=== PATIENT | female | born 1985 | race Caucasian/White ===

== ENCOUNTER → 2019-02-16 12:44 | Outpatient (CLI) | payer MEDICAID, SELFPAY ==
--- NOTE | 2019-02-16 12:51 | US_ITS ---
STUDY: FIRST TRIMESTER OBSTETRICAL ULTRASOUND REASON FOR EXAM: Female, 33 years old. Right-sided intermittent pelvic pain. LMP: January 06, 2019. TECHNIQUE: Transvaginal TECHNICAL QUALITY: Adequate. PRIOR ULTRASOUND: None. FINDINGS: There is visualization of a single gestational sac in a normal intrauterine position. The mean sac diameter (MSD) measures 1.03 cm, indicating an estimated gestational age (EGA) of 5 weeks, 5 days. The gestational sac shape is within normal limits. There is a visualized yolk sac. The yolk sac measures 3.5 mm. The placenta is non-visualized. There is no demonstrated embryo ( pole). The estimated gestation age (EGA) by LMP is 5 weeks, 6 days. The estimated date of delivery (JENY) by LMP is October 13, 2019. The estimated gestation age (EGA) by US is 5 weeks, 5 days. The estimated date of delivery (JENY) by US is October 14, 2019. The uterus measures 9.1 cm x 7 cm x 4.7 cm. There is no demonstrated uterine fibroid. The cervix is closed. The right ovary measures 2.6 cm x 2.9 cm x 1.1 cm. There is no right ovarian cyst. There is no visualized right adnexal mass or complex lesion. The left ovary measures 3 cm x 3.3 cm x 3 cm.. A dominant cyst is seen in the left ovary measuring 1.9 cm x 1.9 cm x 1.6 cm. This may represent a corpus luteum cyst. There is no visualized left adnexal mass or complex lesion. There is no fluid in the cul de sac. US/Transvaginal w/Preg US IMPRESSION: A uterine gestation with mean gestational age of 5 weeks and 5 days. No pole is seen. Follow-up is recommended. Findings suggestive of a left corpus luteum cyst. Electronically Signed: Ron Price, at 14:17 EDT , Service support ,
[2019-02-16 19:43] LABS: Chlamydia Trachomatis by PCR Negative (Negative); Neisserai gonorrhoeae by PCR Negative (Negative); Probe Check PASS; Sample Adequacy Control PASS; Specimen Processing Control PASS
== END ==
PROVIDERS: Referring Provider Nurse Practitioner Women's Health; Visit Provider Nurse Practitioner Women's Health
DX: A64 Unspecified sexually transmitted disease (principal)
CPT/HCPCS: 76817; 87086; 87088; 87186; 87491; 87591

== ENCOUNTER → 2019-03-15 14:14 | Outpatient (CLI) | payer MEDICAID, SELFPAY ==
[2019-03-15 13:18] VITALS: BMI 21.4
[2019-03-15 15:17] LABS: Basophil# 0.02 X10^3/uL; Basophil% 0.2 % (0-1); Eosinophil# 0.06 X10^3/uL; Eosinophils% 0.7 % (0-5); Hematocrit 35.9 % (37-47); Hemoglobin 12.4 g/dl (12.0-15.0); Lymphocyte % 31.2 % (19-41); Mean Corp Hgb Conc 34.5 g/gl (32-36); Mean Corpuscular Volume 84.1 fL (81-99); Mean Platelet Vol. 9.9 fl (6.2-12.0); Monocyte# 0.39 X10^3/uL; Monocyte% 4.9 % (0-10); Neutrophil # 5.04 X10^3/uL (2.7-7.7); Neutrophil % 62.9 % (47-70); Platelet Count 189 K/mm3 (150-450); RBC Distribution Width CV 12.7 % (11.6-14.6); RBC Distribution Width SD 38.6 fl (35.1-43.9); Red Blood Count 4.27 M/mm3 (4.2-5.4)
[2019-03-15 15:28] LABS: POSITIVE COUNT NO; POSITIVE DIFFERENTIAL NO; POSITIVE MORPHOLOGY NO
[2019-03-15 15:43] LABS: ALB/GLOB Ratio 1.2 RATIO (0.9-2.4); AST(SGOT) 13 U/L (15-37); Alanine Aminotransfer ALT/SGPT 17 U/L (13-56); Alkaline Phosphatase 55 U/L (45-117); Anion Gap 7 (5-15); BUN 12 mg/dL (7-18); BUN/Creat Ratio 20.2 RATIO (10-20); Chloride 104 mmol/L (98-107); Creatinine, Serum 0.59 mg/dL (0.55-1.02); EST Glomerular Filtration Rate 125 mL/min (>60); Est Glom Filt Rate - Afr Amer 152 mL/min (>60); Globulin 3.3 g/dL (2.2-4.2); Glucose 69 mg/dL (74-106); Potassium 3.9 mmol/L (3.5-5.1); Protein, Total 7.3 g/dL (6.4-8.2); Sodium Level 138 mmol/L (136-145)
[2019-03-15 16:36] LABS: HIV - WCH Non-Reactive (Nonreactive); Rubella IgG 21.4 IU/mL
[2019-03-15 16:55] LABS: Amphetamine Urine VISTA NEGATIVE (<1000 ng/mL); Barbiturate Urine VISTA NEGATIVE (< 200 ng/mL); Benzodiazepine Urine VISTA NEGATIVE (< 200 ng/mL); Cocaine Urine VISTA NEGATIVE (< 300 ng/mL); Ecstacy Urine VISTA NEGATIVE (< 500 ng/mL); Methadone Urine VISTA NEGATIVE (< 300 ng/mL); PCP Urine VISTA NEGATIVE (< 25 ng/mL); THC Urine VISTA POSITIVE (< 50 ng/mL); Vista UDS pH Range 7
[2019-03-17 11:07] LABS: HEPATITIS B SURFACE AG Negative (Negative)
[2019-03-18 02:51] LABS: Rapid Plasmin Reagin (RPR) NONREACTIVE (NONREACTIVE)
== END ==
PROVIDERS: Referring Provider Obstetrics & Gynecology; Visit Provider Obstetrics & Gynecology
DX: O09.90 Supervision of high risk pregnancy, unspecified, unspecified trimester (principal); F11.11 Opioid abuse, in remission; Z3A.00 Weeks of gestation of pregnancy not specified
CPT/HCPCS: 36415; 80053; 80307; 85025; 86592; 86703; 86762; 86850; 86900; 87340

== ENCOUNTER → 2019-04-12 12:11 | Outpatient (CLI) | payer MEDICAID, SELFPAY ==
[2019-04-12 11:52] VITALS: BMI 21.4
[2019-04-12 13:13] LABS: ALB/GLOB Ratio 0.9 RATIO (0.9-2.4); AST(SGOT) 20 U/L (15-37); Alanine Aminotransfer ALT/SGPT 23 U/L (13-56); Albumin, Serum 3.3 g/dL (3.2-5.0); Alkaline Phosphatase 47 U/L (45-117); Anion Gap 9 (5-15); BUN 14 mg/dL (7-18); BUN/Creat Ratio 22.5 RATIO (10-20); Calcium,Total 8.5 mg/dL (8.5-10.1); Chloride 106 mmol/L (98-107); Creatinine, Serum 0.62 mg/dL (0.55-1.02); EST Glomerular Filtration Rate 118 mL/min (>60); Est Glom Filt Rate - Afr Amer 143 mL/min (>60); Globulin 3.7 g/dL (2.2-4.2); Glucose 66 mg/dL (74-106); Sodium Level 140 mmol/L (136-145)
[2019-04-12 15:59] LABS: Protein, Urine (Random) 13.5 mg/dL (<11.9); Protein:Creat Ratio 98 mg/g CRE (0-200)
== END ==
PROVIDERS: Referring Provider Obstetrics & Gynecology; Visit Provider Obstetrics & Gynecology
DX: O16.1 Unspecified maternal hypertension, first trimester (principal); Z3A.13 13 weeks gestation of pregnancy
CPT/HCPCS: 36415; 80053; 82570; 84156

== ENCOUNTER → 2019-05-24 08:06 | Outpatient (CLI) | payer MEDICAID, SELFPAY ==
[2019-04-12 11:52] VITALS: BMI 21.4
[2019-05-13 10:53] VITALS: BMI 21.4
--- NOTE | 2019-05-24 08:09 | US_ITS ---
STUDY: SECOND AND THIRD TRIMESTER OBSTETRICAL ULTRASOUND REASON FOR EXAM: Female, 33 years old. Routine survey. LMP: January 06, 2019. TECHNIQUE: Transabdominal TECHNICAL QUALITY: Adequate. PRIOR ULTRASOUND: Comparison is made with prior ultrasound dated February 16, 2019. FINDINGS: There is a single intrauterine fetus. The fetus is in a cephalic presentation. There is demonstrated cardiac activity with a heart rate of 135 bpm. There is a normal amniotic fluid volume. The largest amniotic fluid pocket measures 3.6 cm. The amniotic fluid index (WILMA) is within normal limits. The placenta is anterior in location and is not low lying. There are Grade 1 placental changes. The cervix measures 3.9 cm in length. The adnexal regions are not visualized. BIOMETRY: BPD: 4.43 cm: 19 weeks, 3 days HC: 16.59 cm: 19 weeks, 3 days AC: 13.95 cm: 19 weeks, 3 days FL: 3.09 cm: 19 weeks, 5 days CI: 76% FL/BPD: 70% FL/HC: FL/AC: 22% HC/AC: 1.19 age by current US: 19 weeks, 4 days. JENY by current US: October 14, 2019. Estimated weight: 293 grams, +/- 43 grams, 30 %. Age by LMP: 19 weeks, 5 days. JENY by LMP: October 13, 2019. ANATOMY: Gender: Female Cranium: Normal lateral ventricles. Normal choroid plexus. Normal cerebellum. Normal cisterna magna. Normal face, nose and lips. Chest: Normal 4-chamber heart. Abdomen/Pelvis: Normal diaphragm. Normal stomach. Normal abdominal wall. Normal cord insertion. Normal 3 vessel cord. Normal kidneys. Normal bladder. Spine: Normal cervical spine. Normal thoracic spine. Normal lumbar spine. Normal sacrum. Extremities: Normal bilateral upper extremities. Normal bilateral lower extremities. US/OB Anatomy Scan IMPRESSION: Single live intrauterine gestation with a mean gestational age of 19 weeks and 4 days. Electronically Signed: Ron Price, at 12:36 EDT , Service support ,
== END ==
PROVIDERS: Referring Provider Obstetrics & Gynecology; Visit Provider Obstetrics & Gynecology
DX: O09.90 Supervision of high risk pregnancy, unspecified, unspecified trimester (principal); Z3A.00 Weeks of gestation of pregnancy not specified
CPT/HCPCS: 76805

== ENCOUNTER → 2019-06-09 16:45 | Outpatient (CLI) | payer MEDICAID, SELFPAY ==
[2019-06-09 15:26] VITALS: BMI 21.4
== END ==
PROVIDERS: Referring Provider Nurse Practitioner Women's Health; Visit Provider Nurse Practitioner Women's Health
DX: R10.2 Pelvic and perineal pain (principal)
CPT/HCPCS: 87086

== ENCOUNTER 2019-06-21 22:38 | Outpatient (CLI) | payer MEDICAID, SELFPAY ==
[2019-06-09 15:26] VITALS: BMI 21.4
[2019-06-21 23:11] VITALS: BMI 24.1
[2019-06-21 23:38] LABS: Bacteria 0 SEEN /hpf (None Seen); Mucous, Urine 0 SEEN /hpf (<or=2+)
[2019-06-21 23:39] LABS: Color, Urine Yellow (Yellow); Glucose, Dipstick Normal (Normal); Ketone-Dipstick Negative (Negative); Leukocyte Esterase-Dipstick Negative /ul (Negative); Nitrite-Dipstick Negative (Negative); Occult Blood-Urine 10 /ul (Negative); Protein-Dipstick Negative (Negative); Urine Bilirubin Dipstick Negative (Negative); Urine Clarity Clear (Clear); Urine Urobilinogen Normal (Normal)
[2019-06-21 23:49] LABS: Red Blood Cells-Urine 0-5 SEEN /hpf (0-5); Squamous Epithelial Cells - UA 0-5 SEEN /hpf (5-10); White Blood Cells 0-5 SEEN /hpf (0-5)
[2019-06-21 23:59] LABS: ROM Internal Control Test YES-OK TO RESULT pt. (Internal QC); ROM Patient Test Negative (Negative)
[2019-06-21 23:59] LABS: Protein, Urine (Random) 13.7 mg/dL (<11.9); Protein:Creat Ratio 114 mg/g CRE (0-200)
[2019-06-22] MEDS: Acetaminophen 500 MG Tablet 1000 MG PO (00:01)
--- NOTE | 2019-06-22 03:37 | OB.TRI.PN ---
Progress Notes Date of Service: 06/22/19 Progress Note: patient evaluated for vaginal pain. no cervical dilation or regular contractions, fht 150 reassuring and GA appropriate. ua and culture sent. vaginal pain in - tylenol given reassuring status dc home fu as scheduled Laboratory Studies: Laboratory Tests 06/21/19 06/21/19 06/21/19 Range/Units 23:22 23:20 23:20 Urine Color Yellow (Yellow) Urine Clarity Clear (Clear) Urine pH 6.0 (5.0 - 8.0) Ur Specific [place] 1.020 (1.002-1.030) Urine Protein Negative (Negative) mg/dl Urine Glucose (UA) Normal (Normal) mg/dl Urine Ketones Negative (Negative) mg/dl Urine Occult Blood 10 H (Negative) /ul Urine Nitrite Negative (Negative) Urine Bilirubin Negative (Negative) mg/dL Urine Urobilinogen Normal (Normal) mg/dl Ur Leukocyte Esterase Negative (Negative) /ul Urine RBC 0-5 SEEN (0-5) /hpf Urine WBC 0-5 SEEN (0-5) /hpf Ur Squamous Epith Cells 0-5 SEEN (5-10) /hpf Urine Bacteria 0 SEEN (None Seen) /hpf Urine Mucus 0 SEEN (<or=2+) /hpf U Random Total Protein 13.7 H (<11.9) mg/dL Urine Creatinine 120.00 (NO RANGE EST.) mg/dL Protein/Creatinin Ratio 114 (0-200) mg/g CRE Vag Amniotic Fld Detect Negative (Negative)
== END 2019-06-22 01:15 | disposition home or self-care (01) ==
LOC: WPOUT 23:00 → WP 23:05
PROVIDERS: Referring Provider Obstetrics & Gynecology; Visit Provider Obstetrics & Gynecology
DX: O26.90 Pregnancy related conditions, unspecified, unspecified trimester (principal); R10.2 Pelvic and perineal pain; Z3A.00 Weeks of gestation of pregnancy not specified
CPT/HCPCS: 59050; 81001; 82570; 84112; 84156; 87086; 87088; 99218; G0378

== ENCOUNTER → 2019-07-08 12:06 | Outpatient (CLI) | payer MEDICAID, SELFPAY ==
[2019-07-08 11:37] VITALS: BMI 24.1
[2019-07-08 13:16] LABS: Absolute Lymphocyte Count 1.57 X10^3/uL (0.83-4.51); Absolute Neutrophil Count 7.2 X10^3/uL (2.0-7.7); Basophil# 0.02 X10^3/uL; Basophil% 0.2 % (0-1); Eosinophil# 0.13 X10^3/uL; Eosinophils% 1.4 % (0-5); Hematocrit 35.5 % (37-47); Hemoglobin 11.8 g/dL (12.0-15.0); Lymphocyte # 1.57 X10^3/ul (4.0); Lymphocyte % 16.5 % (19-41); Mean Corp Hgb Conc 33.2 g/dL (32-36); Mean Corpuscular Hgb 29.8 pg (27.0-32.0); Mean Corpuscular Volume 89.6 fL (81-99); Monocyte% 6.3 % (0-10); NRBC Flagged by Analyzer 0 % (0-5); Neutrophil # 7.15 X10^3/uL (2.7-7.7); Neutrophil % 75.2 % (47-70); Platelet Count 205 K/mm3 (150-450); RBC Distribution Width CV 12.4 % (11.6-14.6); RBC Distribution Width SD 40.2 fl (35.1-43.9); Red Blood Count 3.96 M/mm3 (4.2-5.4); White Blood Count 9.5 K/mm3 (4.4-11.0)
[2019-07-08 13:26] LABS: Amphetamine Urine VISTA NEGATIVE (<1000 ng/mL); Barbiturate Urine VISTA NEGATIVE (< 200 ng/mL); Benzodiazepine Urine VISTA NEGATIVE (< 200 ng/mL); Cocaine Urine VISTA NEGATIVE (< 300 ng/mL); Ecstacy Urine VISTA NEGATIVE (< 500 ng/mL); Methadone Urine VISTA NEGATIVE (< 300 ng/mL); PCP Urine VISTA NEGATIVE (< 25 ng/mL); THC Urine VISTA NEGATIVE (< 50 ng/mL); Vista UDS pH Range 5
[2019-07-08 13:41] LABS: Glucose Challenge Gest 1H 50g 98 mg/dL (70-140)
== END ==
PROVIDERS: Referring Provider Obstetrics & Gynecology; Visit Provider Obstetrics & Gynecology
DX: Z34.92 Encounter for supervision of normal pregnancy, unspecified, second trimester (principal); F11.11 Opioid abuse, in remission; Z3A.26 26 weeks gestation of pregnancy
CPT/HCPCS: 36415; 80307; 82950; 85025

== ENCOUNTER → 2019-07-27 13:57 | Outpatient (CLI) | payer MEDICAID, SELFPAY ==
[2019-07-22 09:50] VITALS: BMI 24.5
[2019-07-22 10:51] VITALS: BMI 24.5
--- NOTE | 2019-07-27 13:59 | US_ITS ---
STUDY: SECOND AND THIRD TRIMESTER OBSTETRICAL ULTRASOUND REASON FOR EXAM: Female, 33 years old. Routine survey. LMP: January 06, 2019. TECHNIQUE: Transabdominal TECHNICAL QUALITY: Adequate. PRIOR ULTRASOUND: Comparison is made with prior study dated May 24, 2019. FINDINGS: There is a single intrauterine fetus. The fetus is in a breech presentation. There is demonstrated cardiac activity with a heart rate of 139 bpm. There is a normal amniotic fluid volume. The largest amniotic fluid pocket measures 4.6 cm x 7.4 cm. The amniotic fluid index (WILMA) is within normal limits. The placenta is anterior in location and is not low lying. There are Grade 0 placental changes. The cervix measures 4 cm in length. The bilateral adnexal regions are normal. BIOMETRY: BPD: 7.05 cm: 28 weeks, 3 days HC: 26.13 cm: 28 weeks, 3 days AC: 23.28 cm: 27 weeks, 5 days FL: 5.42 cm: 28 weeks, 5 days CI: 78% FL/BPD: 77% FL/HC: FL/AC: 23% HC/AC: 1.12 age by current US: 28 weeks, 3 days. JENY by current US: October 16, 2019. Estimated weight: 1175 grams, +/- 172 grams, 15 %. age by prior US: 28 weeks, 5 days. JENY by prior US: October 14, 2019. Age by LMP: 28 weeks, 6 days. JENY by LMP: October 13, 2019. US/OB Limited With Biometrics IMPRESSION: Single live intrauterine gestation with a mean gestational age of 28 weeks and 5 days. The measurements obtained today fall within the normal expected range. Electronically Signed: Ron Price, at 12:57 EDT , Service support ,
== END ==
PROVIDERS: Referring Provider Nurse Practitioner Women's Health; Visit Provider Nurse Practitioner Women's Health
DX: O99.320 Drug use complicating pregnancy, unspecified trimester (principal); F11.20 Opioid dependence, uncomplicated; Z3A.28 28 weeks gestation of pregnancy
CPT/HCPCS: 76816

== ENCOUNTER → 2019-08-24 13:22 | Outpatient (CLI) | payer MEDICAID, SELFPAY ==
[2019-07-22 10:51] VITALS: BMI 24.5
[2019-08-24 11:28] VITALS: BMI 24.5
--- NOTE | 2019-08-24 13:25 | US_ITS ---
STUDY: SECOND AND THIRD TRIMESTER OBSTETRICAL ULTRASOUND REASON FOR EXAM: Female, 33 years old growth. LMP: January 06, 2019. TECHNIQUE: Transabdominal TECHNICAL QUALITY: Adequate. PRIOR ULTRASOUND: Comparison is made with prior study dated July 27, 2019. FINDINGS: There is a single intrauterine fetus. The fetus is in a cephalic presentation. There is demonstrated cardiac activity with a heart rate of 125 bpm. There is a normal amniotic fluid volume. The largest amniotic fluid pocket measures 4.3 cm. The amniotic fluid index (WILMA) is 14.32 cm. The placenta is anterior in location and is not low lying. There are Grade 2 placental changes. The cervix measures 3.2 cm in length. The adnexal regions are not visualized. BIOMETRY: BPD: 8.35 cm: 33 weeks, 4 days HC: 30.74 cm: 34 weeks, 1 days AC: 26.53 cm: 30 weeks, 4 days FL: 6.25 cm: 32 weeks, 2 days CI: 77.2% FL/BPD: 75% FL/HC: FL/AC: 24% HC/AC: 1.16 age by current US: 33 weeks, 0 days. JENY by current US: October 12, 2019. Estimated weight: 1829 grams, +/- 274 grams, 14.3 %. age by prior US: 32 weeks, 3 days. JENY by prior US: October 16, 2019. Age by LMP: 32 weeks, 6 days. JENY by LMP: October 13, 2019. IMPRESSION: Single live intrauterine gestation with a mean gestational age of 32 weeks and 3 days. The measurements obtained today fall within the normal expected range. Electronically Signed: Ron Price, at 15:09 EDT , Service support , STUDY: OBSTETRICAL ULTRASOUND - BIOPHYSICAL PROFILE REASON FOR EXAM: Female, 33 years old abnormal NST LMP: January 06, 2019 PRIOR ULTRASOUND: None. TECHNIQUE: Transabdominal TECHNICAL QUALITY: Adequate. FINDINGS: There is a single intrauterine fetus. The fetus is in a cephalic presentation. There is demonstrated cardiac activity with a heart rate of 125 bpm. There is a normal amniotic fluid volume. The largest amniotic fluid pocket measures 4.3 cm. The amniotic fluid index (WILMA) is 14.32 cm. The placenta is anterior in location and is not low lying. There are Grade 2 placental changes. Age by LMP: 32 weeks, 6 days. JENY by LMP: August 13, 2019. age by prior US: 33 weeks, 0 days. JENY by prior US: October 12, 2019. BIOPHYSICAL PROFILE: Breathing Movements (FBM): 0 Gross Body Movements (GBM): 2 Tone (FT): 2 Amniotic Fluid Volume (AFV): 2 TOTAL SCORE: US/OB Limited With Biometrics IMPRESSION: biophysical profile of 04/30. Electronically Signed: Ron Price, at 15:11 EDT , Service support ,
[2019-08-24 14:28] LABS: Absolute Lymphocyte Count 1.61 X10^3/uL (0.83-4.51); Absolute Neutrophil Count 7.5 X10^3/uL (2.0-7.7); Basophil# 0.02 X10^3/uL; Basophil% 0.2 % (0-1); Eosinophil# 0.08 X10^3/uL; Eosinophils% 0.8 % (0-5); Hematocrit 32.8 % (37-47); Hemoglobin 10.9 g/dL (12.0-15.0); Lymphocyte # 1.61 X10^3/ul (4.0); Lymphocyte % 15.9 % (19-41); Mean Corp Hgb Conc 33.2 g/dL (32-36); Mean Corpuscular Hgb 29.3 pg (27.0-32.0); Mean Corpuscular Volume 88.2 fL (81-99); Mean Platelet Vol. 10.2 fl (6.2-12.0); Monocyte# 0.82 X10^3/uL; Monocyte% 8.1 % (0-10); NRBC Flagged by Analyzer 0 % (0-5); Neutrophil % 74.3 % (47-70); Platelet Count 190 K/mm3 (150-450); RBC Distribution Width CV 12.9 % (11.6-14.6); RBC Distribution Width SD 41.9 fl (35.1-43.9); Red Blood Count 3.72 M/mm3 (4.2-5.4); White Blood Count 10.1 K/mm3 (4.4-11.0)
[2019-08-24 14:59] LABS: ALB/GLOB Ratio 0.7 RATIO (0.9-2.4); AST(SGOT) 23 U/L (15-37); Alanine Aminotransfer ALT/SGPT 27 U/L (13-56); Albumin, Serum 2.7 g/dL (3.2-5.0); Alkaline Phosphatase 107 U/L (45-117); Anion Gap 5 (5-15); BUN 9 mg/dL (7-18); BUN/Creat Ratio 12.3 RATIO (10-20); Calcium,Total 8.6 mg/dL (8.5-10.1); Chloride 108 mmol/L (98-107); Creatinine, Serum 0.73 mg/dL (0.55-1.02); EST Glomerular Filtration Rate 98 mL/min (>60); Est Glom Filt Rate - Afr Amer 118 mL/min (>60); Globulin 3.9 g/dL (2.2-4.2); Glucose 72 mg/dL (74-106); Potassium 3.6 mmol/L (3.5-5.1); Protein, Total 6.6 g/dL (6.4-8.2); Sodium Level 139 mmol/L (136-145)
[2019-08-26 03:06] LABS: HCV Quant. RNA PCR HCV Not Detected IU/mL (.)
== END ==
PROVIDERS: Obstetrics & Gynecology; Referring Provider Nurse Practitioner Women's Health; Visit Provider Nurse Practitioner Women's Health
DX: O99.320 Drug use complicating pregnancy, unspecified trimester (principal); F11.20 Opioid dependence, uncomplicated; O28.8 Other abnormal findings on antenatal screening of mother; Z3A.00 Weeks of gestation of pregnancy not specified
CPT/HCPCS: 36415; 76816; 76818; 80053; 85025; 86850; 86870; 86900; 86901; 87522

== ENCOUNTER 2019-08-25 11:05 | Outpatient (CLI) | payer MEDICAID, SELFPAY ==
[2019-08-24 11:28] VITALS: BMI 24.5
[2019-08-25 11:24] VITALS: BMI 24.9
--- NOTE | 2019-08-25 11:34 | US_ITS ---
STUDY: OBSTETRICAL ULTRASOUND - BIOPHYSICAL PROFILE REASON FOR EXAM: Female, 33 years old. well-being. LMP: January 06, 2019. PRIOR ULTRASOUND: Comparison is made with prior examination dated August 24, 2019. TECHNIQUE: Transabdominal TECHNICAL QUALITY: Adequate. FINDINGS: There is a single intrauterine fetus. The fetus is in a cephalic presentation. There is demonstrated cardiac activity with a heart rate of 122 bpm. There is a normal amniotic fluid volume. The largest amniotic fluid pocket measures 4.5 cm. The amniotic fluid index (WILMA) is 14.9 cm. The placenta is anterior in location and is not low lying. There are Grade 2 placental changes. Age by LMP: 33 weeks, 0 days. JENY by LMP: October 13, 2019. age by prior US: 33 weeks, 1 days. JENY by prior US: October 12, 2019. Gender: Female BIOPHYSICAL PROFILE: Breathing Movements (FBM): 0 Gross Body Movements (GBM): 2 Tone (FT): 2 Amniotic Fluid Volume (AFV): 2 TOTAL SCORE: 6 / 8 US/Biophysical Prof W/O Non Stres IMPRESSION: biophysical profile of 04/30. Electronically Signed: Ron Price, at 14:01 EDT , Service support ,
--- NOTE | 2019-08-25 15:31 | OB.TRI.PN_ITS ---
Progress Notes Date of Service: 08/25/19 Progress Note: Patient presents for triage evaluation secondary to abnormal testing FHT: 140 Moderate variability reactive no decelerations category I tracing [place]: No regular contractions Assessment and plan: 8 out of 10 BPP reactive NST, reassuring maternal and status patient discharged to home to follow-up for repeat dose of steroid tomorrow. Celestone given today due to 6 out of 8 BPP yesterday and today but reactive NST. Overall 8 out of 10 planned twice weekly NSTs for the rest of the . See problem list details for additional plan information. - Problem List (1) Abnormal test Status: Acute Comment: 6 out of 8 BPP and 8 out of 10 BPP. Celestone given 10 3 and 10 4. Plan twice weekly NSTs for remainder of . Multi Select Codes - Urinary/Genital Urinary/Genital CPT Codes: 82948-06 non-stress test Interp
[2019-08-25] MEDS: Betamethasone/Betamethasone 30 MG/5 ML Vial 12 MG IM (15:34)
== END 2019-08-25 15:40 | disposition home or self-care (01) ==
LOC: WPOUT 11:18 → WP 11:23
PROVIDERS: Referring Provider Obstetrics & Gynecology; Visit Provider Obstetrics & Gynecology
DX: O35.9XX0 Maternal care for (suspected) fetal abnormality and damage, unspecified, not applicable or unspecified (principal); Z3A.00 Weeks of gestation of pregnancy not specified
CPT/HCPCS: 59025; 59050; 76819; 96372; 99218; G0378; J0702

== ENCOUNTER 2019-08-26 16:02 | Outpatient (CLI) | payer MEDICAID, SELFPAY ==
[2019-08-25 11:24] VITALS: BMI 24.9
[2019-08-26 16:22] VITALS: BMI 25.2
[2019-08-26] MEDS: Betamethasone/Betamethasone 30 MG/5 ML Vial 12 MG IM (16:31)
--- NOTE | 2019-09-14 21:33 | OB.TRI.PN ---
Progress Notes Date of Service: 08/26/19 Progress Note: celestone injection Multi Select Codes - Urinary/Genital Urinary/Genital CPT Codes: Other Procedure See Report - no charge
== END 2019-08-26 16:53 | disposition home or self-care (01) ==
LOC: WPOUT 16:03 → WP 16:04
PROVIDERS: Referring Provider Obstetrics & Gynecology; Visit Provider Obstetrics & Gynecology
DX: Z34.90 Encounter for supervision of normal pregnancy, unspecified, unspecified trimester (principal)
CPT/HCPCS: 96372; 99218; G0378; J0702

== ENCOUNTER → 2019-09-01 11:40 | Outpatient (CLI) | payer MEDICAID, SELFPAY ==
[2019-08-26 16:22] VITALS: BMI 25.2
--- NOTE | 2019-09-01 11:41 | US_ITS ---
STUDY: OBSTETRICAL ULTRASOUND - BIOPHYSICAL PROFILE REASON FOR EXAM: Female, 33 years old well-being LMP: PRIOR ULTRASOUND: None. TECHNIQUE: TECHNICAL QUALITY: Adequate. FINDINGS: There is a single intrauterine fetus. The fetus is in a cephalic presentation. There is demonstrated cardiac activity with a heart rate of 127 bpm. There is a normal amniotic fluid volume. The largest amniotic fluid pocket measures 4.17 cm. The amniotic fluid index (WILMA) is 11.13 cm. The placenta is anterior There are Grade 2 placental changes. Age by LMP: 34 weeks, 0 days. JENY by LMP: December 13, 2018. age by prior US: 33 weeks, 0 days. JENY by prior US: October 12, 2019. age by current US: weeks, days. JENY by current US: . BIOPHYSICAL PROFILE: Breathing Movements (FBM): 0 Gross Body Movements (GBM): 2 Tone (FT): 2 Amniotic Fluid Volume (AFV): 2 TOTAL SCORE: US/Biophysical Prof W/O Non Stres IMPRESSION: Viable intrauterine gestation approximately 33-34 weeks gestational age. Biophysical profile of 04/30 Electronically Signed: Davide Pretty MD at 17:57 EDT , Service support ,
== END ==
PROVIDERS: Referring Provider Nurse Practitioner Women's Health; Visit Provider Nurse Practitioner Women's Health
DX: Z36.9 Encounter for antenatal screening, unspecified (principal)
CPT/HCPCS: 76819

== ENCOUNTER 2019-09-02 11:51 | Outpatient (CLI) | payer MEDICAID, SELFPAY ==
[2019-09-02 12:11] VITALS: BMI 25.0
--- NOTE | 2019-09-14 21:38 | OB.TRI.PN ---
Progress Notes Date of Service: 09/02/19 Progress Note: Patient presents for triage evaluation secondary to abnormal testing FHT: 130 Moderate variability reactive no decelerations category I tracing [place]: no Contractions Assessment and plan: Normal testing previously done but now reassuring reactive NST, reassuring maternal and status patient discharged to home to follow-up as scheduled. See problem list details for additional plan information. - Problem List (1) Abnormal test Status: Acute Comment: 6 out of 8 BPP and 8 out of 10 BPP. Celestone given 10 3 and 10 4. Plan twice weekly NSTs for remainder of . Multi Select Codes - Urinary/Genital Urinary/Genital CPT Codes: 22037-30 non-stress test Interp
== END 2019-09-02 13:15 | disposition home or self-care (01) ==
LOC: LAB 11:54 → WP 11:57
PROVIDERS: Referring Provider Obstetrics & Gynecology; Visit Provider Obstetrics & Gynecology
DX: P09 Abnormal findings on neonatal screening (principal)
CPT/HCPCS: 59025; 59050; 99218; G0378

== ENCOUNTER → 2019-09-05 12:38 | Outpatient (CLI) | payer MEDICAID, SELFPAY ==
[2019-09-02 14:48] VITALS: BMI 25.0
--- NOTE | 2019-09-05 12:41 | US_ITS ---
STUDY: SECOND AND THIRD TRIMESTER OBSTETRICAL ULTRASOUND REASON FOR EXAM: Female, 33 years old eating. LMP: January 06, 2019. TECHNIQUE: Transabdominal and Transvaginal TECHNICAL QUALITY: Adequate. PRIOR ULTRASOUND: May 24, 2019 July 27, 2019, August 24, 2019, August 25, 2019 and September 01, 2019 FINDINGS: There is a single intrauterine fetus. The fetus is in a cephalic presentation. There is demonstrated cardiac activity with a heart rate of 120 bpm. There is a normal amniotic fluid volume. The largest amniotic fluid pocket measures 4.2 cm. The amniotic fluid index (WILMA) is 13.4 seconds cm. The placenta is anterior in location and is not low lying. There are Grade 3 placental changes. The cervix measures 3.01 cm in length. The adnexal regions are not visualized. BIOMETRY: BPD: 8.52 cm: 34 weeks, 2 days HC: 31.4 cm: 36 weeks, 1 days AC: 27.31 cm: 31 weeks, 2 days FL: 6.85 cm: 35 weeks, 1 days CI: 79.3 FL/BPD: 80.37 FL/HC: 21.80 FL/AC: 25.7 HC/AC: 1.15 age by current US: 34 weeks, 0 days. JENY by current US: October 17, 2019.. Estimated weight: 2139 grams, +/- 317 grams, 13.7 %. age by prior US: 34 weeks, 2 days. JENY by prior US: October 14, 2019.. Age by LMP: 34 weeks, 4 days. JENY by LMP: October 13, 2019.. IMPRESSION: 1. Live single intrauterine at 34 weeks, 0 days. JENY is October 17, 2019. There is adequate interval growth since prior ultrasound. 2. EFW of 2139 g. 3. WILMA of 13.46 cm. 4. Anterior grade 3 placenta. 5. Vertex presentation. Electronically Signed: Max Harp DO at 15:03 EDT Tel [phone], Service support , STUDY: OBSTETRICAL ULTRASOUND - BIOPHYSICAL PROFILE REASON FOR EXAM: Female, 33 years old well-being. Growth. LMP: January 06, 2019. PRIOR ULTRASOUND: April 24, 2019, July 27, 2019, August 24, 2019, August 25, 2019 and September 01, 2019 TECHNIQUE: Transabdominal TECHNICAL QUALITY: Adequate. FINDINGS: There is a single intrauterine fetus. The fetus is in a cephalic presentation. There is demonstrated cardiac activity with a heart rate of 120 bpm. There is a normal amniotic fluid volume. The largest amniotic fluid pocket measures 4.2 cm. The amniotic fluid index (WILMA) is 13.46 cm. The placenta is anterior in location and is not low lying. There are Grade 3 placental changes. Age by LMP: 34 weeks, 4 days. JENY by LMP: October 13, 2019.. age by prior US: 34 weeks, 3 days. JENY by prior US: October 14, 2019.. age by current US: 34 weeks, 0 days. JENY by current US: October 17, 2019. Gender: Indeterminant BIOPHYSICAL PROFILE: Breathing Movements (FBM): 2 Gross Body Movements (GBM): 2 Tone (FT): 2 Amniotic Fluid Volume (AFV): 2 TOTAL SCORE: 8 / 8 US/Biophysical Prof W/O Non Stres IMPRESSION: Normal biophysical profile of /8. Electronically Signed: Max Harp DO at 15:05 EDT Tel [phone], Service support ,
--- NOTE | 2019-09-05 12:41 | US_ITS ---
STUDY: SECOND AND THIRD TRIMESTER OBSTETRICAL ULTRASOUND REASON FOR EXAM: Female, 33 years old eating. LMP: January 06, 2019. TECHNIQUE: Transabdominal and Transvaginal TECHNICAL QUALITY: Adequate. PRIOR ULTRASOUND: May 24, 2019 July 27, 2019, August 24, 2019, August 25, 2019 and September 01, 2019 FINDINGS: There is a single intrauterine fetus. The fetus is in a cephalic presentation. There is demonstrated cardiac activity with a heart rate of 120 bpm. There is a normal amniotic fluid volume. The largest amniotic fluid pocket measures 4.2 cm. The amniotic fluid index (WILMA) is 13.4 seconds cm. The placenta is anterior in location and is not low lying. There are Grade 3 placental changes. The cervix measures 3.01 cm in length. The adnexal regions are not visualized. BIOMETRY: BPD: 8.52 cm: 34 weeks, 2 days HC: 31.4 cm: 36 weeks, 1 days AC: 27.31 cm: 31 weeks, 2 days FL: 6.85 cm: 35 weeks, 1 days CI: 79.3 FL/BPD: 80.37 FL/HC: 21.80 FL/AC: 25.7 HC/AC: 1.15 age by current US: 34 weeks, 0 days. JENY by current US: October 17, 2019.. Estimated weight: 2139 grams, +/- 317 grams, 13.7 %. age by prior US: 34 weeks, 2 days. JENY by prior US: October 14, 2019.. Age by LMP: 34 weeks, 4 days. JENY by LMP: October 13, 2019.. IMPRESSION: 1. Live single intrauterine at 34 weeks, 0 days. JENY is October 17, 2019. There is adequate interval growth since prior ultrasound. 2. EFW of 2139 g. 3. WILMA of 13.46 cm. 4. Anterior grade 3 placenta. 5. Vertex presentation. Electronically Signed: Max Harp DO at 15:03 EDT Tel [phone], Service support , STUDY: OBSTETRICAL ULTRASOUND - BIOPHYSICAL PROFILE REASON FOR EXAM: Female, 33 years old well-being. Growth. LMP: January 06, 2019. PRIOR ULTRASOUND: April 24, 2019, July 27, 2019, August 24, 2019, August 25, 2019 and September 01, 2019 TECHNIQUE: Transabdominal TECHNICAL QUALITY: Adequate. FINDINGS: There is a single intrauterine fetus. The fetus is in a cephalic presentation. There is demonstrated cardiac activity with a heart rate of 120 bpm. There is a normal amniotic fluid volume. The largest amniotic fluid pocket measures 4.2 cm. The amniotic fluid index (WILMA) is 13.46 cm. The placenta is anterior in location and is not low lying. There are Grade 3 placental changes. Age by LMP: 34 weeks, 4 days. JENY by LMP: October 13, 2019.. age by prior US: 34 weeks, 3 days. JENY by prior US: October 14, 2019.. age by current US: 34 weeks, 0 days. JENY by current US: October 17, 2019. Gender: Indeterminant BIOPHYSICAL PROFILE: Breathing Movements (FBM): 2 Gross Body Movements (GBM): 2 Tone (FT): 2 Amniotic Fluid Volume (AFV): 2 TOTAL SCORE: 8 / 8 US/OB Limited With Biometrics IMPRESSION: Normal biophysical profile of 06/30. Electronically Signed: Max Harp DO at 15:05 EDT Tel [phone], Service support ,
== END ==
PROVIDERS: Referring Provider Nurse Practitioner Women's Health; Visit Provider Nurse Practitioner Women's Health
DX: O99.320 Drug use complicating pregnancy, unspecified trimester (principal); F11.20 Opioid dependence, uncomplicated; Z3A.00 Weeks of gestation of pregnancy not specified
CPT/HCPCS: 76816; 76817; 76819

== ENCOUNTER 2019-09-14 12:30 | Outpatient (CLI) | payer MEDICAID, SELFPAY ==
[2019-09-08 10:50] VITALS: BMI 25.0
[2019-09-14 13:14] VITALS: BMI 25.3
--- NOTE | 2019-09-17 01:48 | OB.TRI.PN ---
Progress Notes Date of Service: 09/14/19 Progress Note: Patient presents for triage evaluation secondary to decreased movement FHT: 130 Moderate variability reactive no decelerations category I tracing [place]: No regular contractions Assessment and plan: Decreased movement reactive NST, reassuring maternal and status patient discharged to home to follow-up as scheduled in the office. See problem list details for additional plan information. - Problem List (1) Decreased movements, third trimester, fetus 1 Status: Acute Multi Select Codes - Urinary/Genital Urinary/Genital CPT Codes: 63698-78 non-stress test Interp
== END 2019-09-14 13:55 | disposition home or self-care (01) ==
LOC: WPOUT 12:43 → WP 12:43
PROVIDERS: Referring Provider Obstetrics & Gynecology; Visit Provider Obstetrics & Gynecology
DX: O36.8190 Decreased fetal movements, unspecified trimester, not applicable or unspecified (principal); Z3A.00 Weeks of gestation of pregnancy not specified
CPT/HCPCS: 59025; 59050; 99218; G0378

== ENCOUNTER 2019-09-21 12:11 | Outpatient (CLI) | payer MEDICAID, SELFPAY ==
[2019-09-15 11:23] VITALS: BMI 25.3
[2019-09-21 12:29] VITALS: BMI 25.0
--- NOTE | 2019-09-24 01:04 | OB.TRI.PN_ITS ---
Progress Notes Date of Service: 09/21/19 Progress Note: co some bleeding, stress at home due to daughter attempting suicide FHT: 130 Moderate variability reactive no decelerations category I tracing [place]: irregular Contractions vaginal bleeding reassuring nst dc home labor precautions kick counts - Problem List (1) Vaginal bleeding during Status: Acute Multi Select Codes - Urinary/Genital Urinary/Genital CPT Codes: 16605-45 non-stress test Interp
== END 2019-09-21 13:50 | disposition home or self-care (01) ==
PROVIDERS: Referring Provider Obstetrics & Gynecology; Visit Provider Obstetrics & Gynecology
DX: O46.90 Antepartum hemorrhage, unspecified, unspecified trimester (principal); Z3A.00 Weeks of gestation of pregnancy not specified
CPT/HCPCS: 59025; 59050; 99218; G0378

== ENCOUNTER → 2019-09-22 16:13 | Outpatient (CLI) | payer MEDICAID, SELFPAY ==
[2019-09-22 12:25] VITALS: BMI 25.0
--- NOTE | 2019-09-22 16:14 | US_ITS ---
STUDY: OBSTETRICAL ULTRASOUND - BIOPHYSICAL PROFILE REASON FOR EXAM: Female, 33 years old well being. LMP: January 06, 2019 PRIOR ULTRASOUND: Comparison is made with prior examination of 01/06/2019. TECHNIQUE: Transabdominal TECHNICAL QUALITY: Adequate. FINDINGS: There is a single intrauterine fetus. The fetus is in a cephalic presentation. There is demonstrated cardiac activity with a heart rate of 1.5 bpm. There is a normal amniotic fluid volume. The largest amniotic fluid pocket measures 4.89 cm. The amniotic fluid index (WILMA) is 15.7 cm. The placenta is There are Grade 3 placental changes. Age by LMP: 37 weeks, 0 days. JENY by LMP: October 13, 2019. age by prior US: 36 weeks, 3 days. JENY by prior US: October 17, 2019. Gender: Female BIOPHYSICAL PROFILE: Breathing Movements (FBM): 2 Gross Body Movements (GBM): 2 Tone (FT): 2 Amniotic Fluid Volume (AFV): 2 TOTAL SCORE: US/Biophysical Profile IMPRESSION: Normal biophysical profile of 06/30. Electronically Signed: Ron Price, at 13:31 EDT , Service support ,
== END ==
PROVIDERS: Referring Provider Nurse Practitioner Women's Health; Visit Provider Nurse Practitioner Women's Health
DX: O36.8190 Decreased fetal movements, unspecified trimester, not applicable or unspecified (principal); Z3A.00 Weeks of gestation of pregnancy not specified
CPT/HCPCS: 76818

== ENCOUNTER 2019-09-24 17:25 | Inpatient (IN) | payer MEDICAID, SELFPAY ==
[2019-09-22 12:25] VITALS: BMI 25.0
[2019-09-24 16:48] VITALS: BMI 25.5
[2019-09-24 17:20] LABS: Amphetamine Urine VISTA NEGATIVE (<1000 ng/mL); Barbiturate Urine VISTA NEGATIVE (< 200 ng/mL); Benzodiazepine Urine VISTA NEGATIVE (< 200 ng/mL); Cocaine Urine VISTA NEGATIVE (< 300 ng/mL); Ecstacy Urine VISTA NEGATIVE (< 500 ng/mL); Methadone Urine VISTA NEGATIVE (< 300 ng/mL); PCP Urine VISTA NEGATIVE (< 25 ng/mL); THC Urine VISTA NEGATIVE (< 50 ng/mL); Vista UDS pH Range 6
[2019-09-24 17:23] LABS: ROM Internal Control Test YES-OK TO RESULT pt. (Internal QC)
[2019-09-24 17:24] LABS: ROM Patient Test POSITIVE (Negative)
[2019-09-24] MEDS: Lactated Ringers 1,000 ML 50 ML IV (18:15)
[2019-09-24 18:34] LABS: Absolute Neutrophil Count 7.2 X10^3/uL (2.0-7.7); Basophil# 0.01 X10^3/uL; Basophil% 0.1 % (0-1); Eosinophil# 0.05 X10^3/uL; Eosinophils% 0.5 % (0-5); Hematocrit 33.8 % (37-47); Hemoglobin 11.6 g/dL (12.0-15.0); Lymphocyte % 19.2 % (19-41); Mean Corp Hgb Conc 34.3 g/dL (32-36); Mean Corpuscular Volume 87.3 fL (81-99); Mean Platelet Vol. 10.3 fl (6.2-12.0); Monocyte# 0.73 X10^3/uL; Monocyte% 7.4 % (0-10); NRBC Flagged by Analyzer 0 % (0-5); Neutrophil # 7.17 X10^3/uL (2.7-7.7); Neutrophil % 72.3 % (47-70); Platelet Count 206 K/mm3 (150-450); RBC Distribution Width CV 12.7 % (11.6-14.6); RBC Distribution Width SD 40.6 fl (35.1-43.9); Red Blood Count 3.87 M/mm3 (4.2-5.4); White Blood Count 9.9 K/mm3 (4.4-11.0)
[2019-09-24] MEDS: Oxytocin 30 units/NS 500 ml 30 UNITS/500 ML IV.SOLN IV (18:55)
[2019-09-24 18:59] LABS: ALB/GLOB Ratio 0.7 RATIO (0.9-2.4); AST(SGOT) 17 U/L (15-37); Alanine Aminotransfer ALT/SGPT 17 U/L (13-56); Albumin, Serum 2.6 g/dL (3.2-5.0); Alkaline Phosphatase 145 U/L (45-117); Anion Gap 9 (5-15); BUN 8 mg/dL (7-18); BUN/Creat Ratio 14.3 RATIO (10-20); Calcium,Total 8.6 mg/dL (8.5-10.1); Chloride 108 mmol/L (98-107); Creatinine, Serum 0.56 mg/dL (0.55-1.02); EST Glomerular Filtration Rate 133 mL/min (>60); Est Glom Filt Rate - Afr Amer 161 mL/min (>60); Estimated Creatinine Clearance 125.69 ml/min; Globulin 3.9 g/dL (2.2-4.2); Glucose 91 mg/dL (74-106); Potassium 3.5 mmol/L (3.5-5.1); Protein, Total 6.5 g/dL (6.4-8.2); Sodium Level 141 mmol/L (136-145)
--- NOTE | 2019-09-24 19:02 | HP.PCM_ITS ---
- Problem List (1) Abnormal test Status: Acute Comment: 6 out of 8 BPP and 8 out of 10 BPP. Celestone given 10 3 and 10 4. Plan twice weekly NSTs for remainder of . (2) Decreased movements, third trimester, fetus 1 Status: Acute (3) Vaginal bleeding during Status: Acute (4) Marijuana abuse Status: Acute Comment: 07/08 neg (5) Bipolar disease during Status: Acute Qualifiers: Comment: no meds, seen dr perdomo in [place] before (6) Genital herpes affecting Status: Acute Qualifiers: Comment: valtrex at delivery (7) complicated by subutex maintenance, antepartum Status: Acute Comment: sees Aries Lopezy, on 16mg daily. in recovery 3 1/2 years, MFM consult, plan growth q 4 weeks after 28 weeks and weekly NSTs after 32 weeks. (8) History of pre-eclampsia in prior , currently Status: Acute Comment: baseline labs, recommend baby asa in (9) History of IUGR (intrauterine growth retardation) and stillbirth, currently Status: Acute Comment: serial growth us in pregnancyq4 wks starting at 24 wks weekly testing starting at 32 wks. (10) Tobacco use complicating Status: Acute Qualifiers: Comment: encouraged cessation (11) Supervision of high risk , antepartum Status: Acute Comment: PRR JENY 10/13/19 girl Edward Elizabeth Dylan FOB- Dustin (not involved) (12) UTI in , antepartum Status: Acute Comment: Repeat negative (13) Eating disorder affecting , antepartum Status: Acute Comment: ensure Rx per WIC, on zofan pump (14) Rh negative state in antepartum period Status: Acute Comment: rhogam PRN and at 28 weeks (15) History of heroin abuse Status: Acute Comment: in recovery over 3 1/2 years, on buprenorphine- aries kalpana prescribes (16) PROM (premature rupture of membranes) Status: Acute History Date of Admission: 01/05/16 Final JENY: 10/13/19 Gestational age: 37 Weeks and 2 Days History of this : This is a 33 year-old, at 37w3d weeks gestational age with premature rupture membranes. Patient is having irregular contractions and loss of fluid since noon. Patient has had a complicated by hepatitis C, Subutex use, history of HSV with no active lesions, and borderline IUGR. Patient has had decreased movement for the last few weeks but has had reassuring testing. Medical History: Medical History (Last Reviewed 09/22/19 @ 12:23 by Charito Keith) Bipolar 1 disorder, depressed F31.9 Drug abuse in remission Z87.898 on subutex Surgical History: Surgical History (Last Reviewed 09/22/19 @ 12:23 by Charito Keith) History of appendectomy Z90.49 Allergies amoxicillin Allergy (Verified 09/24/19 17:08) Hives beeswax Allergy (Verified 09/24/19 17:08) Hives this allergy is to bees hydrocodone bitartrate [From Vicodin] Allergy (Verified 09/24/19 17:08) Hives doxycycline Adverse Reaction (Verified 09/24/19 17:08) Vomiting rofecoxib [From Vioxx] Adverse Reaction (Verified 09/24/19 17:08) Vomiting CONTROL Allergy (Uncoded 09/24/19 17:08) Other Home Medications: Home Medications buprenorphine HCl 8 mg sublingual tablet 8 mg SUBLINGUAL BID tab 02/16/19 aspirin 81 mg chewable tablet 81 mg PO DAILY 07/08/19 Buprenorphine HCl 4 mg SL DAILY 08/26/19 ondansetron 8 mg disintegrating tablet 8 mg PO TID PRN #60 tab 09/02/19 Smoking Status: Heavy Smoker (>10/day) Alcohol: None Number of Fetus(es): 1 NST - FHR Rate Baby A Baseline: 130 Variability:: Moderate Accelerations:: 15 x 15 Decelerations:: None NST Reactive:: Yes FHR Category:: Category I Uterine Activity:: irregular History Past Pregnancies: Past Pregnancies 3 previous term previous gbs pos in no gbs septicemia, previous IUGR, previous failed epidural Labs: Mom's Labs & Results 09/24/19 09/24/19 09/24/19 16:50 16:50 18:05 WBC RBC Hgb Hct MCV MCH MCHC RDW Std Deviation RDW Coeff of Rekha Plt Count MPV Immature Gran % (Auto) Neut % (Auto) Lymph % (Auto) Amelia % (Auto) Eos % (Auto) Baso % (Auto) Absolute Neuts (auto) Absolute Lymphs (auto) Nucleated RBC % Sodium Potassium Chloride Carbon Dioxide Anion Gap BUN Creatinine Estim Creat Clear Calc Est GFR (MDRD) Af Amer Est GFR (MDRD) Non-Af BUN/Creatinine Ratio Glucose Calcium Total Bilirubin AST ALT Alkaline Phosphatase Total Protein Albumin Globulin Albumin/Globulin Ratio Vag Amniotic Fld Detect POSITIVE H Urine Opiates Screen NEGATIVE Urine Methadone Screen NEGATIVE Ur Barbiturates Screen NEGATIVE Ur Phencyclidine Scrn NEGATIVE Ur Amphetamines Screen NEGATIVE U Methamphetamin-MDMA NEGATIVE U Benzodiazepines Scrn NEGATIVE Urine Cocaine Screen NEGATIVE U Cannabinoids Screen NEGATIVE Ur Drug Screen Comment HCV RNA Quant (PCR) Group B Strep DNA Pending Specimen Comment Pending Blood Type Antibody Screen 09/24/19 09/24/19 09/24/19 18:15 18:15 18:15 WBC 9.9 RBC 3.87 L Hgb 11.6 L Hct 33.8 L MCV 87.3 MCH 30.0 MCHC 34.3 RDW Std Deviation 40.6 RDW Coeff of Rekha 12.7 Plt Count 206 MPV 10.3 Immature Gran % (Auto) 0.500 Neut % (Auto) 72.3 H Lymph % (Auto) 19.2 Amelia % (Auto) 7.4 Eos % (Auto) 0.5 Baso % (Auto) 0.1 Absolute Neuts (auto) 7.2 Absolute Lymphs (auto) 1.90 Nucleated RBC % 0 Sodium 141 Potassium 3.5 Chloride 108 H Carbon Dioxide 24.0 Anion Gap 9 BUN 8 Creatinine 0.56 Estim Creat Clear Calc 125.69 Est GFR (MDRD) Af Amer 161 Est GFR (MDRD) Non-Af 133 BUN/Creatinine Ratio 14.3 Glucose 91 Calcium 8.6 Total Bilirubin 0.50 AST 17 ALT 17 Alkaline Phosphatase 145 H Total Protein 6.5 Albumin 2.6 L Globulin 3.9 Albumin/Globulin Ratio 0.7 L Vag Amniotic Fld Detect Urine Opiates Screen Urine Methadone Screen Ur Barbiturates Screen Ur Phencyclidine Scrn Ur Amphetamines Screen U Methamphetamin-MDMA U Benzodiazepines Scrn Urine Cocaine Screen U Cannabinoids Screen Ur Drug Screen Comment HCV RNA Quant (PCR) Pending Group B Strep DNA Specimen Comment Blood Type Antibody Screen 09/24/19 18:15 WBC RBC Hgb Hct MCV MCH MCHC RDW Std Deviation RDW Coeff of Rekha Plt Count MPV Immature Gran % (Auto) Neut % (Auto) Lymph % (Auto) Amelia % (Auto) Eos % (Auto) Baso % (Auto) Absolute Neuts (auto) Absolute Lymphs (auto) Nucleated RBC % Sodium Potassium Chloride Carbon Dioxide Anion Gap BUN Creatinine Estim Creat Clear Calc Est GFR (MDRD) Af Amer Est GFR (MDRD) Non-Af BUN/Creatinine Ratio Glucose Calcium Total Bilirubin AST ALT Alkaline Phosphatase Total Protein Albumin Globulin Albumin/Globulin Ratio Vag Amniotic Fld Detect Urine Opiates Screen Urine Methadone Screen Ur Barbiturates Screen Ur Phencyclidine Scrn Ur Amphetamines Screen U Methamphetamin-MDMA U Benzodiazepines Scrn Urine Cocaine Screen U Cannabinoids Screen Ur Drug Screen Comment HCV RNA Quant (PCR) Group B Strep DNA Specimen Comment Blood Type Pending Antibody Screen Pending Social History Alleged father Ion Sarmiento Smoking Yes Smoking Status Heavy Smoker (>10/day) Expected Delivery Method: Spontaneous Vaginal Review of Systems Constitutional: Denies: Fever, Malaise Eyes: Denies: Blurred vision, Vision Change HEENT: Denies: Head Aches, Visual Changes Cardiovascular: Denies: Chest Pain, Palpitations Respiratory: Denies: Cough, Shortness of Breath, Wheezing Gastrointestinal: Denies: Abdominal Pain, Diarrhea, Nausea, Vomiting Genitourinary: Denies: Dysuria, Hematuria Musculoskeletal: Denies: Joint Pain, Muscle pain Skin: Denies: Lesions, Rash Neurological: Denies: Blurred vision, Focal weakness, Headaches Psychiatric: Denies: Anxiety, Depression Endocrine: Denies: Heat/ Cold Intolerance Hematologic/ Lymphatic: Denies: Easy Bruising, Easy Bleeding Physical Exam General: Alert, Cooperative, No apparent distress HEENT: Atraumatic, Normocephalic. Negative for: Thyromegaly, Lymphadenopathy Cardiovascular: Regular rate Lungs: Normal air movement Abdomen: Soft, Non Tender, Gravid Neurological: Deep Tendon Reflexes 2+/4 and Symmetrical, Neuro grossly intact. Negative for: Clonus [employer] AP[employer]ENTICE: Normal external genitalia. Negative for: Vulvar lesions Estimated gestational size: Appropriate for gestational size Presentation: Cephalic Cervix Dilation (cm): 2 Assessment/Plan All Active Problems (Last Reviewed 09/22/19 @ 12:23 by Charito Keith) Abnormal test (Acute) Decreased movements, third trimester, fetus 1 (Acute) Vaginal bleeding during (Acute) PROM (premature rupture of membranes) (Acute) Marijuana abuse (Acute) Bipolar disease during (Acute) Genital herpes affecting (Acute) complicated by subutex maintenance, antepartum (Acute) History of pre-eclampsia in prior , currently (Acute) History of IUGR (intrauterine growth retardation) and stillbirth, currently (Acute) Tobacco use complicating (Acute) Supervision of high risk , antepartum (Acute) UTI in , antepartum (Acute) Eating disorder affecting , antepartum (Acute) Rh negative state in antepartum period (Acute) History of heroin abuse (Acute) Carpal tunnel syndrome (Resolved) Tendonitis (Resolved) This is a 33 year-old, at 37w3d weeks gestational age with PROM. hep c- rna level and cmp sent, last undetectable. limit invasive monitoring if possible hsv- no active lesions gbs unknown - previous pos in other pregnancies will treat with ancef pit for IOL due to PROM epi PRN continue subutex- tox screen negative, will inform peds to evaluate after delivery
[2019-09-24 19:23] LABS: Group B Strep DNA By PCR Negative (Negative); Internal Control PASS; Probe Check PASS; Specimen Processing Control PASS
--- NOTE | 2019-09-24 19:55 | NURSING ---
Dr Langley notified of negative gbs result. Dr Langley orders ancef 1GM IV q8hrs as preventative measure with pt's hx of gbs+ in prior and Subutex ordered as pt takes at home. Home subutex sent to pharmacy for verification.
[2019-09-24] MEDS: Cefazolin 1 GM/50 ML BAG IV (20:23)
[2019-09-24 20:41] LABS: BUP Internal Control LINE = VALID (VALID)
[2019-09-24 20:42] LABS: Buprenorphine Drug Screen Positive (<10 ng/mL)
[2019-09-24] MEDS: Lactated Ringers 500 ML 999 ML IV (23:05)
[2019-09-24] MEDS: Ondansetron 4 MG/2 ML Vial IV (23:09)
[2019-09-25] MEDS: fentaNYL-bupivacaine (epidural) 100 ML BAG EPIDURAL (00:33)
[2019-09-25] MEDS: Lactated Ringers 1,000 ML 999 ML IV (00:37)
[2019-09-25] MEDS: Oxytocin 30 units/NS 500 ml 30 UNITS/500 ML IV.SOLN 334 UNITS IV (02:54)
--- NOTE | 2019-09-25 03:51 | OP.PCM_ITS ---
Problem List (1) Abnormal test Status: Acute Comment: 6 out of 8 BPP and 8 out of 10 BPP. Celestone given 10 3 and 10 4. Plan twice weekly NSTs for remainder of . (2) Decreased movements, third trimester, fetus 1 Status: Acute (3) Vaginal bleeding during Status: Acute (4) Marijuana abuse Status: Acute Comment: 07/08 neg (5) Bipolar disease during Status: Acute Qualifiers: Comment: no meds, seen dr perdomo in [place] before (6) Genital herpes affecting Status: Acute Qualifiers: Comment: valtrex at delivery (7) complicated by subutex maintenance, antepartum Status: Acute Comment: sees New Kalpana, on 16mg daily. in recovery 3 1/2 years, MFM consult, plan growth q 4 weeks after 28 weeks and weekly NSTs after 32 weeks. (8) History of pre-eclampsia in prior , currently Status: Acute Comment: baseline labs, recommend baby asa in (9) History of IUGR (intrauterine growth retardation) and stillbirth, currently Status: Acute Comment: serial growth us in pregnancyq4 wks starting at 24 wks weekly testing starting at 32 wks. (10) Tobacco use complicating Status: Acute Qualifiers: Comment: encouraged cessation (11) Supervision of high risk , antepartum Status: Acute Comment: PRR JENY 10/13/19 girl Edward Elizabeth Dylan FOB- Dustin (not involved) (12) UTI in , antepartum Status: Acute Comment: Repeat negative (13) Eating disorder affecting , antepartum Status: Acute Comment: ensure Rx per WIC, on zofan pump (14) Rh negative state in antepartum period Status: Acute Comment: rhogam PRN and at 28 weeks (15) History of heroin abuse Status: Acute Comment: in recovery over 3 1/2 years, on buprenorphine- new kalpana prescribes (16) PROM (premature rupture of membranes) Status: Acute Vaginal Delivery Maternal Presentation: Active Labor, Spontaneous Rupture of Membranes 33-year-old at 37 weeks 3 days presents in active labor with rupture of membranes. Patient has had clear loss of fluid for the last 6 to 7 hours and has may change a 4 cm but still is having intermittent contractions. Patient has had a comp gated by Subutex use but has been stable and doing well. Emotionally she has had some family issues with her daughter attempting suicide last week and she has been trying to cope with this. She has a good family support but the father the baby is not involved. Method of Induction: Pitocin Amniotic Membrane Rupture Type: Spontaneous at home Amniotic Fluid Description: Clear Final JENY: 10/13/19 Gestational age: 37 Weeks and 3 Days Date of Procedure: 09/25/19 Pre-Operative Diagnosis: Spontaneous rupture membranes Post-Operative Diagnosis: Same Surgery/ Procedure Performed: Spontaneous Vaginal Delivery Type of Anesthesia: Epidural Description of Procedure: Patient began pushing and delivered the head in the AKILA presentation. The head was delivered atraumatically. The anterior and posterior shoulders delivered without complication followed by the rest of the infant and the was placed on the maternal abdomen. Delayed cord clamping was employed for approximately 60 seconds. Cord was clamped and cut and gentle traction was applied to the cord and the placenta delivered spontaneously immediately following it was noted to be intact with three-vessel cord. The perineum and vagina were inspected and noted to have no laceration. EBL was 50 cc. Patient and tolerated delivery well. Presentation: AKILA Placental Delivery Description: Spontaneous Placenta Disposition: [facility] Cord Vessel Description: 3 Vessels Cord Entanglement: None Estimated Blood Loss: 50 A gender: Female Episiotomy Description: None Laceration: None Medications given after delivery: IV Pitocin Complications: None Multi Select Codes - Urinary/Genital Urinary/Genital CPT Codes: 35352 Vaginal Delivery+ Care([facility])
[2019-09-25] MEDS: Naproxen 250 MG Tablet 500 MG PO ×2 (06:22→15:49)
[2019-09-25] MEDS: Acetaminophen 500 MG Tablet 1000 MG PO ×2 (08:22→19:58)
[2019-09-25 08:25] VITALS: BP 114/46; PULSE 67; RESP 16; TEMP 36.6
[2019-09-25] MEDS: BUPRENORPHINE HCL 8 MG TAB.SUBL SL ×2 (08:25→15:41)
[2019-09-25 12:00] VITALS: BP 108/56; PULSE 72; RESP 16; TEMP 36.5
[2019-09-25 16:45] VITALS: BP 102/47; PULSE 65; RESP 16; TEMP 36.5
[2019-09-25] MEDS: Dibucaine 30 GM Tube 1 APPLIC TOPICAL (19:57)
[2019-09-25] MEDS: BUPRENORPHINE HCL 8 MG TAB.SUBL 4 MG SL (19:59)
[2019-09-25 20:00] VITALS: BP 104/48; PULSE 80; RESP 18; TEMP 36.2
[2019-09-26 00:40] VITALS: BP 115/42; PULSE 59; RESP 18; TEMP 36.5
[2019-09-26] MEDS: Naproxen 250 MG Tablet 500 MG PO ×2 (00:53→21:47)
--- NOTE | 2019-09-26 07:26 | PCM.PN.OB ---
Patient Problems: Active and Suspected Problems (Last Reviewed 09/22/19 @ 12:23 by Charito Keith) PROM (premature rupture of membranes) (Acute) Subjective: doing well no complaints pain controlled no CP SOB N V ambulating well tolerating po lochia moderate, going well - Physical Exam Vitals/I&O's: Vital Signs Temp Pulse Resp BP 97.7 F L 59 L 18 115/42 L 09/26/19 00:40 09/26/19 00:40 09/26/19 00:40 09/26/19 00:40 Oxygen Delivery Method Room Air Weight: 149 lb Body Mass Index (BMI) 25.5 Intake and Output for Last 24 Hours 09/25/19 09/25/19 09/26/19 00:59 23:59 23:59 Intake Total Output Total Balance General: Alert, Oriented x3 Abdomen: Non Tender, Non-Distended, - - FF below U Current Medications Acetaminophen (Tylenol) 1,000 mg PO Q8H PRN PRN PRN Reason: Pain Score 1-310 Last Admin: 09/25/19 19:58 Dose: 1,000 mg Documented by: Bisacodyl (Dulcolax) 10 mg RECTAL UD PRN PRN Reason: If no BM Buprenorphine HCl (Buprenorphine Hcl) 4 mg SL DAILY@2100 ALBERTO Last Admin: 09/25/19 19:59 Dose: 4 mg Documented by: Buprenorphine HCl (Buprenorphine Hcl) 8 mg SL BID@0900,1700 ALBERTO Last Admin: 09/25/19 15:41 Dose: 8 mg Documented by: Dibucaine (Dibucaine) 1 applic TOPICAL TID PRN PRN; Protocol PRN Reason: Discomfort Last Admin: 09/25/19 19:57 Dose: 1 unit Documented by: Hydrocortisone (Hytone) 1 applic TOPICAL TID PRN PRN; Protocol PRN Reason: Discomfort Methylergonovine Maleate (Methergine) 0.2 mg IM X1 PRN PRN Reason: Excess bleeding/uterine atony Naproxen (Naprosyn) 500 mg PO Q8H PRN PRN PRN Reason: Pain Score 1-3/10 Last Admin: 09/26/19 00:53 Dose: 500 mg Documented by: Ondansetron HCl (Zofran) 4 mg IV Q4H PRN PRN PRN Reason: Nausea Oxycodone HCl (Oxyir) 5 - 10 mg PO Q4H PRN PRN PRN Reason: Pain Score 4-10/10 Senna/Docusate Sodium (Senokot-S, Delaney-Colace) 1 - 2 tablet PO DAILY PRN PRN PRN Reason: Constipation Simethicone (Mylicon) 80 mg PO PCHS PRN PRN Reason: Indigestion/Stomach pain Sodium Chloride () 5 - 15 ml IV UD PRN PRN Reason: SALINE FLUSH Medical Necessity - Tobacco Use Smoking Status: Heavy Smoker (>10/day) Assessment/Plan All Active Problems (Last Reviewed 09/22/19 @ 12:23 by Charito Keith) Abnormal test (Acute) Decreased movements, third trimester, fetus 1 (Acute) Vaginal bleeding during (Acute) PROM (premature rupture of membranes) (Acute) Marijuana abuse (Acute) Bipolar disease during (Acute) Genital herpes affecting (Acute) complicated by subutex maintenance, antepartum (Acute) History of pre-eclampsia in prior , currently (Acute) History of IUGR (intrauterine growth retardation) and stillbirth, currently (Acute) Tobacco use complicating (Acute) Supervision of high risk , antepartum (Acute) UTI in , antepartum (Acute) Eating disorder affecting , antepartum (Acute) Rh negative state in antepartum period (Acute) History of heroin abuse (Acute) Carpal tunnel syndrome (Resolved) Tendonitis (Resolved) s/p PPD # 1 1. routine post delivery care 2. breast feeding- support given 3. rh negative 4. rubella immune 5. will continue subutex as ordered per Dr. Langley. Patient states she is stable and feeling well at this point.
[2019-09-26 08:00] VITALS: BP 98/57; PULSE 60; RESP 14; TEMP 36.7
[2019-09-26] MEDS: Acetaminophen 500 MG Tablet 1000 MG PO (08:25)
[2019-09-26] MEDS: Senna/Docusate Sodium 1 Tablet PO (08:27)
--- NOTE | 2019-09-26 08:42 | NURSING ---
Patient's mother is refilling her weekly Subutex prescription this morning. Pharmacy opens in [place] at 9am. Patient's morning dose of Subutex will be delayed due to this reason.
[2019-09-26] MEDS: oxyCODONE 5 MG Tablet PO (10:04)
[2019-09-26] MEDS: BUPRENORPHINE HCL 8 MG TAB.SUBL SL ×2 (12:41→17:07)
[2019-09-26 14:56] VITALS: BP 105/42; PULSE 60; RESP 18; TEMP 36.4
--- NOTE | 2019-09-26 18:01 | NURSING ---
Pain management plan discussed with provider. Patient aware of plan. No changes made to plan of care at this time.
[2019-09-26 20:10] VITALS: BP 105/49; PULSE 63; RESP 18; TEMP 36.9
[2019-09-26] MEDS: BUPRENORPHINE HCL 8 MG TAB.SUBL 4 MG SL (20:22)
[2019-09-27] MEDS: oxyCODONE 5 MG Tablet PO (00:37)
[2019-09-27 02:00] VITALS: BP 109/44; PULSE 70; RESP 18; TEMP 37.2
--- NOTE | 2019-09-27 07:54 | PCM.PN.OB ---
Patient Problems: Active and Suspected Problems (Last Reviewed 09/22/19 @ 12:23 by Charito Keith) PROM (premature rupture of membranes) (Acute) Subjective: doing well no CP SOB N V ambulating well tolerating po lochia moderate, going well Some discomfort to perineum. - Physical Exam Vitals/I&O's: Vital Signs Temp Pulse Resp BP 98.9 F 70 18 109/44 L 09/27/19 02:00 09/27/19 02:00 09/27/19 02:00 09/27/19 02:00 Oxygen Delivery Method Room Air Weight: 149 lb Body Mass Index (BMI) 25.5 Intake and Output for Last 24 Hours 09/25/19 09/26/19 09/27/19 23:59 23:59 23:59 Intake Total Output Total Balance General: Alert, Oriented x3 Abdomen: Soft, Non Tender, Non-Distended, - - FF below U Current Medications Acetaminophen (Tylenol) 1,000 mg PO Q8H PRN PRN PRN Reason: Pain Score 1-3 Last Admin: 09/26/19 08:25 Dose: 1,000 mg Documented by: Bisacodyl (Dulcolax) 10 mg RECTAL UD PRN PRN Reason: If no BM Buprenorphine HCl (Buprenorphine Hcl) 4 mg SL DAILY@2100 ALBERTO Last Admin: 09/26/19 20:22 Dose: 4 mg Documented by: Buprenorphine HCl (Buprenorphine Hcl) 8 mg SL BID@0900,1700 ALBERTO Last Admin: 09/26/19 17:07 Dose: 8 mg Documented by: Dibucaine (Dibucaine) 1 applic TOPICAL TID PRN PRN; Protocol PRN Reason: Discomfort Last Admin: 09/25/19 19:57 Dose: 1 unit Documented by: Hydrocortisone (Hytone) 1 applic TOPICAL TID PRN PRN; Protocol PRN Reason: Discomfort Methylergonovine Maleate (Methergine) 0.2 mg IM X1 PRN PRN Reason: Excess bleeding/uterine atony Naproxen (Naprosyn) 500 mg PO Q8H PRN PRN PRN Reason: Pain Score 1-3/10 Last Admin: 09/26/19 21:47 Dose: 500 mg Documented by: Ondansetron HCl (Zofran) 4 mg IV Q4H PRN PRN PRN Reason: Nausea Oxycodone HCl (Oxyir) 5 - 10 mg PO Q4H PRN PRN PRN Reason: Pain Score 4-10/10 Last Admin: 09/27/19 00:37 Dose: 5 mg Documented by: Senna/Docusate Sodium (Senokot-S, Delaney-Colace) 1 - 2 tablet PO DAILY PRN PRN PRN Reason: Constipation Last Admin: 09/26/19 08:27 Dose: 2 tablet Documented by: Simethicone (Mylicon) 80 mg PO PCHS PRN PRN Reason: Indigestion/Stomach pain Sodium Chloride () 5 - 15 ml IV UD PRN PRN Reason: SALINE FLUSH Medical Necessity - Tobacco Use Smoking Status: Heavy Smoker (>10/day) Assessment/Plan All Active Problems (Last Reviewed 09/22/19 @ 12:23 by Charito Keith) Abnormal test (Acute) Decreased movements, third trimester, fetus 1 (Acute) Vaginal bleeding during (Acute) PROM (premature rupture of membranes) (Acute) Marijuana abuse (Acute) Bipolar disease during (Acute) Genital herpes affecting (Acute) complicated by subutex maintenance, antepartum (Acute) History of pre-eclampsia in prior , currently (Acute) History of IUGR (intrauterine growth retardation) and stillbirth, currently (Acute) Tobacco use complicating (Acute) Supervision of high risk , antepartum (Acute) UTI in , antepartum (Acute) Eating disorder affecting , antepartum (Acute) Rh negative state in antepartum period (Acute) History of heroin abuse (Acute) Carpal tunnel syndrome (Resolved) Tendonitis (Resolved) s/p PPD # 2 1. routine post delivery care 2. breast feeding- support given 3. rh negative 4. rubella immune 5. Reviewed pain control for perineum, ice packs encouraged. 6. Discharge to hotel:infant with subutex withdrawal.
--- NOTE | 2019-09-27 07:58 | DCINST_ITS ---
Additional Instructions: If you experience any of the following, contact your healthcare provider. * Bleeding that soaks a pad every hour for 2 hours * Fever 100.4 or higher * Unrelieved incision or abdominal pain * Swelling, redness, discharge or bleeding from your incision or episiotomy site * Your incision begins to separate * Problems urinating (including inability to urinate or burning while urinating). * Visual changes * Severe headache * Flu-like symptoms * Pain or redness in one of both of your breasts * Pain, warmth, tenderness or swelling in your legs, especially the calf area * Frequent nausea and vomiting * Symptoms of depression or anxiety If you experience any of the following, call 911 or go to the nearest Emergency Room. * Chest pain * Problems breathing * Seizure activity * Partial or complete paralysis of a body part, slurred speech, weakness or drooping of the face, or a sudden inability to walk or hold your balance Allergies/Adverse Reactions: Allergies amoxicillin Allergy (Verified 09/24/19 17:08) Hives beeswax Allergy (Verified 09/24/19 17:08) Hives this allergy is to bees hydrocodone bitartrate [From Vicodin] Allergy (Verified 09/24/19 17:08) Hives doxycycline Adverse Reaction (Verified 09/24/19 17:08) Vomiting rofecoxib [From Vioxx] Adverse Reaction (Verified 09/24/19 17:08) Vomiting CONTROL Allergy (Uncoded 09/24/19 17:08) Other Medications to take at Discharge buprenorphine HCl 8 mg sublingual tablet 8 mg SUBLINGUAL BID tab 02/16/19 aspirin 81 mg chewable tablet 81 mg PO DAILY 07/08/19 Buprenorphine HCl 4 mg SL DAILY 08/26/19 ondansetron 8 mg disintegrating tablet 8 mg PO TID PRN #60 tab 09/02/19 Primary Care Physician: Care Physician,No Primary [Primary Care Provider] - Test Results: Test results from this visit will be discussed in further detail at your follow- up appointment, if applicable.
--- NOTE | 2019-09-27 07:58 | PCM.DCVAG ---
Additional Instructions: If you experience any of the following, contact your healthcare provider. Bleeding that soaks a pad every hour for 2 hours Fever 100.4 or higher Unrelieved incision or abdominal pain Swelling, redness, discharge or bleeding from your incision or episiotomy site Your incision begins to separate Problems urinating (including inability to urinate or burning while urinating). Visual changes Severe headache Flu-like symptoms Pain or redness in one of both of your breasts Pain, warmth, tenderness or swelling in your legs, especially the calf area Frequent nausea and vomiting Symptoms of depression or anxiety If you experience any of the following, call 911 or go to the nearest Emergency Room. Chest pain Problems breathing Seizure activity Partial or complete paralysis of a body part, slurred speech, weakness or drooping of the face, or a sudden inability to walk or hold your balance Allergies/Adverse Reactions: Allergies amoxicillin Allergy (Verified 09/24/19 17:08) Hives beeswax Allergy (Verified 09/24/19 17:08) Hives this allergy is to bees hydrocodone bitartrate [From Vicodin] Allergy (Verified 09/24/19 17:08) Hives doxycycline Adverse Reaction (Verified 09/24/19 17:08) Vomiting rofecoxib [From Vioxx] Adverse Reaction (Verified 09/24/19 17:08) Vomiting CONTROL Allergy (Uncoded 09/24/19 17:08) Other Medications to take at Discharge buprenorphine HCl 8 mg sublingual tablet 8 mg SUBLINGUAL BID tab 02/16/19 aspirin 81 mg chewable tablet 81 mg PO DAILY 07/08/19 Buprenorphine HCl 4 mg SL DAILY 08/26/19 ondansetron 8 mg disintegrating tablet 8 mg PO TID PRN #60 tab 09/02/19 Primary Care Physician: Care Physician,No Primary [Primary Care Provider] - Test Results: Test results from this visit will be discussed in further detail at your follow-up appointment, if applicable.
[2019-09-27 08:55] VITALS: BP 112/63; PULSE 65; RESP 18; TEMP 36.6
[2019-09-27] MEDS: BUPRENORPHINE HCL 8 MG TAB.SUBL SL ×2 (09:02→14:39)
[2019-09-27] MEDS: Senna/Docusate Sodium 1 Tablet PO (09:18)
[2019-09-27 14:45] VITALS: BP 107/67; PULSE 67; RESP 18; TEMP 36.7
[2019-09-28 00:12] LABS: HCV Quant. RNA PCR HCV Not Detected IU/mL (.)
== END 2019-09-27 18:40 | disposition home or self-care (01) | DRG 560 ==
LOC: WPOUT 17:26
PROVIDERS: Admitting Provider Obstetrics & Gynecology; Visit Provider Obstetrics & Gynecology
DX: O42.92 Full-term premature rupture of membranes, unspecified as to length of time between rupture and onset of labor (principal); O36.8130 Decreased fetal movements, third trimester, not applicable or unspecified; O46.93 Antepartum hemorrhage, unspecified, third trimester; A60.00 Herpesviral infection of urogenital system, unspecified; O98.32 Other infections with a predominantly sexual mode of transmission complicating childbirth; O99.334 Smoking (tobacco) complicating childbirth; F17.200 Nicotine dependence, unspecified, uncomplicated; Z67.91 Unspecified blood type, Rh negative; Z79.82 Long term (current) use of aspirin; Z3A.37 37 weeks gestation of pregnancy; Z37.0 Single live birth
CPT/HCPCS: 59025; 59050; 80053; 80307; 84112; 85025; 86850; 86870; 86900; 86901; 87081; 87522; 87653; 99218; J7120; G0378; J2405

== ENCOUNTER 2020-01-23 23:06 | Emergency (ER) | payer MEDICAID, SELFPAY ==
[2019-10-03 11:21] VITALS: BMI 25.5
[2020-01-23 23:07] VITALS: BP 121/74; PULSE 97; RESP 18; TEMP 36.5; O2SAT 98; BMI 23.1
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
[2020-01-23] MEDS: Ondansetron ODT 4 MG Tablet 8 MG PO (23:52)
[2020-01-23] MEDS: morphine 8 MG/ML Syringe IM (23:52)
--- NOTE | 2020-01-24 00:36 | ED.DEP ---
ED Disposition - Plan for ED Patient: Instructions: BURN, Hot Water Referrals: Care Physician,No Primary [Primary Care Provider] -
[2020-01-24 00:49] VITALS: BP 131/81; PULSE 99; RESP 18; O2SAT 97
== END 2020-01-24 00:49 | disposition home or self-care (01) ==
LOC: ED 23:39
PROVIDERS: Emergency Provider Emergency Medicine
DX: T20.10XA Burn of first degree of head, face, and neck, unspecified site, initial encounter (principal); T22.111A Burn of first degree of right forearm, initial encounter; X11.8XXA Contact with other hot tap-water, initial encounter; Y93.89 Activity, other specified; Y92.9 Unspecified place or not applicable; Z72.0 Tobacco use
CPT/HCPCS: 96372; 99282

== ENCOUNTER 2020-09-25 21:35 | Emergency (ER) | payer MEDICAID, SELFPAY ==
[2020-09-25 21:35] VITALS: BP 138/73; PULSE 120; RESP 18; TEMP 36.4; O2SAT 100
[2020-09-25 21:36] VITALS: BP 138/73; PULSE 114; RESP 16; TEMP 36.4; O2SAT 100; BMI 23.8
--- NOTE | 2020-09-25 22:34 | ED.VIS.GEN ---
History of Present Illness Chief Complaint: Vag Bld, Preg Informant: Patient Onset: Today Context: Sudden Onset Timing: Continuous Current Severity: Mild Maximum Severity: Moderate Narrative: The patient is at approximately 12 weeks gestation who presents to the emergency department vaginal bleeding. Patient is blood type negative. She states that she has had some bleeding that started today. She states it seemed like it was more than a period. It is since significantly slowed. She has had documented intrauterine . She denies fevers or chills. She denies any trauma. She did discuss this with her BORING AND FILLING MACHINE OPERATOR and was referred to the emergency department. Patient is otherwise been in her normal state of health. Prior similar symptoms: No Recent Illness/Hospitalization: Yes Past Medical History - Allergies and Home Meds Allergies/Adverse Reactions: Allergies amoxicillin Allergy (Verified 01/23/20 23:10) Hives beeswax Allergy (Verified 01/23/20 23:10) Hives this allergy is to bees hydrocodone bitartrate [From Vicodin] Allergy (Verified 01/23/20 23:10) Hives doxycycline Adverse Reaction (Verified 01/23/20 23:10) Vomiting rofecoxib [From Vioxx] Adverse Reaction (Verified 01/23/20 23:10) Vomiting CONTROL Allergy (Uncoded 01/23/20 23:10) Other Primary Care Physician: Care Physician,No Primary [Primary Care Provider] - Prior records reviewed: Yes Past Medical History: None Surgical History: noncontributory Smoking Status: Current every day smoker Review of Systems General: Denies: Chills, Fever, Sweats Eyes: Denies: Visual changes - bilaterally, Diplopia ENT: Denies: Rhinorrhea, Sore throat Cardiovascular: Denies: Chest pain, Palpitations Respiratory: Denies: Dyspnea, Cough, Dyspnea on exertion Gastrointestinal: Denies: Abdominal pain, Nausea, Vomiting, Diarrhea, Melena, Hematochezia Genitourinary: Denies: Dysuria, Hematuria, Frequency Musculoskeletal: Denies: Back pain, Extremity Pain Skin: Denies: Rash, Wounds Neurological: Denies: Headache, Weakness, Numbness Physical Exam Vital Signs/Narrative: Vital Signs Temp Pulse Resp BP Pulse Ox 09/25/20 21:36 97.5 F L 114 H 16 138/73 H 100 09/25/20 21:35 97.5 F L 120 H 18 138/73 H 100 Inital Vital Signs reviewed: Yes General: Well nourished, Well developed, No Acute Distress Head: Normocephalic, Atraumatic Eyes: Perrl, EOMI ENT: Moist mucous membranes, No rhinorrhea Neck: Supple, Nontender Cardiovascular: Regular rate, Regular rhythm, No murmurs Respiratory: No distress, CTA bilaterally, Chest nontender Abdomen: Soft, Nontender, Nondistended, Normal bowel sounds Back: Nontender, Normal Inspection Extremities: Nontender, No edema Skin: Normal color, No rash Neurological: Alert, Oriented x3, Cranial nerves II-XII grossly intact, Normal Strength, Normal Sensation Psychological: Normal affect, Normal Mood Diagnostic/Tx/Re-eval - Medical Decision Making Abdomen soft and nontender. Uterus was gravid. Bedside ultrasound was performed. The patient has single live intrauterine . There is good fluid. heart rates are 140s and reactive. There does appear to be a small component of subchorionic hemorrhage. I did professor of counseling the patient that any bleeding early in is concerning for miscarriage. I did discuss this with Dr. Polina Botello, on-call for BORING AND FILLING MACHINE OPERATOR. The patient be given RhoGam. She is going to follow-up in the office tomorrow. Impression 1. Vaginal bleeding in 2. Threatened ED Disposition - Plan for ED Patient: Instructions: ED Possible Miscarriage Threatened Referrals: Richelle Delgado DO [STAFF PHYSICIAN] - 1 Day
[2020-09-25 22:35] LABS: Absolute Lymphocyte Count 1.97 X10^3/uL (0.83-4.51); Absolute Neutrophil Count 7.9 X10^3/uL (2.0-7.7); Basophil# 0.02 X10^3/uL; Basophil% 0.2 % (0-1); Eosinophil# 0.04 X10^3/uL; Eosinophils% 0.4 % (0-5); Hematocrit 37.9 % (37-47); Hemoglobin 12.7 g/dL (12.0-15.0); Lymphocyte # 1.97 X10^3/ul (4.0); Lymphocyte % 18.9 % (19-41); Mean Corp Hgb Conc 33.5 g/dL (32-36); Mean Corpuscular Hgb 28.6 pg (27.0-32.0); Mean Corpuscular Volume 85.4 fL (81-99); Monocyte# 0.49 X10^3/uL; Monocyte% 4.7 % (0-10); NRBC Flagged by Analyzer 0 % (0-5); Neutrophil # 7.85 X10^3/uL (2.7-7.7); Neutrophil % 75.3 % (47-70); Platelet Count 243 K/mm3 (150-450); RBC Distribution Width CV 12.5 % (11.6-14.6); RBC Distribution Width SD 38.5 fl (35.1-43.9); Red Blood Count 4.44 M/mm3 (4.2-5.4); White Blood Count 10.4 K/mm3 (4.4-11.0)
[2020-09-25] MEDS: 0.9% Normal Saline 1,000 ML 1000 ML IV (22:49)
[2020-09-25 23:10] LABS: hCG Titer Quant., Serum 28440 mIU/mL (1-3)
[2020-09-26 00:08] VITALS: BP 112/58; PULSE 68; RESP 16; O2SAT 100
== END 2020-09-26 00:11 | disposition home or self-care (01) ==
PROVIDERS: Emergency Provider Emergency Medicine
DX: O20.0 Threatened abortion (principal); O99.331 Smoking (tobacco) complicating pregnancy, first trimester; F17.200 Nicotine dependence, unspecified, uncomplicated; Z3A.12 12 weeks gestation of pregnancy
CPT/HCPCS: 84702; 85025; 86900; 86901; 90384; 96360; 96372; 99283; A4216; J2790

== ENCOUNTER 2021-02-09 03:45 | Outpatient (CLI) | payer MEDICAID, SELFPAY ==
[2021-02-09] VITALS (42 sets, daily range): BP systolic 103–123; BP diastolic 53–74; PULSE 54–90; TEMP 37–37.3; O2SAT 81–100; BMI 26.4
[2021-02-09 04:57] LABS: Bacteria 0 SEEN /hpf (None Seen); Mucous, Urine 0 SEEN /hpf (<or=2+); Red Blood Cells-Urine 0 SEEN /hpf (0-5)
[2021-02-09 04:58] LABS: Color, Urine Yellow (Yellow); Glucose, Dipstick Normal (Normal); Ketone-Dipstick Negative (Negative); Leukocyte Esterase-Dipstick Negative /ul (Negative); Nitrite-Dipstick Negative (Negative); Occult Blood-Urine 10 /ul (Negative); Protein-Dipstick Negative (Negative); Urine Bilirubin Dipstick Negative (Negative); Urine Clarity Clear (Clear); Urine Urobilinogen Normal (Normal)
[2021-02-09 05:04] LABS: Squamous Epithelial Cells - UA 0-5 SEEN /hpf (5-10); White Blood Cells 0-5 SEEN /hpf (0-5)
[2021-02-09 05:09] LABS: Amphetamine Urine VISTA NEGATIVE (<1000 ng/mL); Barbiturate Urine VISTA NEGATIVE (< 200 ng/mL); Benzodiazepine Urine VISTA NEGATIVE (< 200 ng/mL); Cocaine Urine VISTA NEGATIVE (< 300 ng/mL); Ecstacy Urine VISTA NEGATIVE (< 500 ng/mL); Methadone Urine VISTA NEGATIVE (< 300 ng/mL); PCP Urine VISTA NEGATIVE (< 25 ng/mL); THC Urine VISTA NEGATIVE (< 50 ng/mL); Vista UDS pH Range 7
[2021-02-09 05:10] LABS: BUP Internal Control LINE = VALID (VALID); Buprenorphine Drug Screen Positive (<10 ng/mL)
[2021-02-09 05:16] LABS: Absolute Lymphocyte Count 2.25 X10^3/uL (0.83-4.51); Absolute Neutrophil Count 7.6 X10^3/uL (2.0-7.7); Basophil# 0.04 X10^3/uL; Basophil% 0.4 % (0-1); Eosinophil# 0.07 X10^3/uL; Eosinophils% 0.6 % (0-5); Hematocrit 31.3 % (37-47); Hemoglobin 10.9 g/dL (12.0-15.0); Lymphocyte # 2.25 X10^3/ul (4.0); Lymphocyte % 20.9 % (19-41); Mean Corp Hgb Conc 34.8 g/dL (32-36); Mean Corpuscular Hgb 30.3 pg (27.0-32.0); Mean Corpuscular Volume 86.9 fL (81-99); Mean Platelet Vol. 10.6 fl (6.2-12.0); Monocyte# 0.71 X10^3/uL; Monocyte% 6.6 % (0-10); NRBC Flagged by Analyzer 0 % (0-5); Neutrophil # 7.64 X10^3/uL (2.7-7.7); Neutrophil % 70.8 % (47-70); Platelet Count 190 K/mm3 (150-450); RBC Distribution Width CV 12.5 % (11.6-14.6); RBC Distribution Width SD 39.8 fl (35.1-43.9); White Blood Count 10.8 K/mm3 (4.4-11.0)
--- NOTE | 2021-02-09 05:20 | HP.PCM_ITS ---
- Problem List (1) Bipolar disease during Status: Acute Qualifiers: Comment: no meds, seen dr perdomo in [place] before (2) complicated by subutex maintenance, antepartum Status: Acute Comment: sees [facility] Kalpana, on 16mg daily. in recovery 3 1/2 years, MFM consult, plan growth q 4 weeks after 28 weeks and weekly NSTs after 32 weeks. (3) Supervision of high risk , antepartum Status: Acute Comment: PRR JENY 10/13/19 girl Edward Elizabeth Dylan FOB- Dustin (not involved) (4) Eating disorder affecting , antepartum Status: Acute Comment: ensure Rx per WIC, on zofan pump (5) History of heroin abuse Status: Acute Comment: in recovery over 3 1/2 years, on buprenorphine- klaus kalpana prescribes (6) 31 weeks gestation of Status: Acute (7) History of prior with IUGR Status: Acute (8) Vaginal bleeding Status: Acute History Date of Admission: 02/09/21 Final JENY: 04/08/21 Gestational age: 31 Weeks and 5 Days History of this : This is a 35 year-old, G [7], P [4024], at 31.5 weeks gestational age that presents in triage with vaginal bleeding and cramping. Patient reports seeing bright red blood on toilet paper after wiping around midnight. Patient denies any recent intercourse. Patient reports lower back pain with irregular contractions. She is unsure if she is leaking fluid. Positive movement. Medical History: Medical History (Last Reviewed 09/22/19 @ 12:23 by Charito Keith) Bipolar 1 disorder, depressed F31.9 Drug abuse in remission Z87.898 on subutex Surgical History: Surgical History (Last Reviewed 09/22/19 @ 12:23 by Charito Keith) History of appendectomy Z90.49 Allergies amoxicillin Allergy (Verified 02/09/21 04:32) Hives beeswax Allergy (Verified 01/23/20 23:10) Hives this allergy is to bees hydrocodone bitartrate [From Vicodin] Allergy (Verified 02/09/21 04:32) Itching amitriptyline Adverse Reaction (Verified 02/09/21 04:32) Other knocks me out doxycycline Adverse Reaction (Verified 02/09/21 04:32) Vomiting rofecoxib [From Vioxx] Adverse Reaction (Verified 02/09/21 04:32) Vomiting CONTROL Allergy (Uncoded 02/09/21 04:32) Other muscle problems Home Medications: Home Medications buprenorphine HCl 8 mg sublingual tablet 25 mg SUBLINGUAL DAILY tab 02/16/19 ondansetron 8 mg disintegrating tablet 8 mg PO TID PRN #60 tab 09/02/19 Polyethylene Glycol 3350 [Miralax] 17 gm PO DAILY #7 packet 09/25/20 Smoking Status: Current every day smoker History Past Pregnancies: Past Pregnancies Delivery Date Name GA/ Weeks Outcome Route Wt Sex Labor Length Anesthesia Delivery Location Provider FOB Physical Exam Vitals: Vital Signs Temp Pulse BP Pulse Ox 99.1 F 71 107/53 L 100 02/09/21 03:57 02/09/21 05:14 02/09/21 05:06 02/09/21 05:14 Assessment/Plan All Active Problems (Last Reviewed 09/22/19 @ 12:23 by Charito Keith) 31 weeks gestation of (Acute) History of prior with IUGR (Acute) Vaginal bleeding (Acute) Mother currently breast-feeding (Acute) Abnormal test (Acute) Marijuana abuse (Acute) Bipolar disease during (Acute) Genital herpes affecting (Acute) complicated by subutex maintenance, antepartum (Acute) History of pre-eclampsia in prior , currently (Acute) Supervision of high risk , antepartum (Acute) Eating disorder affecting , antepartum (Acute) History of heroin abuse (Acute) Carpal tunnel syndrome (Resolved) Tendonitis (Resolved) This is a 35 year-old, G [], P [], at weeks gestational age.
[2021-02-09 05:25] LABS: International Normalized Ratio 1.1; Prothrombin Time (Protime)PT. 13.9 SECONDS (11.7-14.9)
[2021-02-09 05:26] LABS: Fibrinogen 359 mg/dl (203-444); Partial Thromboplast Time 26.8 Seconds (24.1-36.2)
[2021-02-09] MEDS: Lactated Ringers 500 ML 999 ML IV (05:27)
--- NOTE | 2021-02-09 05:37 | OB.TRI.NOTE ---
- Problem List (1) Bipolar disease during Status: Acute Qualifiers: Comment: no meds, seen dr perdomo in [place] before (2) complicated by subutex maintenance, antepartum Status: Acute Comment: sees [facility], on 16mg daily. in recovery 3 1/2 years, MFM consult, plan growth q 4 weeks after 28 weeks and weekly NSTs after 32 weeks. (3) Supervision of high risk , antepartum Status: Acute Comment: PRR JENY 10/13/19 girl Edward Elizabeth Dylan FOB- Dustin (not involved) (4) Eating disorder affecting , antepartum Status: Acute Comment: ensure Rx per WIC, on zofan pump (5) History of heroin abuse Status: Acute Comment: in recovery over 3 1/2 years, on buprenorphine- klaus wheeler prescribes (6) 31 weeks gestation of Status: Acute (7) History of prior with IUGR Status: Acute (8) Vaginal bleeding Status: Acute History of Present Illness Date of Service: 02/09/21 Was patient seen by the physician?: Yes Reason For Visit: R/O LABOR Date of Service: 02/09/21 Final JENY: 04/08/21 Gestational age: 31 Weeks and 5 Days History of Present Illness: Patient is a at 31.5 weeks gestation that presents to triage area with vaginal bleeding and cramping. Patient reports using bathroom around midnight and noticed bright red blood after wiping. She is also feeling lower back pain with occasional contractions. Positive movement. Patient denies any recent intercourse. Patient is unsure if she is leaking fluid or not. Allergies amoxicillin Allergy (Verified 02/09/21 04:32) Hives beeswax Allergy (Verified 01/23/20 23:10) Hives this allergy is to bees hydrocodone bitartrate [From Vicodin] Allergy (Verified 02/09/21 04:32) Itching amitriptyline Adverse Reaction (Verified 02/09/21 04:32) Other knocks me out doxycycline Adverse Reaction (Verified 02/09/21 04:32) Vomiting rofecoxib [From Vioxx] Adverse Reaction (Verified 02/09/21 04:32) Vomiting CONTROL Allergy (Uncoded 02/09/21 04:32) Other muscle problems - Pertinent Past Medical History Medical History: Past Medical History (Last Reviewed 09/22/19 @ 12:23 by Charito Keith) Bipolar 1 disorder, depressed Drug abuse in remission on subutex Surgical History: Past Surgical History (Last Reviewed 09/22/19 @ 12:23 by Charito Keith) History of appendectomy Laboratory Studies: Laboratory Tests 02/09/21 02/09/21 02/09/21 Range/Units Unknown 05:00 05:00 WBC 10.8 (4.4-11.0) K/mm3 RBC 3.60 L (4.2-5.4) M/mm3 Hgb 10.9 L (12.0-15.0) g/dL Hct 31.3 L (37-47) % MCV 86.9 (81-99) fL MCH 30.3 (27.0-32.0) pg MCHC 34.8 (32-36) g/dL RDW Std Deviation 39.8 (35.1-43.9) fl RDW Coeff of Rekha 12.5 (11.6-14.6) % Plt Count 190 (150-450) K/mm3 MPV 10.6 (6.2-12.0) fl Immature Gran % (Auto) 0.700 (0.0-0.9) % Neut % (Auto) 70.8 H (47-70) % Lymph % (Auto) 20.9 (19-41) % [place] % (Auto) 6.6 (0-10) % Eos % (Auto) 0.6 (0-5) % Baso % (Auto) 0.4 (0-1) % Absolute Neuts (auto) 7.6 (2.0-7.7) X10^3/uL Absolute Lymphs (auto) 2.25 (0.83-4.51) X10^3/uL Nucleated RBC % 0 (0-5) % PT 13.9 (11.7-14.9) SECONDS INR 1.1 APTT 26.8 (24.1-36.2) Seconds Fibrinogen 359 (203-444) mg/dl Urine Color (Yellow) Urine Clarity (Clear) Urine pH (5.0 - 8.0) Ur Specific [place] (1.002-1.030) Urine Protein (Negative) mg/dl Urine Glucose (UA) (Normal) mg/dl Urine Ketones (Negative) mg/dl Urine Occult Blood (Negative) /ul Urine Nitrite (Negative) Urine Bilirubin (Negative) mg/dL Urine Urobilinogen (Normal) mg/dl Ur Leukocyte Esterase (Negative) /ul Urine RBC (0-5) /hpf Urine WBC (0-5) /hpf Ur Squamous Epith Cells (5-10) /hpf Urine Bacteria (None Seen) /hpf Urine Mucus (<or=2+) /hpf Urine Opiates Screen (< 300 ng/mL) Ur Buprenorphine Scrn Positive H (<10 ng/mL) Urine Methadone Screen (< 300 ng/mL) Ur Barbiturates Screen (< 200 ng/mL) Ur Phencyclidine Scrn (< 25 ng/mL) Ur Amphetamines Screen (<1000 ng/mL) U Methamphetamin-MDMA (< 500 ng/mL) U Benzodiazepines Scrn (< 200 ng/mL) Urine Cocaine Screen (< 300 ng/mL) U Cannabinoids Screen (< 50 ng/mL) Ur Drug Screen Comment 02/09/21 02/09/21 Range/Units 04:51 04:51 WBC (4.4-11.0) K/mm3 RBC (4.2-5.4) M/mm3 Hgb (12.0-15.0) g/dL Hct (37-47) % MCV (81-99) fL MCH (27.0-32.0) pg MCHC (32-36) g/dL RDW Std Deviation (35.1-43.9) fl RDW Coeff of Rekha (11.6-14.6) % Plt Count (150-450) K/mm3 MPV (6.2-12.0) fl Immature Gran % (Auto) (0.0-0.9) % Neut % (Auto) (47-70) % Lymph % (Auto) (19-41) % [place] % (Auto) (0-10) % Eos % (Auto) (0-5) % Baso % (Auto) (0-1) % Absolute Neuts (auto) (2.0-7.7) X10^3/uL Absolute Lymphs (auto) (0.83-4.51) X10^3/uL Nucleated RBC % (0-5) % PT (11.7-14.9) SECONDS INR APTT (24.1-36.2) Seconds Fibrinogen (203-444) mg/dl Urine Color Yellow (Yellow) Urine Clarity Clear (Clear) Urine pH 7.0 (5.0 - 8.0) Ur Specific [place] 1.010 (1.002-1.030) Urine Protein Negative (Negative) mg/dl Urine Glucose (UA) Normal (Normal) mg/dl Urine Ketones Negative (Negative) mg/dl Urine Occult Blood 10 H (Negative) /ul Urine Nitrite Negative (Negative) Urine Bilirubin Negative (Negative) mg/dL Urine Urobilinogen Normal (Normal) mg/dl Ur Leukocyte Esterase Negative (Negative) /ul Urine RBC 0 SEEN (0-5) /hpf Urine WBC 0-5 SEEN (0-5) /hpf Ur Squamous Epith Cells 0-5 SEEN (5-10) /hpf Urine Bacteria 0 SEEN (None Seen) /hpf Urine Mucus 0 SEEN (<or=2+) /hpf Urine Opiates Screen NEGATIVE (< 300 ng/mL) Ur Buprenorphine Scrn (<10 ng/mL) Urine Methadone Screen NEGATIVE (< 300 ng/mL) Ur Barbiturates Screen NEGATIVE (< 200 ng/mL) Ur Phencyclidine Scrn NEGATIVE (< 25 ng/mL) Ur Amphetamines Screen NEGATIVE (<1000 ng/mL) U Methamphetamin-MDMA NEGATIVE (< 500 ng/mL) U Benzodiazepines Scrn NEGATIVE (< 200 ng/mL) Urine Cocaine Screen NEGATIVE (< 300 ng/mL) U Cannabinoids Screen NEGATIVE (< 50 ng/mL) Ur Drug Screen Comment Review of Systems Constitutional: Denies: Chills, Fever, Weight Change HEENT: Denies: Head Aches, Sinus Congestion, Sinus Drainage Cardiovascular: Denies: Chest Pain, Palpitations Gastrointestinal: Denies: Abdominal Pain, Nausea, Vomiting Genitourinary: Denies: Dysuria Musculoskeletal: Denies: Joint Pain, Joint Tenderness Neurological: Denies: Numbness, Tingling, Focal weakness Psychiatric: Reports: Depression, Homicidal Ideations, Suicidal Ideations Physical Exam Vitals: Vital Signs Temp Pulse BP Pulse Ox 99.1 F 71 107/53 L 100 02/09/21 03:57 02/09/21 05:14 02/09/21 05:06 02/09/21 05:14 General: Alert HEENT: Atraumatic Cardiovascular: Regular rate Lungs: Normal air movement Abdomen: Bowel Sounds Present, Soft, Non Tender, Gravid Neurological: Cranial nerves II-XII grossly intact Cervix Dilation (cm): 0.5 Station: -3 Effacement (%): 60 NST - FHR Rate Baby A Baseline: 135 Variability:: Moderate Accelerations:: 15 x 15 Decelerations:: None NST Reactive:: Appropriate for gestational age Uterine Activity:: Irritability, occasional contractions Impression/Plan Patient is a that is 31.5 weeks gestation with vaginal bleeding and cramping. A/P Continuous EFM Start IV and give 500 cc fluid bolus and to run at 200 cc/hr CBC Coag panel T&S UA ROM-plus collected and sent CE- 0.5/60/-3- no active bleeding noted Abdomen is non tender to palpation Dr. Aguirre notified and involved in plan of care
[2021-02-09 05:53] LABS: ROM Internal Control Test YES-OK TO RESULT pt. (Internal QC); ROM Patient Test Negative (Negative)
[2021-02-09] MEDS: Lactated Ringers 1,000 ML 200 ML IV ×3 (05:58→10:43)
[2021-02-09 08:48] LABS: Hematocrit 33.7 % (37-47); Hemoglobin 11.7 g/dL (12.0-15.0); Mean Corp Hgb Conc 34.7 g/dL (32-36); Mean Corpuscular Hgb 30.4 pg (27.0-32.0); Mean Corpuscular Volume 87.5 fL (81-99); Mean Platelet Vol. 10.2 fl (6.2-12.0); Platelet Count 200 K/mm3 (150-450); RBC Distribution Width CV 12.5 % (11.6-14.6); RBC Distribution Width SD 39.8 fl (35.1-43.9); Red Blood Count 3.85 M/mm3 (4.2-5.4)
[2021-02-09 09:02] LABS: Prothrombin Time (Protime)PT. 12.9 SECONDS (11.7-14.9)
[2021-02-09] MEDS: Betamethasone/Betamethasone 30 MG/5 ML Vial 12 MG IM (09:13)
[2021-02-09 09:22] LABS: Fibrinogen 426 mg/dl (203-444)
--- NOTE | 2021-02-09 09:22 | PN_ITS ---
Progress Note Transport note: to be sent w/ H&P and patient chart. H&P reviewed. @ 31 5/7 weeks. Patient was seen and evaluated by me. Patient arrived for vaginal bleeding. No vaginal bleeding noted since arrival. However, patient was having some contractions that then spaced out after an IV fluid bolus. Contractions have restarted and she is feeling them about every 3 minutes. They are palpating mild but she is feeling them in their back as well. She denies any leaking of fluid. No vaginal bleeding since arriving to labor and delivery. She denies any fevers or chills, trauma, or current drug use. She is on suboxone on for maintenance for opioid use disorder. She has been found to have intermittent decelerations. Overall, normal baseline w/ moderate variability. Some accelerations. Contractions increasing again. Abd- soft, nontender, gravid Cervix ftp/thick/high ext- trace edema Labs reviewed. Fibrinogen increased. Other labs stable a/p @31 5/7 weeks with decelerations and threatened labor BMZ x 1 given in case of delivery Recommend transport to tertiary care center for observation and evaluation in case delivery becomes indicated due to decelerations. This will allow for maternal medicine evaluation and management as well as NICU availibility for premature if delivery is indicated. No evidence of acute abruption. No vaginal bleeding noted since patient's been here. Cervix is unchanged. Contractions are still mild. She is not in active labor at this time. Patient is in agreement with this plan. Discussed the case with Dr. Dalton Starks and he accepts transport of the patient to [facility]. Will arrange ground transport. STROKE Vital Signs/Narrative: Vital Signs Temp Pulse BP Pulse Ox 02/09/21 09:21 60 100 02/09/21 09:16 69 100 02/09/21 09:11 61 100 02/09/21 09:06 57 L 100 02/09/21 09:01 73 100 02/09/21 08:50 67 100 02/09/21 08:45 66 100 02/09/21 08:40 63 100 02/09/21 08:35 68 100 02/09/21 08:30 81 100 02/09/21 08:25 66 100 02/09/21 08:20 56 L 100 02/09/21 08:15 62 100 02/09/21 08:10 61 100 02/09/21 08:06 98.6 F 54 L 100 02/09/21 07:42 75 100 02/09/21 07:39 75 123/74 H 81 02/09/21 07:37 77 100 02/09/21 07:32 75 100 02/09/21 07:27 69 100 02/09/21 07:22 69 100 02/09/21 07:17 75 99 02/09/21 07:02 57 L 98
== END 2021-02-09 11:10 | disposition short-term general hospital (02) ==
LOC: WPOUT 03:50 → WP 03:51
PROVIDERS: Visit Provider Advanced Practice Midwife
DX: O36.8330 Maternal care for abnormalities of the fetal heart rate or rhythm, third trimester, not applicable or unspecified (principal); O60.03 Preterm labor without delivery, third trimester; O99.343 Other mental disorders complicating pregnancy, third trimester; F50.9 Eating disorder, unspecified; F31.9 Bipolar disorder, unspecified; O99.322 Drug use complicating pregnancy, second trimester; F11.11 Opioid abuse, in remission; O09.93 Supervision of high risk pregnancy, unspecified, third trimester; Z3A.31 31 weeks gestation of pregnancy; Z87.59 Personal history of other complications of pregnancy, childbirth and the puerperium
CPT/HCPCS: 96360; 96361 ×9; 36415; 59025; 59050; 80307; 81001; 84112; 85025; 85027; 85384; 85610; 85730; 86850; 86870; 86900; 86901; 87426; 94760; 96372; 99218; J7120; G0378; J0702

== ENCOUNTER 2021-02-16 21:29 | Outpatient (CLI) | payer MEDICAID, SELFPAY ==
[2021-02-09 04:14] VITALS: BMI 26.4
[2021-02-16 21:59] VITALS: BMI 25.7
[2021-02-16 22:34] LABS: ROM Internal Control Test YES-OK TO RESULT pt. (Internal QC)
[2021-02-16 22:35] LABS: ROM Patient Test Negative (Negative)
[2021-02-16 22:36] VITALS: TEMP 36.7
[2021-02-16 22:37] VITALS: BP 106/63; PULSE 67
--- NOTE | 2021-02-16 23:44 | OB.TRI.NOTE ---
- Problem List (1) 32 weeks gestation of Status: Acute (2) History of prior with IUGR Status: Acute (3) Vaginal bleeding Status: Acute (4) Bipolar disease during Status: Acute Qualifiers: Comment: no meds, seen dr perdomo in [place] before (5) complicated by subutex maintenance, antepartum Status: Acute Comment: sees Aries Kalpana, on 16mg daily. in recovery 3 1/2 years, MFM consult, plan growth q 4 weeks after 28 weeks and weekly NSTs after 32 weeks. (6) Supervision of high risk , antepartum Status: Acute Comment: PRR JENY 10/13/19 girl Edward Elizabeth Dylan FOB- Dustin (not involved) (7) Eating disorder affecting , antepartum Status: Acute Comment: ensure Rx per WIC, on zofan pump (8) History of heroin abuse Status: Acute Comment: in recovery over 3 1/2 years, on buprenorphine- aries kalpana prescribes History of Present Illness Date of Service: 02/16/21 Was patient seen by the physician?: Yes Reason For Visit: R/O LABOR Date of Service: 02/16/21 Final JENY: 04/08/21 Gestational age: 32 Weeks and 5 Days History of Present Illness: Patient is a that presents to triage with vaginal spotting and occasional contractions. She was discharged from [facility] on Thursday after being transferred from [facility] for vaginal bleeding. She received Celestone X2, and BPPs. She reports feeling contractions today and became concerned that she was dilating. Denies any loss of fluid and patient has positive movement. Allergies amoxicillin Allergy (Verified 02/09/21 04:32) Hives beeswax Allergy (Verified 01/23/20 23:10) Hives this allergy is to bees hydrocodone bitartrate [From Vicodin] Allergy (Verified 02/09/21 04:32) Itching acetaminophen [From Ultracet] Adverse Reaction (Verified 02/09/21 06:03) Other gi upset amitriptyline Adverse Reaction (Verified 02/09/21 04:32) Other knocks me out doxycycline Adverse Reaction (Verified 02/09/21 04:32) Vomiting fentanyl Adverse Reaction (Verified 02/09/21 06:01) Itching promethazine [From Phenergan] Adverse Reaction (Verified 02/09/21 06:01) Other gi upset rofecoxib [From Vioxx] Adverse Reaction (Verified 02/09/21 04:32) Vomiting tramadol [From Ultracet] Adverse Reaction (Verified 02/09/21 06:03) Other gi upset CONTROL Allergy (Uncoded 02/16/21 21:56) Other muscle problems oral bc - Pertinent Past Medical History Medical History: Past Medical History (Last Reviewed 09/22/19 @ 12:23 by Charito Keith) Bipolar 1 disorder, depressed Drug abuse in remission on subutex Surgical History: Past Surgical History (Last Reviewed 09/22/19 @ 12:23 by Charito Keith) History of appendectomy Laboratory Studies: Laboratory Tests 02/16/21 Range/Units 22:00 Vag Amniotic Fld Detect Negative (Negative) Review of Systems Constitutional: Denies: Chills, Fever, Weight Change HEENT: Denies: Head Aches, Sinus Congestion, Sinus Drainage Cardiovascular: Denies: Chest Pain, Palpitations Respiratory: Denies: Cough, Shortness of breath at rest, Sputum production Gastrointestinal: Denies: Abdominal Pain, Nausea, Vomiting Genitourinary: Denies: Dysuria Musculoskeletal: Denies: Joint Pain, Joint Tenderness Neurological: Denies: Numbness, Tingling, Focal weakness Physical Exam Vitals: Vital Signs Temp Pulse BP 98.0 F 67 106/63 02/16/21 22:36 02/16/21 22:37 02/16/21 22:37 General: Alert, Oriented x3 HEENT: Atraumatic Cardiovascular: Regular rate Lungs: Normal air movement Abdomen: Soft, Non Tender, Gravid Neurological: Cranial nerves II-XII grossly intact Cervix Dilation (cm): 0.5 Station: -2 Effacement (%): 50 NST - FHR Rate Baby A Baseline: 120 Variability:: Moderate Accelerations:: 15 x 15 Decelerations:: None NST Reactive:: Yes FHR Category:: Category I Uterine Activity:: Occasional contractions Impression/Plan at 32.5 weeks gestation with vaginal spotting and occasional contractions ROM plus collected and sent due to increased discharge- negative CE - unchanged at 0.5/50/-2 NST reactive Cat. 1 tracing Patient is scheduled for weekly BPP's in office and has appointment on Thursday Discussed PTL precautions with patient Discharge home with follow up in office on Thursday Dr. Botello aware and involved in plan of care
== END 2021-02-16 23:23 | disposition home or self-care (01) ==
LOC: WPOUT 21:42 → WP 21:42
PROVIDERS: Visit Provider Advanced Practice Midwife
DX: O46.93 Antepartum hemorrhage, unspecified, third trimester (principal); O09.93 Supervision of high risk pregnancy, unspecified, third trimester; O99.343 Other mental disorders complicating pregnancy, third trimester; F31.9 Bipolar disorder, unspecified; F50.9 Eating disorder, unspecified; Z3A.32 32 weeks gestation of pregnancy; Z87.59 Personal history of other complications of pregnancy, childbirth and the puerperium
CPT/HCPCS: 59025; 59050; 84112; 99218; G0378

== ENCOUNTER 2021-02-22 23:47 | Observation (INO) | payer MEDICAID, SELFPAY ==
[2021-02-22 23:06] VITALS: BP 114/72; PULSE 79; TEMP 37.6; O2SAT 98
[2021-02-22 23:20] LABS: ROM Internal Control Test YES-OK TO RESULT pt. (Internal QC)
[2021-02-22 23:29] LABS: ROM Patient Test POSITIVE (Negative)
[2021-02-22] MEDS: Lactated Ringers 1,000 ML 50 ML IV (23:45)
[2021-02-22 23:53] VITALS: BMI 26.6
[2021-02-23] VITALS (18 sets, daily range): BP systolic 93–117; BP diastolic 42–63; PULSE 55–81; RESP 16; TEMP 36.4–37.3; O2SAT 97–100; BMI 26.6
[2021-02-23 00:11] LABS: Absolute Lymphocyte Count 2.33 X10^3/uL (0.83-4.51); Basophil# 0.04 X10^3/uL; Basophil% 0.3 % (0-1); Eosinophil# 0.03 X10^3/uL; Eosinophils% 0.2 % (0-5); Hematocrit 33.7 % (37-47); Hemoglobin 11.5 g/dL (12.0-15.0); Lymphocyte # 2.33 X10^3/ul (4.0); Lymphocyte % 17.8 % (19-41); Mean Corp Hgb Conc 34.1 g/dL (32-36); Mean Corpuscular Hgb 29.9 pg (27.0-32.0); Mean Corpuscular Volume 87.8 fL (81-99); Mean Platelet Vol. 11.4 fl (6.2-12.0); Monocyte# 0.69 X10^3/uL; Monocyte% 5.3 % (0-10); NRBC Flagged by Analyzer 0 % (0-5); Neutrophil # 9.96 X10^3/uL (2.7-7.7); Neutrophil % 75.9 % (47-70); Platelet Count 212 K/mm3 (150-450); RBC Distribution Width CV 12.9 % (11.6-14.6); RBC Distribution Width SD 40.6 fl (35.1-43.9); Red Blood Count 3.84 M/mm3 (4.2-5.4); White Blood Count 13.1 K/mm3 (4.4-11.0)
[2021-02-23 00:35] LABS: Probe Check PASS
[2021-02-23 00:40] LABS: Group B Strep DNA By PCR POSITIVE (Negative)
[2021-02-23 00:58] LABS: Amphetamine Urine VISTA NEGATIVE (<1000 ng/mL); Barbiturate Urine VISTA NEGATIVE (< 200 ng/mL); Benzodiazepine Urine VISTA NEGATIVE (< 200 ng/mL); Cocaine Urine VISTA NEGATIVE (< 300 ng/mL); Ecstacy Urine VISTA NEGATIVE (< 500 ng/mL); Methadone Urine VISTA NEGATIVE (< 300 ng/mL); PCP Urine VISTA NEGATIVE (< 25 ng/mL); THC Urine VISTA NEGATIVE (< 50 ng/mL); Vista UDS pH Range 6
[2021-02-23] MEDS: Lactated Ringers 1,000 ML 200 ML IV (05:52)
--- NOTE | 2021-02-23 07:48 | PCM.HP.OB ---
- Problem List (1) 33 weeks gestation of Status: Acute (2) History of prior with IUGR Status: Acute (3) Bipolar disease during Status: Acute Qualifiers: Comment: no meds, seen dr perdomo in [place] before (4) Genital herpes affecting Status: Acute Qualifiers: Comment: valtrex at delivery (5) complicated by subutex maintenance, antepartum Status: Acute Comment: sees Aries Kalpana, on 16mg daily. in recovery 3 1/2 years, MFM consult, plan growth q 4 weeks after 28 weeks and weekly NSTs after 32 weeks. (6) Supervision of high risk , antepartum Status: Acute Comment: PRR JENY 10/13/19 girl Edward Elizabeth Dylan FOB- Dustin (not involved) (7) Eating disorder affecting , antepartum Status: Acute Comment: ensure Rx per [place], on zofan pump (8) History of heroin abuse Status: Acute Comment: in recovery over 3 1/2 years, on buprenorphine- aries kalpana prescribes History Date of Admission: 02/22/21 Final JENY: 04/08/21 Gestational age: 33 Weeks and 5 Days History of this : This is a 35 year-old, G [7], P [2974], at 33.5 weeks gestational age that presented to triage for leaking of fluid. Patient stated her water broke around 1600 today for a moderate amount of clear fluid. Positive movement and feeling irregular contractions. has been complicated by several triage visits for vaginal bleeding, transfers x 2 to [facility], history of drug use- currently taking subutex, hx of eating disorder, bipolar, hepatitis C, HSV, short intervals between pregnancies, and hx of with IUGR. Medical History: Medical History (Last Reviewed 09/22/19 @ 12:23 by Charito Keith) Bipolar 1 disorder, depressed F31.9 Drug abuse in remission Z87.898 on subutex Surgical History: Surgical History (Last Reviewed 09/22/19 @ 12:23 by Charito Keith) History of appendectomy Z90.49 Allergies amoxicillin Allergy (Verified 02/09/21 04:32) Hives beeswax Allergy (Verified 01/23/20 23:10) Hives this allergy is to bees hydrocodone bitartrate [From Vicodin] Allergy (Verified 02/09/21 04:32) Itching acetaminophen [From Ultracet] Adverse Reaction (Verified 02/09/21 06:03) Other gi upset amitriptyline Adverse Reaction (Verified 02/09/21 04:32) Other knocks me out doxycycline Adverse Reaction (Verified 02/09/21 04:32) Vomiting fentanyl Adverse Reaction (Verified 02/09/21 06:01) Itching promethazine [From Phenergan] Adverse Reaction (Verified 02/09/21 06:01) Other gi upset rofecoxib [From Vioxx] Adverse Reaction (Verified 02/09/21 04:32) Vomiting tramadol [From Ultracet] Adverse Reaction (Verified 02/09/21 06:03) Other gi upset CONTROL Allergy (Uncoded 02/16/21 21:56) Other muscle problems oral bc Home Medications: Home Medications buprenorphine HCl 8 mg sublingual tablet 4 mg PO Q4H PRN tab 02/16/19 ondansetron 8 mg disintegrating tablet 8 mg PO TID PRN #60 tab 09/02/19 Aspirin 81 mg PO DAILY 02/09/21 Lactose-Reduced Food [Ensure Liquid] 237 ml PO TID 02/09/21 Smoking Status: Heavy Smoker (>10/day) Substance Use Type: Prescribed NST - FHR Rate Baby A Baseline: 130 Variability:: Moderate Accelerations:: 15 x 15 Decelerations:: None NST Reactive:: Appropriate for gestational age FHR Category:: Category I Uterine Activity:: TOCO- irritability and occasional contractions History Past Pregnancies: Past Pregnancies Delivery Date Name GA/ Weeks Outcome Route Wt Sex Labor Length Anesthesia Delivery Location Provider FOB Labs: A negative Rubella immune HB - neg HC - Positive RPR- NR HIV- NR GBS- positive COVID-19 unknown Expected Infant Delivery Method: Spontaneous Vaginal Review of Systems Constitutional: Denies: Chills, Fever HEENT: Denies: Head Aches, Sinus Congestion, Sinus Drainage Cardiovascular: Denies: Chest Pain, Palpitations Respiratory: Denies: Cough, Shortness of breath at rest, Sputum production Gastrointestinal: Denies: Abdominal Pain, Nausea, Vomiting Genitourinary: Denies: Dysuria Musculoskeletal: Denies: Joint Pain, Joint Tenderness Skin: Denies: Rash, Wounds Neurological: Denies: Numbness, Tingling, Focal weakness Physical Exam Vitals: Vital Signs Temp Pulse BP Pulse Ox 97.7 F L 68 104/52 L 99 02/23/21 07:45 02/23/21 07:45 02/23/21 07:45 02/23/21 07:44 General: Alert, Oriented x3 HEENT: Atraumatic Cardiovascular: Regular rate Lungs: Normal air movement Abdomen: Soft, Non Tender, Gravid Neurological: Cranial nerves II-XII grossly intact Cervix Dilation (cm): 3 - per nursing Station: -1 Effacement (%): 60 Assessment/Plan All Active Problems (Last Reviewed 09/22/19 @ 12:23 by Charito Keith) 31 weeks gestation of (Acute) History of prior with IUGR (Acute) Vaginal bleeding (Acute) 32 weeks gestation of (Acute) 33 weeks gestation of (Acute) Mother currently breast-feeding (Acute) Abnormal test (Acute) Marijuana abuse (Acute) Bipolar disease during (Acute) Genital herpes affecting (Acute) complicated by subutex maintenance, antepartum (Acute) History of pre-eclampsia in prior , currently (Acute) Supervision of high risk , antepartum (Acute) Eating disorder affecting , antepartum (Acute) History of heroin abuse (Acute) Carpal tunnel syndrome (Resolved) Tendonitis (Resolved) This is a 35 year-old, G [7], P [4], at 33.5 weeks gestational age with PPROM. A/P Admit to labor and delivery ROM plus collected and sent- positive Start IV antibiotic prophylaxis for GBS positive- Vancomycin EFM CE for baseline Celestone x2 on 02/09/21 [facility] consultation for possibility of transfer to level [address] Delgado involved in plan of care and orders
[2021-02-23] MEDS: Betamethasone/Betamethasone 30 MG/5 ML Vial 12 MG IM (09:33)
[2021-02-23] MEDS: Acyclovir 200 MG Capsule 400 MG PO (09:34)
[2021-02-23] MEDS: Azithromycin 250 MG Tablet 500 MG PO (09:34)
== END 2021-02-23 10:15 | disposition short-term general hospital (02) ==
LOC: WPOUT 02-23 00:25 → WP 02-23 00:26
PROVIDERS: Obstetrics & Gynecology; Admitting Provider Advanced Practice Midwife; Visit Provider Advanced Practice Midwife
DX: O42.913 Preterm premature rupture of membranes, unspecified as to length of time between rupture and onset of labor, third trimester (principal); Z3A.33 33 weeks gestation of pregnancy; A60.09 Herpesviral infection of other urogenital tract; O98.313 Other infections with a predominantly sexual mode of transmission complicating pregnancy, third trimester; Z79.899 Other long term (current) drug therapy; Z79.82 Long term (current) use of aspirin; F31.9 Bipolar disorder, unspecified; O99.343 Other mental disorders complicating pregnancy, third trimester; F11.21 Opioid dependence, in remission
CPT/HCPCS: 96365; 96366; 96372; 59025; 59050; 80307; 84112; 85025; 86850; 86870; 86900; 86901; 87426; 87653; 99218; J7040; J7120; G0378; J0702

== ENCOUNTER 2022-08-11 15:55 | Outpatient (CLI) | payer MEDICAID, SELFPAY ==
[2022-08-11] VITALS (38 sets, daily range): BP systolic 103–135; BP diastolic 53–64; PULSE 38–86; TEMP 36.3; O2SAT 79–100; BMI 25.7
--- NOTE | 2022-08-11 16:28 | EKG12_ITS ---
Test Reason : BRADYCARDIA Blood Pressure : / mmHG Vent. Rate : 044 BPM Atrial Rate : 044 BPM P-R Int : 162 ms QRS Dur : 072 ms QT Int : 498 ms P-R-T Axes : 041 071 040 degrees QTc Int : 425 ms Marked sinus bradycardia Abnormal ECG Confirmed by NOEMÍ WILLIAMSON, FLOR ([id number]), commissioning editor AKASH JOYA ([id number]) on 08/12/2022 8:06:54 AM Referred By: KEAGAN Confirmed By:FLOR DOWD MD
[2022-08-11] MEDS: buprenorphine HCL 8 MG TAB.SUBL SL (17:02)
[2022-08-11] MEDS: Lactated Ringers 1,000 ML 999 ML IV (17:15)
[2022-08-11] MEDS: Ondansetron 4 MG/2 ML Vial IV ×2 (17:22→22:25)
[2022-08-11 17:46] LABS: Absolute Lymphocyte Count 0.95 X10^3/uL (0.83-4.51); Absolute Neutrophil Count 8.2 X10^3/uL (2.0-7.7); Basophil# 0.02 X10^3/uL; Basophil% 0.2 % (0-1); Eosinophil# 0.02 X10^3/uL; Eosinophils% 0.2 % (0-5); Hematocrit 37.7 % (37-47); Hemoglobin 12.8 g/dL (12.0-15.0); Lymphocyte # 0.95 X10^3/ul (0.83-4.51); Lymphocyte % 9.9 % (19-41); Mean Corpuscular Volume 88.5 fL (81-99); Mean Platelet Vol. 10.4 fl (6.2-12.0); Monocyte# 0.39 X10^3/uL; NRBC Flagged by Analyzer 0 % (0-5); Neutrophil # 8.21 X10^3/uL (2.7-7.7); Neutrophil % 85.2 % (47-70); Platelet Count 226 K/mm3 (150-450); RBC Distribution Width CV 13.2 % (11.6-14.6); RBC Distribution Width SD 42.8 fl (35.1-43.9); Red Blood Count 4.26 M/mm3 (4.2-5.4); White Blood Count 9.6 K/mm3 (4.4-11.0)
[2022-08-11 17:52] LABS: ALB/GLOB Ratio 0.7 RATIO (0.9-2.4); AST(SGOT) 28 U/L (15-37); Alanine Aminotransfer ALT/SGPT 31 U/L (13-56); Alkaline Phosphatase 116 U/L (45-117); Amylase 65 U/L (25-115); Anion Gap 9 (5-15); BUN 8 mg/dL (7-18); Chloride 107 mmol/L (98-107); Creatinine, Serum 0.53 mg/dL (0.55-1.02); EST Glomerular Filtration Rate 139 mL/min (>60); Est Glom Filt Rate - Afr Amer 168 mL/min (>60); Globulin 4.2 g/dL (2.2-4.2); Glucose 96 mg/dL (74-106); Lipase 60 U/L (73-393); Potassium 3.4 mmol/L (3.5-5.1); Protein, Total 7.2 g/dL (6.4-8.2); Sodium Level 139 mmol/L (136-145); Uric Acid 3.4 mg/dL (2.6-6.0)
[2022-08-11] MEDS: Lactated Ringers 1,000 ML 100 ML IV (18:16)
--- NOTE | 2022-08-11 18:40 | CON.PCM.HO_ITS ---
Assessment & Plan Assessment/Plan (1) 31 weeks gestation of : (2) Marijuana abuse: (3) Intractable vomiting with nausea: (4) Cyclical vomiting syndrome: PLAN: Plan #Intractable nausea and vomiting due to cyclical vomiting syndrome * patient has been having intractable nausea and vomiting, as well as using marijuana everyday. She says marijuana helps with her anxiety and she also uses CBD products * I think this is unlikely due to subutex withdrawal as prior to , she used to take 4mg; she is now on 12-16 mg and has been tolerating it well mostly; she says it was only yesterday that her nausea and vomiting precluded her from keeping her subutex down * keep on clear liquids for now; if she isnt tolerating, to keep NPO * IV zofran prn for nausea * counseled to quit smoking marijuana and using CBD products * will recommend gastroenterology consult as well in light of the cyclical vomiting syndrome * #GERD * I do think her burning epigastric pain is due to gastritis and GERD * she does have a history of GERD. * will start on famotidine; confirmed with epocrates that it is safe to use duri ng * #Sinus bradycardia * patient noted to have sinus bradycardia with HR down into the 30s since admission. She doesnt have a history of bradycardia * Check TSH * discussed with cardiology who thinks this could be due to a high vagal tone from intractable nausea and vomiting. Will recommend cardiology consult and 2D echo * monitor via telemetry * # Hypokalemia: K is 3.4. Will replace and trend #History of opiate abuse * on subutex. On 12mg daily, though she says sometimes she goes up to 16mg. * to continue subutex, and follow up with addiction medicine on outpatient basis * #32 weeks * management as per primary team Obstetrics * DVT prophylaxis: as per primary team Obstetrics Thank you for the courtesy of the consult. Please dont hesitate to contact hospitalist team with any questions or concerns. Plan discussed with referring section leader screen printing provider Amy Mccain on phone. HPI Consult Data Date of Consult: 08/11/22 HPI Narrative Reason for Consultation: bradycardia, abdominal pain HPI Narrative: ROSANGELA ROCHA, is a 36 F [facility] a complaint of intractable nausea, vomiting and epigastric pain. Epigastric pain has been going on for about 2 days but she says she had had the intractable nausea and vomiting all throughout her and had not improved. She vomited several times daily. The abdominal pain was described as sharp and burning and mainly in the epigastrium and radiating up into her chest. It was precipitated by nausea and vomiting which was usually followed by the epigastric pain. She denies any pain with eating. She denies any fever or chills and any diarrhea. Patient is currently 32 weeks and she is 8 para 5. When she came in for admission, she was also noted to be profoundly bradycardic with a heart rate going down into the 30s. This is new for her though she says she has been told she has episodic hypotension. [facility] showed sinus bradycardia. During my review, patient said she used CBD products and also smoked weed every night. She said she smokes weed often because she could not always afford to buy the CBD products. She says she has a medical card for CBD. She is on Subutex due to her history of opiate addiction. She follows up with addiction medicine and says prior to her she was on 4 mg of Subutex. However during her she is gone up to 12 mg and sometimes takes 60 mg as well. She has been able to keep the Subutex time tolerated but says last night was the only time that she could not keep the Subutex down due to vomiting. Hospitalist service was consulted to evaluate patient by her section leader screen printing due to concerns about possible Subutex withdrawal. On my review, vitals showed pulse rate of 45 and she was saturating at 100% on room air. CBC was essentially unremarkable and CMP was only remarkable for potassium of 3.4; she had normal liver enzymes and normal lipase. Urine tox was pending. [facility] Medical History (Updated 08/11/22 @ 18:[address] Siria Holder MD) Bipolar 1 disorder, depressed Drug abuse in remission Home Medications buprenorphine HCl 8 mg sublingual tablet 8 mg PO DAILY hx of heroin 02/16/19 [History Last Taken 08/10/22 08:00] ondansetron 8 mg disintegrating tablet 8 mg PO TID PRN nausea and vomiting ##60 09/02/19 [Rx Last Taken 02/22/21 09:00] aspirin 81 mg chewable tablet 81 mg PO DAILY hx of pre eclampsia 02/09/21 [History Last Taken 02/06/21 09:00] food supplemt, lactose-reduced 237 ml PO TID eating disorder 02/09/21 [History Last Taken 02/22/21] buprenorphine HCl 2 mg sublingual tablet 4 mg sublingual QHS hx heroin use 08/11/22 [History Last Taken 08/10/22 20:00] Allergy/AdvReac Type Severity Reaction Status Date / Time amoxicillin Allergy Hives Verified 02/09/21 04:32 beeswax Allergy Hives Verified 01/23/20 23:10 hydrocodone bitartrate Allergy Itching Verified 02/09/21 04:32 [From Vicodin] acetaminophen [From Ultracet] AdvReac Other Verified 02/09/21 06:03 amitriptyline AdvReac Other Verified 02/09/21 04:32 doxycycline AdvReac Vomiting Verified 02/09/21 04:32 fentanyl AdvReac Itching Verified 02/09/21 06:01 promethazine [From Phenergan] AdvReac Other Verified 02/09/21 06:01 rofecoxib [From Vioxx] AdvReac Vomiting Verified 02/09/21 04:32 tramadol [From Ultracet] AdvReac Other Verified 02/09/21 06:03 CONTROL Allergy Other Uncoded 02/16/21 21:56 Surgical History History of appendectomy Social History (Updated 09/24/19 @ 00:[address] Ann Langley MD) number of children: 3 current occupational status: unemployed Smoking Status: Heavy Smoker (>10/day) alcohol intake: never substance use type: former substance user and marijuana seatbelt use: always do you feel safe at home: Yes ROS Review of Systems ROS Unobtainable: Denies due to encephalopathy Constitutional Constitutional: Reports fatigue and weakness; Denies anorexia, change in weight, chills or fever(s) Eyes Eyes: Denies change in vision ENT HEENT: Denies dysphagia, epistaxis or sore throat Cardiovascular Cardiovascular: Denies chest pain, dyspnea on exertion, edema, lightheadedness, orthopnea, palpitations, paroxysmal nocturnal dyspnea, rapid heart rate or syncope Respiratory/Chest Respiratory/Chest: Denies cough, dyspnea, productive cough, shortness of breath at rest or shortness of breath with exertion Gastrointestinal Gastrointestinal: Reports abdominal pain, nausea and vomiting; Denies constipation or diarrhea Genitourinary Genitourinary: Denies dysuria Musculoskeletal Musculoskeletal: Denies arthralgias Neurologic Neurologic: Denies confusion, dizziness, focal weakness, headache(s), seizures or syncope Psychiatric Psychiatric: Denies anxiety Endocrine Endocrinology: Denies change in body appearance Hematologic/Lymphatic Hematologic/Lymphatic: Denies anemia Physical Exam Const alert, oriented x3 and no apparent distress General Appearance: cooperative HEENT normocephalic, head/scalp atraumatic, hearing grossly normal bilaterally and moist oral mucous membranes Mouth: oral and palatal mucosa normal Eyes PERRL, EOMs intact bilaterally and conjunctivae normal Neck no lymphadenopathy and supple Resp normal respiratory effort, no retractions, no use of accessory muscles and clear to auscultation bilaterally Cardio regular rate, regular rhythm, S1 normal heart sound, S2 normal heart sound and no murmurs Cardio Narrative: HR at time of my review was 60 GI GI Narrative: gravid uterus, no epigastric or RUQ tenderness Extremity normal to inspection, full ROM and no clubbing, cyanosis or edema Neuro oriented x3, CN's II-XII intact bilaterally, moves all extremities and no focal motor deficits Sensorium / Orientation: awake and alert Psych affect normal Lab / Micro Data Result Diagrams: 08/11/22 17:20 08/11/22 17:20 Labs: Laboratory Results - last 24 hr 08/11/22 16:30: Fibronectin Cancelled 08/11/22 17:20: WBC 9.6, RBC 4.26, Hgb 12.8, Hct 37.7, MCV 88.5, MCH 30.0, MCHC 34.0, RDW Std Deviation 42.8, RDW Coeff of Rekha 13.2, Plt Count 226, MPV 10.4, Immature Gran % (Auto) 0.500, Neut % (Auto) 85.2 H, Lymph % (Auto) 9.9 L, [place] % (Auto) 4.0, Eos % (Auto) 0.2, Baso % (Auto) 0.2, Absolute Neuts (auto) 8.2 H, Absolute Lymphs (auto) 0.95, Nucleated RBC % 0 08/11/22 17:20: Sodium 139, Potassium 3.4 L, Chloride 107, Carbon Dioxide 23.0, Anion Gap 9, BUN 8, Creatinine 0.53 L, Est GFR (MDRD) Af Amer 168, Est GFR (MDRD) Non-Af 139, BUN/Creatinine Ratio 15.0, Glucose 96, Uric Acid 3.4, Calcium 9.0, Total Bilirubin 1.00, AST 28, ALT 31, Alkaline Phosphatase 116, Total Protein 7.2, Albumin 3.0 L, Globulin 4.2, Albumin/Globulin Ratio 0.7 L, Amylase 65, Lipase 60 L Micro: Microbiology 08/11/22 16:05 Nasal Secretion SARS-CoV-2 Antigen (Rapid) - Final Charges/Coding Visit Charges Office Visits / Consults: [id number] IP Consult L5
--- NOTE | 2022-08-11 19:02 | ECHOD_ITS ---
Reason For Study: BRADYCARDIA Procedure This was a 2D Doppler, Color Flow transthoracic echocardiogram. Exam performed portable in patient room. Left Ventricle Normal LV size. Left ventricular systolic function is normal. The estimated ejection fraction is 55 %. No regional wall motion abnormalities noted. Right Ventricle Normal RV size. Normal systolic function. Atria Normal left atrium. Normal right atrium. Mitral Valve Normal mitral valve. Tricuspid Valve Normal tricuspid valve. Aortic Valve Normal aortic valve. Trisinus/trileaflet aortic valve. Pulmonic Valve Normal pulmonic valve. Great Vessels Normal aortic root. The pulmonary artery is normal size. Normal inferior vena cava. Pericardium/Pleural No pericardial effusion. MMode/2D Measurements & Calculations LVIDd: 5.4 cm IVSd: 0.77 cm Ao root diam: 3.0 cm LVIDs: 3.3 cm LVPWd: 0.89 cm RVDd: 2.9 cm FS: 39.0 % LAV(MOD-sp4): 29.8 ml LVAd ap4: 32.3 cm2 SV(MOD-sp4): 54.0 ml LVLd ap4: 9.3 cm EDV(MOD-sp4): 94.5 ml EDV(sp4-el): 95.4 ml LVAs ap4: 18.1 cm2 LVLs ap4: 7.1 cm ESV(MOD-sp4): 40.5 ml ESV(sp4-el): 39.2 ml EF(MOD-sp4): 57.1 % EF(sp4-el): 58.9 % SV(sp4-el): 56.2 ml LA A4 area: 15.0 cm2 LA dimension(2D): 3.1 cm RA A4 area: 23.1 cm2 Time Measurements MV dec time: 0.35 sec Doppler Measurements & Calculations MV E max gaudencio: 99.1 cm/sec MV V2 max: 126.8 cm/sec MV dec slope: 289.7 cm/sec2 MV A max gaudencio: 53.2 cm/sec MV max P.4 mmHg MV E/A: 1.9 MV V2 mean: 65.0 cm/sec MV mean P.2 mmHg MV V2 VTI: 45.0 cm Ao V2 max: 175.7 cm/sec LV V1 max: 149.6 cm/sec PA V2 max: 129.1 cm/sec Ao max P.4 mmHg LV V1 max P.0 mmHg PA V2 mean: 92.0 cm/sec Ao V2 mean: 115.7 cm/sec LV V1 mean P.0 mmHg Ao mean P.2 mmHg LV V1 mean: 104.3 cm/sec Ao V2 VTI: 38.2 cm LV V1 VTI: 35.3 cm TR max gaudencio: 209.5 cm/sec TR max P.6 mmHg ECHO/Echo Complete Interpretation Summary Normal LV size. Left ventricular systolic function is normal. The estimated ejection fraction is 55 %. Structurally normal valves. Ordering Physician: Siria Holder Referring Physician: NATALIYA PCP Performed By: Genevieve Chisholm RCS
--- NOTE | 2022-08-11 19:39 | PCM.CONS.C ---
Assessment & Plan Assessment/Plan (1) Sinus bradycardia: PLAN: She appears to have sinus bradycardia which is minimally symptomatic. At this time I would not recommend that we make any changes. It is likely from her nausea vomiting and her high vagal tone. In addition the contribution of her other medications cannot be excluded. At this particular time I would not suggest any medical intervention. Would like to obtain a TSH to make sure patient does not significantly hypothyroid. I would continue with expectant management. Thank you for allowing me to participate in the care of your patient. Please don't hesitate to call if any issues arise. HPI Consult Data Date of Consult: 08/11/22 HPI Narrative HPI Narrative: ROSANGELA ROCHA, is a 36 F who presents to the hospital with a complaint of intractable nausea vomiting and epigastric discomfort which has been going on for approximately 2 days. She is currently 32 weeks and is a 8 para 5. During this admission she was noted to be bradycardic with a heart rate going down to her 30s. An EKG which was done demonstrated sinus bradycardia with a rate of 48 bpm. She has been using CBD products and other recreational agents. She is also on Subutex with her history of opiate addiction. ? She is on Subutex due to her history of opiate addiction.? She follows up with addiction medicine and says prior to her she was on 4 mg of Subutex.? However during her she is gone up to 12 mg and sometimes takes 60 mg as well.? She has been able to keep the Subutex time tolerated but says last night was the only time that she could not keep the Subutex down due to vomiting.? Hospitalist service was consulted to evaluate patient by her 911 emergency dispatcher due to concerns about possible Subutex withdrawal, and cardiology was consulted by the hospitalist on account of her bradycardia. At the time of this visit she appears to be asymptomatic sitting in bed. [facility] Medical History (Updated 08/11/22 @ 19:[address] Chuck Ley MD) Bipolar 1 disorder, depressed Drug abuse in remission Home Medications buprenorphine HCl 8 mg sublingual tablet 8 mg PO DAILY hx of heroin 02/16/19 [History Last Taken 08/10/22 08:00] ondansetron 8 mg disintegrating tablet 8 mg PO TID PRN nausea and vomiting ##60 09/02/19 [Rx Last Taken 02/22/21 09:00] aspirin 81 mg chewable tablet 81 mg PO DAILY hx of pre eclampsia 02/09/21 [History Last Taken 02/06/21 09:00] food supplemt, lactose-reduced 237 ml PO TID eating disorder 02/09/21 [History Last Taken 02/22/21] buprenorphine HCl 2 mg sublingual tablet 4 mg sublingual QHS hx heroin use 08/11/22 [History Last Taken 08/10/22 20:00] Allergy/AdvReac Type Severity Reaction Status Date / Time amoxicillin Allergy Hives Verified 02/09/21 04:32 beeswax Allergy Hives Verified 01/23/20 23:10 hydrocodone bitartrate Allergy Itching Verified 02/09/21 04:32 [From Vicodin] acetaminophen [From Ultracet] AdvReac Other Verified 02/09/21 06:03 amitriptyline AdvReac Other Verified 02/09/21 04:32 doxycycline AdvReac Vomiting Verified 02/09/21 04:32 fentanyl AdvReac Itching Verified 02/09/21 06:01 promethazine [From Phenergan] AdvReac Other Verified 02/09/21 06:01 rofecoxib [From Vioxx] AdvReac Vomiting Verified 02/09/21 04:32 tramadol [From Ultracet] AdvReac Other Verified 02/09/21 06:03 CONTROL Allergy Other Uncoded 02/16/21 21:56 Surgical History History of appendectomy Social History number of children: 3 current occupational status: unemployed Smoking Status: Heavy Smoker (>10/day) alcohol intake: never substance use type: former substance user and marijuana seatbelt use: always do you feel safe at home: Yes ROS Constitutional Constitutional: Denies fever(s) or weight loss Eyes Eyes: Reports systems reviewed and no addt'l complaints, except as documented ENT HEENT: Reports systems reviewed and no addt'l complaints, except as documented Cardiovascular Cardiovascular: Denies chest pain at rest, chest pain with activity, dyspnea at rest, dyspnea on exertion, edema, palpitations or paroxysmal nocturnal dyspnea Respiratory/Chest Respiratory/Chest: Denies dyspnea on exertion, productive cough, shortness of breath at rest or shortness of breath with exertion Gastrointestinal Gastrointestinal: Denies change in bowel habits, nausea, vomiting or weight changes Genitourinary Genitourinary: Denies difficulty urinating Musculoskeletal Musculoskeletal: Denies joint stiffness or muscle weakness Integumentary Integumentary: Denies lesions Neurologic Neurologic: Denies dizziness or syncope Psychiatric Psychiatric: Denies anxiety Endocrine Endocrinology: Denies excessive sweating or fatigue Hematologic/Lymphatic Hematologic/Lymphatic: Denies anemia Allergic/Immunologic Allergic/Immunologic: Denies seasonal rhinorrhea Physical Exam Const alert, oriented x3 and no apparent distress General Appearance: cooperative HEENT hearing grossly normal bilaterally Head and Scalp: atraumatic Eyes EOMs intact bilaterally Neck General: normal visual inspection Chest inspection of chest normal and palpation of chest normal Resp normal respiratory effort Auscultation: clear to auscultation bilaterally Cardio regular rate, regular rhythm, S1 normal heart sound and S2 normal heart sound Jugular Venous Distention: JVD GI normal to inspection, nondistended, normoactive bowel sounds Narrative: Gravid uterus. Extremity normal capillary refill and no pedal edema Peripheral Pulses: Yes pulses 2+ throughout and femoral pulses present Skin no rashes or lesions noted Neuro oriented x3 and CN's II-XII intact bilaterally Psych Appearance: grossly normal and appropriate Risk Stratification Risk Stratification Applicable: No Objective Data Vital Signs: Vital Signs Pulse BP Pulse Ox 52 L 119/59 L 100 08/11/22 19:11 08/11/22 17:52 08/11/22 19:11 Lab / Micro Data Result Diagrams: 08/11/22 17:20 08/11/22 17:20 Labs: Laboratory Results - last 24 hr 08/11/22 16:30: Fibronectin Cancelled 08/11/22 17:20: WBC 9.6, RBC 4.26, Hgb 12.8, Hct 37.7, MCV 88.5, MCH 30.0, MCHC 34.0, RDW Std Deviation 42.8, RDW Coeff of Rekha 13.2, Plt Count 226, MPV 10.4, Immature Gran % (Auto) 0.500, Neut % (Auto) 85.2 H, Lymph % (Auto) 9.9 L, [place] % (Auto) 4.0, Eos % (Auto) 0.2, Baso % (Auto) 0.2, Absolute Neuts (auto) 8.2 H, Absolute Lymphs (auto) 0.95, Nucleated RBC % 0 08/11/22 17:20: Sodium 139, Potassium 3.4 L, Chloride 107, Carbon Dioxide 23.0, Anion Gap 9, BUN 8, Creatinine 0.53 L, Est GFR (MDRD) Af Amer 168, Est GFR (MDRD) Non-Af 139, BUN/Creatinine Ratio 15.0, Glucose 96, Uric Acid 3.4, Calcium 9.0, Total Bilirubin 1.00, AST 28, ALT 31, Alkaline Phosphatase 116, Total Protein 7.2, Albumin 3.0 L, Globulin 4.2, Albumin/Globulin Ratio 0.7 L, Amylase 65, Lipase 60 L Micro: Microbiology 08/11/22 16:05 Nasal Secretion SARS-CoV-2 Antigen (Rapid) - Final Cardiology Labs/Tests 08/11/22 17:20: WBC 9.6, RBC 4.26, Hgb 12.8, Hct 37.7, MCV 88.5, MCH 30.0, MCHC 34.0, Plt Count 226, MPV 10.4, Immature Gran % (Auto) 0.500, Neut % (Auto) 85.2 H, Lymph % (Auto) 9.9 L, [place] % (Auto) 4.0, Eos % (Auto) 0.2, Baso % (Auto) 0.2, Absolute Neuts (auto) 8.2 H, Nucleated RBC % 0 08/11/22 17:20: Sodium 139, Potassium 3.4 L, Chloride 107, Carbon Dioxide 23.0, Anion Gap 9, BUN 8, Creatinine 0.53 L, Est GFR (MDRD) Af Amer 168, Est GFR (MDRD) Non-Af 139, BUN/Creatinine Ratio 15.0, Glucose 96, Uric Acid 3.4, Calcium 9.0, Total Bilirubin 1.00 Rhythm: EKG: ECHO: Stress Test: Cardiac Cath: PCI: CT Surgery: Holter monitor: EPS: PPM: CXR: Chest CT Scan:
[2022-08-11 20:07] LABS: Color, Urine Yellow (Yellow); Glucose, Dipstick Normal (Normal); Leukocyte Esterase-Dipstick 25 /ul (Negative); Nitrite-Dipstick Negative (Negative); Occult Blood-Urine 10 /ul (Negative); Protein-Dipstick 30 mg/dl (Negative); Urine Bilirubin Dipstick Negative (Negative); Urine Clarity Clear (Clear); Urine Urobilinogen 4 mg/dl (Normal); Urine pH 6.5 (5.0 - 8.0)
[2022-08-11 20:19] LABS: Protein, Urine (Random) 48.6 mg/dL (<11.9); Protein:Creat Ratio 312 mg/g CRE (0-200)
[2022-08-11 20:21] LABS: Amphetamine Urine VISTA NEGATIVE (<1000 ng/mL); Barbiturate Urine VISTA NEGATIVE (< 200 ng/mL); Benzodiazepine Urine VISTA NEGATIVE (< 200 ng/mL); Cocaine Urine VISTA NEGATIVE (< 300 ng/mL); Ecstacy Urine VISTA NEGATIVE (< 500 ng/mL); Methadone Urine VISTA NEGATIVE (< 300 ng/mL); PCP Urine VISTA NEGATIVE (< 25 ng/mL); THC Urine VISTA POSITIVE (< 50 ng/mL); Vista UDS pH Range 6
[2022-08-11 20:24] LABS: Thyroid Stim Hormone (TSH) 0.72 uIU/mL (0.358-3.74)
[2022-08-11 20:24] LABS: Bacteria 2+ /hpf (None Seen); Ketone-Dipstick 150 mg/dl (Negative); Mucous, Urine 2+ /hpf (<or=2+); Red Blood Cells-Urine 0-5 SEEN /hpf (0-5); Squamous Epithelial Cells - UA 0-5 SEEN /hpf (5-10); White Blood Cells 0-5 SEEN /hpf (0-5)
[2022-08-11] MEDS: Betamethasone/Betamethasone 30 MG/5 ML Vial 12 MG IM (21:38)
[2022-08-11] MEDS: Acetaminophen 500 MG Tablet 1000 MG PO (22:23)
[2022-08-11] MEDS: Famotidine 200 MG/20 ML MDV 20 MG in 0.9% Normal Saline (Pres. free 8 ML 300 MG IV (22:27)
[2022-08-12] VITALS (9 sets, daily range): BP systolic 101–121; BP diastolic 50–57; PULSE 50–73; TEMP 36.3–36.9; O2SAT 97–100
[2022-08-12] MEDS: Ondansetron 4 MG/2 ML Vial IV ×5 (02:32→21:00)
[2022-08-12] MEDS: Acetaminophen 500 MG Tablet 1000 MG PO ×2 (04:24→21:00)
[2022-08-12] MEDS: Lactated Ringers 1,000 ML 100 ML IV ×2 (04:24→14:39)
--- NOTE | 2022-08-12 04:30 | OB.TRI.PN_ITS ---
Progress Notes Progress Note: ROSANGELA ROCHA, is a 36 F at 31w3d who [facility] a complaint of intractable nausea, vomiting and epigastric pain.?Complaint of epigastric pain has been going on for about 2 days. Nausea and vomiting has been all throughout her and denies improvement unless taking Zofran. Uses Marijuana daily for the nausea and vomiting along with PTSD. She has been unable to keep food or liquids down for the last 24 hours. Has not taken Subutex dose due to nausea and vomiting for last 24hrs.? The abdominal pain was described as sharp and burning and mainly in the epigastrium and at times radiates up into her chest.?She denies any pain with eating.?Denies contractions but increased pain. Denies any vaginal bleeding or fluid leakage. History of rupture of membranes but no 17P injections during this . Laboratory Studies: Laboratory Tests 08/11/22 08/11/22 08/11/22 Range/Units 19:30 19:30 19:30 WBC (4.4-11.0) K/mm3 RBC (4.2-5.4) M/mm3 Hgb (12.0-15.0) g/dL Hct (37-47) % MCV (81-99) fL MCH (27.0-32.0) pg MCHC (32-36) g/dL RDW Std Deviation (35.1-43.9) fl RDW Coeff of Rekha (11.6-14.6) % Plt Count (150-450) K/mm3 MPV (6.2-12.0) fl Immature Gran % (Auto) (0.0-0.9) % Neut % (Auto) (47-70) % Lymph % (Auto) (19-41) % [place] % (Auto) (0-10) % Eos % (Auto) (0-5) % Baso % (Auto) (0-1) % Absolute Neuts (auto) (2.0-7.7) X10^3/uL Absolute Lymphs (auto) (0.83-4.51) X10^3/uL Nucleated RBC % (0-5) % Sodium (136-145) mmol/L Potassium (3.5-5.1) mmol/L Chloride (98-107) mmol/L Carbon Dioxide (21.0-32.0) mmol/L Anion Gap (5-15) BUN (7-18) mg/dL Creatinine (0.55-1.02) mg/dL Est GFR (MDRD) Af Amer (>60) mL/min Est GFR (MDRD) Non-Af (>60) mL/min BUN/Creatinine Ratio (10-20) RATIO Glucose (74-106) mg/dL Uric Acid (2.6-6.0) mg/dL Calcium (8.5-10.1) mg/dL Total Bilirubin (0.20-1.00) mg/dL AST (15-37) U/L ALT (13-56) U/L Alkaline Phosphatase (45-117) U/L Total Protein (6.4-8.2) g/dL Albumin (3.2-5.0) g/dL Globulin (2.2-4.2) g/dL Albumin/Globulin Ratio (0.9-2.4) RATIO Amylase (25-115) U/L Lipase (73-393) U/L TSH (0.358-3.74) uIU/mL Urine Color Yellow (Yellow) Urine Clarity Clear (Clear) Urine pH 6.5 (5.0 - 8.0) Ur Specific [place] 1.020 (1.002-1.030) Urine Protein 30 H (Negative) mg/dl Urine Glucose (UA) Normal (Normal) mg/dl Urine Ketones 150 A* (Negative) mg/dl Urine Occult Blood 10 H (Negative) /ul Urine Nitrite Negative (Negative) Urine Bilirubin Negative (Negative) mg/dL Urine Urobilinogen 4 H (Normal) mg/dl Ur Leukocyte Esterase 25 H (Negative) /ul Urine RBC 0-5 SEEN (0-5) /hpf Urine WBC 0-5 SEEN (0-5) /hpf Ur Squamous Epith Cells 0-5 SEEN (5-10) /hpf Urine Bacteria 2+ (None Seen) /hpf Urine Mucus 2+ (<or=2+) /hpf U Random Total Protein 48.6 H (<11.9) mg/dL Urine Creatinine 156.00 (NO RANGE EST.) mg/dL Protein/Creatinin Ratio 312 H (0-200) mg/g CRE Urine Opiates Screen NEGATIVE (< 300 ng/mL) Urine Methadone Screen NEGATIVE (< 300 ng/mL) Ur Barbiturates Screen NEGATIVE (< 200 ng/mL) Ur Phencyclidine Scrn NEGATIVE (< 25 ng/mL) Ur Amphetamines Screen NEGATIVE (<1000 ng/mL) MDMA (Ecstasy) Screen NEGATIVE (< 500 ng/mL) U Benzodiazepines Scrn NEGATIVE (< 200 ng/mL) Urine Cocaine Screen NEGATIVE (< 300 ng/mL) U Cannabinoids Screen POSITIVE H (< 50 ng/mL) Ur Drug Screen Comment Fibronectin 08/11/22 08/11/22 08/11/22 Range/Units 17:20 17:20 17:20 WBC 9.6 (4.4-11.0) K/mm3 RBC 4.26 (4.2-5.4) M/mm3 Hgb 12.8 (12.0-15.0) g/dL Hct 37.7 (37-47) % MCV 88.5 (81-99) fL MCH 30.0 (27.0-32.0) pg MCHC 34.0 (32-36) g/dL RDW Std Deviation 42.8 (35.1-43.9) fl RDW Coeff of Rekha 13.2 (11.6-14.6) % Plt Count 226 (150-450) K/mm3 MPV 10.4 (6.2-12.0) fl Immature Gran % (Auto) 0.500 (0.0-0.9) % Neut % (Auto) 85.2 H (47-70) % Lymph % (Auto) 9.9 L (19-41) % [place] % (Auto) 4.0 (0-10) % Eos % (Auto) 0.2 (0-5) % Baso % (Auto) 0.2 (0-1) % Absolute Neuts (auto) 8.2 H (2.0-7.7) X10^3/uL Absolute Lymphs (auto) 0.95 (0.83-4.51) X10^3/uL Nucleated RBC % 0 (0-5) % Sodium 139 (136-145) mmol/L Potassium 3.4 L (3.5-5.1) mmol/L Chloride 107 (98-107) mmol/L Carbon Dioxide 23.0 (21.0-32.0) mmol/L Anion Gap 9 (5-15) BUN 8 (7-18) mg/dL Creatinine 0.53 L (0.55-1.02) mg/dL Est GFR (MDRD) Af Amer 168 (>60) mL/min Est GFR (MDRD) Non-Af 139 (>60) mL/min BUN/Creatinine Ratio 15.0 (10-20) RATIO Glucose 96 (74-106) mg/dL Uric Acid 3.4 (2.6-6.0) mg/dL Calcium 9.0 (8.5-10.1) mg/dL Total Bilirubin 1.00 (0.20-1.00) mg/dL AST 28 (15-37) U/L ALT 31 (13-56) U/L Alkaline Phosphatase 116 (45-117) U/L Total Protein 7.2 (6.4-8.2) g/dL Albumin 3.0 L (3.2-5.0) g/dL Globulin 4.2 (2.2-4.2) g/dL Albumin/Globulin Ratio 0.7 L (0.9-2.4) RATIO Amylase 65 (25-115) U/L Lipase 60 L (73-393) U/L TSH 0.72 (0.358-3.74) uIU/mL Urine Color (Yellow) Urine Clarity (Clear) Urine pH (5.0 - 8.0) Ur Specific [place] (1.002-1.030) Urine Protein (Negative) mg/dl Urine Glucose (UA) (Normal) mg/dl Urine Ketones (Negative) mg/dl Urine Occult Blood (Negative) /ul Urine Nitrite (Negative) Urine Bilirubin (Negative) mg/dL Urine Urobilinogen (Normal) mg/dl Ur Leukocyte Esterase (Negative) /ul Urine RBC (0-5) /hpf Urine WBC (0-5) /hpf Ur Squamous Epith Cells (5-10) /hpf Urine Bacteria (None Seen) /hpf Urine Mucus (<or=2+) /hpf U Random Total Protein (<11.9) mg/dL Urine Creatinine (NO RANGE EST.) mg/dL Protein/Creatinin Ratio (0-200) mg/g CRE Urine Opiates Screen (< 300 ng/mL) Urine Methadone Screen (< 300 ng/mL) Ur Barbiturates Screen (< 200 ng/mL) Ur Phencyclidine Scrn (< 25 ng/mL) Ur Amphetamines Screen (<1000 ng/mL) MDMA (Ecstasy) Screen (< 500 ng/mL) U Benzodiazepines Scrn (< 200 ng/mL) Urine Cocaine Screen (< 300 ng/mL) U Cannabinoids Screen (< 50 ng/mL) Ur Drug Screen Comment Fibronectin 08/11/22 Range/Units 16:30 WBC (4.4-11.0) K/mm3 RBC (4.2-5.4) M/mm3 Hgb (12.0-15.0) g/dL Hct (37-47) % MCV (81-99) fL MCH (27.0-32.0) pg MCHC (32-36) g/dL RDW Std Deviation (35.1-43.9) fl RDW Coeff of Rekha (11.6-14.6) % Plt Count (150-450) K/mm3 MPV (6.2-12.0) fl Immature Gran % (Auto) (0.0-0.9) % Neut % (Auto) (47-70) % Lymph % (Auto) (19-41) % [place] % (Auto) (0-10) % Eos % (Auto) (0-5) % Baso % (Auto) (0-1) % Absolute Neuts (auto) (2.0-7.7) X10^3/uL Absolute Lymphs (auto) (0.83-4.51) X10^3/uL Nucleated RBC % (0-5) % Sodium (136-145) mmol/L Potassium (3.5-5.1) mmol/L Chloride (98-107) mmol/L Carbon Dioxide (21.0-32.0) mmol/L Anion Gap (5-15) BUN (7-18) mg/dL Creatinine (0.55-1.02) mg/dL Est GFR (MDRD) Af Amer (>60) mL/min Est GFR (MDRD) Non-Af (>60) mL/min BUN/Creatinine Ratio (10-20) RATIO Glucose (74-106) mg/dL Uric Acid (2.6-6.0) mg/dL Calcium (8.5-10.1) mg/dL Total Bilirubin (0.20-1.00) mg/dL AST (15-37) U/L ALT (13-56) U/L Alkaline Phosphatase (45-117) U/L Total Protein (6.4-8.2) g/dL Albumin (3.2-5.0) g/dL Globulin (2.2-4.2) g/dL Albumin/Globulin Ratio (0.9-2.4) RATIO Amylase (25-115) U/L Lipase (73-393) U/L TSH (0.358-3.74) uIU/mL Urine Color (Yellow) Urine Clarity (Clear) Urine pH (5.0 - 8.0) Ur Specific [place] (1.002-1.030) Urine Protein (Negative) mg/dl Urine Glucose (UA) (Normal) mg/dl Urine Ketones (Negative) mg/dl Urine Occult Blood (Negative) /ul Urine Nitrite (Negative) Urine Bilirubin (Negative) mg/dL Urine Urobilinogen (Normal) mg/dl Ur Leukocyte Esterase (Negative) /ul Urine RBC (0-5) /hpf Urine WBC (0-5) /hpf Ur Squamous Epith Cells (5-10) /hpf Urine Bacteria (None Seen) /hpf Urine Mucus (<or=2+) /hpf U Random Total Protein (<11.9) mg/dL Urine Creatinine (NO RANGE EST.) mg/dL Protein/Creatinin Ratio (0-200) mg/g CRE Urine Opiates Screen (< 300 ng/mL) Urine Methadone Screen (< 300 ng/mL) Ur Barbiturates Screen (< 200 ng/mL) Ur Phencyclidine Scrn (< 25 ng/mL) Ur Amphetamines Screen (<1000 ng/mL) MDMA (Ecstasy) Screen (< 500 ng/mL) U Benzodiazepines Scrn (< 200 ng/mL) Urine Cocaine Screen (< 300 ng/mL) U Cannabinoids Screen (< 50 ng/mL) Ur Drug Screen Comment Fibronectin Cancelled Assessment & Plan (1) 31 weeks gestation of : (2) History of prior with IUGR : (3) Bipolar disease during : QUALIFIERS: Qualified Code(s): F31.9 - Bipolar disorder, unspecified (4) Marijuana abuse: COMMENT: 07/08 neg (5) complicated by subutex maintenance, antepartum: (6) History of heroin abuse: PLAN: Plan 1) monitoring 2) FFN for possible uterine contractions. Celestone 12mg IM now and repeat in 24 hr 3) CMP, CBC, amylase, lipase, uric acid, urine culture, urine P/C ratio 4) 1 liter LR IV bolus 5) Zofran 4mg IVP 6) Will bring Subutex from home, did not take dose yesterday. Pharmacy to verify. Uncertain if withdrawal as patient states this is how she feels if she does take at times. 7) Consult medicine for epigastric pain, bradycardia, and nausea/vomiting. 8) Dr. Aguirre consulted and agrees with plan of care, collaborative physician
--- NOTE | 2022-08-12 08:09 | PCM.PN.HOSP ---
Subjective Subjective Patient is a 36-year-old lady who is currently 32 weeks ( 8 para 5) for whom the hospitalist service was consulted for abdominal pain and bradycardia Objective Data Objective Data Vital Signs: Vital Signs Temp Pulse BP Pulse Ox 98.2 F 63 104/57 L 98 08/12/22 07:21 08/12/22 07:21 08/12/22 07:21 08/12/22 07:21 Weight: 68.039 kg Body Mass Index (BMI) 25.7 Intake & Output: Intake and Output for Last 24 Hours 08/10/22 08/11/22 08/12/22 23:59 23:59 23:59 Intake Total 1010 / 1010 1000 / 1000 Balance 1010 / 1010 1000 / 1000 Lab / Micro Data Result Diagrams: 08/11/22 17:20 08/11/22 17:20 Labs: Laboratory Results - last 24 hr 08/11/22 16:30: Fibronectin Cancelled 08/11/22 17:20: WBC 9.6, RBC 4.26, Hgb 12.8, Hct 37.7, MCV 88.5, MCH 30.0, MCHC 34.0, RDW Std Deviation 42.8, RDW Coeff of Rekha 13.2, Plt Count 226, MPV 10.4, Immature Gran % (Auto) 0.500, Neut % (Auto) 85.2 H, Lymph % (Auto) 9.9 L, [place] % (Auto) 4.0, Eos % (Auto) 0.2, Baso % (Auto) 0.2, Absolute Neuts (auto) 8.2 H, Absolute Lymphs (auto) 0.95, Nucleated RBC % 0 08/11/22 17:20: Sodium 139, Potassium 3.4 L, Chloride 107, Carbon Dioxide 23.0, Anion Gap 9, BUN 8, Creatinine 0.53 L, Est GFR (MDRD) Af Amer 168, Est GFR (MDRD) Non-Af 139, BUN/Creatinine Ratio 15.0, Glucose 96, Uric Acid 3.4, Calcium 9.0, Total Bilirubin 1.00, AST 28, ALT 31, Alkaline Phosphatase 116, Total Protein 7.2, Albumin 3.0 L, Globulin 4.2, Albumin/Globulin Ratio 0.7 L, Amylase 65, Lipase 60 L 08/11/22 17:20: TSH 0.72 08/11/22 19:30: U Random Total Protein 48.6 H, Urine Creatinine 156.00, Protein/Creatinin Ratio 312 H 08/11/22 19:30: Urine Opiates Screen NEGATIVE, Urine Methadone Screen NEGATIVE, Ur Barbiturates Screen NEGATIVE, Ur Phencyclidine Scrn NEGATIVE, Ur Amphetamines Screen NEGATIVE, MDMA (Ecstasy) Screen NEGATIVE, U Benzodiazepines Scrn NEGATIVE, Urine Cocaine Screen NEGATIVE, U Cannabinoids Screen POSITIVE H, Ur Drug Screen Comment 08/11/22 19:30: Urine Color Yellow, Urine Clarity Clear, Urine pH 6.5, Ur Specific [place] 1.020, Urine Protein 30 H, Urine Glucose (UA) Normal, Urine Ketones 150 A*, Urine Occult Blood 10 H, Urine Nitrite Negative, Urine Bilirubin Negative, Urine Urobilinogen 4 H, Ur Leukocyte Esterase 25 H, Urine RBC 0-5 SEEN, Urine WBC 0-5 SEEN, Ur Squamous Epith Cells 0-5 SEEN, Urine Bacteria 2+, Urine Mucus 2+ Micro: Microbiology 08/11/22 16:05 Nasal Secretion SARS-CoV-2 Antigen (Rapid) - Final Physical Exam Narrative GENERAL: cooperative HEENT: Atraumatic; normocephalic EYES; Anicteric, Normal Conjunctiva NECK; supple, normal thyroid, RESPIRATORY: Diminished to auscultation CARDIOVASCULAR: Regular S1 S2, GI: soft, normoactive bowel sounds, : Gravid uterus EXTREMITIES: No edema, no clubbing, MUSCULOSKELETAL: no muscle wasting NEURO: Awake; no lateralizing signs. SKIN: No Rash PSYCH; Flat affect Assessment & Plan Assessment/Plan (1) 31 weeks gestation of : (2) Marijuana abuse: (3) Intractable vomiting with nausea: (4) Cyclical vomiting syndrome: PLAN: Plan Patient is a 36-year-old lady who is currently 32 weeks ( 8 para 5) for whom the hospitalist service was consulted for abdominal pain and bradycardia 1. Intractable nausea and vomiting ? Thought to be secondary to cannabinoid induced cyclic vomiting. Plan is to manage patient conservatively 2. Sinus bradycardia ? Thought to be secondary to above. As part of patient management TSH was ordered came back within normal limit. 2D echo was ordered results pending 3. Hypokalemia -Corrected per protocol 4. 32 weeks of gestation ? 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 History of opioid dependence ? Patient is on Subutex did continue 6. GERD ? Patient is on famotidine 7. DVT prophylaxis - deferred to primary service Charges/Coding Visit Charges Inpatient E&M: 68691 Subs Hosp L2
[2022-08-12] MEDS: Famotidine 200 MG/20 ML MDV 20 MG in 0.9% Normal Saline (Pres. free 8 ML 300 MG IV (09:56)
[2022-08-12] MEDS: buprenorphine HCL 8 MG TAB.SUBL SL (09:56)
[2022-08-12] MEDS: 0.9% Saline Lock 10 ML Syringe IV ×4 (10:10→14:39)
--- NOTE | 2022-08-12 10:51 | PCM.CONS.GEN ---
Assessment & Plan Assessment/Plan (1) Cyclical vomiting syndrome: (2) Marijuana abuse: PLAN: Reports a sensation of cannabis as a primary treatment for cannabis hyperemesis syndrome. However being that she has a history of IV drug abuse and these patients tend to have a personality and makes it very difficult to stop. Also she is does not seem to think there is an issue with her using marijuana on a daily basis as a way to cope with her constant nausea vomiting although it is very likely that the marijuana is contributing to an underlying problem. As cannabis does cause gastroparesis. She also takes an narcotic that causes gastroparesis. She has a lot of issues with constipation what I think also contributes to her issues. Conventional antiemetic such as metoclopramide, ondansetron, prochlorperazine, and promethazine have consistently been ineffective or shown minimal symptom relief . Haloperidol has been utilized off-label for its antiemetic properties in treatment of CHS and does have successful case reports at recommended doses of 2.5-5 mg intravenously although none of the patients were . Olanzapine and droperidol have been investigated although to a much lesser degree. Tricyclic antidepressants (TCAs) have been studied with some efficacy for long-term CHS treatment, although this evidence is taken from trials utilizing TCAs for CVS in which several participants were noted to have concurrent cannabis use . Although several patients either decreased or ceased cannabis use, which may have precipitated symptom improvement, a subset of cannabis users did have symptom improvement with a TCA and ongoing cannabis use. Dronabinol, a schedule III synthesized variant of ?9- THC, has been proposed as a treatment for CHS to taper patients off cannabis. Due to the impracticality of high frequency bathing, other pharmacological treatments such as topical capsaicin has been investigated. Capsaicin also activates TRPV1 and has been shown to be an effective treatment in over twenty case reports. Heat and capsaicin are proposed to temporarily increase cutaneous TRPV1 firing resulting in antiemetic effects. In an expert consensus treatment guideline, topical capsaicin 0.075% applied three times daily to the back of the arms or abdomen is recommended as a reasonable first-line treatment I would recommend if she develops any issues with worsening nausea vomiting she can have a low-dose 0.25 or 0.5 mg of Ativan IV every 6 hours as needed. I would start her on scheduled Protonix 40 mg IV every 12 hours and treat her with Zofran 4 mg IV every 6 hours scheduled for her nausea. The only side effect of Zofran is constipation. This is also a a complication of her narcotics. If needed she can have MiraLAX 20 g p.o. every 12 hours as needed. HPI Consult Data Date of Consult: 08/12/22 HPI Narrative HPI Narrative: ROSANGELA ROCHA, is a 36 F who presents with intractable nausea and vomiting brought in by emergency medical services. She is 32 weeks and she is 8 para 5. She has a past medical history of IV drug abuse on Subutex and medical marijuana on a daily basis. She has a history of chronic nausea prior to her pregnancies. She is undergoing endoscopic procedures in the past including upper endoscopy. As per the patient no etiology was found to why she was having chronic nausea and intermittent epigastric pain. Currently prior to coming into the hospital and her epigastric pain has been going on for about 2 days with she described it as mid epigastric pain radiating into the upper chest. She said that she was normally taking Zofran on a daily basis at a 4 mg and an 8 mg dosage but she had ran out of the medicine. She says with most of her she has had the problems with worsening nausea and epigastric pain. 1 time she did require the use of a Zofran in order to keep her blood levels of Zofran up, as described by the patient.. She denies any recent street drug. She denies any alcohol. She denies any [id number] vitamins or supplements. She does take vitamins. She is not struggling with anemia or any other medical problem except for bradycardia. When she came into the hospital she was noted to be bradycardic in the 40s and as per her mother at the bedside she did have a heart rate into the 30s. She is currently being evaluated by cardiology due to possible symptomatic bradycardia. She has received Compazine in the past. She has not received Ativan, Benadryl, Haldol for her nausea vomiting. She has a pre-existing history of bipolar disorder. She is not on any medicines for bipolar disorder at this time. She is not having any abdominal pain at this time and is not nauseous after the use of Zofran 8 mg IV along with Pepcid administration twice daily. She is on IV fluids but she has not eating anything at this time. Other medications that she has received are steroids during her hospital stay. On my review, vitals showed pulse rate of 45 and she was saturating at 100% on room air.? CBC was essentially unremarkable and CMP was only remarkable for potassium of 3.4; she had normal liver enzymes and normal lipase. Urine toxicology was only positive for cannabinoids. Amylase lipase was not drawn. Also imaging was not done. [facility] Medical History (Updated 08/11/22 @ 19:[address] Chuck Ley MD) Bipolar 1 disorder, depressed Drug abuse in remission Home Medications buprenorphine HCl 8 mg sublingual tablet 8 mg PO DAILY hx of heroin 02/16/19 [History Last Taken 08/10/22 08:00] ondansetron 8 mg disintegrating tablet 8 mg PO TID PRN nausea and vomiting ##60 09/02/19 [Rx Last Taken 02/22/21 09:00] aspirin 81 mg chewable tablet 81 mg PO DAILY hx of pre eclampsia 02/09/21 [History Last Taken 02/06/21 09:00] food supplemt, lactose-reduced 237 ml PO TID eating disorder 02/09/21 [History Last Taken 08/09/22 08:00] buprenorphine HCl 2 mg sublingual tablet 4 mg sublingual QHS hx heroin use 08/11/22 [History Last Taken 08/10/22 20:00] Allergy/AdvReac Type Severity Reaction Status Date / Time amoxicillin Allergy Hives Verified 08/11/22 21:33 beeswax Allergy Hives Verified 08/11/22 21:33 hydrocodone bitartrate Allergy Itching Verified 08/11/22 21:33 [From Vicodin] acetaminophen [From Ultracet] AdvReac Other Verified 08/11/22 21:33 amitriptyline AdvReac Other Verified 08/11/22 21:33 doxycycline AdvReac Vomiting Verified 08/11/22 21:33 fentanyl AdvReac Itching Verified 08/11/22 21:33 promethazine [From Phenergan] AdvReac Other Verified 08/11/22 21:33 rofecoxib [From Vioxx] AdvReac Vomiting Verified 08/11/22 21:33 tramadol [From Ultracet] AdvReac Other Verified 08/11/22 21:33 CONTROL Allergy Other Uncoded 02/16/21 21:56 Surgical History History of appendectomy Social History number of children: 3 current occupational status: unemployed Smoking Status: Heavy Smoker (>10/day) alcohol intake: never substance use type: former substance user and marijuana seatbelt use: always do you feel safe at home: Yes ROS Constitutional Constitutional: Denies fever(s) or weight loss Eyes Eyes: Reports systems reviewed and no addt'l complaints, except as documented ENT HEENT: Reports systems reviewed and no addt'l complaints, except as documented Cardiovascular Cardiovascular: Denies chest pain at rest, chest pain with activity, dyspnea at rest, dyspnea on exertion, edema, palpitations or paroxysmal nocturnal dyspnea Respiratory/Chest Respiratory/Chest: Denies dyspnea on exertion, productive cough, shortness of breath at rest or shortness of breath with exertion Gastrointestinal Gastrointestinal: Denies change in bowel habits, nausea, vomiting or weight changes Genitourinary Genitourinary: Denies difficulty urinating Musculoskeletal Musculoskeletal: Denies joint stiffness or muscle weakness Integumentary Integumentary: Denies lesions Neurologic Neurologic: Denies dizziness or syncope Psychiatric Psychiatric: Denies anxiety Endocrine Endocrinology: Denies excessive sweating or fatigue Hematologic/Lymphatic Hematologic/Lymphatic: Denies anemia Allergic/Immunologic Allergic/Immunologic: Denies seasonal rhinorrhea Physical Exam Narrative GENERAL: cooperative HEENT: Atraumatic; normocephalic EYES; Anicteric, Normal Conjunctiva NECK; supple, normal thyroid, RESPIRATORY: Diminished to auscultation CARDIOVASCULAR: Regular S1 S2, GI: soft, normoactive bowel sounds, : Gravid uterus EXTREMITIES: No edema, no clubbing, MUSCULOSKELETAL: no muscle wasting NEURO: Awake; no lateralizing signs. SKIN: No Rash PSYCH; Flat affect Lab / Micro Data Result Diagrams: 08/11/22 17:20 08/11/22 17:20 Labs: Laboratory Results - last 24 hr 08/11/22 16:30: Fibronectin Cancelled 08/11/22 17:20: WBC 9.6, RBC 4.26, Hgb 12.8, Hct 37.7, MCV 88.5, MCH 30.0, MCHC 34.0, RDW Std Deviation 42.8, RDW Coeff of Rekha 13.2, Plt Count 226, MPV 10.4, Immature Gran % (Auto) 0.500, Neut % (Auto) 85.2 H, Lymph % (Auto) 9.9 L, [place] % (Auto) 4.0, Eos % (Auto) 0.2, Baso % (Auto) 0.2, Absolute Neuts (auto) 8.2 H, Absolute Lymphs (auto) 0.95, Nucleated RBC % 0 08/11/22 17:20: Sodium 139, Potassium 3.4 L, Chloride 107, Carbon Dioxide 23.0, Anion Gap 9, BUN 8, Creatinine 0.53 L, Est GFR (MDRD) Af Amer 168, Est GFR (MDRD) Non-Af 139, BUN/Creatinine Ratio 15.0, Glucose 96, Uric Acid 3.4, Calcium 9.0, Total Bilirubin 1.00, AST 28, ALT 31, Alkaline Phosphatase 116, Total Protein 7.2, Albumin 3.0 L, Globulin 4.2, Albumin/Globulin Ratio 0.7 L, Amylase 65, Lipase 60 L 08/11/22 17:20: TSH 0.72 08/11/22 19:30: U Random Total Protein 48.6 H, Urine Creatinine 156.00, Protein/Creatinin Ratio 312 H 08/11/22 19:30: Urine Opiates Screen NEGATIVE, Urine Methadone Screen NEGATIVE, Ur Barbiturates Screen NEGATIVE, Ur Phencyclidine Scrn NEGATIVE, Ur Amphetamines Screen NEGATIVE, MDMA (Ecstasy) Screen NEGATIVE, U Benzodiazepines Scrn NEGATIVE, Urine Cocaine Screen NEGATIVE, U Cannabinoids Screen POSITIVE H, Ur Drug Screen Comment 08/11/22 19:30: Urine Color Yellow, Urine Clarity Clear, Urine pH 6.5, Ur Specific [place] 1.020, Urine Protein 30 H, Urine Glucose (UA) Normal, Urine Ketones 150 A*, Urine Occult Blood 10 H, Urine Nitrite Negative, Urine Bilirubin Negative, Urine Urobilinogen 4 H, Ur Leukocyte Esterase 25 H, Urine RBC 0-5 SEEN, Urine WBC 0-5 SEEN, Ur Squamous Epith Cells 0-5 SEEN, Urine Bacteria 2+, Urine Mucus 2+ Micro: Microbiology 08/11/22 19:30 Urine, Clean Catch Urine Culture - Preliminary GNR 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
--- NOTE | 2022-08-12 11:49 | US_ITS ---
STUDY: ABDOMINAL ULTRASOUND REASON FOR EXAM: Female, 36 years old. Abdominal epigastric pain and 32 weeks . TECHNIQUE: Transabdominal ultrasound was performed with real-time and static gonzalez scale imaging. TECHNICAL QUALITY: Adequate. COMPARISON: None. FINDINGS: Liver: The liver measures 18.5 cm. There is normal echogenicity of the liver. The bile ducts are within normal limits. There is hepatic color flow. The direction of portal flow is hepatopetal. There is no demonstrated mass lesion. Gallbladder: Normal distended gallbladder. The gallbladder wall measures 1.2 mm. There is a negative sonographic Carver''s sign. There is no pericholecystic fluid. There are no gallstones. Common Bile Duct (C.B.D.): The common bile duct measures 7 mm. Pancreas: Normal size of the head, body and tail of the pancreas. There is normal echogenicity of the pancreas. There is no demonstrated pancreatic mass or cyst. Spleen: Borderline splenomegaly. The spleen measures 12.3 cm. Right Kidney: Mild enlargement of right kidney. The right kidney measures 12.7 cm. Normal renal cortex. The right cortex measures 2.2 cm. There is no demonstrated renal mass or cyst. There is no right hydronephrosis. Left Kidney: Mild enlargement of the left kidney. The left kidney measures 12.2 cm. Normal renal cortex. The left cortex measures 2.1 cm. There is no demonstrated renal mass or cyst. There is no left hydronephrosis. Aorta: No abdominal aortic aneurysm. I.V.C.: The IVC is patent. There is no ascites. US/Abdomen Complete IMPRESSION: 1. Mild hepatomegaly without mass. 2. Borderline splenomegaly. 3. Top normal to mildly enlarged kidneys without hydronephrosis. 4. Otherwise normal abdominal ultrasound. Electronically Signed: Max Harp DO at 17:47 EDT ,
[2022-08-12 13:59] LABS: Amylase 32 U/L (25-115); Lipase 44 U/L (73-393)
[2022-08-12] MEDS: Ceftriaxone 1 GM/50 ML BAG IV (14:00)
--- NOTE | 2022-08-12 17:40 | PCM.PN.OB ---
Subjective Subjective Patient seen at bedside. Sitting in rocking chair at bedside. No emesis today. Stated feeling so much better today. Requesting dinner tray. Just completed abdominal ultrasound. Objective Data Objective Data Vital Signs: Vital Signs Temp Pulse BP Pulse Ox 97.3 F L 52 L 104/55 L 100 08/12/22 15:33 08/12/22 15:33 08/12/22 15:33 08/12/22 15:33 Weight: 150 lb Body Mass Index (BMI) 25.7 Intake & Output: Intake and Output for Last 24 Hours 08/10/22 08/11/22 08/12/22 23:59 23:59 23:59 Intake Total 1010 / 1010 2097. / 2097.33 Balance 1010 / 1010 2097. / Lab / Micro Data Result Diagrams: 08/11/22 17:20 08/11/22 17:20 Labs: Laboratory Results - last 24 hr 08/11/22 17:20: TSH 0.72 08/11/22 19:30: U Random Total Protein 48.6 H, Urine Creatinine 156.00, Protein/Creatinin Ratio 312 H 08/11/22 19:30: Urine Opiates Screen NEGATIVE, Urine Methadone Screen NEGATIVE, Ur Barbiturates Screen NEGATIVE, Ur Phencyclidine Scrn NEGATIVE, Ur Amphetamines Screen NEGATIVE, MDMA (Ecstasy) Screen NEGATIVE, U Benzodiazepines Scrn NEGATIVE, Urine Cocaine Screen NEGATIVE, U Cannabinoids Screen POSITIVE H, Ur Drug Screen Comment 08/11/22 19:30: Urine Color Yellow, Urine Clarity Clear, Urine pH 6.5, Ur Specific [place] 1.020, Urine Protein 30 H, Urine Glucose (UA) Normal, Urine Ketones 150 A*, Urine Occult Blood 10 H, Urine Nitrite Negative, Urine Bilirubin Negative, Urine Urobilinogen 4 H, Ur Leukocyte Esterase 25 H, Urine RBC 0-5 SEEN, Urine WBC 0-5 SEEN, Ur Squamous Epith Cells 0-5 SEEN, Urine Bacteria 2+, Urine Mucus 2+ 08/12/22 13:20: Amylase 32, Lipase 44 L 08/12/22 16:35: Blood Type A NEGATIVE Micro: Microbiology 08/11/22 19:30 Urine, Clean Catch Urine Culture - Preliminary GNR 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 Left ventricular systolic function is normal. The estimated ejection fraction is 55 %. Structurally normal valves. Ordering Physician: Siria Holder Referring Physician: NATALIYA PCP Performed By: Genevieve Chisholm RCS Abdomen Ultrasound 08/12/22 11:49 IMPRESSION: 1. Mild hepatomegaly without mass. 2. Borderline splenomegaly. 3. Top normal to mildly enlarged kidneys without hydronephrosis. 4. Otherwise normal abdominal ultrasound. Electronically Signed: Max Harp DO at 17:47 EDT Reading Location ID and State: [address] [place] [address] Tel [phone], Service support , ROS Eyes Eyes: Denies blurry vision, change in vision or spots in vision ENT HEENT: Denies dizziness or headache(s) Cardiovascular Cardiovascular: Denies abdominal pain, chest pain or dyspnea Respiratory/Chest Respiratory/Chest: Denies cough, dyspnea, shortness of breath at rest or shortness of breath with exertion Gastrointestinal Gastrointestinal: Denies abdominal pain, diarrhea or vomiting Genitourinary Genitourinary: Denies change in urinary stream, difficulty urinating or dysuria Musculoskeletal Musculoskeletal: Reports none Integumentary Integumentary: Denies rash Neurologic Neurologic: Denies dizziness, headache(s), memory loss or weakness Physical Exam Const alert and no apparent distress General Appearance: cooperative and comfortable Exam Limitations: no limitations HEENT normocephalic Eyes General Eye: normal appearance of both eyes Neck full ROM General: normal visual inspection Chest Chest: symmetrical chest wall rise Resp normal respiratory effort and normal air movement Effort and Inspection: symmetric chest movement Auscultation: clear to auscultation bilaterally Cardio regular rate and regular rhythm GI normal to inspection, nondistended, normoactive bowel sounds Back/Spine normal ROM Extremity full ROM and no calf tenderness General Extremity: normal exam except as noted Skin no rashes or lesions noted Neuro CN's II-XII intact bilaterally Psych mental status grossly normal Assessment & Plan (1) Sinus bradycardia: (2) Cyclical vomiting syndrome: (3) Intractable vomiting with nausea: (4) 32 weeks gestation of : (5) complicated by subutex maintenance, antepartum: (6) Marijuana abuse: COMMENT: 07/08 neg (7) Bipolar disease during : QUALIFIERS: Qualified Code(s): F31.9 - Bipolar disorder, unspecified PLAN: Plan Consults completed by [facility] IM tonight 24 hour urine - turned into lab tonight at 10 pm D/C home later tonight Rx for Zofran 8 mg PO every 8 hours as needed Rx for Protonix 20 mg PO daily Patient to be seen in office tomorrow Dr. Botello aware of plan of care and is collaborating physician
--- NOTE | 2022-08-12 18:15 | DCINST_ITS ---
Discharge Instructions Diet Discharge Diet: Light diet - advance as tolerated Activity Discharge Activity: Return to Normal Activity Follow Up Care Please Follow Up With: Charlene Botello MD When: Thursday in office Test Results: Test results from this visit will be discussed in further detail at your follow- up appointment, if applicable. Discharge Plan Admission Reason For Visit: R/O LABOR Attending Provider: Amy Mccain Primary Care Provider: Care Physician,Liv Primary Discharge Orders/Prescriptions Prescriptions: New pantoprazole [Protonix] 20 mg tablet,delayed release (DR/EC) 20 mg PO DAILY Qty: 30 1RF Continued buprenorphine HCl 8 mg tablet, sublingual 8 mg PO DAILY Label Comments: 8 mg am, 8 mg lagte afternoon early evening aspirin 81 MG tablet,chewable 81 mg PO DAILY food supplemt, lactose-reduced 237 ML liquid 237 ml PO TID buprenorphine HCl 2 mg Tablet, Sublingual 4 mg SUBLINGUAL QHS ondansetron 8 mg tablet,disintegrating 8 mg PO TID PRN (Reason: nausea and vomiting) Qty: 60 2RF Referrals / Follow Up: Care Physician,No Primary [Primary Care Provider] - Disposition Patient Disposition: Home, Self Care
[2022-08-12] MEDS: Buprenorphine HCl 2 MG TAB.SUBL 4 MG SL (19:08)
[2022-08-12] MEDS: Potassium Chloride Oral Tablet 20 MEQ 40 MEQ PO (19:08)
[2022-08-12] MEDS: Betamethasone/Betamethasone 30 MG/5 ML Vial 12 MG IM (21:25)
[2022-08-12 23:08] LABS: 24 Hour Urine Protein 361.1 mg/24HR (<150 MG/24HR); 24HR. UA Prot. Total Volume 1450 mL; Urine Protein (24 Hour) 24.9 mg/dL (<11.9)
== END 2022-08-12 22:00 | disposition home or self-care (01) ==
LOC: WPOUT 15:59 → WP 16:00
PROVIDERS: Internal Medicine Cardiovascular Disease; Internal Medicine Gastroenterology; Visit Provider Advanced Practice Midwife
DX: O99.323 Drug use complicating pregnancy, third trimester (principal); F11.21 Opioid dependence, in remission; F31.9 Bipolar disorder, unspecified; R11.2 Nausea with vomiting, unspecified; O99.891 Other specified diseases and conditions complicating pregnancy; R00.1 Bradycardia, unspecified; O99.333 Smoking (tobacco) complicating pregnancy, third trimester; F12.10 Cannabis abuse, uncomplicated; F17.200 Nicotine dependence, unspecified, uncomplicated; O99.343 Other mental disorders complicating pregnancy, third trimester; R11.15 Cyclical vomiting syndrome unrelated to migraine; O99.613 Diseases of the digestive system complicating pregnancy, third trimester; K21.9 Gastro-esophageal reflux disease without esophagitis; O99.283 Endocrine, nutritional and metabolic diseases complicating pregnancy, third trimester; E87.6 Hypokalemia; Z3A.32 32 weeks gestation of pregnancy; Z79.82 Long term (current) use of aspirin; Z87.59 Personal history of other complications of pregnancy, childbirth and the puerperium
CPT/HCPCS: 96365; 96366 ×10; 96367 ×3; 96375; 96376; 96372; 59025; 59050; 76700; 80053; 80307; 81001; 82150; 82570; 83690; 84156; 84443; 84550; 85025; 86900; 86901; 87077; 87086; 87088; 87186; 87426; 90384; 93005; 93306; 99218; J7120; A4216; G0378; J0702; J2405; J2790; J3490

== ENCOUNTER 2022-09-05 13:25 | Inpatient (IN) | payer MEDICAID, SELFPAY ==
[2022-09-05] VITALS (15 sets, daily range): BP systolic 105–135; BP diastolic 57–90; PULSE 50–147; RESP 14–18; TEMP 36.1–37; O2SAT 82–100; BMI 25.3
[2022-09-05 13:28] LABS: ROM Internal Control Test YES-OK TO RESULT pt. (Internal QC); ROM Patient Test Negative (Negative)
[2022-09-05] MEDS: Cefazolin 2 GM in 0.9% Normal Saline 100 ML IV (13:59)
[2022-09-05 14:19] LABS: Absolute Lymphocyte Count 0.94 X10^3/uL (0.83-4.51); Absolute Neutrophil Count 13.5 X10^3/uL (2.0-7.7); Basophil# 0.02 X10^3/uL; Basophil% 0.1 % (0-1); Eosinophil# 0.01 X10^3/uL; Eosinophils% 0.1 % (0-5); Hematocrit 32.1 % (37-47); Hemoglobin 11.2 g/dL (12.0-15.0); Lymphocyte # 0.94 X10^3/ul (0.83-4.51); Lymphocyte % 6.2 % (19-41); Mean Corp Hgb Conc 34.9 g/dL (32-36); Mean Corpuscular Volume 86.1 fL (81-99); Mean Platelet Vol. 10.1 fl (6.2-12.0); Monocyte# 0.69 X10^3/uL; Monocyte% 4.5 % (0-10); NRBC Flagged by Analyzer 0 % (0-5); Neutrophil # 13.45 X10^3/uL (2.7-7.7); Neutrophil % 88.7 % (47-70); Platelet Count 218 K/mm3 (150-450); RBC Distribution Width CV 13.5 % (11.6-14.6); RBC Distribution Width SD 41.8 fl (35.1-43.9); Red Blood Count 3.73 M/mm3 (4.2-5.4); White Blood Count 15.2 K/mm3 (4.4-11.0)
--- NOTE | 2022-09-05 14:30 | CASEMGMT ---
Social Work Labor and Delivery Reason for Intervention: OB-ERT Responded to OB-ERT and present with reported father of baby Sudhir while the patient/mother of baby (MOB) taken to area and while MOB was prepped for delivery. Sudhir reports to have 2 older girls from a prior relationship, and then this baby today will make 3 girls with the MOB. MOB then has 3 older children from a prior relationship. In total there are 8 children between MOB and FOB. Emotional support offered and supportive listening. FOB did make a comment about the relationship with the MOB not always being the healthiest, though this commercial loan underwriter unable to further explore this statement as FOB taken back to room for delivery. MOB's mother and oldest daughter who is a teenager in MOB's room waiting. General update given. MOB's mother expressed thanks for support offered this date. Brief chart review completed. This commercial loan underwriter familiar with MOB from prior deliveries at [facility]. Per record MOB is prescribed Subutex, which has been present during prior deliveries as well. Noted maternal drug screen positive on 08-11-22 for marijuana. Plan: Social work to follow this family and will plan to see MOB on 09.08.22 for assessment, as infant will have extended stay due to ANKIT monitoring for Subutex exposure in utero. -ASHTYN Servin, REFINERY OPERATOR [employer]
[2022-09-05] MEDS: Oxytocin 15 Units/NS 250ml 15 UNITS/250 ML IV.SOLN 83 UNITS IV (15:05)
[2022-09-05] MEDS: Ketorolac 30 MG/ML Syringe IV ×2 (15:22→21:37)
--- NOTE | 2022-09-05 17:15 | NURSING ---
1715- Pt. set up with double breast pump. Reviewed which settings to use, how to use pump, and cleaning instructions. Pt. was an DANIELLE and is in pain, not wanting to pump at this time. Encouraged pt. to pump within the hour. Pt. was able to hand express a large drop of colostrum from right breast while this RN IBCLC in room. Encouraged to call out for RN if assistance is needed with breast pump or questions arise.
[2022-09-05] MEDS: Acetaminophen 500 MG Tablet 1000 MG PO (17:40)
--- NOTE | 2022-09-05 18:19 | HP.PCM.OB_ITS ---
HPI - General General Date of Admission: 09/05/22 Date of Service: 09/05/22 Chief Complaint: PROM, labor HPI Narrative ROSANGELA ROCHA, is a 36 F who presents at 35w0d with complaints of rupture of overnight for clear fluid and contractions. No bleeding. +FM. She offers no other complaints today. Maternal Data Information Final JENY: 10/10/22 Final JENY Source: US >20 weeks [facility] Medical History (Updated 09/05/22 @ 18:[address] Richelle Delgado, DO) Bipolar 1 disorder, depressed Drug abuse in remission Home Medications buprenorphine HCl 8 mg sublingual tablet 8 mg PO BID hx of heroin 02/16/19 [History Last Taken 09/05/22 08:00] food supplemt, lactose-reduced 237 ml PO TID eating disorder 02/09/21 [History Last Taken 09/03/22 08:00] ondansetron 8 mg disintegrating tablet 8 mg PO TID PRN nausea and vomiting #60 tabs 08/12/22 [Rx Last Taken Unknown] Allergy/AdvReac Type Severity Reaction Status Date / Time amoxicillin Allergy Hives Verified 09/05/22 16:10 beeswax Allergy Hives Verified 09/05/22 16:10 hydrocodone bitartrate Allergy Itching Verified 09/05/22 16:10 [From Vicodin] acetaminophen [From Ultracet] AdvReac Other Verified 09/05/22 16:10 amitriptyline AdvReac Other Verified 09/05/22 16:10 doxycycline AdvReac Vomiting Verified 09/05/22 16:10 fentanyl AdvReac Itching Verified 09/05/22 16:10 promethazine [From Phenergan] AdvReac Other Verified 09/05/22 16:10 rofecoxib [From Vioxx] AdvReac Vomiting Verified 09/05/22 16:10 tramadol [From Ultracet] AdvReac Other Verified 09/05/22 16:10 CONTROL Allergy Other Uncoded 09/05/22 16:10 Surgical History History of appendectomy Social History number of children: 3 current occupational status: unemployed Smoking Status: Current every day smoker alcohol intake: never substance use type: former substance user and marijuana seatbelt use: always do you feel safe at home: Yes History 6 Elective abortions Hx Para 5 Spontaneous abortions Hx # Term Pregnancies Ectopic pregnancies Hx # Pregnancies Multiple births # of living children 4 Past Pregnancies Del. Date Name GA/Weeks Outcome Route Bth Weight Infant Gen Labor Lgth Anesthesia Del [facility] Provider FOB 09/25/19 Perla 37 live - full term 5lbs 5oz Female e pidural [facility] Delivery Date: 09/25/19 Last Updated by: Mary Arroyo PROM, Hep C subutex Addt'l History: History of narcotic addiction and incarceration. Short interval between this and last. H/o PTD and pt declined IM progesterone. H/o genital herpes, anorexia, on Subutex, tobacco use, marijuana use, bipolar disorder. NST FHR Rate Baby A Baseline: 145 Variability:: Minimal and Moderate Accelerations:: None Decelerations:: Prolonged (She had 3 prolonged declerations) Vital Signs Vital Signs Vital Signs: 09/05/22 13:13 09/05/22 13:13 09/05/22 13:13 Temperature Temperature Source Temporal Pulse Rate 62 Respiratory Rate Respiratory Pattern Blood Pressure 116/62 Blood Pressure Mean BP Systolic 116 BP Diastolic 62 Blood Pressure Source Blood Pressure Position Blood Pressure Location Baseline BP Pulse Ox Oxygen Delivery Method 09/05/22 13:13 09/05/22 13:47 09/05/22 13:47 Temperature 98.6 F Temperature Source Pulse Rate 50 L Respiratory Rate Respiratory Pattern Blood Pressure Blood Pressure Mean BP Systolic BP Diastolic Blood Pressure Source Blood Pressure Position Blood Pressure Location Baseline BP Pulse Ox 83 Oxygen Delivery Method 09/05/22 13:47 09/05/22 13:47 09/05/22 15:05 Temperature 97 F L Temperature Source Temporal Pulse Rate 147 H 60 Respiratory Rate 18 Respiratory Pattern Normal Blood Pressure 105/62 Blood Pressure Mean 76 BP Systolic BP Diastolic Blood Pressure Source Monitor Blood Pressure Position Supine Blood Pressure Location Left Forearm Baseline BP 116/64 Pulse Ox 82 100 Oxygen Delivery Method Room Air 09/05/22 15:44 09/05/22 15:25 09/05/22 16:00 Temperature 97 F L 97.4 F L 97.4 F L Temperature Source Temporal Temporal Temporal Pulse Rate 57 L 55 L 54 L Respiratory Rate 16 14 16 Respiratory Pattern Blood Pressure 118/64 113/62 124/66 H Blood Pressure Mean 82 79 85 BP Systolic BP Diastolic Blood Pressure Source Monitor Monitor Monitor Blood Pressure Position Supine Supine Supine Blood Pressure Location Left Forearm Left Forearm Left Forearm Baseline BP 116/64 116/64 116/64 Pulse Ox 100 100 100 Oxygen Delivery Method Room Air Room Air Room Air 09/05/22 16:15 09/05/22 16:30 09/05/22 16:45 Temperature 97 F L 97.8 F 97 F L Temperature Source Temporal Temporal Temporal Pulse Rate 55 L 61 57 L Respiratory Rate 16 18 18 Respiratory Pattern Blood Pressure 119/69 116/71 110/57 L Blood Pressure Mean 85 86 74 BP Systolic BP Diastolic Blood Pressure Source Monitor Monitor Monitor Blood Pressure Position Supine Supine Supine Blood Pressure Location Left Forearm Left Forearm Left Forearm Baseline BP 116/64 116/64 116/64 Pulse Ox 100 100 100 Oxygen Delivery Method Room Air Room Air Room Air 09/05/22 17:00 09/05/22 17:05 Temperature 97 F L Temperature Source Temporal Pulse Rate 58 L Respiratory Rate 18 Respiratory Pattern Blood Pressure 126/69 H Blood Pressure Mean 88 BP Systolic BP Diastolic Blood Pressure Source Monitor Blood Pressure Position Supine Blood Pressure Location Left Forearm Baseline BP 116/64 116/64 Pulse Ox 100 Oxygen Delivery Method Room Air Weight Weight: 147 lb 11.355 oz Body Mass Index (BMI) 25.3 Labs Labs Labs: Blood Type A NEGATIVE Antibody Screen POSITIVE H Hct 32.1 % (37-47) L Hgb 11.2 g/dL (12.0-15.0) L Obstetrics US Rubella IgG Antibody 21.4 IU/mL Hep Bs Antigen Negative (Negative) Chlamydia DNA (BECKY) Negative (Negative-) Neisseria gonorrhoeae DNA (BECKY) Negative (Negative-) HIV 1&2 Antibody Non-Reactive (Nonreactive) Glucose 1 Hr 50 gm 98 mg/dL (70-140) Group B Strep DNA POSITIVE (Negative) H Rhogam given: No Assessment & Plan (1) Bipolar disease during : QUALIFIERS: Qualified Code(s): F31.9 - Bipolar disorder, unspecified (2) complicated by subutex maintenance, antepartum: (3) 35 weeks gestation of : PLAN: Patient's cervix changed from 1 to 3 cm. Cvx 3/t/h, posterior. ROM plus negative but meconium stained fluid present on assessment. Pt uncomfortable with contractions. FHT 145 bpm, min-mod leobardo, and 3 prolonged decelerations. Given remote from delivery, recommended a primary section with patient for PROM and intolerance to labor. Discussed r/b/a of a section and verbal consent obtained. Difficult IV access. Order given for pre op antibiotics. See op report for details. Received BMZ 08/12/22, 08/13/22. (4) PROM (premature rupture of membranes): (5) labor: (6) Non-reassuring heart tones complicating , antepartum: (7) intolerance to labor, delivered, current hospitalization: (8) History of drug use: (9) Tobacco use: (10) Marijuana use: (11) History of hepatitis C:
--- NOTE | 2022-09-05 18:29 | PCM.OPRPT ---
Problems Associated Problem List Diagnoses (1) History of hepatitis C: (2) Marijuana use: (3) Tobacco use: (4) History of drug use: (5) intolerance to labor, delivered, current hospitalization: (6) Non-reassuring heart tones complicating , antepartum: (7) labor: (8) PROM (premature rupture of membranes): (9) 35 weeks gestation of : (10) complicated by subutex maintenance, antepartum: Report of Operation Date of Procedure: 09/05/22 Pre-Operative Diagnosis: 35 week gestation, PROM with meconium stained fluid, labor, intolerance to labor, history of drug use, Subutex use in , Tobacco use, Marijuana use Post-Operative Diagnosis: As above Surgery/Procedure Performed:: Emergent PLTCS via pfannenstiel incision Description of Surgical Findings:: Vigorous VFI in vertex presentation. Normal appearing uterus and bilateral adnexa. Normal appearing placenta and 3 VC. Surgeon: Richelle Delgado cross tie cutter: Sandy CARTER Type of Anesthesia: Spinal Special Medications: None Specimen's removed: Placenta Drains: Montes Estimated Blood Loss (mL): 800 Fluids Replaced: 1000 mL Description of Procedure: Patient presented to labor and delivery with complaint of rupture of membranes overnight and painful uterine contractions. Cervix changed from 1 to 3 cm, and meconium stained fluid was present on exam. heart rate tracing showed a heart rate of 145 bpm with minimal to moderate variability, and 3 prolonged decelerations. Decision was made to proceed with delivery by section. Difficult IV access. Once the patient was taken back to the operating room the heart rate was noted to be 133 bpm. Given the heart rate was back up to baseline, decision was made to proceed with a spinal rather than general anesthesia. Spinal anesthesia was found to be adequate initially upon testing. Patient was prepped and draped in the dorsal position with a leftward tilt. A Pfannenstiel skin incision was made using a scalpel and this was carried down to the underlying layer of fascia. At this point the patient reported uncontrolled pain. Anesthesia made the decision to give ketamine for an adequate pain control. Fascia was incised in the midline. The fascia was extended bluntly. The fascia was dissected bluntly off of the rectus muscles. The rectus muscles were in the midline. The peritoneum was entered bluntly. The peritoneal incision was extended bluntly. A bladder blade was inserted. A low transverse incision was made on the uterus. The head of the was delivered through the hysterotomy, followed by the body without any force or delay. The infant was vigorous. The cord was clamped and cut immediately. The was handed off to the awaiting nursery staff. The placenta was removed with manual extraction. The placenta was sent for pathology. Cord gases and cord blood were obtained. The uterus was exteriorized. Uterus was closed in 2 layers. Vicryl was used initially to perform a running locked layer. A second imbricating layer was performed using Vicryl. Hemostasis was noted. The uterus was placed back into the abdomen. Thomas was placed over the hysterotomy and lower uterine segment. Peritoneum was then closed with Vicryl in a running fashion. Fascia was closed with strata fix in running fashion. Subcutaneous space was irrigated. Subcutaneous space was reapproximated using Vicryl. Monocryl was used in a subcuticular fashion to close the skin. A dressing was placed. Instrument, sponge, needle counts were correct. The patient was taken to recovery in stable condition. The assistant community director was present for the entire case and assisted with: draping the patient, delivery of infant, and closure. Grafts/Implants Used: None Procedure Start Time: 14:03 Complications None Admit VTE Documentation VTE Present on Admission: No VTE Mechan Device Prophylaxis: SCD's
[2022-09-05] MEDS: Lactated Ringers 1,000 ML 100 ML IV (18:39)
[2022-09-05] MEDS: buprenorphine HCL 8 MG TAB.SUBL SL (19:05)
[2022-09-05] MEDS: Buprenorphine HCl 2 MG TAB.SUBL SL (19:05)
[2022-09-06] VITALS (7 sets, daily range): BP systolic 113–137; BP diastolic 70–78; PULSE 60–71; RESP 16; TEMP 36.2–36.6; O2SAT 98–100
[2022-09-06] MEDS: HYDROmorphone 0.5 MG/0.5 ML SYRINGE IV ×2 (01:18→08:39)
[2022-09-06] MEDS: Acetaminophen 500 MG Tablet 1000 MG PO ×4 (02:32→20:30)
--- NOTE | 2022-09-06 03:02 | NURSING ---
pt refusal to get up at 8 hour silvia to ambulate. pt was given 30 mg Toradol @21:37 for a 7/10 pain and still complained of no relief. pt continued to refuse to ambulate d/t pain. pt received Dilaudid 1 mg @ 0118 for a 7/10 pain . Pt stated there was no relief from any pharmacological interventions. Pt received 1,000 mg Tylenol at 0232 for a 5/10 pain. RN asked if patient could sit at the edge of the bed and patient refused to ambulate.
--- NOTE | 2022-09-06 03:34 | NURSING ---
This nurse discussed the importance to ambulate. This nurse and ARIELLE Romero attempted to help pt sit at side of bed. Pt grimaced and did not tolerate moving well. Pt refused to sit at side of bed.
[2022-09-06] MEDS: Ketorolac 30 MG/ML Syringe IV ×2 (04:01→10:31)
[2022-09-06] MEDS: oxyCODONE 5 MG Tablet PO ×2 (04:53→23:53)
[2022-09-06 06:48] LABS: Hematocrit 30.9 % (37-47); Hemoglobin 10.3 g/dL (12.0-15.0); Mean Corp Hgb Conc 33.3 g/dL (32-36); Mean Platelet Vol. 11.3 fl (6.2-12.0); Platelet Count 210 K/mm3 (150-450); RBC Distribution Width CV 13.5 % (11.6-14.6); RBC Distribution Width SD 42.4 fl (35.1-43.9); Red Blood Count 3.55 M/mm3 (4.2-5.4); White Blood Count 15.5 K/mm3 (4.4-11.0)
[2022-09-06] MEDS: 0.9% Saline Lock 10 ML Syringe IV ×2 (08:39→10:31)
[2022-09-06] MEDS: Senna/Docusate Sodium 1 Tablet PO (10:31)
--- NOTE | 2022-09-06 11:00 | PCM.PN.OB ---
Subjective Subjective Patient is doing well. Poor pain control with increased dose of Subutex. She reported severe pain overnight and required additional narcotics. She is concerned about pain control. She is ambulating and voiding without difficulty. Lochia is normal. She is pumping. She is tolerating regular diet without nausea or vomiting. Objective Data Objective Data Vital Signs: Vital Signs Temp Pulse Resp BP Pulse Ox O2 Del Method 97.1 F L 65 16 127/71 H 99 Room Air 09/06/22 08:30 09/06/22 08:30 09/06/22 08:30 09/06/22 08:30 09/06/22 08:30 09/06/22 08:30 Oxygen Delivery Method Room Air Weight: 147 lb 11.355 oz Body Mass Index (BMI) 25.3 Intake & Output: Intake and Output for Last 24 Hours 09/04/22 09/05/22 09/06/22 23:59 23:59 23:59 Intake Total 615 / 615 800 / 800 Output Total 1250 / 1250 1125 / 1125 Balance -635 / -635 -325 / -325 Lab / Micro Data Result Diagrams: 09/06/22 05:25 Labs: Laboratory Results - last 24 hr 09/05/22 12:58: Vag Amniotic Fld Detect Negative 09/05/22 14:00: WBC 15.2 H, RBC 3.73 L, Hgb 11.2 L, Hct 32.1 L, MCV 86.1, MCH 30.0, MCHC 34.9, RDW Std Deviation 41.8, RDW Coeff of Rekha 13.5, Plt Count 218, MPV 10.1, Immature Gran % (Auto) 0.400, Neut % (Auto) 88.7 H, Lymph % (Auto) 6.2 L, [place] % (Auto) 4.5, Eos % (Auto) 0.1, Baso % (Auto) 0.1, Absolute Neuts (auto) 13.5 H, Absolute Lymphs (auto) 0.94, Nucleated RBC % 0 09/05/22 14:00: Blood Type A NEGATIVE, Antibody Screen POSITIVE H, Antibody Identification ANTI-D 09/06/22 05:25: WBC 15.5 H, RBC 3.55 L, Hgb 10.3 L, Hct 30.9 L, MCV 87.0, MCH 29.0, MCHC 33.3, RDW Std Deviation 42.4, RDW Coeff of Rekha 13.5, Plt Count 210, MPV 11.3 Micro: Microbiology 09/05/22 13:40 Nasal Secretion SARS-CoV-2 Antigen (Rapid) - Final Physical Exam Const alert and no apparent distress General Appearance: comfortable GI soft to palpation and non-distended GI Narrative: ATTP, dressing c/d/i Assessment & Plan (1) Marijuana use: (2) Tobacco use: (3) History of drug use: (4) Bipolar disease during : QUALIFIERS: Qualified Code(s): F31.9 - Bipolar disorder, unspecified (5) complicated by subutex maintenance, antepartum: (6) S/P section: PLAN: Patient is postoperative day 1 from a section. Baby transferred to [place] for further care. She is meeting milestones for discharge, and discussed pain control expectations. Discussed that her pain control might be poor given history of drug use and Subutex use. She understands she cannot go home with any narcotic pain medication. We will decrease her Subutex dose to her home dose, and hold narcotics today to see how her pain is. Discussed alternating Tylenol and Motrin at home. Possible discharge home later today pending pain control. Reviewed discharge instructions with patient.
--- NOTE | 2022-09-06 11:09 | DCINST_ITS ---
Discharge Instructions Diet Discharge Diet: No restrictions Activity Discharge Activity: May Not Drive May resume sexual activity in: 6 weeks Ice area for (Minutes): 15 Weight Bearing Status: Weight bearing as tolerated Lifting Restrictions: Nothing heavier than baby Dressing / Incision Call your doctor if your incision/area has: Continuous Slow Oozing, Sudden Increased Bleeding, Increased Pain/ Swelling, Increased Redness, Foul Smelling Discharge and Swelling at the incision site Call your doctor if you observe: Fever of 101 or Higher, Coldness, Increased Pain, Numbness or Tingling, Change in Color, Inability to urinate, Inability to have a bowel movement, Using more than 1 pad per hour, Shortness of breath, Dizziness, Fainting spells, Swelling in the ankles, Chest pain, Increased palpitations (irregular heartbeat), Calf discomfort and Uncontrolled pain Suture Line Care: Avoid Pulling/Pushing and Avoid Pinching/Bending Remove Dressing in: 4 days (ok to remove in the shower 4 days after section, or you can leave it on until follow up) Cleanse incision/area with: Soap & Water Follow Up Care Please Follow Up With: Richelle Delgado DO When: 1 week incision check 6 weeks Test Results: Test results from this visit will be discussed in further detail at your follow- up appointment, if applicable. Discharge Plan Admission Admit Date/Time: 09/05/22 13:25 Primary Reason for Your Visit: surgery Attending Provider: Richelle Delgado Primary Care Provider: Fernando Physician,No Primary Discharge Orders/Prescriptions Prescriptions: New ibuprofen 600 mg tablet 600 mg PO Q6H PRN (Reason: pain) Qty: 30 0RF acetaminophen [Tylenol] 325 mg tablet 650 mg PO Q6H PRN (Reason: pain) Qty: 30 0RF Continued buprenorphine HCl 8 mg tablet, sublingual 8 mg PO BID Label Comments: 8 mg am, 8 mg lagte afternoon early evening food supplemt, lactose-reduced 237 ML liquid 237 ml PO TID ondansetron 8 mg tablet,disintegrating 8 mg PO TID PRN (Reason: nausea and vomiting) Qty: 60 2RF Referrals / Follow Up: Care Physician,No Primary [Primary Care Provider] - Disposition Disposition (needs filled in before D/C Order can be placed): Home, Self Care
[2022-09-06] MEDS: buprenorphine HCL 8 MG TAB.SUBL SL ×2 (11:41→20:31)
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
[2022-09-06] MEDS: Ibuprofen 600 MG Tablet PO ×2 (16:07→22:35)
[2022-09-07 02:39] VITALS: BP 105/45; PULSE 70; RESP 14; TEMP 36.4
[2022-09-07] MEDS: Acetaminophen 500 MG Tablet 1000 MG PO ×3 (02:40→17:16)
[2022-09-07] MEDS: Ibuprofen 600 MG Tablet PO ×3 (04:35→17:16)
--- NOTE | 2022-09-07 06:56 | PCM.PN.OB ---
Subjective Subjective Doing well. Pain is controlled but she feels she needs oxycodone for pain, so she decided to stay the night for pain control. She is ambulating and voiding without difficulty. She is tolerating a regular diet without nausea or vomiting. Lochia is normal. She denies chest pain, shortness of breath, leg pain. She desires to go home today. She is hoping her pain control be better today to go home. She is reasonably emotional about baby being in [place], and feels guilty as she was ruptured for over 24 hours prior to coming to the hospital. Objective Data Objective Data Vital Signs: Vital Signs Temp Pulse Resp BP Pulse Ox O2 Del Method 97.5 F L 70 14 105/45 L 99 Room Air 09/07/22 02:39 09/07/22 02:39 09/07/22 02:39 09/07/22 02:39 09/06/22 17:45 09/07/22 02:39 Oxygen Delivery Method Room Air Weight: 147 lb 11.355 oz Body Mass Index (BMI) 25.3 Intake & Output: Intake and Output for Last 24 Hours 09/05/22 09/06/22 09/07/22 23:59 23:59 23:59 Intake Total 615 / 615 800 / 800 Output Total 1250 / 1250 1125 / 1125 Balance -635 / -635 -325 / -325 Lab / Micro Data Result Diagrams: 09/06/22 05:25 Micro: Microbiology 09/05/22 13:40 Nasal Secretion SARS-CoV-2 Antigen (Rapid) - Final Physical Exam Const alert and no apparent distress General Appearance: comfortable Resp normal respiratory effort GI soft to palpation and non-distended GI Narrative: Dressing with a small amount of shadowing on it and intact Assessment & Plan (1) S/P section: PLAN: POD#2 s/p section. She is doing well. Meeting milestones to go home. Discussed with her pain control will be difficult given her history, and we will not be able to take the pain away. Dispo: Anticipate discharge today. Baby at [place]. (2) History of hepatitis C: (3) Marijuana use: (4) Tobacco use: (5) History of drug use:
[2022-09-07 09:00] VITALS: BP 137/69; PULSE 54; RESP 18; TEMP 36.6; O2SAT 100
[2022-09-07] MEDS: Senna/Docusate Sodium 1 Tablet PO (11:02)
[2022-09-07] MEDS: buprenorphine HCL 8 MG TAB.SUBL SL (11:03)
[2022-09-07 15:00] VITALS: BP 149/87; PULSE 68; RESP 16; TEMP 36.4
--- NOTE | 2022-09-08 11:57 | CASEMGMT ---
Social Work Labor and Delivery Received call from [facility] NICU social services assistant Stephanie Wong for handoff on this baby/family. Chart reviewed. Noted that baby was transferred to [facility] on 09.05.2022 for prematurity and respiratory distress, and then to [facility]. Records reviewed. Noted mother of baby (MOB) was seen by social services assistant Rod Cabrera on 09.06.2022 for assessment. For continuity of care, brief maternal and infant histories provided, including exposure to Subutex and marijuana in utero, and per social work assessment recent children services history with MOB/FOB and family. Due to infant exposure to substances in utero as related to the HEVER Act, this real estate underwriter made referral to [facility] ([facility]) and spoke with Libra Jeff in the intake department ([phone], extension [phone]). Referral given due to infant exposure in utero. Reviewed with Libra this real estate underwriter's interaction with FOB on 09.05.22, maternal drug screen positive 08.11.22, and SW assessment from 09.06.2022 regarding MOB reporting to have a medical marijuana card and is prescribed Subutex from [facility]. Brief maternal and histories provided. Report will be documented though not certain a case will be opened on this family at this time. Updated NICU SW at [facility] that referral initiated. NICU SW will follow up with family in the NICU, as well as with [facility] if indicated while baby is in the NICU. No other services requested or indicated for this family. -ASHTYN Servin, MACHINE TOOL DRESSER
== END 2022-09-07 17:20 | disposition home or self-care (01) | DRG 540 ==
LOC: WPOUT 13:28 → WP 13:28
PROVIDERS: Admitting Provider Obstetrics & Gynecology; Visit Provider Obstetrics & Gynecology
DX: O42.113 Preterm premature rupture of membranes, onset of labor more than 24 hours following rupture, third trimester (principal); O99.324 Drug use complicating childbirth; F31.9 Bipolar disorder, unspecified; F11.11 Opioid abuse, in remission; F12.99 Cannabis use, unspecified with unspecified cannabis-induced disorder; F17.200 Nicotine dependence, unspecified, uncomplicated; O76 Abnormality in fetal heart rate and rhythm complicating labor and delivery; O99.355 Diseases of the nervous system complicating the puerperium; G89.18 Other acute postprocedural pain; O26.23 Pregnancy care for patient with recurrent pregnancy loss, third trimester; Z37.0 Single live birth; Z3A.35 35 weeks gestation of pregnancy; O99.334 Smoking (tobacco) complicating childbirth; O77.0 Labor and delivery complicated by meconium in amniotic fluid; O99.344 Other mental disorders complicating childbirth; Z87.59 Personal history of other complications of pregnancy, childbirth and the puerperium; Z86.19 Personal history of other infectious and parasitic diseases; Z79.899 Other long term (current) drug therapy
CPT/HCPCS: 59025; 59050; 84112; 85025; 85027; 86850; 86870; 86900; 86901; 87426; 99218; 99251; 99406; J7120; A4216; G0378; G0463; J2405

== ENCOUNTER 2025-03-01 13:51 | Emergency (ER) | payer MEDICAID, SELFPAY ==
[2025-03-01] VITALS (7 sets, daily range): BP systolic 100–168; BP diastolic 52–80; PULSE 41–57; RESP 11–24; TEMP 36.2–36.3; O2SAT 97–100; BMI 24.0
--- NOTE | 2025-03-01 14:12 | EKG12_ITS ---
Test Reason : BRADYCARDIA Blood Pressure : */* mmHG Vent. Rate : 35 BPM Atrial Rate : 35 BPM P-R Int : 152 ms QRS Dur : 76 ms QT Int : 526 ms P-R-T Axes : 61 85 54 degrees QTcB Int : 401 ms Critical Test Result: Low HR Marked sinus bradycardia Abnormal ECG Confirmed by NOEMÍ WILLIAMSON, FLOR ([id number]), art editor AKASH JOYA ([id number]) on 03/02/2025 8:39:20 AM Referred By: Confirmed By: FLOR DOWD MD
--- NOTE | 2025-03-01 14:15 | EDS_ITS ---
HPI History of Present Illness Chief Complaint: Abd Pain Informant: patient Narrative Narrative: G9, P6 six 8-week gestation by dates. Found out she she was 2 weeks ago followed by center. Been confirmed outpatient. Chronic Subutex for the last 10 years. Daily marijuana use. Vomiting since Thursday 3 days ago no hematemesis unable to keep things down. No diarrhea reports constipation. No urinary symptoms. No vaginal symptoms. States she is feels lightheaded. Today was in the shower unable to feel better. Denies any issues with marijuana use in the past. Appendectomy in the past. [facility] Medical History (Updated 03/01/25 @ 18:[address] Josh Balderas, DO) labor PROM (premature rupture of membranes) Bipolar disease during complicated by subutex maintenance, antepartum Bipolar 1 disorder, depressed Drug abuse in remission Home Medications ?Medication ?Instructions ?Recorded ?Last Taken ?Type buprenorphine HCl 8 mg sublingual 8 mg PO BID hx of he roin 02/16/19 09/05/22 08:00 History tablet food supplemt, lactose-reduced 237 ml PO TID eating di sorder 02/09/21 09/03/22 08:00 History ondansetron 8 mg disintegrating 8 mg PO TID PRN nausea and 08/12/22 Unknown Rx tablet vomiting #60 tabs acetaminophen 325 mg tablet 650 mg (2 x 325 mg) PO Q6H PRN 09/06/22 Unknown Rx (Tylenol) pain #30 tabs ibuprofen 600 mg tablet 600 mg PO Q6H PRN pain #30 t abs 09/06/22 Unknown Rx metoclopramide HCl 5 mg tablet 5 mg PO Q6H PRN nausea and 03/01/25 Unknown Rx (Reglan) vomiting #20 tabs Allergy/AdvReac Type Severity Reaction Status Date / Time amoxicillin Allergy Hives Verified 03/01/25 13:58 beeswax Allergy Hives Verified 03/01/25 13:58 hydrocodone bitartrate (From Allergy Itching Verified 03/01/25 13:58 Vicodin) acetaminophen (From Ultracet) AdvReac Other Verified 03/01/25 13:58 amitriptyline AdvReac Other Verified 03/01/25 13:58 doxycycline AdvReac Vomiting Verified 03/01/25 13:58 fentanyl AdvReac Itching Verified 03/01/25 13:58 rofecoxib (From Vioxx) AdvReac Vomiting Verified 03/01/25 13:58 tramadol (From Ultracet) AdvReac Other Verified 03/01/25 13:58 Surgical History S/P section History of appendectomy Social History number of children: 3 current occupational status: unemployed Smoking Status: Current every day smoker tobacco type: e-cigarettes alcohol intake: never substance use type: former substance user and marijuana seatbelt use: always do you feel safe at home: Yes ROS ROS ED Constitutional Constitutional ED: Reports sweats; Denies chills or fever(s) ENT ENT ED: Denies sore throat Cardiovascular Cardiovascular: Denies chest pain, leg edema, palpitations or racing heartbeat Respiratory/Chest Respiratory/Chest: Denies cough, dyspnea or dyspnea on exertion Gastrointestinal Gastrointestinal: Reports abdominal pain, nausea and vomiting; Denies diarrhea Genitourinary Genitourinary ED: Denies dysuria, hematuria or urinary frequency Musculoskeletal Musculoskeletal: Denies back pain, extremity pain or neck pain Integumentary Denies rash or wounds Neurologic Neurologic: Denies headache(s), paresthesias or weakness EXAM Physical Exam Const Vital Signs: 03/01/25 13:53 03/01/25 15:45 03/01/25 16:00 Temperature 97.4 F L Temperature Source Temporal Pulse Rate 41 L 52 L 57 L Respiratory Rate 18 18 12 Blood Pressure 140/52 H 168/70 H 111/73 Blood Pressure Mean 81 102 86 Pulse Ox 100 100 100 Oxygen Delivery Method Room Air 03/01/25 17:00 03/01/25 17:15 03/01/25 17:30 Temperature Temperature Source Pulse Rate 55 L Respiratory Rate 11 L Blood Pressure 100/80 Blood Pressure Mean 86 Pulse Ox 100 100 97 Oxygen Delivery Method Positive well nourished and well developed Constitutional Narrative: Nontoxic, sweaty General Appearance ED: well developed HEENT Reports moist mucous membranes normocephalic and atraumatic Eyes General Eye ED: Yes normal appearance of both eyes Neck full ROM Chest Wall Chest: Negative for tenderness Resp normal respiratory effort and normal air movement Effort and Inspection: symmetric chest movement; Negative for respiratory distress Cardio regular rate, regular rhythm and no murmurs Peripheral Pulses: pulses 2+ throughout GI normal to inspection, nondistended, normoactive bowel sounds GI Narrative: Negative Carver's McBurney's tenderness Palpation: Negative for guarding or rebound tenderness present Extremity normal to inspection General Extremety ED: Negative for edema or tenderness General Extremity: Negative for edema Neuro oriented x3 and no sensory deficits noted Sensorium / Orientation: awake and alert Skin no rashes or lesions noted and no wounds MDM MDM MDM Narrative Medical decision making narrative: Interventions / MDM: Differential diagnosis: First trimester , vomiting in , marijuana dependence Diagnosis considered but do not suspect: N/A My EKG interpretation: Sinus rate of 35, no ST or T wave changes QTc 401. No signs of heart block. EKG sinus bradycardia rate of 35. Imaging independently reviewed and interpreted by myself: N/A External documents reviewed: N/A Test considered but not ordered:N/A ED course: Occasional small emesis while being evaluated. Nonsurgical abdomen. Will check abdominal labs fluids with her will give IV Reglan. Will check urine. Will reevaluate. EKG sinus rate of 35 there is no signs of heart block. From records she has had heart rates in the 30s previously. 1530: Clinically feels much better symptoms improved pain improved. She is walking in the hallway and back with no difficulties. Heart rate in the 40s on the monitor. She has had low heart rate in the past. She reports increasing stress with her recent and baby's father. She does have prescription of Subutex. Discussed symptoms could be from versus marijuana use. She did not run out of her Subutex for concerns for withdrawal from her medication. Her labs returned. hCG 40,000. Fluids are running. Urine pending. I discussed with social work in the ED to evaluate the patient in the ED for additional resources. 1815: In the interim symptoms return attempted capsaicin however increasing skin burning she could not tolerate it. She was given Ativan IV 0.5 mg. Reevaluation clinically feeling better. She is tolerating oral intake. I will write for Reglan. She was previously seeing [facility] however now states she is not allowed to go back due to missing appointments. I will give her follow-up with on-call OB. She is seen maternal medicine for high risks in the past. She would likely need referral back to them. Discussed combination from leading to vomiting with marijuana use. All questions were answered. 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 It may contain incorrect words, spelling, and punctuation that were not noted in checking the note before signing. Lab Data Attestation: I reviewed the patient's lab results. Labs: Laboratory Results - last 24 hr 03/01/25 03/01/25 14:16 15:25 WBC 6.7 RBC 4.28 Hgb 12.3 Hct 36.0 L MCV 84.1 MCH 28.7 MCHC 34.2 RDW Std Deviation 37.2 RDW Coeff of Rekha 12.2 Plt Count 219 MPV 9.9 Immature Gran % (Auto) 0.500 Neut % (Auto) 71.8 H Lymph % (Auto) 21.8 [place] % (Auto) 5.0 Eos % (Auto) 0.6 Baso % (Auto) 0.3 Absolute Neuts (auto) 4.8 Absolute Lymphs (auto) 1.45 Nucleated RBC % 0 Sodium 135 Potassium 4.1 Chloride 104 Carbon Dioxide 19.1 L Anion Gap 12 BUN 7 Creatinine 0.63 L Estim Creat Clear Calc 105.58 Est GFR (MDRD) Non-Af 117 BUN/Creatinine Ratio 11.6 Glucose 102 H Calcium 9.7 Total Bilirubin 0.64 AST 24 ALT 15 Alkaline Phosphatase 56 Total Protein 7.7 Albumin 4.8 Globulin 2.9 Albumin/Globulin Ratio 1.6 Lipase 18 HCG, Quant 53953 H Urine Color Yellow Urine Clarity Clear Urine pH 6.5 Ur Specific [place] 1.020 Urine Protein 30 H Urine Glucose (UA) Normal Urine Ketones 50 H Urine Occult Blood 10 H Urine Nitrite Negative Urine Bilirubin Negative Urine Urobilinogen Normal Ur Leukocyte Esterase Negative Urine RBC 0-5 SEEN Urine WBC 0-5 SEEN Ur Squamous Epith Cells 0-5 SEEN Urine Bacteria 0 SEEN Urine Mucus 0 SEEN Discharge Plan Triage Chief Complaint: Abd Pain ED Provider: Josh Balderas Dx/Rx/DC Orders Clinical Impression: First trimester , Vomiting during , Marijuana dependence Instructions: 1st Trimester, Understanding Marijuana Abuse, ED Vomiting (Adult) Prescriptions: New metoclopramide HCl [Reglan] 5 mg tablet 5 mg PO Q6H PRN (Reason: nausea and vomiting) Qty: 20 0RF No Action buprenorphine HCl 8 mg tablet, sublingual 8 mg PO BID Patient Comments: 8 mg am, 8 mg lagte afternoon early evening food supplemt, lactose-reduced 237 ML liquid 237 ml PO TID ondansetron 8 mg tablet,disintegrating 8 mg PO TID PRN (Reason: nausea and vomiting) Qty: 60 2RF ibuprofen 600 mg tablet 600 mg PO Q6H PRN (Reason: pain) Qty: 30 0RF acetaminophen [Tylenol] 325 mg tablet 650 mg PO Q6H PRN (Reason: pain) Qty: 30 0RF Primary Care Provider: Care Physician,No Primary Referrals: Izzy Aguirre MD [Med Staff - Active Staff] - 1-2 Weeks Care Physician,No Primary [Primary Care Provider] - Activity Restrictions/Additional Instructions: Lab work normal. Your hCG quant is 40,394. Urine negative for infection. Avoid marijuana use. Use Reglan as needed. Continue oral fluids for hydration. Print Language: Slovenian Disposition Disposition: Home, Self Care
[2025-03-01 14:27] LABS: Absolute Lymphocyte Count 1.45 X10^3/uL (0.83-4.51); Absolute Neutrophil Count 4.8 X10^3/uL (2.0-7.7); Basophil# 0.02 X10^3/uL; Basophil% 0.3 % (0-1); Eosinophil# 0.04 X10^3/uL; Eosinophils% 0.6 % (0-5); Hemoglobin 12.3 g/dL (12.0-15.0); Lymphocyte # 1.45 X10^3/ul (0.83-4.51); Lymphocyte % 21.8 % (19-41); Mean Corp Hgb Conc 34.2 g/dL (32-36); Mean Corpuscular Hgb 28.7 pg (27.0-32.0); Mean Corpuscular Volume 84.1 fL (81-99); Mean Platelet Vol. 9.9 fl (6.2-12.0); Monocyte# 0.33 X10^3/uL; NRBC Flagged by Analyzer 0 % (0-5); Neutrophil # 4.79 X10^3/uL (2.7-7.7); Neutrophil % 71.8 % (47-70); Platelet Count 219 K/mm3 (150-450); RBC Distribution Width CV 12.2 % (11.6-14.6); RBC Distribution Width SD 37.2 fl (35.1-43.9); Red Blood Count 4.28 M/mm3 (4.2-5.4); White Blood Count 6.7 K/mm3 (4.4-11.0)
[2025-03-01] MEDS: Metoclopramide 10 MG/2 ML Vial 5 MG IV (14:29)
[2025-03-01] MEDS: 0.9% Normal Saline (1000mL) 1,000 ML 1000 ML IV (14:29)
[2025-03-01 15:09] LABS: ALB/GLOB Ratio 1.6 RATIO (0.9-2.4); AST(SGOT) 24 U/L (<=31); Alanine Aminotransfer ALT/SGPT 15 U/L (<=34); Albumin, Serum 4.8 g/dL (3.5-5.0); Alkaline Phosphatase 56 U/L (35-104); Anion Gap 12 (5-15); BUN 7 mg/dL (4-19); BUN/Creat Ratio 11.6 RATIO (10-20); Calcium,Total 9.7 mg/dL (7.6-11.0); Carbon Dioxide 19.1 mmol/L (21.0-32.0); Chloride 104 mmol/L (98-108); Creatinine, Serum 0.63 mg/dL (0.70-1.20); EST Glomerular Filtration Rate 117 (>60); Estimated Creatinine Clearance 105.58 ml/min (50-250); Globulin 2.9 g/dL (2.2-4.2); Glucose 102 mg/dL (70-99); Lipase 18 U/L (13-75); Potassium 4.1 mmol/L (3.3-5.1); Protein, Total 7.7 g/dL (5.9-8.4); Sodium Level 135 mmol/L (133-145); Total Bilirubin 0.64 mg/dL (0.00-1.30)
[2025-03-01 15:29] LABS: Bacteria 0 SEEN /hpf (None Seen); Mucous, Urine 0 SEEN /hpf (<or=2+)
[2025-03-01 15:33] LABS: hCG Titer Quant., Serum 40394 mIU/mL (<9 non-preg)
[2025-03-01 16:16] LABS: Color, Urine Yellow (Yellow); Glucose, Dipstick Normal (Normal); Ketone-Dipstick 50 mg/dl (Negative); Leukocyte Esterase-Dipstick Negative /ul (Negative); Nitrite-Dipstick Negative (Negative); Occult Blood-Urine 10 /ul (Negative); Protein-Dipstick 30 mg/dl (Negative); Urine Bilirubin Dipstick Negative (Negative); Urine Clarity Clear (Clear); Urine Urobilinogen Normal (Normal); Urine pH 6.5 (5.0 - 8.0)
[2025-03-01 16:24] LABS: Red Blood Cells-Urine 0-5 SEEN /hpf (0-5); Squamous Epithelial Cells - UA 0-5 SEEN /hpf (5-10); White Blood Cells 0-5 SEEN /hpf (0-5)
[2025-03-01] MEDS: Capsaicin 0.025% 1 APPLIC Tube TOPICAL (16:55)
[2025-03-01] MEDS: Lorazepam 2 MG/ML WCH Syringe 0.5 MG IV (17:11)
[2025-03-01] MEDS: 0.9% Normal Saline (1000mL) 1,000 ML 150 ML IV (18:00)
--- NOTE | 2025-03-01 19:25 | CM.ED ---
Social Work SW met with patient and patients mother. Patient told outreach and education social worker that she recently found out she is with her 7th child. She has 3 children with one father and 3 with her current boyfriend, patient states current boyfriend is father of her unborn child as well. Patient reports to a unstable relationship with her current boyfriend, patient states he is only supportive and helpful with the kids when he wants to be and that she is often on her own with the children. Patient mother was present and patient states she is very supportive. Patient expressed needing resources for physician and counselor, patient was provided the [facility] provider list, [place] information and counseling list. Patient was voiced being receptive to resources for food and assistance with bills. Patient was provided [facility] resource list, [facility] card and People to people information. Kylee Andrea, BOX PERSON, ROOM CLEANER
== END 2025-03-01 19:10 | disposition home or self-care (01) ==
PROVIDERS: Emergency Provider Emergency Medicine; Visit Provider Emergency Medicine
DX: O21.9 Vomiting of pregnancy, unspecified (principal); F12.20 Cannabis dependence, uncomplicated; O09.521 Supervision of elderly multigravida, first trimester; O99.321 Drug use complicating pregnancy, first trimester; O99.331 Smoking (tobacco) complicating pregnancy, first trimester; F17.210 Nicotine dependence, cigarettes, uncomplicated; Z3A.08 8 weeks gestation of pregnancy; Z87.59 Personal history of other complications of pregnancy, childbirth and the puerperium
CPT/HCPCS: 80053; 81001; 83690; 84702; 85025; 93005; 96361; 96374; 96375; 99285; A4216

== ENCOUNTER 2025-03-08 12:02 | Emergency (ER) | payer MEDICAID, SELFPAY ==
[2025-03-08 12:03] VITALS: BP 145/84; PULSE 53; RESP 20; TEMP 36.7; O2SAT 100
--- NOTE | 2025-03-08 12:36 | EX.ED.SAOD ---
HPI History of Present Illness Chief Complaint: Substance Abuse Detail of Chief Complaint: Out of her Subutex. Think she is withdrawing. Nausea vomiting. Informant: patient and family Onset/Context/Timing Onset: Days Context: Gradual Onset Timing: Continuous Current Severity: Mild Maximum Severity: Mild Associated Symptoms Associated Symptoms: Positive for vomiting* Narrative Narrative: 39-year-old female history of heroin abuse for which she has been on Subutex she states for 10 years. Also has a history of bipolar, anxiety and depression. Prior appendectomy. Currently 9 weeks no care. She has been taking smaller dosages of her Subutex to make it last. She thinks she is in withdrawal symptoms with nausea vomiting. And she is now out of her medication took her last dose this morning. She denies any drug use. Denies any dysuria. Her last menstrual period was around the end of the first week of December. She has been seen recently in this emergency department and in another emergency department. No recent admissions. Prior similar symptoms: Yes Recent Illness/Hospitalization: No [facility] Medical History (Updated 03/08/25 @ 13:[address] Stefano Rueda MD) labor PROM (premature rupture of membranes) Bipolar disease during complicated by subutex maintenance, antepartum Bipolar 1 disorder, depressed Drug abuse in remission Home Medications ?Medication ?Instructions ?Recorded ?Last Taken ?Type buprenorphine HCl 8 mg sublingual 8 mg PO BID hx of heroin 02/16/19 09/05/22 08:00 History tablet food supplemt, lactose-reduced 237 ml PO TID eating disorder 02/09/21 09/03/22 08:00 History ondansetron 8 mg disintegrating 8 mg PO TID PRN nausea and 08/12/22 Unknown Rx tablet vomiting #60 tabs acetaminophen 325 mg tablet 650 mg (2 x 325 mg) PO Q6H PRN 09/06/22 Unknown Rx (Tylenol) pain #30 tabs ibuprofen 600 mg tablet 600 mg PO Q6H PRN pain #30 tabs 09/06/22 Unknown Rx metoclopramide HCl 5 mg tablet 5 mg PO Q6H PRN nausea and 03/01/25 Unknown Rx (Reglan) vomiting #20 tabs buprenorphine HCl 8 mg sublingual 8 mg sublingual BID 7 days #14 tabs 03/08/25 Unknown Rx tablet ondansetron 4 mg disintegrating 4 mg PO Q8H PRN PRN Nausea #10 tabs 03/08/25 Unknown Rx tablet Allergy/AdvReac Type Severity Reaction Status Date / Time amoxicillin Allergy Hives Verified 03/01/25 13:58 beeswax Allergy Hives Verified 03/01/25 13:58 hydrocodone bitartrate (From Allergy Itching Verified 03/01/25 13:58 Vicodin) acetaminophen (From Ultracet) AdvReac Other Verified 03/01/25 13:58 amitriptyline AdvReac Other Verified 03/01/25 13:58 doxycycline AdvReac Vomiting Verified 03/01/25 13:58 fentanyl AdvReac Itching Verified 03/01/25 13:58 rofecoxib (From Vioxx) AdvReac Vomiting Verified 03/01/25 13:58 tramadol (From Ultracet) AdvReac Other Verified 03/01/25 13:58 Surgical History S/P section History of appendectomy Social History number of children: 3 current occupational status: unemployed Smoking Status: Current every day smoker tobacco type: e-cigarettes alcohol intake: never substance use type: former substance user and marijuana seatbelt use: always do you feel safe at home: Yes ROS ROS ED ROS Narrative Nausea and vomiting. Constitutional Constitutional ED: Denies chills or fever(s) Eyes Eyes: Denies blurry vision ENT ENT ED: Denies ear pain Respiratory/Chest Respiratory/Chest: Denies cough Gastrointestinal Gastrointestinal: Reports nausea and vomiting; Denies abdominal pain, constipation, diarrhea or melena Genitourinary Genitourinary ED: Denies dysuria Musculoskeletal Musculoskeletal: Denies arthralgias Integumentary Denies abscess Neurologic Neurologic: Denies headache(s) Psychiatric Psychiatric: Denies anxiety Hematologic/Lymphatic Hematologic/Lymphatic: Denies easy bleeding, easy bruising or lymphadenopathy Allergic/Immunologic Allergic/Immunologic ED: Denies mouth swelling, tongue swelling or urticaria EXAM Physical Exam Narrative Exam Narrative: 39-year-old female sitting upright in bed. Vital signs are stable and afebrile. Pulse ox 100% on room air no signs of hypoxia. Patient sitting upright in bed with emesis bag. She is putting her finger down her throat to make herself throw up. Mom is at bedside as it is a young child. H EENT exam pupils round reactive light. No trauma to her head or face. Mildly dry mucous membranes. Neck nontender no lymphadenopathy. Lungs clear to auscultation bilaterally. Heart bradycardic rate about 50. She has a history of a chronic bradycardia. No murmur. Chest wall and ribs are nontender. Abdomen is soft, nontender, nondistended normal bowel sounds without peritoneal signs. No hernia or mass. No obstruction. Moving all 4 extremities. Nontender no edema. Back nontender. Neurologically she is awake alert no focal motor deficits. Answering questions following commands. Const Vital Signs: 03/08/25 12:03 03/08/25 13:02 Temperature 98.1 F Temperature Source Temporal Pulse Rate 53 L 47 L Respiratory Rate 20 H 14 Blood Pressure 145/84 H 104/51 L Blood Pressure Mean 104 68 Pulse Ox 100 100 Oxygen Delivery Method Room Air Room Air Positive well nourished and well developed; Negative for obese, cachectic, contractures or unkempt Constitutional Narrative: Actively retching. General Appearance ED: well developed; Negative for unkempt, cachectic or contractures Nutritional Appearance: Negative for cachectic or obese HEENT Reports dry mucous membranes atraumatic; Negative for trauma or tenderness Mouth ED: Yes dry mucous membranes Mouth: dry mucous membranes Eyes PERRL and EOMs intact bilaterally Neck no lymphadenopathy, supple and no JVD Lymph Lymphatic: no lymphadenopathy noted Chest Wall inspection of chest normal and palpation of chest normal Resp normal respiratory effort and clear to auscultation bilaterally Auscultation: Negative for rales, rhonchi, wheezes, diminished lung sounds or other Cardio regular rhythm, S1 normal heart sound, S2 normal heart sound and no murmurs; Negative for regular rate Cardio Narrative: Chronic bradycardia in the 50s. No murmur. GI soft to palpation, non-tender, non-distended and no masses Palpation: Negative for tender, guarding or rigid Back/Spine no CVA tenderness General Back: Negative for CVA tenderness Cervical Spine: Negative for cervical spine tenderness Thoracic Spine / Upper Back: Negative for thoracic spinal tenderness Lumbar Spine / Lower Back: Negative for lumbar spinal tenderness Coccyx: Negative for swelling Extremity General Extremety ED: Negative for edema or tenderness General Extremity: Negative for edema Neuro oriented x3 and CN's II-XII intact bilaterally Sensorium / Orientation: alert, oriented to person, oriented to place and oriented to time; Negative for confused, lethargic or stuporous Motor Exam: strength 5/5 throughout Psych mental status grossly normal and thought process normal Appearance: Negative for unkempt Attitude: No belligerent, No agitated and No aggressive Mood & Affect: anxious; Negative for depressed Skin General Skin Exam: Negative for jaundice Lesions: no lesions Rashes: no rashes Trauma: Negative for abrasion MDM MDM MDM Narrative Medical decision making narrative: 39-year-old female first trimester history of heroin abuse on Subutex but recently ran out. Having nausea vomiting. She received IV fluids and Zofran. Ativan for her anxiety and withdrawal. Screening labs. Her abdomen is benign. I do not think she needs any imaging. Repeat exam patient is doing well at 1:50 PM. I do lengthy discussion both her and her mother at bedside. She will be discharged home with Zofran for nausea. Follow-up with TRANSPORTATION PROGRAM DIRECTOR soon as possible to start care. I referred her to the [facility] group as they were on-call today for no doc. She also needs to either follow-up with 180 or whoever can prescribe her long-term for the Subutex for her history of drug abuse. I spoke to her pharmacy and I can prescribe it I gave her 7 days worth of the current dose that she is on which is 8 mg 2-3 times a day. She is doing much better and will be discharged home was comfortable to plan. History & Record Review Discussion w/independent historian: Patient and Family Additional record(s) reviewed:: Prior inpatient record, Prior outpatient record, Prior ED visit and Prior labs Lab Data Attestation: I reviewed the patient's lab results. Lab results narrative: CBC white count 8.2. H&H 12.9 and 37.8. Platelets 285. Electrolytes show sodium 134. Gap 11. BUN of 10 creatinine 0.6. Glucose 95. Labs are consistent with prior and she had a recent UA that was negative. Labs: Laboratory Results - last 24 hr 03/08/25 12:33 WBC 8.2 RBC 4.52 Hgb 12.9 Hct 37.8 MCV 83.6 MCH 28.5 MCHC 34.1 RDW Std Deviation 38.2 RDW Coeff of Rekha 12.6 Plt Count 285 MPV 9.4 Immature Gran % (Auto) 0.500 Neut % (Auto) 70.7 H Lymph % (Auto) 21.0 [place] % (Auto) 6.3 Eos % (Auto) 1.1 Baso % (Auto) 0.4 Absolute Neuts (auto) 5.8 Absolute Lymphs (auto) 1.73 Nucleated RBC % 0 Sodium 134 Potassium 4.2 Chloride 100 Carbon Dioxide 22.8 Anion Gap 11 BUN 10 Creatinine 0.62 L Estim Creat Clear Calc 107.28 Est GFR (MDRD) Non-Af 118 BUN/Creatinine Ratio 16.6 Glucose 95 Calcium 9.7 Radiography Chest X-Ray - ED: 2 View, Read by ED Physician, Read by Radiologist, Heart, Lungs, Mediastinum, Bony Structures, No Acute Disease and Chronic Changes Diagnostic Testing: Chest x-ray, 2 views, AP and lateral, interpreted by myself and radiologist shows no acute abnormality. Normal cardiac silhouette. Normal lung onofre. No pneumonia. Discharge Plan Triage Chief Complaint: Substance Abuse ED Provider: Stefano Rueda Dx/Rx/DC Orders Clinical Impression: Withdrawal syndrome, Vomiting, History of bipolar disorder, History of substance abuse Instructions: ED Vomiting (Adult) Prescriptions: New ondansetron 4 mg tablet,disintegrating 4 mg PO Q8H PRN PRN (Reason: Nausea) Qty: 10 0RF buprenorphine HCl 8 mg tablet, sublingual 8 mg sublingual BID 7 Days Qty: 14 0RF No Action buprenorphine HCl 8 mg tablet, sublingual 8 mg PO BID Patient Comments: 8 mg am, 8 mg lagte afternoon early evening food supplemt, lactose-reduced 237 ML liquid 237 ml PO TID ondansetron 8 mg tablet,disintegrating 8 mg PO TID PRN (Reason: nausea and vomiting) Qty: 60 2RF ibuprofen 600 mg tablet 600 mg PO Q6H PRN (Reason: pain) Qty: 30 0RF acetaminophen [Tylenol] 325 mg tablet 650 mg PO Q6H PRN (Reason: pain) Qty: 30 0RF metoclopramide HCl [Reglan] 5 mg tablet 5 mg PO Q6H PRN (Reason: nausea and vomiting) Qty: 20 0RF Primary Care Provider: Donavan Talamantes Referrals: Donavan Talamantes MD [Primary Care Provider] - As Needed NeMyla Love MD [Med Staff - Active Staff] - As soon as possible [facility] [Non-Staff] - As soon as possible Activity Restrictions/Additional Instructions: Zofran as needed for nausea. Follow-up with TRANSPORTATION PROGRAM DIRECTOR as soon as possible to start your care. Follow-up with 180 or who is ever going to prescribe your Subutex. I did give you a weeks worth. Plenty of fluids and rest. Slowly increase diet as tolerated. Print Language: Slovenian Disposition Disposition: Home, Self Care
[2025-03-08] MEDS: Ondansetron 4 MG/2 ML Vial IV (12:43)
[2025-03-08] MEDS: 0.9% Normal Saline (1000mL) 1,000 ML 999 ML IV (12:43)
[2025-03-08] MEDS: Lorazepam 2 MG/ML WCH Syringe 1 MG IV (12:45)
[2025-03-08 12:46] VITALS: BMI 22.9
[2025-03-08 12:49] LABS: Absolute Lymphocyte Count 1.73 X10^3/uL (0.83-4.51); Absolute Neutrophil Count 5.8 X10^3/uL (2.0-7.7); Basophil# 0.03 X10^3/uL; Basophil% 0.4 % (0-1); Eosinophil# 0.09 X10^3/uL; Eosinophils% 1.1 % (0-5); Hematocrit 37.8 % (37-47); Hemoglobin 12.9 g/dL (12.0-15.0); Lymphocyte # 1.73 X10^3/ul (0.83-4.51); Mean Corp Hgb Conc 34.1 g/dL (32-36); Mean Corpuscular Hgb 28.5 pg (27.0-32.0); Mean Corpuscular Volume 83.6 fL (81-99); Mean Platelet Vol. 9.4 fl (6.2-12.0); Monocyte# 0.52 X10^3/uL; Monocyte% 6.3 % (0-10); NRBC Flagged by Analyzer 0 % (0-5); Neutrophil # 5.83 X10^3/uL (2.7-7.7); Neutrophil % 70.7 % (47-70); Platelet Count 285 K/mm3 (150-450); RBC Distribution Width CV 12.6 % (11.6-14.6); RBC Distribution Width SD 38.2 fl (35.1-43.9); Red Blood Count 4.52 M/mm3 (4.2-5.4); White Blood Count 8.2 K/mm3 (4.4-11.0)
[2025-03-08 13:02] VITALS: BP 104/51; PULSE 47; RESP 14; O2SAT 100
[2025-03-08 13:11] LABS: Anion Gap 11 (5-15); BUN 10 mg/dL (4-19); BUN/Creat Ratio 16.6 RATIO (10-20); Calcium,Total 9.7 mg/dL (7.6-11.0); Carbon Dioxide 22.8 mmol/L (21.0-32.0); Chloride 100 mmol/L (98-108); Creatinine, Serum 0.62 mg/dL (0.70-1.20); EST Glomerular Filtration Rate 118 (>60); Estimated Creatinine Clearance 107.28 ml/min (50-250); Glucose 95 mg/dL (70-99); Potassium 4.2 mmol/L (3.3-5.1); Sodium Level 134 mmol/L (133-145)
[2025-03-08 14:03] VITALS: BP 115/73; PULSE 68; RESP 18; TEMP 36.7; O2SAT 100
[2025-03-08 14:04] VITALS: BP 115/73; PULSE 68; RESP 18; TEMP 36.7; O2SAT 100
== END 2025-03-08 14:04 | disposition home or self-care (01) ==
PROVIDERS: Emergency Provider Emergency Medicine; PCP Anesthesiology; Referring Provider Emergency Medicine; Visit Provider Emergency Medicine
DX: O99.321 Drug use complicating pregnancy, first trimester (principal); F11.13 Opioid abuse with withdrawal; F31.9 Bipolar disorder, unspecified; O34.219 Maternal care for unspecified type scar from previous cesarean delivery; O09.511 Supervision of elderly primigravida, first trimester; O99.341 Other mental disorders complicating pregnancy, first trimester; O99.331 Smoking (tobacco) complicating pregnancy, first trimester; F17.290 Nicotine dependence, other tobacco product, uncomplicated; Z3A.09 9 weeks gestation of pregnancy; Z87.59 Personal history of other complications of pregnancy, childbirth and the puerperium
CPT/HCPCS: 80048; 85025; 96361; 96374; 96375; 99282; A4216; J2405

== ENCOUNTER 2025-07-24 19:38 | Emergency (ER) | payer MEDICAID, SELFPAY ==
[2025-07-24 19:39] VITALS: BP 102/57; PULSE 80; RESP 18; TEMP 37; O2SAT 100; BMI 24.3
--- OUTSIDE RECORDS SUMMARY | 2025-07-24 19:53 | XMS RPT_ITS | CCD ---
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 source) Corticosteroid Start: 11-05-2023 End: 03-21-2025 take 2 spray(s) by mouth once daily fluticasone (FLONASE) 50 mcg/actuation nasal spray Indications: Viral URI Use 2 Sprays in each nostril once daily. Rinse mouth after use. 1 Each 11/05/2023 03/21/2025 Discontinued Food Supplement, Lactose-Free (ENSURE HIGH PROTEIN) liqd (20 sources) Start: 02-27-2022 End: 03-21-2025 take 237 mL by mouth three times daily at mealtime Food Supplement, Lactose-Free (ENSURE HIGH PROTEIN) liqd Take 237 mL by mouth three times daily with meals. variety of flavors 237 mL 1 02/27/2022 03/21/2025 Discontinued Start: 02-27-2022 take 237 mL by mouth three times daily at mealtime Food Supplement, Lactose-Free (ENSURE HIGH PROTEIN) liqd Take 237 mL by mouth three times daily with meals. variety of flavors 237 mL 1 02/27/2022 Active Start: 02-21-2022 End: 02-27-2022 take 237 mL by mouth three times daily at mealtime Food Supplement, Lactose-Free (ENSURE HIGH PROTEIN) liqd Take 237 mL by mouth three times daily with meals. variety of flavors 237 mL 1 02/21/2022 02/27/2022 Discontinued Start: 02-21-2022 take 237 mL by mouth three times daily at mealtime Food Supplement, Lactose-Free (ENSURE HIGH PROTEIN) liqd Take 237 mL by mouth three times daily with meals. variety of flavors 237 mL 1 02/21/2022 Active Start: 09-12-2020 End: 02-12-2022 take 237 mL by mouth three times daily at mealtime Food Supplement, Lactose-Free (ENSURE HIGH PROTEIN) liqd Take 237 mL by mouth three times daily with meals. variety of flavors 90 Can 3 09/12/2020 02/12/2022 Discontinued (Course of therapy completed) Comment on above: Take 237 mL by mouth three times daily with meals. variety of flavors 1000 ml glucose 50 mg/ml / sodium chloride 9 mg/ml injection (1 source) Start: 03-26-20 End: 03-26-20 22 dextrose 5 % and 0.9 % nacl bolus 12 hr guaiFENesin 600 mg extended release oral tablet (1 source) Start: 11-05-20 End: 03-21-20 25 take 2 tablets by mouth twice daily guaiFENesin (MUCINEX) 600 mg 12 hr tablet Take 2 tablets by mouth two times a day. 20 tablet 11/05/2023 03/21/2025 Discontinued (Other) hydrOXYzine pamoate 50 mg oral capsule (8 sources) Antihistamine Start: 10-13-20 15 End: 02-17-20 19 Hydroxyzine Pamoate 50 MG capsule Discontinued 100 mg PO 3 TIMES DAILY NEEDED as needed for Anxiety 2015 1:00am February 16, 2019 12:06pm Start: 2015 End: 02-16-2019 take 100 mg by mouth three times daily as needed Hydroxyzine Pamoate Discontinued 100 MG PO 3 TIMES DAILY NEEDED 2015 1:00am February 16, 2019 12:06pm Start: 10-07-2013 End: 11-02-2013 Hydroxyzine Pamoate 25 MG ca psule Discontinued 50 mg PO 3 TIMES DAILY NEEDED as needed for Anxiety October 07, 2013 1:00am November 02, 2013 11:07pm Start: 10-07-2013 End: 11-02-2013 take 50 mg by mouth three times daily as needed Hydroxyzine Pamoate Discontinued 50 MG PO 3 TIMES DAILY NEEDED October 07, 2013 1:00am November 02, 2013 11:07pm 1 ml ketorolac tromethamine 30 mg/ml cartridge (1 source) Nonsteroidal Anti-inflammatory Drug, Cyclooxygenase Inhibitor Start: 11-14-2019 End: 11-14-2019 ketorolac (TORADOL) injection 30 mg lamoTRIgine 100 mg oral tablet (19 sources) Mood Stabilizer, Anti-epileptic Agent Start: 07-15-2022 End: 03-21-2025 take 2 tablets by mouth once daily lamoTRIgine (LAMICTAL) 100 mg tablet Take 2 tablets by mouth once daily. 07/15/2022 03/21/2025 Discontinued (Other) End: 07-15-2022 take 1 tablet by mouth once daily lamoTRIgine (LAMICTAL) 100 mg tablet Take 100 mg by mouth once daily. 0 07/15/2022 Discontinued Comment on above: Take 100 mg by mouth once daily. Take 2 tablets by mo ut once daily. lidocaine hydrochloride 20 mg/ml mucous membrane topical solution (1 source) Antiarrhythmic, Amide Local Anesthetic Start: End: lidocaine viscous hcl (XYLOCAINE) 2 % solution 15 mL lisdexamfetamine dimesylate 50 mg oral capsule (20 sources) Central Nervous System Stimulant Start: End: take 1 capsule by mouth once daily in the morning lisdexamfetamine (Vyvanse) 50 MG capsule Indications: Attention deficit hyperactivity disorder (ADHD), combined type Take 1 capsule (50 mg) by mouth every morning. 30 capsule 06/27/2024 07/01/2024 Discontinued (Therapy completed) Start: 02-05-2024 End: 06-24-2024 take 1 capsule by mouth once daily in the morning lisdexamfetamine (Vyvanse) 50 MG capsule Indications: Attention deficit hyperactivity disorder (ADHD), combined type Take 1 capsule (50 mg) by mouth every morning. 30 capsule 05/27/2024 06/24/2024 Discontinued (Reorder) Start: 01-03-2024 End: 02-02-2024 take 1 capsule by mouth once daily in the morning lisdexamfetamine (Vyvanse) 50 MG capsule Indications: Attention deficit hyperactivity disorder (ADHD), combined type Take 1 capsule (50 mg) by mouth every morning. Do not start before January 03, 2024. 30 capsule 0 01/03/2024 02/02/2024 Discontinued (Reorder) Start: 01-03-2024 take 1 capsule by mo ut once daily in the morning lisdexamfetamine (Vyvanse) 50 MG capsule Indications: Attention deficit hyperactivity disorder (ADHD), combined type Take 1 capsule (50 mg) by mouth every morning. Do not start before January 03, 2024. 30 capsule 0 01/03/2024 Active Start: 12-04-2023 End: 01-01-2024 take 1 capsule by mouth once daily in the morning lisdexamfetamine (Vyvanse) 40 MG capsule Indications: Attention deficit hyperactivity disorder (ADHD), combined type Take 1 capsule (40 mg) by mouth every morning. 30 capsule 0 12/04/2023 01/01/2024 Discontinued (Reorder) Start: 10-05-2023 End: 03-21-2025 take 1 capsule by mouth once daily in the morning VYVANSE 30 mg capsule Take 1 capsule (30 mg) by mouth every morning. 10/05/2023 03/21/2025 Discontinued (Other) Start: 09-04-2023 End: 10-05-2023 take 1 capsule by mouth once daily in the morning lisdexamfetamine (Vyvanse) 20 MG capsule Indications: Attention deficit hyperactivity disorder (ADHD), combined type Take 1 capsule (20 mg) by mouth every morning. 30 capsule 0 09/04/2023 10/05/2023 Discontinued (Reorder) metroNIDAZOLE 500 mg oral tablet (1 source) Nitroimidazole Antimicrobial Start: 04-03-2020 End: 04-03-2020 metroNIDAZOLE (FLAGYL) tablet 2,000 mg naproxen 250 mg oral tablet (6 sources) Nonsteroidal Anti-inflammatory Drug Start: 01-24-2016 End: 02-16-2019 take 250-500 mg by mouth every eight hours as needed for pain Naproxen 250 MG tablet Discontinued 250 - 500 mg PO EVERY 8 HOURS NEEDED as needed for MILD PAIN January 24, 2016 1:00am February 16, 2019 12:07pm End: 01-27-2020 take 1 tablet by mouth twice daily at mealtime naproxen (NAPROSYN) 375 MG tablet Take 375 mg by mouth 2 times daily (with meals) 0 01/27/2020 Discontinued polyethylene glycol 3350 81333 mg powder for oral solution (4 sources) Osmotic Laxative Start: 12-07-2015 End: 02-16-2019 take 17 g by mouth once daily Polyethylene Glycol 3350 17 GM packet Discontinued 17 g PO DAILY December 07, 2015 1:00am February 16, 2019 12:07pm vitamin with folic acid 1 mg 60 mg iron-1 mg tab (20 sources) Start: 05-01-2022 End: 03-21-2025 take 1 tablet by mouth once daily vitamin with folic acid 1 mg 60 mg iron-1 mg tab Indications: 33 weeks gestation of (HCC) Take 1 tablet by mouth once daily. 30 tablet 11 05/01/2022 03/21/2025 Discontinued Start: 05-01-2022 take 1 tablet by amando th once daily vitamin with folic acid 1 mg 60 mg iron-1 mg tab Indications: 33 weeks gestation of Take 1 tablet by mouth once daily. 30 tablet 11 05/01/2022 Active Start: 02-28-2021 take 1 tablet by amando th once daily vitamin with folic acid 1 mg 60 mg iron-1 mg tab Indications: 33 weeks gestation of Take 1 tablet by mouth once daily. 30 tablet 1 02/28/2021 Active Comment on above: Take 1 tablet by amando th once daily. SLYND 4 mg (28) tabet (1 source) Start: 3 End: 5 take 1 tablet by mouth once daily SLYND 4 mg (28) tabet Take 1 tablet (4 mg total) by mouth 1 (one) time each day. 09/29/2023 03/21/2025 Discontinued (Other) 50 ml sodium chloride 9 mg/ml injection (1 source) Start: 2 End: 2 0.9 % sodium chloride bolus valACYclovir 500 mg oral tablet (4 sources) Herpesvirus Nucleoside Analog DNA Polymerase Inhibitor, Herpes Simplex Virus Nucleoside Analog DNA Polymerase Inhibitor, Herpes Zoster Virus Nucleoside Analog DNA Polymerase Inhibitor Start: 9 End: 9 take 1 tablet by mouth twice daily Valacyclovir (Valtrex) 500 mg tablet Discontinued 500 mg PO TWICE A DAY 10 April 01, 2019 12:00am May 10, 2019 12:00am May 11, 2019 12:07am Problems Active Problems Problem Classification Problem Date Documented Date Episodic/Chronic Anxiety disorders (20 sources) Anxiety disorder; Translations: [Anxiety disorder, unspecified] Onset: 09-23-2006 Resolved: 02-09-2021 12-30-2023 Chronic Attention-deficit, conduct, and disruptive behavior disorders (16 sources) Attention deficit hyperactivity disorder, combined type; Translations: [Attention-deficit hyperactivity disorder, combined type] 09-04-2023 Chronic Attention-deficit, conduct, and disruptive behavior disorders (2 sources) Attention-deficit hyperactivity disorder, combined type; Translations: [Attention-deficit hyperactivity disorder, combined type] Onset: 03-29-2024 Chronic Cardiac dysrhythmias (20 sources) Sinus bradycardia; Translations: [Bradycardia, unspecified] Onset: 09-15-2022 Episodic distress and abnormal forces of labor (4 sources) Liveborn with labor distress; Translations: [Labor and delivery complicated by stress, unspecified] Episodic Hepatitis (1 source) Chronic hepatitis C; Translations: [Chronic viral hepatitis C] Chronic Menstrual disorders (1 source) Missed period; Translations: [Irregular menstruation, unspecified] Chronic Miscellaneous mental health disorders (20 sources) Eating disorder; Translations: [Eating disorder, unspecified] Onset: 08-06-2023 08-06-2023 Chronic Mood disorders (20 sources) Mood disorder; Translations: [Unspecified mood [affective] disorder] Onset: 09-23-2006 Resolved: 07-22-2024 02-25-2021 Chronic Nausea and vomiting (20 sources) Intractable nausea and vomiting; Translations: [Nausea with vomiting, unspecified] Onset: 08-12-2022 Episodic Nonspecific chest pain (1 source) Chest pain, unspecified; Translations: [Chest pain, unspecified type] Onset: 03-02-2025 Episodic Other aftercare (1 source) Taking high risk medication; Translations: [Other intermediate (current) drug therapy] 09-04-2023 Episodic Other complications of (9 sources) Nausea and vomiting; Translations: [Vomiting of , unspecified] Episodic Other complications of (1 source) Hyperemesis gravidarum; Translations: [Mild hyperemesis gravidarum] Episodic Other complications of (4 sources) data - finding; Translations: [Unspecified abnormal findings on screening of mother] 08-25-2019 Episodic Comment on above: 6 out of 8 BPP and 8 out of 10 BPP. Celestone given 10 3 and 10 4. Plan twice weekly NSTs for remainder of . Other complications of (4 sources) Bipolar disorder; Translations: [Other mental disorders complicating , unspecified trimester] 09-15-2022 Episodic Other complications of (4 sources) Eating disorder; Translations: [Other mental disorders complicating , unspecified trimester] 08-24-2019 Episodic Comment on above: ensure Rx per [facility], o n zofan pump Other complications of (3 sources) Other mental disorders complicating , unspecified trimester; Translations: [Mental disorders of mother, unspecified as to episode of care or not applicable] Episodic Other complications of (3 sources) condition affecting obstetrical care of mother; Translations: [Maternal care for abnormalities of the heart rate or rhythm, unspecified trimester, not applicable or unspecified] 09-15-2022 Episodic Other complications of (1 source) Maternal care for abnormalities of the heart rate or rhythm, unspecified trimester, not applicable or unspecified; Translations: [Abnormality in heart rate or rhythm, antepartum condition or complication] Episodic Other complications of (2 sources) Vomiting of ; Translations: [Vomiting of , unspecified] 03-01-2025 Episodic Other complications of (1 source) Other specified related conditions, first trimester; Translations: [Other specified related conditions, first trimester] Onset: 03-08-2025 Episodic Other complications of (3 sources) Uncertain viability of ; Translations: [ with inconclusive viability, not applicable or unspecified] 03-21-2025 Episodic Other complications of (15 sources) Vomiting of , unspecified; Translations: [Unspecified vomiting of , unspecified as to episode of care or not applicable] Onset: 07-12-2015 Resolved: 02-09-2021 03-21-2025 Episodic Other complications of (5 sources) Multigravida of advanced maternal age; Translations: [Supervision of elderly multigravida, second trimester] Onset: 06-06-2025 06-06-2025 Episodic Other complications of (1 source) Insufficient care; Translations: [Supervision of with insufficient care, second trimester] 06-06-2025 Episodic Other complications of (1 source) Supervision of high risk , unspecified, first trimester; Translations: [Supervision of high risk in first trimester (HCC)] Onset: 06-06-2025 Episodic Other complications of (1 source) with inconclusive viability, not applicable or unspecified; Translations: [ with inconclusive viability, single or unspecified fetus (HCC)] Onset: 06-06-2025 Episodic Other connective tissue disease (20 sources) Tendinitis; Translations: [Enthesopathy, unspecified] Onset: 08-06-2023 08-06-2023 Episodic Other disorders of stomach and duodenum (20 sources) Cyclical vomiting syndrome; Translations: [Cyclical vomiting syndrome unrelated to migraine] Onset: 09-15-2022 08-06-2023 Episodic Other disorders of stomach and duodenum (2 sources) Cyclical vomiting syndrome unrelated to migraine; Translations: [Persistent vomiting] Episodic Other female genital disorders (3 sources) H/O: premature delivery; Translations: [Personal history of pre-term labor] Episodic Other infections; including parasitic (1 source) Personal history of other infectious and parasitic diseases; Translations: [Personal history of other infectious and parasitic diseases] Episodic Other lower respiratory disease (5 sources) Dyspnea; Translations: [Dyspnea, unspecified] 04-10-2025 Episodic Other lower respiratory disease (1 source) Dyspnea, unspecified; Translations: [Dyspnea, unspecified type] Onset: 03-31-2025 Episodic Other nervous system disorders (20 sources) Carpal tunnel syndrome; Translations: [Carpal tunnel syndrome, unspecified upper limb] Onset: 08-06-2023 08-06-2023 Chronic Other nervous system disorders (1 source) Bilateral carpal tunnel syndrome; Translations: [Carpal tunnel syndrome, bilateral upper limbs] 10-05-2023 Chronic Other nervous system disorders (2 sources) Other chronic pain; Translations: [Other chronic pain] Onset: 03-29-2024 Chronic Other nervous system disorders (12 sources) Chronic pain; Translations: [Other chronic pain] Onset: 10-19-2012 Resolved: 07-12-2015 07-12-2015 Chronic Other nutritional; endocrine; and metabolic disorders (11 sources) Weight decreased; Translations: [Abnormal weight loss] Onset: 03-31-2025 03-31-2025 Episodic Other nutritional; endocrine; and metabolic disorders (1 source) Increased thirst; Translations: [Polydipsia] 03-31-2025 Episodic Other nutritional; endocrine; and metabolic disorders (1 source) Polydipsia; Translations: [Increased thirst] Onset: 03-31-2025 Episodic Other nutritional; endocrine; and metabolic disorders (1 source) Abnormal weight loss; Translations: [Weight loss] Onset: 03-31-2025 Episodic Other screening for suspected conditions (not mental disorders or infectious disease) (3 sources) Patient encounter status; Translations: [Encounter for other specified screening] Episodic Other skin disorders (1 source) Hyperpigmentation of skin; Translations: [Disorder of pigmentation, unspecified] 07-22-2024 Episodic Residual codes; unclassified (1 source) At risk of sexually transmitted infection ; Translations: [Possible exposure to STD] Episodic Residual codes; unclassified (1 source) Gestation period, 19 weeks; Translations: [19 weeks gestation of ] Episodic Residual codes; unclassified (1 source) Gestation period, 20 weeks; Translations: [20 weeks gestation of ] Episodic Residual codes; unclassified (1 source) Gestation period, 22 weeks; Translations: [22 weeks gestation of ] Episodic Residual codes; unclassified (1 source) Gestation period, 27 weeks; Translations: [27 weeks gestation of ] Episodic Residual codes; unclassified (5 sources) Gestation period, 31 weeks; Translations: [31 weeks gestation of ] Episodic Residual codes; unclassified (4 sources) Gestation period, 32 weeks; Translations: [32 weeks gestation of ] 02-16-2021 Episodic Residual codes; unclassified (5 sources) Gestation period, 33 weeks; Translations: [33 weeks gestation of ] Episodic Residual codes; unclassified (4 sources) H/O: previous baby with growth restriction; Translations: [Personal history of other complications of , childbirth and the puerperium] 02-09-2021 Episodic Residual codes; unclassified (2 sources) 31 weeks gestation of ; Translations: [ state, incidental] Episodic Residual codes; unclassified (2 sources) 32 weeks gestation of ; Translations: [ state, incidental] Episodic Residual codes; unclassified (2 sources) Personal history of other complications of , childbirth and the puerperium; Translations: [Personal history of other genital system and obstetric disorders] Episodic Residual codes; unclassified (3 sources) Gestation period, 35 weeks; Translations: [35 weeks gestation of ] 09-15-2022 Episodic Residual codes; unclassified (20 sources) Tobacco use and exposure - finding; Translations: [Tobacco use] Onset: 08-06-2023 08-06-2023 Episodic Residual codes; unclassified (1 source) 35 weeks gestation of ; Translations: [ state, incidental] Episodic Residual codes; unclassified (1 source) History of uterine scar from previous surgery; Translations: [Other postprocedural status] Episodic Residual codes; unclassified (1 source) Tobacco use; Translations: [Tobacco use disorder] Episodic Residual codes; unclassified (1 source) 8 weeks gestation of ; Translations: [8 weeks gestation of (HCC)] Onset: 03-02-2025 Episodic Residual codes; unclassified (1 source) History of clinical finding in subject; Translations: [Personal history of other specified conditions] 04-10-2025 Episodic Residual codes; unclassified (1 source) Family history of breast cancer; Translations: [Family history of malignant neoplasm of breast] 04-10-2025 Episodic Residual codes; unclassified (1 source) Failed encounter; Translations: [No-show for appointment] 06-15-2025 Episodic Residual codes; unclassified (1 source) General problem AND/OR complaint; Translations: [Concern about STD in female without diagnosis] Substance-related disorders (20 sources) Controlled drug dependence ; Translations: [Opioid dependence, uncomplicated] Onset: 07-12-2015 02-25-2021 Chronic Comment on above: 07/08 neg Unclassified (1 source) Cannabis use, unspecified, in remission; Translations: [Cannabis use, unspecified, in remission] Onset: 08-06-2023 Unclassified (1 source) Nausea and vomiting in ([facility] [place]) 03-21-2025 Unclassified (1 source) complicated by subutex maintenance, antepartum ([facility] [place]) 04-19-2025 Unclassified (1 source) No-show for appointment; Translations: [No-show for appointment] Onset: 06-15-2025 Past or Other Problems Problem Classification Problem Date Documented Date Episodic/Chronic Abdominal pain (16 sources) Epigastric pain; Translations: [Epigastric pain] Onset: 03-29-2024 Resolved: 07-12-2015 03-29-2024 Episodic Administrative/social admission (20 sources) Grand multipara; Translations: [Problems related to multiparity] Onset: 07-12-2015 Resolved: 06-06-2025 Episodic Allergic reactions (20 sources) Allergy to bee venom; Translations: [Bee allergy status] Onset: 07-24-2015 01-12-2020 Episodic Cancer of cervix (12 sources) Cervical atypism; Translations: [Atypical squamous cells of undetermined significance on cytologic smear of cervix (ASC-US)] Onset: 12-19-2008 Resolved: 07-12-2015 07-12-2015 Episodic Contraceptive and procreative management (20 sources) Sterilization requested; Translations: [Encounter for sterilization] Onset: 05-01-2022 05-01-2022 Episodic Disorders of teeth and jaw (1 source) Toothache Episodic Early or threatened labor (20 sources) Premature labor; Translations: [ labor without delivery, unspecified trimester] Onset: 02-09-2021 Resolved: 02-23-2021 Episodic Endometriosis (12 sources) Endometriosis (clinical); Translations: [Endometriosis, unspecified] Onset: 12-05-2013 Resolved: 07-12-2015 07-12-2015 Chronic Genitourinary symptoms and ill-defined conditions (12 sources) Female stress incontinence; Translations: [Stress incontinence (female) (male)] Onset: 05-31-2009 Resolved: 07-12-2015 07-12-2015 Chronic Genitourinary symptoms and ill-defined conditions (20 sources) History of recurrent urinary tract infection; Translations: [Personal history of urinary (tract) infections] Onset: 12-01-2008 Resolved: 06-06-2025 02-23-2021 Episodic Hemorrhage during ; abruptio placenta; placenta previa (20 sources) Bleeding from female genital tract during ; Translations: [Antepartum hemorrhage, unspecified, unspecified trimester] Onset: 09-26-2020 Resolved: 08-06-2023 02-01-2021 Episodic Miscellaneous mental health disorders (12 sources) depression; Translations: [ depression] Onset: 03-21-2016 Resolved: 02-09-2021 02-09-2021 Episodic Mycoses (12 sources) Dermatophytosis; Translations: [Tinea corporis] Onset: 05-29-2008 Resolved: 07-12-2015 07-12-2015 Episodic Other complications of (20 sources) Reduced movement; Translations: [Decreased movements, unspecified trimester, not applicable or unspecified] Onset: 05-31-2009 Resolved: 08-06-2023 05-20-2019 Episodic Other complications of (20 sources) High risk ; Translations: [Supervision of high risk , unspecified, first trimester] Onset: 07-12-2009 Resolved: 08-06-2023 Episodic Comment on above: PRR CHERRY 11 girl Edward Elizabeth Dylan FOB- Dustin (not involved) Other complications of (20 sources) Finding of pattern of ; Translations: [Supervision of other high risk pregnancies, unspecified trimester] Onset: 08-02-2020 Resolved: 06-06-2025 Episodic Other complications of (20 sources) Maternal tobacco use; Translations: [Smoking (tobacco) complicating , first trimester] Onset: 08-02-2020 Resolved: 06-06-2025 Episodic Other complications of (20 sources) RhD negative; Translations: [Other specified related conditions, unspecified trimester] Onset: 07-12-2015 02-25-2021 Episodic Other complications of (20 sources) History of pre-eclampsia; Translations: [Supervision of with other poor reproductive or obstetric history, unspecified trimester] Onset: 08-02-2020 Resolved: 06-06-2025 02-24-2021 Episodic Comment on above: baseline labs, recom mend baby asa in Other complications of (20 sources) dysrhythmia; Translations: [Maternal care for abnormalities of the heart rate or rhythm, unspecified trimester, not applicable or unspecified] Onset: 02-01-2021 Resolved: 08-06-2023 02-01-2021 Episodic Other complications of (16 sources) Venereal disease in mother complicating , childbirth AND/OR puerperium; Translations: [Other infections with a predominantly sexual mode of transmission complicating , unspecified trimester] Onset: 12-28-2015 Resolved: 03-21-2016 09-24-2019 Episodic Comment on above: valtrex at delivery Other complications of (20 sources) A/N care: H/O stillbirth; Translations: [Supervision of with other poor reproductive or obstetric history, unspecified trimester] Onset: 08-06-2023 08-06-2023 Episodic Other complications of (20 sources) Complication occurring during ; Translations: [Other specified diseases and conditions complicating ] Onset: 09-15-2022 Resolved: 08-06-2023 08-06-2023 Episodic Other complications of (12 sources) Urinary tract infection in ; Translations: [Unspecified infection of urinary tract in , unspecified trimester] Onset: 07-16-2015 Resolved: 03-21-2016 11-18-2021 Episodic Other complications of (12 sources) Poor growth affecting management; Translations: [Maternal care for other known or suspected poor growth, third trimester, not applicable or unspecified] Onset: 12-11-2015 Resolved: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 #### [facility] [address] [place], [address] Chloride [Moles/Vol] 104 mmol/L Normal 98-108 [facility] Comment on above: Performed By: #### L 500.4050, L100.0100, L501.2450, L700.8000 #### [facility] [address] [place], [address] CO2 [Moles/Vol] 19.1 mmol/L Low 21.0-32.0 [facility] Comment on above: Performed By: #### L 500.4050, L100.0100, L501.2450, L700.8000 #### [facility] [address] [place], [address] Creatinine [Mass/Vol] 0.63 mg/dL Low 0.70-1.20 [facility] Comment on above: Performed By: #### L 500.4050, L100.0100, L501.2450, L700.8000 #### [facility] [address] [place], [address] ECRCL 105.58 ml/min Normal 50-250 [facility] Comment on above: Performed By: #### L 500.4050, L100.0100, L501.2450, L700.8000 #### [facility] [address] [place], [address] GAP 12 Normal 5-15 [facility] Comment on above: Performed By: #### L 500.4050, L100.0100, L501.2450, L700.8000 #### [facility] [address] [place], [address] GFR/1.73 sq M.predicted among non-blacks MDRD (S/P/Bld) [Vol rate/Area] 117 mL/min/{1.73_m2} Normal >60 [facility] Comment on above: Result Comment: mL/m in/1.73m2 CKD-EPI Creatinine Equation (2020) Performed By: #### L 500.4050, L100.0100, L501.2450, L700.8000 #### [facility] [address] [place], [address] Globulin (S) [Mass/Vol] 2.9 g/dL Normal 2.2-4.2 [facility] Comment on above: Performed By: #### L 500.4050, L100.0100, L501.2450, L700.8000 #### [facility] [address] [place], [address] Glucose [Mass/Vol] 102 mg/dL High 70-99 [facility] Comment on above: Performed By: #### L 500.4050, L100.0100, L501.2450, L700.8000 #### [facility] [address] [place], [address] Potassium [Moles/Vol] 4.1 mmol/L Normal 3.3-5.1 [facility] Comment on above: Performed By: #### L 500.4050, L100.0100, L501.2450, L700.8000 #### [facility] [address] [place], [address] Sodium [Moles/Vol] 135 mmol/L Normal 133-145 [facility] Comment on above: Performed By: #### L 500.4050, L100.0100, L501.2450, L700.8000 #### [facility] [address] [place], [address] T PROT 7.7 g/dL Normal 5.9-8.4 [facility] Comment on above: Performed By: #### L 500.4050, L100.0100, L501.2450, L700.8000 #### [facility] [address] [place], [address] Urea nitrogen [Mass/Vol] 7 mg/dL Normal 4-19 [facility] Comment on above: Performed By: #### L 500.4050, L100.0100, L501.2450, L700.8000 #### [facility] [address] [place], [address] Emergency Department Summary on 03-01-2025 Emergency Department Summary [facility] Medical Records Department [address] [place] [address] Emergency Department Summary 03/01/25 MR#: [id number] Acct: [id number] Name: MARCO LOPES Rep #: [id number] : 1985 39 From: Josh Sainz PCP: Care Physician,No Primary Status:DEP ER Location: ED HPI History of Present Illness Chief Complaint: Abd Pain Informant: patient Narrative Narrative: G9, P6 six 8-week gestation by dates. Found out she she was 2 weeks ago followed by center. Been confirmed outpatient. Chronic Subutex for the last 10 years. Daily marijuana use. Vomiting since Thursday 3 days ago no hematemesis unable to keep things down. No diarrhea reports constipation. No urinary symptoms. No vaginal symptoms. States she is feels lightheaded. Today was in the shower unable to feel better. Denies any issues with marijuana use in the past. Appendectomy in the past. [facility] Medical History (Updated 03/01/25 @ 18:[address] Josh Balderas DO) labor PROM (premature rupture of membranes) Bipolar disease during complicated by subutex maintenance, antepartum Bipolar 1 disorder, depressed Drug abuse in remission Home Medications ???Medication ???Instructions ???Recorded ???Last Taken ???Type buprenorphine HCl 8 mg sublingual 8 mg PO BID hx of heroin 02/16/19 09/05/22 08:00 History tablet food supplemt, lactose-reduced 237 ml PO TID eating disorder 01/2209/03/22 08:00 History ondansetron 8 mg disintegrating 8 mg PO TID PRN nausea and 2 Unknown Rx tablet vomiting #60 tabs acetaminophen 325 mg tablet 650 mg (2 x 325 mg) PO Q6H PRN Unknown Rx (Tylenol) pain #30 tabs ibuprofen 600 mg tablet 600 mg PO Q6H PRN pain #30 tabs Unknown Rx metoclopramide HCl 5 mg tablet 5 mg PO Q6H PRN nausea and 5 Unknown Rx (Reglan) vomiting #20 tabs Allergy/AdvReac Type Severity Reaction Status Date / Time amoxicillin Allergy Hives Verified 03/01/25 13:58 beeswax Allergy Hives Verified 03/01/25 13:58 hydrocodone bitartrate (From Allergy Itching Verified 03/01/25 13:58 Vicodin) acetaminophen (From Ultracet) AdvReac Other Verified 03/01/25 13:58 amitriptyline AdvReac Other Verified 03/01/25 13:58 doxycycline AdvReac Vomiting Verified 03/01/25 13:58 fentanyl AdvReac Itching Verified 03/01/25 13:58 rofecoxib (From Vioxx) AdvReac Vomiting Verified 03/01/25 13:58 tramadol (From Ultracet) AdvReac Other Verified 03/01/25 13:58 Surgical History S/P section History of appendectomy Social History number of children: 3 current occupational status: unemployed Smoking Status: Current every day smoker tobacco type: e-cigarettes alcohol intake: never substance use type: former substance user and marijuana seatbelt use: always do you feel safe at home: Yes ROS ROS ED Constitutional Constitutional ED: Reports sweats; Denies chills or fever(s) ENT ENT ED: Denies sore throat Cardiovascular Cardiovascular: Denies chest pain, leg edema, palpitations or racing heartbeat Respiratory/Chest Respiratory/Chest: Denies cough, dyspnea or dyspnea on exertion Gastrointestinal Gastrointestinal: Reports abdominal pain, nausea and vomiting; Denies diarrhea Genitourinary Genitourinary ED: Denies dysuria, hematuria or urinary frequency Musculoskeletal Musculoskeletal: Denies back pain, extremity pain or neck pain Integumentary Denies rash or wounds Neurologic Neurologic: Denies headache(s), paresthesias or weakness EXAM Physical Exam Const Vital Signs: 03/01/25 13:53 03/01/25 15:45 03/01/25 16:00 Temperature 97.4 F L Temperature Source Temporal Pulse Rate 41 L 52 L 57 L Respiratory Rate 18 18 12 Blood Pressure 140/52 H 168/70 H 111/73 Blood Pressure Mean 81 102 86 Pulse Ox 100 100 100 Oxygen Delivery Method Room Air 03/01/25 17:00 03/01/25 17:15 03/01/25 17:30 Temperature Temperature Source Pulse Rate 55 L Respiratory Rate 11 L Blood Pressure 100/80 Blood Pressure Mean 86 Pulse Ox 100 100 97 Oxygen Delivery Method Positive well nourished and well developed Constitutional Narrative: Nontoxic, sweaty General Appearance ED: well developed HEENT Reports moist mucous membranes normocephalic and atraumatic Eyes General Eye ED: Yes normal appearance of both eyes Neck full ROM Chest Wall Chest: Negative for tenderness Resp normal respiratory effort and normal air movement Effort and Inspection: symmetric chest movement; Negative for respiratory distress Cardio regular rate, regular rhythm and no murmurs Peripheral Pulses: pulses 2+ throughout GI normal (more content not included)... Normal [facility] Eosinophil percentageOrdered By: Josh Balderas on 03-01-2025 Eosinophils/100 WBC (Bld) 0.6 % 0-5 [facility] Epithelial cells.squamous LM Ql (Urine sed)Ordered By: Josh Balderas on 03-01-2025 Epithelial cells.squamous LM.HPF (Urine sed) [#/Area] 0 /[HPF] 5-10 [facility] Erythrocyte distribution wid th (RBC) [Ratio]Ordered By: Josh Balderas on 03-01-2025 Erythrocyte distribution width (RBC) [Entitic vol] 37.2 fL 35.1-43.9 [facility] Erythrocyte distribution wid th ratioOrdered By: Josh Balderas on 03-01-2025 Erythrocyte distribution width (RBC) [Ratio] 12.2 % 11.6-14.6 [facility] Estimation of creatinine marielena aranceOrdered By: Josh Balderas on 03-01-2025 Estimated Creatinine Clearance Calc 105.58 ml/min 50-250 [facility] GFR/1.73 sq M.predicted frederic g non-blacks MDRD (S/P/Bld) [Vol rate/Area]Ordered By: Josh Balderas on 03-01-2025 Estimated GFR (MDRD) Non-Af Amer 117 >60 [facility] Comment on above: mL/min/1.73m2 CKD-EP I Creatinine Equation (2020) Glucose Ql (U)Ordered By: Stephen Balderas on 03-01-2025 Urine Glucose (UA) Normal mg/dl Normal [facility] HCG ( test) QlOrder ed By: Josh Balderas on 03-01-2025 Human Chorionic Gonadotropin, Quant 27728 mIU/mL High <9 [facility] Comment on above: Gestational Age0.2-1 Week: 5-50 mIU/mL1-2 Weeks: 50-500 mIU/mL2-3 Weeks: 100-5000 mIU/mL3-4 Weeks: 500-10,000 mIU/mL4-5 Weeks:1000-50,000 mIU/mL5-6 Weeks: 10,000-100,000 mIU/mL6-8 Weeks: 15,000-200,000 mIU/mL2-3 Months:10,000-100,000 mIU/mL Hematocrit Auto (Bld) [Volum e fraction]Ordered By: Josh Balderas on 03-01-2025 Hematocrit (Bld) [Volume fraction] 36.0 % Low 37-47 [facility] Hemoglobin measurementOrdere d By: Josh Balderas on 03-01-2025 Hemoglobin (Bld) [Mass/Vol] 12.3 g/dL 12.0-15. 0 [facility] Immature granulocytes/100 WB C Auto (Bld)Ordered By: Josh Balderas on 03-01-2025 Immature granulocytes/100 WBC (Bld) 0.500 % 0.0-0.9 [facility] Comment on above: IG% - Immature Granu locytes (promyelocytes, myelocytes and metamyelocytes) > 1% indicates that a LEFT SHIFT is Present. Ketones Test strip Ql (U)Ord ered By: Josh Balderas on 03-01-2025 Ketones Ql (U) 50 mg/dl High Negative [facility] - Chemistry and C hemistry - challengeOrdered By: Josh Balderas on 03-01-2025 AST [Catalytic activity/Vol] 24 U/L <32 [facility] Lipaseon 04-09-2025 Lipase [Catalytic activity/Vol] 18 U/L Normal 13-75 [facility] Comment on above: Result Comment: Donna ford note: LIPASE revised reference range effective 23. New Lipase methodology. Expected to produce lower values than the previous assay method. NEW Reference Range: 13 - 75 U/L Performed By: #### L 500.4050, L100.0100, L501.2450, L700.8000 #### [facility] [address] [place], [address] Lipase measurementOrdered By : Josh Balderas on 03-01-2025 Lipase [Catalytic activity/Vol] 18 U/L 13-75 [facility] Comment on above: Please note:LIPASE r evised reference range effective 23. New Lipase methodology. Expected to produce lower values than the previous assay method. NEW Reference Range: 13 - 75 U/L Lymphocytes Auto (Unsp spec) [#/Vol]Ordered By: Josh Balderas on 03-01-2025 Lymphocytes (Bld) [#/Vol] 1.45 10*3/uL 0.83-4.5 1 [facility] Lymphocytes/100 WBC Auto (Un sp spec)Ordered By: Josh Balderas on 03-01-2025 Lymphocytes/100 WBC (Bld) 21.8 % 19-41 [facility] MCV (mean corpuscular volume ) determinationOrdered By: Josh Balderas on 03-01-2025 MCV (RBC) [Entitic vol] 84.1 fL 81-99 [facility] Mean corpuscular hemoglobin (MCH) determinationOrdered By: Josh Balderas on 03-01-2025 MCH (RBC) [Entitic mass] 28.7 pg 27.0-32.0 [facility] Mean corpuscular hemoglobin concentration (MCHC) determinationOrdered By: Josh Balderas on 03-01-2025 MCHC (RBC) [Mass/Vol] 34.2 g/dL 32-36 [facility] Mean platelet volume determi nationOrdered By: Josh Balderas on 03-01-2025 Platelet mean volume (Bld) [Entitic vol] 9.9 fL 6.2-12.0 [facility] Microscopic analysis of urin e for red blood cells (RBC)Ordered By: Josh Balderas on 03-01-2025 Urine RBC 0-5 SEEN /hpf 0-5 [facility] Monocyte percentageOrdered B y: Josh Balderas on 03-01-2025 Monocytes/100 WBC (Bld) 5.0 % 0-10 [facility] Mucus LM Ql (Urine sed)Order ed By: Josh Balderas on 03-01-2025 Mucus Ql (Urine sed) 0 SEEN /hpf [facility] Neutrophil percentageOrdered By: Josh Balderas on 03-01-2025 Neutrophils/100 WBC (Bld) 71.8 % High 47-70 [facility] Nitrite Test strip Ql (U)Ord ered By: Josh Balderas on 03-01-2025 Nitrite Ql (U) Negative Negative [facility] Nucleated red blood cell per centageOrdered By: Josh Balderas on 03-01-2025 Nucleated RBC/100 WBC (Bld) [Ratio] 0 % 0-5 [facility] Platelet countOrdered By: Stephen Balderas on 03-01-2025 Platelets (Bld) [#/Vol] 219 10*3/uL 150-450 [facility] Potassium (Unsp spec) [Mass/ Vol]Ordered By: Josh Balderas on 03-01-2025 Potassium [Moles/Vol] 4.1 mmol/L 3.3-5.1 [facility] Protein Test strip Ql (U)Ord ered By: Josh Balderas on 03-01-2025 Protein Ql (U) 30 mg/dl High Negative [facility] RBC Auto (Bld) [#/Vol]Ordere d By: Josh Balderas on 03-01-2025 RBC (Bld) [#/Vol] 4.28 10*6/uL 4.2-5.4 [facility] Serum creatinine measurement (mass/volume)Ordered By: Josh Balderas on 03-01-2025 Creatinine [Mass/Vol] 0.63 mg/dL Low 0.70-1.20 [facility] Serum globulin measurementOr dered By: Josh Balderas on 03-01-2025 Globulin (S) [Mass/Vol] 2.9 g/dL 2.2-4.2 [facility] Serum glucose measurement (m ass/volume)Ordered By: Josh Balderas on 03-01-2025 Glucose [Mass/Vol] 102 mg/dL High 70-99 [facility] Serum or plasma alanine parra otransferase (ALT) measurementOrdered By: Josh Balderas on 03-01-2025 ALT [Catalytic activity/Vol] 15 U/L <35 [facility] Serum or plasma albumin quique urement (mass/volume)Ordered By: Josh Balderas on 03-01-2025 Albumin [Mass/Vol] 4.8 g/dL 3.5-5.0 [facility] Serum or plasma albumin/glob ulin mass ratioOrdered By: Josh Balderas on 03-01-2025 Albumin/Globulin [Mass ratio] 1.6 {ratio} 0.9-2.4 [facility] Serum or plasma alkaline camila sphatase measurementOrdered By: Josh Balderas on 03-01-2025 ALP [Catalytic activity/Vol] 56 U/L 35-104 [facility] Serum or plasma calcium quique urement (mass/volume)Ordered By: Josh Balderas on 03-01-2025 Calcium [Mass/Vol] 9.7 mg/dL 7.6-11.0 [facility] Serum or plasma urea nitroge n measurement (mass/volume)Ordered By: Josh Balderas on 03-01-2025 Urea nitrogen [Mass/Vol] 7 mg/dL 4-19 [facility] Sodium levelOrdered By: Josh Balderas on 03-01-2025 Sodium [Moles/Vol] 135 mmol/L 133-145 [facility] Total proteinOrdered By: Jj Balderas on 03-01-2025 Protein [Mass/Vol] 7.7 g/dL 5.9-8.4 [facility] Urinalysis, Completeon 03-01 EPI,SQUAMOUS 0-5 SEEN Normal 5-10 [facility] Comment on above: Order Comment: CLEAN CATCH Performed By: #### L 400.0001 #### [facility] [address] [place], [address] RBC 0-5 SEEN Normal 0-5 [facility] Comment on above: Order Comment: CLEAN CATCH Performed By: #### L 400.0001 #### [facility] [address] [place], [address] WBC 0-5 SEEN Normal 0-5 [facility] Comment on above: Order Comment: CLEAN CATCH Performed By: #### L 400.0001 #### [facility] [address] [place], [address] BACTERIA 0 SEEN Normal None Seen [facility] Comment on above: Order Comment: CLEAN CATCH Performed By: #### L 400.0001 #### [facility] [address] [place], [address] Mucus Ql (Urine sed) 0 SEEN Normal [facility] Comment on above: Order Comment: CLEAN CATCH Performed By: #### L 400.0001 #### [facility] [address] [place], [place], [id number] Urine blood detectionOrdered By: Josh Balderas on 03-01-2025 Urine Occult Blood 10 /ul High Negative [facility] Urine clarityOrdered By: Jj Balderas on 03-01-2025 Clarity (U) Clear Clear [facility] Urine color determinationOrd ered By: Josh Balderas on 03-01-2025 Color (U) Yellow Yellow [facility] Urine leukocyte esterase det ection by dipstickOrdered By: Josh Balderas on 03-01-2025 Leukocyte esterase Test strip Ql (U) Negative Negative [facility] Urine pHOrdered By: Josh Balderas on 03-01-2025 pH (U) 6.5 [pH] 5.0 - 8.0 [facility] Urine sediment bacteria coun t by microscopy (number/high power field)Ordered By: Josh Balderas on 03-01-2025 Bacteria LM.HPF (Urine sed) [#/Area] 0 /[HPF] None Seen [facility] Urine specific gravity measu rementOrdered By: Josh Balderas on 03-01-2025 Specific gravity (U) [Rel density] 1.020 1.002-1.03 0 [facility] Urobilinogen Ql (U)Ordered B y: Josh Balderas on 03-01-2025 Urine Urobilinogen Normal mg/dl Normal [facility] White blood cell (WBC) count Ordered By: Josh Balderas on 03-01-2025 WBC (Bld) [#/Vol] 6.7 10*3/uL 4.4-11.0 [facility] White blood cell countOrdere d By: Josh Jose on 03-01-2025 Urine WBC 0-5 SEEN /hpf 0-5 [facility] hCG Titer Quant., Serumon HCG QUANT. 93814 mIU/mL High <9 non-preg [facility] Comment on above: Result Comment: Gest ational Age 0.2-1 Week: 5-50 mIU/mL 1-2 Weeks: 50-500 mIU/mL 2-3 Weeks: 100-5000 mIU/mL 3-4 Weeks: 500-10,000 mIU/mL 4-5 Weeks:1000-50,000 mIU/mL 5-6 Weeks: 10,000-100,000 mIU/mL 6-8 Weeks: 15,000-200,000 mIU/mL 2-3 Months:10,000-100,000 mIU/mL Performed By: #### L 500.4050, L100.0100, L501.2450, L700.8000 #### [facility] [address] [place], [address] 36on 02-06-2025 36 Patient uploaded camila to of appointment scheduled 03/14/25 with Tameka HERNÁNDEZ at [facility]. Does this meet your requirements as far as a facility? [facility] 02-04-2025 36 New Medications Ordered This Visit Medications buprenorphine (Subtex) 8 MG Sig: Place 2.5 tablets (20 mg) under the tongue daily. Dispense: 75 tablet Refill: 0 She has appt with new provider in February and needs bridge rx. She did provide proof of new appt thru MyChart. [facility] 02-03-2025 36 Name of caller: Marianne, Marco Contact phone number: [phone] Relationship to Patient: patient Provider: Dr. Rea Practice: [facility] Chief Complaint/Reason for Call: Pt has uploaded her appointment into her My Chart message from today. Please send Bridge prescription to [facility] - [place], [place] - [address] [place] [address] Best time of day caller can be reached: any Patient advised that office/PCP has 24-48 business hours to return their call: Yes [facility] 36on 02-01-2025 36 Spoke with patient a nd released message. Rishabh Rea MD You18 minutes ago (3:15 PM) If she is able to get an appointment with a facility I will write a prescription until the date of that appointment. She has to somehow prove she has an appointment. Otherwise I can't write for any more Suboxone. She has had more than a month to find a new provider. I'd recommend she contact her local [facility] as soon as possible. Note Patient states she will call back with an appointment. [place] [address] If she is able to ge t an appointment with a facility I will write a prescription until the date of that appointment. She has to somehow prove she has an appointment. Otherwise I can't write for any more Suboxone. She has had more than a month to find a new provider. I'd recommend she contact her local [facility] as soon as possible. [place] [address] Spoke with patient advised, provider has 24/48 business hours to address any message. Re-iterated message from one month ago from provider: 12/27/2024, discussed with patient. Patient states she has put in many phone calls to many places, has not established with anyone. Patient states she needs meds to continue to take care of self and kids, patient states she has not been able to get in. Asked patient has she tried recommended places ([facility] patient states she is not going [facility] she has been there before and she has called multiple places. Advised patient I will send message over and it is up to the providers discretion. [place] [address] Name of caller: Kayleigh celina Lopes Contact phone number: [phone] Relationship to Patient: patient Provider: Dr. Rea Practice: [facility] Chief Complaint/Reason for Call: Pt calling in regards to an update on the request for refill for the medication Buprenorphine (Subtex) 8 MG). Pt stated that she has not found a new provider yet. This is the patient's second time calling in regards to this. Pt is requesting a call back from the office. Please advise. Best time of day caller can be reached: Any Patient advised that office/PCP has 24-48 business hours to return their call: Yes [facility] 01-31-2025 36 Name of caller: Kayleigh Lopes Contact phone number: [phone] Relationship to Patient: patient Provider: Dr. Rea Practice: [facility] Chief Complaint/Reason for Call: Pt called in regards to the medication Buprenorphine (Subtex) 8 MG). Pt stated that she has not found a new provider yet and would like to know if Dr. Rea can put in a one month refill for the medication. Pt is requesting a call back from the office,. Please advise. Best time of day caller can be reached: Any Patient advised that office/PCP has 24-48 business hours to return their call: Yes [facility] 12-30-2024 36 She said she would b e willing to pay out of pocket for it so hopefully she did that [facility] 36 Tej Kathleen; Rishabh Rea MD Unfortunately, Dr. Rea would have to do a peer to peer with Mary Lou to get the Subtex approved, and he has discussed with patient he can't get it approved. I have attempted 3 PA's and an appeal. Patient does not have anaphylaxis symptoms, hives, swelling etc., and she is not or breast feeding. [facility] is extremely strict, so at this moment she will have to use a discount card and pay. [facility] 12-29-2024 29 Addended by: RISHABH WAY on: 12/29/2024 05:37 PM Modules accepted: Orders [facility] 12-27-2024 36 Spoke with patient, relayed message to patient: Rishabh Rea MD You; Maribel Holden17 hours ago (4:15 PM) I'll send a 30 day rx. Can you tell her she needs to find another provider closer to her in the next 30 days then. I'd recommend [facility] or [facility], but she can find one herself. That person should help her wean off if that's what she wants to do. But that is another benefit of the Sublocade injections, it makes weaning off easier... Patient states [facility] she has been there before, one of the first places she has been. Patient states if she felt more comfortable with the injection she would do it but she doesn't feel that way. [facility] 36on 12-26-2024 36 Patient is being discharged from my clinic for multiple no shows. I did send a 30 day rx now to help bridge her until she can find another provider. New Medications Ordered This Visit Medications buprenorphine (Subtex) 8 MG Sig: Place 2.5 tablets (20 mg) under the tongue daily. Dispense: 75 tablet Refill: 0 [facility] 36 I'll send a 30 day r x. Can you tell her she needs to find another provider closer to her in the next 30 days then. I'd recommend [facility] or [facility], but she can find one herself. That person should help her wean off if that's what she wants to do. But that is another benefit of the Sublocade injections, it makes weaning off easier... [facility] 36 Name of caller: Kayleigh ca Contact phone number: [phone] Relationship to Patient: patient Provider: DR Rea Practice: Health Chief Complaint/Reason for Call: pt calling to follow up about her medications asking if she can get medication until she can find a new doctor. Please advise. Pharm is [facility] in [place] Pt said whoever called her Thursday she is sorry the doctor put them in the position to let patient know he is feeling disrespected. She is also asking if there is a taper dose chart she can have to see how to wean off of a medication? Best time of day caller can be reached: AM Patient advised that office/PCP has 24-48 business hours to return their call: Yes [place] [address]on 12-23-2024 36 Spoke to pt and explained that due to missing so many appointments and not calling into the office, feels disrespected. Explained that will not continue seeing pt unless they switch to sublocade. Pt states that she will find a new provider. I told the pt that the provider agreed to help with a bridge until she finds a new provider in [place]. Pt agreed and apologized for being disrespectful. States that she knows [facility] has been trying to switch her to Sublocade and she will not play that game. Pt understood. [facility] 36 She missed an appointment in October and then 2 more in November. She also didn't call to let me know she was not showing up. She has missed numerous appointments prior to this as well. This is somewhat disrespectful to me at this point. I cannot continue seeing her unless she agrees to switch to Sublocade. Can you let her know that? If she can't or doesn't want to, then she needs to find a provider closer to where she lives in [place]. I will help her with a bridge prescription if she needs until she can find a provider closer to her, or until she agrees to switch to Sublocade in which case please give her the [facility] phone number for an assessment. Sorry I know that is a lot of words, but appreciate it! [facility] 36 Patient came in to [facility] She asked about getting rescheduled with you I had her collect a UDS Please advise on scheduling [facility] MEDICATION ASSISTED TREATMEN T PANELon 12-23-2024 Amphetamines Ql (U) Negative Normal Negative [facility] Comment on above: Performed By: #### L [id number] ####Electronic Game Developer: MARIBEL MALAVE ([id number])[address] BARBITURATES Negative Normal Negative [facility] Comment on above: Performed By: #### L [id number] ####Electronic Game Developer: MARIBEL MALAVE ([id number])[address] Benzodiazepines Ql (U) Negative Normal Negative [facility] Comment on above: Performed By: #### L [id number]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 measurement (mass/volume)on 09-06-2022 Hemoglobin (Bld) [Mass/Vol] 10.3 g/dL 12.0-15. 0 [facility] Work Phone: Blood platelet mean volumeon 09-06-2022 Platelet mean volume (Bld) [Entitic vol] 11.3 fL 6.2-12.0 [facility] Work Phone: Determination of erythrocyte mean corpuscular volume (MCV)on 09-06-2022 MCV (RBC) [Entitic vol] 87.0 fL 81-99 [facility] Work Phone: Hematocrit Auto (Bld) [Volum e fraction]on 09-06-2022 Hematocrit (Bld) [Volume fraction] 30.9 % 37-47 [facility] Work Phone: Laboratory - Hematology and Cell countson 09-06-2022 Erythrocyte distribution width (RBC) [Entitic vol] 42.4 fL 35.1-43.9 [facility] Work Phone: Erythrocyte distribution width (RBC) [Ratio] 13.5 % 11.6-14.6 [facility] Work Phone: MCH (RBC) [Entitic mass] 29.0 pg 27.0-32.0 [facility] Work Phone: MCHC Auto (RBC) [Mass/Vol]on 09-06-2022 MCHC (RBC) [Mass/Vol] 33.3 g/dL 32-36 [facility] Work Phone: Platelets bldon 09-06-2022 Platelets (Bld) [#/Vol] 210 10*3/uL 150-450 [facility] Work Phone: [phone] Absolute lymphocyte counton 09-05-2022 Lymphocytes Auto (Unsp spec) [#/Vol] 0.94 10*3/uL 0.83-4.51 [facility] Work Phone: Basophil percentageon 2021 Basophils/100 WBC (Bld) 0.1 % 0-1 [facility] Work Phone: Eosinophils/100 WBC (Bld) 0.1 % 0-5 [facility] Work Phone: Neutrophils (Bld) [#/Vol] 13.5 10*3/uL 2.0-7.7 [facility] Work Phone: Neutrophils/100 WBC (Bld) 88.7 % 47-70 [facility] Work Phone: Blood lymphocytes/100 leukoc yteson 09-05-2022 Lymphocytes/100 WBC (Bld) 6.2 % 19-41 [facility] Work Phone: Blood monocytes/100 leukocyt eson 09-05-2022 Monocytes/100 WBC (Bld) 4.5 % 0-10 [facility] Work Phone: Laboratory - Hematology and Cell countson 09-05-2022 Immature granulocytes/100 WBC (Bld) 0.400 % 0.0-0.9 [facility] Work Phone: Comment on above: IG% - Immature Granu locytes (promyelocytes, myelocytes and metamyelocytes) > 1% indicates that a LEFT SHIFT is Present. Nucleated RBC/100 WBC (Bld) [Ratio] 0 % 0-5 [facility] Work Phone: [phone] No Panel Informationon 09-05 Vaginal Amniotic Fluid Detection Negative Negative [facility] Work Phone: Comment on above: Amniotic fluid not p resent indicates No Rupture of FetalMembranes at time of specimen collection. URINE OB DIP B/Oon Glucose Ql (U) Negative Neg mg/dL [facility] Protein.monoclonal (U) [Mass/Vol] Negative Neg mg/dL [facility] Basophil percentageon 2021 Amylase [Catalytic activity/Vol] 32 U/L 25-115 [facility] Work Phone: Laboratory - Chemistry and C hemistry - challengeon 08-12-2022 Lipase [Catalytic activity/Vol] 44 U/L 73-393 [facility] Work Phone: [phone] 24 hour urine creatinine jay surement (mass/time)on 08-11-2022 Creatinine (24H U) [Mass/Time] 1244.10 g/24 HR 0.70-1.90 [facility] Work Phone: 24 hour urine protein measur ement (mass/time)on 08-11-2022 Protein (24H U) [Mass/Time] 361.1 mg/24HR 0-151 [facility] Work Phone: 24 hour urine protein measur ement (mass/volume)on 08-11-2022 Protein (24H U) [Mass/Vol] 24.9 mg/dL 0.0-11.8 [facility] Work Phone: Absolute lymphocyte counton 08-11-2022 Lymphocytes Auto (Unsp spec) [#/Vol] 0.95 10*3/uL 0.83-4.51 [facility] Work Phone: Basophil percentageon 2021 Basophil percentage 0-5 SEEN /hpf 0-5 [facility] Work Phone: Basophils/100 WBC (Bld) 0.2 % 0-1 [facility] Work Phone: [phone] Bilirubin [Mass/Vol] 1.00 mg/dL 0.20-1.00 [facility] Work Phone: Comment on above: For patients on eltr ombopag therapy, use of Dimension [place] TBIL is not recommended. Chloride [Moles/Vol] 107 mmol/L 98-107 [facility] Work Phone: Eosinophils/100 WBC (Bld) 0.2 % 0-5 [facility] Work Phone: Glucose [Mass/Vol] 96 mg/dL 74-106 [facility] Work Phone: [phone] Neutrophils (Bld) [#/Vol] 8.2 10*3/uL 2.0-7.7 [facility] Work Phone: [phone] Neutrophils/100 WBC (Bld) 85.2 % 47-70 [facility] Work Phone: Potassium [Moles/Vol] 3.4 mmol/L 3.5-5.1 [facility] Work Phone: [phone] Protein [Mass/Vol] 7.2 g/dL 6.4-8.2 [facility] Work Phone: [phone] Sodium [Moles/Vol] 139 mmol/L 136-145 [facility] Work Phone: [phone] WBC (Bld) [#/Vol] 9.6 10*3/uL 4.4-11.0 [facility] Work Phone: Bilirubin Test strip Ql (U)o n 08-11-2022 Bilirubin Ql (U) Negative Negative [facility] Work Phone: Blood erythrocytes count (nu mber/volume)on 08-11-2022 RBC (Bld) [#/Vol] 4.26 10*6/uL 4.2-5.4 [facility] Work Phone: [phone] Blood hemoglobin measurement (mass/volume)on 08-11-2022 Hemoglobin (Bld) [Mass/Vol] 12.8 g/dL 12.0-15. 0 [facility] Work Phone: Blood lymphocytes/100 leukoc yteson 08-11-2022 Lymphocytes/100 WBC (Bld) 9.9 % 19-41 [facility] Work Phone: Blood monocytes/100 leukocyt eson 08-11-2022 Monocytes/100 WBC (Bld) 4.0 % 0-10 [facility] Work Phone: Blood platelet mean volumeon 08-11-2022 Platelet mean volume (Bld) [Entitic vol] 10.4 fL 6.2-12.0 [facility] Work Phone: [phone] Determination of erythrocyte mean corpuscular volume (MCV)on 08-11-2022 MCV (RBC) [Entitic vol] 88.5 fL 81-99 [facility] Work Phone: Hematocrit Auto (Bld) [Volum e fraction]on 08-11-2022 Hematocrit (Bld) [Volume fraction] 37.7 % 37-47 [facility] Work Phone: Ketones Test strip Ql (U)on 08-11-2022 Ketones Ql (U) 150 mg/dl Negative [facility] Work Phone: Comment on above: CRITICAL VALUE *H0/ 2021 Hari Tapia.RESULTS READ BACK BY SAME. Laboratory - Chemistry and C hemistry - challengeon 08-11-2022 ALP [Catalytic activity/Vol] 116 U/L 45-117 [facility] Work Phone: ALT [Catalytic activity/Vol] 31 U/L 13-56 [facility] Work Phone: CO2 [Moles/Vol] 23.0 mmol/L 21.0-32.0 [facility] Work Phone: Globulin (S) [Mass/Vol] 4.2 g/dL 2.2-4.2 [facility] Work Phone: Urea nitrogen/Creatinine [Mass ratio] 15.0 mg/mg 10-20 [facility] Work Phone: Laboratory - Drug toxicology on 08-11-2022 Benzodiazepines Ql (U) Negative < 200 ng/mL [facility] Work Phone: Cannabinoids Screen Ql (U) Positive < 50 ng/m L [facility] Work Phone: Cocaine Ql (U) Negative < 300 ng/mL [facility] Work Phone: Opiates Ql (U) Negative < 300 ng/mL [facility] Work Phone: Laboratory - Hematology and Cell countson 08-11-2022 Erythrocyte distribution width (RBC) [Entitic vol] 42.8 fL 35.1-43.9 [facility] [facility] Work [facility]: Erythrocyte distribution width (RBC) [Ratio] 13.2 % 11.6-14.6 [facility] Work Phone: Immature granulocytes/100 WBC (Bld) 0.500 % 0.0-0.9 [facility] Work Phone: Comment on above: IG% - Immature Granu locytes (promyelocytes, myelocytes and metamyelocytes) > 1% indicates that a LEFT SHIFT is Present. MCH (RBC) [Entitic mass] 30.0 pg 27.0-32.0 [facility] Work Phone: Nucleated RBC/100 WBC (Bld) [Ratio] 0 % 0-5 [facility] Work Phone: Laboratory - Specimen inform ationon 08-11-2022 Collection duration (U) 24.0 HOURS 24.0-24.0 [facility] Work Phone: MCHC Auto (RBC) [Mass/Vol]on 08-11-2022 MCHC (RBC) [Mass/Vol] 34.0 g/dL 32-36 [facility] Work Phone: Mucus LM Ql (Urine sed)on Mucus Ql (Urine sed) 2+ /hpf [facility] Work Phone: Nitrite Test strip Ql (U)on 08-11-2022 Nitrite Ql (U) Negative Negative [facility] Work Phone: No Panel Informationon 08-11 Timed Urine Volume 1450 mL [facility] Work Phone: MDMA (Ecstasy) Screen Negative < 500 ng/mL [facility] Work Phone: Urine Barbiturates Screen Negative < 200 ng/mL [facility] Work Phone: Urine Drug Screen Comment [facility] Work Phone: Comment on above: CONFIRMATORY TESTING FOR ALL POSITIVE URINE DRUG SCREENRESULTS WILL ONLY BE SENT OUT UPON PHYSICIAN ORDER. VISTA Urine Drug Screen methods provide only preliminaryanalytical test results. A more specific alternate chemicalmethod must be used in order to obtain a confirmedanalytical result. Gas chromatography/mass spectrometery(GC/MS) is the preferred confirmatory method. Clinicalconsideration and professional judgement should be appliedto any drug of abuse test result, particularly whenpreliminary positive results are used. URINE TCA TESTING MUST BE ORDERED SEPARATELY. USE TESTMNEMONIC: [facility] Urine Methadone Screen Negative < 300 ng/mL [facility] Work Phone: Estimated GFR (MDRD) Amer 168 mL/min >60 [facility] Work Phone: Comment on above: GFR Calc Estimated GFR (MDRD) Non-Af Amer 139 mL/min >60 [facility] Work Phone: Comment on above: Non- GFR Calc Thyroid Stimulating Hormone (TSH) 0.72 uIU/mL 0.358-3.74 [facility] Work Phone: Platelets bldon 08-11-2022 Platelets (Bld) [#/Vol] 226 10*3/uL 150-450 [facility] Work Phone: Protein Test strip Ql (U)on 08-11-2022 Protein Ql (U) 30 mg/dl Negative [facility] Work Phone: Serum or plasma albumin quique urement (mass/volume)on 08-11-2022 Albumin [Mass/Vol] 3.0 g/dL 3.2-5.0 [facility] Work Phone: Serum or plasma albumin/glob ulin mass ratioon 08-11-2022 Albumin/Globulin [Mass ratio] 0.7 {ratio} 0.9-2.4 [facility] Work Phone: Serum or plasma calcium quique urement (mass/volume)on 08-11-2022 Calcium [Mass/Vol] 9.0 mg/dL 8.5-10.1 [facility] Work Phone: Serum or plasma creatinine m easurement (mass/volume)on 08-11-2022 Creatinine [Mass/Vol] 0.53 mg/dL 0.55-1.02 [facility] Work Phone: Comment on above: The validity of the calculated GFR & GFRAA in patients over 70 years has not been determined. Clinical correlation is essential. Serum or plasma urea nitroge n measurement (mass/volume)on 08-11-2022 Urea nitrogen [Mass/Vol] 8 mg/dL 7-18 [facility] Work Phone: Serum or plasma uric acid me asurement (mass/volume)on 08-11-2022 Urate [Mass/Vol] 3.4 mg/dL 2.6-6.0 [facility] Work Phone: Comment on above: The drugs N-Acetylcy steine and Metamizole may falsely depress this assay. Squamous epithelial cells de tection in urine sediment by light microscopyon 08-11-2022 Epithelial cells.squamous LM Ql (Urine sed) 0-5 SEEN /hpf 5-10 [facility] Work Phone: Thin prep Papanicolaou smear with manual screeningon 08-11-2022 Thin prep Papanicolaou smear with manual screening 28 U/L 15-37 [facility] Work Phone: Thin prep Papanicolaou smear with manual screening 9 5-15 [facility] Work Phone: Urine amphetamine measuremen t (moles/volume)on 08-11-2022 Amphetamine (U) [Moles/Vol] Negative <1000 ng/mL [facility] Work Phone: Urine blood detectionon 07-24 RBC Ql (U) 10 /ul Negative [facility] Work Phone: RBC Ql (U) 0-5 SEEN /hpf 0-5 [facility] Work Phone: Urine clarityon 08-11-2022 Clarity (U) Clear Clear [facility] Work Phone: Urine color determinationon 08-11-2022 Color (U) Yellow Yellow [facility] Work Phone: Urine creatinine measurement (mass/volume)on 08-11-2022 Creatinine (U) [Mass/Vol] 85.80 mg/dL NO RANGE EST. [facility] Work Phone: Creatinine (U) [Mass/Vol] 156.00 mg/dL NO RANGE EST. [facility] Work Phone: Urine glucose detectionon Glucose Ql (U) Normal mg/dl Normal [facility] Work Phone: Urine leukocyte esterase det ection by dipstickon 08-11-2022 Leukocyte esterase Test strip Ql (U) 25 /ul Negative [facility] Work Phone: Urine pHon 08-11-2022 pH (U) 6.5 [pH] 5.0 - 8.0 [facility] Work Phone: Urine phencyclidine (PCP) de tectionon 08-11-2022 Phencyclidine Ql (U) Negative < 25 ng/mL [facility] Work Phone: Urine protein measurement (m ass/volume)on 08-11-2022 Protein (U) [Mass/Vol] 48.6 mg/dL 0.0-11.8 [facility] Work Phone: Urine protein/creatinine mas s ratioon 08-11-2022 Protein/Creatinine (U) [Mass ratio] 312 mg/g CRE 0-200 [facility] Work Phone: Urine sediment bacteria coun t by microscopy (number/high power field)on 08-11-2022 Bacteria LM.HPF (Urine sed) [#/Area] 2 /[HPF] None Seen [facility] Work Phone: Urine specific gravity measu rementon 08-11-2022 Specific gravity (U) [Rel density] 1.020 1.002-1.03 0 [facility] Work Phone: Urine volume measurementon 0 08-11-2022 Specimen volume (U) 1450.00 L [facility] Work Phone: Urobilinogen Auto test strip Ql (U)on 08-11-2022 Urobilinogen Ql (U) 4 mg/dl Normal [facility] Work Phone: UA DIP, URINE (POC)on 2021 BILIRUBIN UA (POCT) Negative Negative [facility] CLARITY UA (POCT) Slightly Cloudy Cl [facility] COLOR UA (POCT) Yellow [facility] GLUCOSE UA (POCT) Negative Negative mg/dL [facility] HEMOGLOBIN/BLOOD UA (POCT) Moderate Abnormal Negative [facility] KETONE UA (POCT) Negative Negative mg/dL [facility] LEUKOCYTES UA (POCT) Moderate Abnormal [facility] ([facility]CT) Positive Abnormal Negative [facility] PH UA (POCT) 6.5 4.5 - 8.0 [facility] Protein Ql (U) 100 mg/dL Abnormal Negative mg/dL [facility] SPECIFIC GRAVITY UA (POCT) 1.025 1 .005 - 1.030 [facility] UROBILINOGEN UA (POCT) 1.0 E.U./dL Yasemin l E.U./dL [facility] OBSTETRIC ULTRASOUND WHIon 0 05-29-2022 [facility] URINE OB DIP B/Oon 2 Glucose Ql (U) Negative Neg mg/dL [facility] Protein.monoclonal (U) [Mass/Vol] Negative Neg mg/dL [facility] CBC with Auto Differentialon 03-26-2022 Absolute Baso # 0.0 10*3/uL 0.0 - 0.2 10*3/uL [facility] Absolute Neut # 7.7 10*3/uL High 1.8 - 7.0 10*3/uL [facility] Basophils/100 WBC (Bld) 0.4 % 0.0 - 2.0 % [facility] Eosinophils (Bld) [#/Vol] 0.0 10*3/uL 0. 0 - 0.5 10*3/uL [facility] Eosinophils/100 WBC (Bld) 0.2 % Low 1. 0 - 6.0 % [facility] Granulocytes/100 WBC (Bld) 82.6 % High 4 0.0 - 80.0 % [facility] Hematocrit (Bld) [Volume fraction] 38.7 % 35.0 - 47.0 % [facility] Hemoglobin.gastrointestinal spec 1 Ql (Stl) 13.3 g/dL 11.7 - 16.0 g/dL [facility] Interpretation and review of laboratory results Abnormal [facility] Lymphocytes (Bld) [#/Vol] 1.3 10*3/uL 1. 0 - 4.3 10*3/uL [facility] Lymphocytes/100 WBC (Bld) 13.4 % Low 20 .0 - 40.0 % [facility] MCH (RBC) [Entitic mass] 28.4 pg 26. 0 - 34.0 pg [facility] MCHC (RBC) [Mass/Vol] 34.5 % 32.0 - 36.0 % [facility] MCV (RBC) [Entitic vol] 82.2 fL 79.0 - 98.0 fL [facility] Monocytes (Bld) [#/Vol] 0.3 10*3/uL 0.0 - 0.8 10*3/uL [facility] Monocytes/100 WBC (Bld) 3.4 % 2.0 - 10.0 % [facility] Platelet distribution width (Bld) [Ratio] 13.9 % 11.5 - 14.5 % [facility] Platelet mean volume (Bld) [Entitic vol] 8.2 fL 7.4 - 12.4 fL [facility] Comment on above: MPV is a calculated measurement using platelet volume ratio. Platelets (Bld) [#/Vol] 249 10*3/uL 140 - 440 10*3/uL [facility] RBC (Bld) [#/Vol] 4.70 10*6/uL 3.80 - 5.20 10*6/uL [facility] WBC (Bld) [#/Vol] 9.3 10*3/uL 3.6 - 10.7 10*3/uL [facility] Test Performed by [facility] [employer], [address] [place], [place] [address] [facility] Comp Metabolic Panelon 03-26 ALT [Catalytic activity/Vol] 13 U/L Normal 0-34 [facility] Comment on above: Result Comment: The ALT test is performed by an updated assay method. Please note that the reference intervals have been changed and are now sex specific. Performed By: #### Q WNT5, HEMDF, CMP3 #### [facility] [employer] [facility] [address] [place] [address] Calcium [Mass/Vol] 9.4 mg/dL Normal 8.4-10.4 [facility] Comment on above: Performed By: #### Q WNT5, HEMDF, CMP3 #### [facility] [address] [place] [address] Glucose [Mass/Vol] 78 mg/dL Normal 70-100 [facility] Comment on above: Performed By: #### Q WNT5, HEMDF, CMP3 #### [facility] [address] [place] [address] ALP [Catalytic activity/Vol] 71 U/L Normal 38-126 [facility] Comment on above: Performed By: #### Q WNT5, HEMDF, CMP3 #### [facility] [address] [place] [address] Anion gap [Moles/Vol] 11 mmol/L Normal 3-13 [facility] Comment on above: Performed By: #### Q WNT5, HEMDF, CMP3 #### [facility] [address] [place] [address] AST [Catalytic activity/Vol] 22 U/L Normal 15-46 [facility] Comment on above: Performed By: #### Q WNT5, HEMDF, CMP3 #### [facility] [address] [place] [address] Bilirubin [Mass/Vol] 1.2 mg/dL Normal 0.2-1.3 [facility] Comment on above: Performed By: #### Q WNT5, HEMDF, CMP3 #### [facility] [address] [place] [address] CO2 [Moles/Vol] 21 mmol/L Low 22-30 [facility] Comment on above: Performed By: #### Q WNT5, HEMDF, CMP3 #### [facility] [address] [place] [address] Creatinine [Mass/Vol] 0.55 mg/dL Normal 0.52-1.25 [facility] Comment on above: Performed By: #### Q WNT5, HEMDF, CMP3 #### [facility] [address] [place] [address] eGFR OTHER > 90.0 Normal >60 [facility] Comment on above: Result Comment: KDIG O guidelines provide the following GFR categories: Stage GFR(ml/min/1.73 m2) Terms G1 >=90 Normal or high G2 60-89 Mildly decreased* G3a 45-59 Mildly to moderately decreased G3b 30-44 Moderately to severely decreased G4 15-29 Severely decreased G5 <15 Kidney failure *Relative to young adult level. In the absence of evidence of kidney damage, neither GFR category G1 nor G2 fulfill the criteria for CKD. The CKD-EPI equation is validated in individuals 18 years of age and older. Currently the best equation for estimating glomerular filtration rate (GFR) from serum creatinine in children is the Bedside Pollack equation. It is less accurate in patients with extremes of muscle mass, restriction of dietary protein, ingestion of creatine, extra-renal metabolism of creatinine, or treatment with medications that affect renal tubular creatinine secretion. Performed By: #### Q WNT5, HEMDF, CMP3 #### [facility] [address] [place] [address] GFR/1.73 sq M.predicted among blacks MDRD (S/P/Bld) [Vol rate/Area] mL/min/{1.73_m2} Normal >60 [facility] Comment on above: Performed By: #### Q WNT5, HEMDF, CMP3 #### [facility] [address] [place] [address] Protein [Mass/Vol] 8.3 g/dL High 6.3-8.2 [facility] Comment on above: Performed By: #### Q WNT5, HEMDF, CMP3 #### [facility] [address] [place] [address] Urea nitrogen [Mass/Vol] 11 mg/dL Normal 9-20 [facility] Comment on above: Performed By: #### Q WNT5, HEMDF, CMP3 #### [facility] [address] [place] [address] Potassium [Moles/Vol] 3.9 mmol/L Normal 3.5-5.1 [facility] Comment on above: Performed By: #### Q WNT5, HEMDF, CMP3 #### [facility] [address] [place] [address] Sodium [Moles/Vol] 135 mmol/L Normal 135-145 [facility] Comment on above: Performed By: #### Q WNT5, HEMDF, CMP3 #### [facility] [address] [place] [address] Albumin [Mass/Vol] 4.8 g/dL Normal 3.5-5.0 [facility] Comment on above: Performed By: #### Q WNT5, HEMDF, CMP3 #### [facility] [address] [place] [address] Chloride [Moles/Vol] 103 mmol/L Normal 98-107 [facility] Comment on above: Performed By: #### Q WNT5, HEMDF, CMP3 #### [facility] [address] [place] [address] Complete Urinalysison 2021 Appearance (U) Turbid Abnormal Clear [facility] Comment on above: Result Comment: . Performed By: #### C UA2 #### [facility] [address] [place] [address] Bacteria Few Abnormal Negative [facility] Comment on above: Result Comment: . Performed By: #### C UA2 #### [facility] [address] [place] [address] Bilirubin,Urine Negative Normal Negative [facility] Comment on above: Result Comment: . Performed By: #### C UA2 #### [facility] [address] [place] [address] Color (U) Yellow Normal Lt. Yellow [facility] Comment on above: Result Comment: . Performed By: #### C UA2 #### [facility] [address] [place] [address] Glucose Ql (U) Normal Normal Normal (<70) [facility] Comment on above: Result Comment: . Performed By: #### C UA2 #### [facility] [address] [place] [address] Ketone,Urine 100 mg/dL Abnormal Negative [facility] Comment on above: Result Comment: . Performed By: #### C UA2 #### [facility] [address] [place] [address] Leukocytes,Urine 75 Sachi/uL Abnormal Negative [facility] Comment on above: Result Comment: . Performed By: #### C UA2 #### [facility] [address] [place] [address] Mucous Threads Few Normal Negative [facility] Comment on above: Result Comment: . Performed By: #### C UA2 #### [facility] [address] [place] [address] Nitrites,Urine Negative Normal Negative [facility] Comment on above: Result Comment: . Performed By: #### C UA2 #### [facility] [address] [place] [address] Occult Blood,Urine Negative Normal Negative [facility] Comment on above: Result Comment: . Performed By: #### C UA2 #### [facility] [address] [place] [address] pH,Urine 6.0 Normal 5.0-8.0 [facility] Comment on above: Result Comment: . Performed By: #### C UA2 #### [facility] [address] [place] [address] Protein (U) [Mass/Vol] 10 mg/dL Abnormal Negative [facility] Comment on above: Result Comment: . Performed By: #### C UA2 #### [facility] [address] [place] [address] RBC, Urine 3 - 5 Abnormal 0-2 [facility] Comment on above: Result Comment: . Performed By: #### C UA2 #### [facility] [address] [place] [address] Specific [place],Urine 1.026 Normal 1.005 - 1.030 [facility] Comment on above: Result Comment: . Performed By: #### C UA2 #### [facility] [address] [place] [address] Squamous Epithelial 11 - 25 Abnormal 3-5 [facility] Comment on above: Result Comment: . Performed By: #### C UA2 #### [facility] [address] [place] [address] Urobilinogen,Urine Normal Normal Normal (0-1) [facility] Comment on above: Result Comment: . Performed By: #### C UA2 #### [facility] [address] [place] [address] WBC, Urine 3 - 5 Normal 0-5 [facility] Comment on above: Result Comment: . Performed By: #### C UA2 #### [facility] [address] [place] [address] Comprehensive Metabolic Pane jameson 03-26-2022 Albumin [Mass/Vol] 4.8 g/dL 3.5 - 5.0 g/dL [facility] ALP (Bld) [Catalytic activity/Vol] 71 U/L 38 - 126 U/L [facility] ALT [Catalytic activity/Vol] 13 U/L 0 - 34 U/L [facility] Comment on above: The ALT test is perf ormed by an updated assay method. Please note that the reference intervals have been changed and are now sex specific. Anion gap [Moles/Vol] 11 mmol/L 3 - 13 mmol/L [facility] AST [Catalytic activity/Vol] 22 U/L 15 - 46 U/L [facility] Bilirubin [Mass/Vol] 1.2 mg/dL 0.2 - 1 .3 mg/dL [facility] Calcium [Mass/Vol] 9.4 mg/dL 8.4 - 10. 4 mg/dL [facility] Chloride [Moles/Vol] 103 mmol/L 98 - 10 7 mmol/L [facility] CO2 [Moles/Vol] 21 mmol/L Low 22 - 30 mmol/L [facility] Creatinine [Mass/Vol] 0.55 mg/dL 0.52 - 1.25 mg/dL [facility] EGFR IF NonAfrican Samoan >90.0 >60 mL/m in [facility] Comment on above: KDIGO guidelines pro vide the following GFR categories: Stage GFR(ml/min/1.73 m2) Terms G1 >=90 Normal or high G2 60-89 Mildly decreased* G3a 45-59 Mildly to moderately decreased G3b 30-44 Moderately to severely decreased G4 15-29 Severely decreased G5 <15 Kidney failure *Relative to young adult level. In the absence of evidence of kidney damage, neither GFR category G1 nor G2 fulfill the criteria for CKD. The CKD-EPI equation is validated in individuals 18 years of age and older. Currently the best equation for estimating glomerular filtration rate (GFR) from serum creatinine in children is the Bedside Pollack equation. It is less accurate in patients with extremes of muscle mass, restriction of dietary protein, ingestion of creatine, extra-renal metabolism of creatinine, or treatment with medications that affect renal tubular creatinine secretion. Free PSA/Total PSA [Mass fraction] 8.3 g/dL High 6.3 - 8.2 g/dL [facility] GFR/1.73 sq M.predicted among blacks MDRD (S/P/Bld) [Vol rate/Area] mL/min/{1.73_m2} >60 mL/min [facility] Glucose [Mass/Vol] 78 mg/dL 70 - 100 mg/dL [facility] Interpretation and review of laboratory results Abnormal [facility] Potassium [Moles/Vol] 3.9 mmol/L 3.5 - 5.1 mmol/L [facility] Sodium [Moles/Vol] 135 mmol/L 135 - 145 mmol/L [facility] Urea nitrogen (BldV) [Mass/Vol] 11 mg/dL 9 - 20 mg/dL [facility] Test Performed by [facility], [address] [place] [address] [facility] ED Provider Noteon ED Provider Note Emergency Department Encounter [facility] ED Patient: Marco Lopes : 1985 Date of Evaluation: 03/26/2022 ED Supervising Physician: Vipin Gonzalez MD I independently examined and evaluated Marco Lopes. I wore a KN95 mask for the entirety of this patient encounter. In brief, Marco Lopes is a 36 y.o. female that presents to the emergency department for evaluation of nausea vomiting. She believes she is at the end of her first trimester . She states her last normal menses was at the end of November. She has not had any care for this . Complains of epigastric area abdominal burning secondary to vomiting. Denies fevers chills. Denies back or flank pain Focused exam: Awake and alert. Afebrile. Nontoxic. Lungs clear to auscultation. Heart regular rate and rhythm. Abdomen soft nondistended with epigastric tenderness. No lower abdominal tenderness. No rebound or guarding. No peritoneal findings. Brief ED course/MDM: Lab studies are obtained. Quant is over 80,000. Ultrasound was obtained that shows single live IUP at 12 weeks. Patient instructed on obtaining [facility] care, close outpatient follow-up. Return if worse or new problems. All diagnostic, treatment, and disposition decisions were made by myself in conjunction with the [facility]. For all further details of the patient's emergency department visit, please see their documentation. This will serve as my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 Heart rate 85 /min Bang Mcclelland MD Work Phone: [facility] 07-22-2024 14:42-0400 Respiratory rate 16 /min Bang Mcclelland MD Work Phone: [employer] [facility] 07-22-2024 14:42-0400 SaO2% (BldA) [Mass fraction] 98 % Bang Mcclelland MD Work Phone: [facility] 07-22-2024 14:42-0400 Systolic blood pressure 115 mm[Hg] Bang Mcclelland MD Work Phone: [facility] 03-29-2024 10:10-0400 Body height 162.6 cm Bang Mcclelland MD Work Phone: [facility] 03-29-2024 10:10-0400 Body mass index (BMI) [Ratio] 29.35 kg/m2 Bang Mcclelland MD Work Phone: [facility] 03-29-2024 10:10-0400 Body weight 77.56 kg Bang Mcclelland MD Work Phone: [facility] 03-29-2024 10:10-0400 Diastolic blood pressure 69 mm[Hg] Bang Mcclelland MD Work Phone: [employer] [facility] 03-29-2024 10:10-0400 Heart rate 69 /min Bang Mcclelland MD Work Phone: [facility] 03-29-2024 10:10-0400 SaO2% (BldA) [Mass fraction] 97 % Bang Mcclelland MD Work Phone: [facility] 03-29-2024 10:10-0400 Systolic blood pressure 106 mm[Hg] Bang Mcclelland MD Work Phone: [employer] [facility] 12-04-2023 14:55-0500 Body height 162.6 cm Bang Mcclelland MD Work Phone: [employer] [facility] 12-04-2023 14:55-0500 Body mass index (BMI) [Ratio] 29.35 kg/m2 Bang Mcclelland MD Work Phone: [employer] [facility] 12-04-2023 14:55-0500 Body weight 77.56 kg Bang Mcclelland MD Work Phone: [employer] [facility] 12-04-2023 14:55-0500 Diastolic blood pressure 82 mm[Hg] Bang Mcclelland MD Work Phone: [employer] [facility] 12-04-2023 14:55-0500 Heart rate 88 /min Bang Mcclelland MD Work Phone: [employer] 12-04-2023 14:55-0500 SaO2% (BldA) [Mass fraction] 96 % Bang Mcclelland MD Work Phone: [employer] 12-04-2023 14:55-0500 Systolic blood pressure 119 mm[Hg] Bang Mcclelland MD Work Phone: [employer] 10-05-2023 10:01-0500 Body height 162.6 cm Bang Mcclelland MD Work Phone: [employer] 10-05-2023 10:01-0500 Body mass index (BMI) [Ratio] 29.35 kg/m2 Bang Mcclelland MD Work Phone: [employer] 10-05-2023 10:01-0500 Body weight 77.56 kg Bang Mcclelland MD Work Phone: [employer] 10-05-2023 10:01-0500 Diastolic blood pressure 78 mm[Hg] Bnag Mcclelland MD Work Phone: [employer] 10-05-2023 10:01-0500 Heart rate 63 /min Bang Mcclelland MD Work Phone: [employer] 11-13-2023 10:01-0500 SaO2% (BldA) [Mass fraction] 97 % Bang Mcclelland MD Work Phone: [facility] 10-05-2023 10:01-0500 Systolic blood pressure 153 mm[Hg] Bang Mcclelland MD Work Phone: [facility] 09-04-2023 13:31-0400 Body height 162.6 cm Bang Mcclelland MD Work Phone: [facility] 09-04-2023 13:31-0400 Body mass index (BMI) [Ratio] 29.32 kg/m2 Bang Mcclelland MD Work Phone: [facility] 09-04-2023 13:31-0400 Body temperature 97.59 [degF] Bang Mcclelland MD Work Phone: [facility] 09-04-2023 13:31-0400 Body weight 77.47 kg Bang Mcclelland MD Work Phone: [facility] 09-04-2023 13:31-0400 Diastolic blood pressure 86 mm[Hg] Bang Mcclelland MD Work Phone: [facility] 09-04-2023 13:31-0400 Heart rate 73 /min Bang Mcclelland MD Work Phone: [facility] 09-04-2023 13:31-0400 Respiratory rate 18 /min Bang Mcclelland MD Work Phone: [facility] 09-04-2023 13:31-0400 SaO2% (BldA) [Mass fraction] 99 % Bang Mcclelland MD Work Phone: [facility] 09-04-2023 13:31-0400 Systolic blood pressure 131 mm[Hg] Bang Mcclelland MD Work Phone: [facility] 04-03-2023 09:43-0400 Body height 162.6 cm Bang Mcclelland MD Work Phone: [facility] 04-03-2023 09:43-0400 Body mass index (BMI) [Ratio] 27.15 kg/m2 Bang Mcclelland MD Work Phone: [facility] 04-03-2023 09:43-0400 Body temperature 96.69 [degF] Bang Mcclelland MD Work Phone: [facility] 04-03-2023 09:43-0400 Body weight 71.76 kg Bang Mcclelland MD Work Phone: [facility] 04-03-2023 09:43-0400 Diastolic blood pressure 74 mm[Hg] Bang Mcclelland MD Work Phone: [facility] 04-03-2023 09:43-0400 Heart rate 84 /min Bang Mcclelland MD Work Phone: [facility] 04-03-2023 09:43-0400 SaO2% (BldA) [Mass fraction] 97 % Bang Mcclelland MD Work Phone: [facility] 04-03-2023 09:43-0400 Systolic blood pressure 126 mm[Hg] Bang Mcclelland MD Work Phone: [facility] 09-07-2022 15:00-0400 Body temperature 97.6 [degF] No Primary Care Physician [facility] Work Phone: 09-07-2022 15:00-0400 Diastolic blood pressure 87 mm[Hg] No Primary Care Physician [facility] Work Phone: 09-07-2022 15:00-0400 Heart rate 68 /min No Primary Care Physician [facility] Work Phone: 09-07-2022 15:00-0400 Respiratory rate 16 /min No Primary Care Physician [facility] Work Phone: 09-07-2022 15:00-0400 Systolic blood pressure 149 mm[Hg] No Primary Care Physician [facility] Work Phone: 09-07-2022 09:00-0400 SaO2% (BldA) [Mass fraction] 100 % No Primary Care Physician [facility] Work Phone: 09-05-2022 12:53-0400 Body height 162.56 cm No Primary Care Physician [facility] Work Phone: 09-05-2022 12:53-0400 Body mass index (BMI) [Ratio] 25.3 kg/m2 No Primary Care Physician [facility] Work Phone: 09-05-2022 12:53-0400 Body weight 67 kg No Primary Care Physician [facility] Work Phone: 08-27-2022 11:25-0400 Body weight 66.41 kg Mine Moellerts FLIGHT SECURITY SPECIALIST.CNM Work Phone: [facility] 08-27-2022 11:25-0400 Diastolic blood pressure 52 mm[Hg] Mine Plotts FLIGHT SECURITY SPECIALIST.CNM Work Phone: [facility] 08-27-2022 11:25-0400 Systolic blood pressure 84 mm[Hg] Mine Moellerts FLIGHT SECURITY SPECIALIST.CNM Work Phone: [facility] 08-13-2022 16:00-0400 Body weight 67.59 kg Mars Rosenberg MD Work Phone: [facility] 08-13-2022 16:00-0400 Diastolic blood pressure 60 mm[Hg] Mars Rosenberg MD Work Phone: [facility] 08-13-2022 16:00-0400 Systolic blood pressure 110 mm[Hg] Mars Rosenberg MD Work Phone: [facility] 08-12-2022 19:50-0400 Body temperature 98.5 [degF] No Primary Care Physician [facility] Work Phone: 08-12-2022 19:50-0400 Diastolic blood pressure 54 mm[Hg] No Primary Care Physician [facility] Work Phone: 08-12-2022 19:50-0400 Heart rate 56 /min No Primary Care Physician [facility] Work Phone: 08-12-2022 19:50-0400 Systolic blood pressure 112 mm[Hg] No Primary Care Physician [facility] Work Phone: 08-12-2022 15:33-0400 SaO2% (BldA) [Mass fraction] 100 % No Primary Care Physician [facility] Work Phone: 08-11-2022 21:30-0400 Body height 162.56 cm No Primary Care Physician [facility] Work Phone: 08-11-2022 21:30-0400 Body mass index (BMI) [Ratio] 25.7 kg/m2 No Primary Care Physician [facility] Work Phone: 08-11-2022 21:30-0400 Body weight 68.03 kg No Primary Care Physician [facility] Work Phone: 07-15-2022 11:33-0400 Body weight 68.04 kg Izzy Horner MD Work Phone: [facility] 07-15-2022 11:33-0400 Diastolic blood pressure 58 mm[Hg] Izzy Horner MD Work Phone: [facility] 07-15-2022 11:33-0400 Systolic blood pressure 96 mm[Hg] Izzy Horner MD Work Phone: [facility] 06-12-2022 13:18-0400 Body weight 66.22 kg Josef Donohue MD Work Phone: [facility] 05-22-2022 10:43-0400 Body weight 65.77 kg Mars Rosenberg MD Work Phone: [facility] 05-22-2022 10:43-0400 Diastolic blood pressure 58 mm[Hg] Mars Rosenberg MD Work Phone: [facility] 05-22-2022 10:43-0400 Systolic blood pressure 96 mm[Hg] Mars Rosenberg MD Work Phone: [facility] 03-26-2022 14:02-0400 Diastolic blood pressure 51 mm[Hg] Vipin Gonzalez MD Work Phone: [facility] 03-26-2022 14:02-0400 Heart rate 52 /min Vipin Gonzalez MD Work Phone: [facility] 03-26-2022 14:02-0400 SaO2% (BldA) [Mass fraction] 100 % Vipin Gonzalez MD Work Phone: [facility] 03-26-2022 14:02-0400 Systolic blood pressure 93 mm[Hg] Vipin Gonzalez MD Work Phone: [facility] 03-26-2022 11:09-0400 Body mass index (BMI) [Ratio] 23.69 kg/m2 Vipin Gonzalez MD Work Phone: [facility] 03-26-2022 11:09-0400 Body temperature 97.3 [degF] Vipin Gonzalez MD Work Phone: [facility] 03-26-2022 11:09-0400 Body weight 62.6 kg Vipin Gonzalez MD Work Phone: [facility] 03-26-2022 11:09-0400 Respiratory rate 18 /min Viipn Gonzalez MD Work Phone: [facility] 02-11-2022 13:21-0400 Body height 163.8 cm Mine Plotts FLIGHT SECURITY SPECIALIST.CNM Work Phone: [facility] 02-11-2022 13:21-0400 Body weight 61.05 kg Mine Plotts FLIGHT SECURITY SPECIALIST.CNM Work Phone: [facility] 02-11-2022 13:21-0400 Diastolic blood pressure 80 mm[Hg] Mine Plotts FLIGHT SECURITY SPECIALIST.CNM Work Phone: [facility] 02-11-2022 13:21-0400 Systolic blood pressure 114 mm[Hg] Mine Plotts FLIGHT SECURITY SPECIALIST.CNM Work Phone: [facility] 04-03-2020 16:57-0400 BMI (Body Mass Index) 23.17 kg/m2 Evangelist Nevarez [place], [place] 04-03-2020 16:57-0400 Body Temperature 98.6 [degF] Evangelist Hansen [facility] , [place] 04-03-2020 16:57-0400 Body weight 61.24 kg Evangelist Hansen [facility] , [place] 04-03-2020 16:57-0400 BP Diastolic 71 mm[Hg] [facility] [place] 04-03-2020 16:57-0400 BP Systolic 111 mm[Hg] Evangelist Hansen [facility] , [place] 04-03-2020 16:57-0400 Height 162.6 cm [facility] [place] 04-03-2020 16:57-0400 Pulse (Heart Rate) 72 /min [facility] [place] 04-03-2020 16:57-0400 Pulse Oximetry 100 % Evangelist Hansen [facility] , [place] 04-03-2020 16:57-0400 Respiratory Rate 16 /min Evangelist Hansen [facility], [place] 01-27-2020 17:02-0500 BP Diastolic 72 mm[Hg] [facility] [place] 01-27-2020 17:02-0500 BP Systolic 128 mm[Hg] [facility] [place] 01-27-2020 17:02-0500 Pulse (Heart Rate) 66 /min [facility] [place] 01-27-2020 17:02-0500 Pulse Oximetry 100 % [facility] [place] 01-27-2020 17:02-0500 Respiratory Rate 16 /min [facility] [place] 01-27-2020 14:11-0500 BMI (Body Mass Index) 23.17 kg/m2 Evangelist Nevarez [facility] [place] 01-27-2020 14:11-0500 Body Temperature 98.01 [degF] Evangelist Hansen [facility] , [place] 01-27-2020 14:11-0500 Body weight 61.24 kg Evangelist Hansen [facility] , [place] 01-27-2020 14:11-0500 Height 162.6 cm Evangelist Hansen [facility] , [place] 11-14-2019 17:13-0500 Body temperature 98.91 [degF] Cooper Keaner DO Work Phone: [facility] Work Phone: 11-14-2019 17:13-0500 Diastolic blood pressure 74 mm[Hg] Cooper Keaner DO Work Phone: [facility] Work Phone: 11-14-2019 17:13-0500 Heart rate 61 /min Cooper Keaner DO Work Phone: [facility] Work Phone: 11-14-2019 17:13-0500 Respiratory rate 16 /min Cooper Keaner DO Work Phone: [employer] Work Phone: 11-14-2019 17:13-0500 SaO2% (BldA) [Mass fraction] 98 % Cooper Keaner DO Work Phone: [employer] Work Phone: 11-14-2019 17:13-0500 Systolic blood pressure 114 mm[Hg] Cooper Keaner DO Work Phone: [employer] Work Phone: Encounters Encounter Date Encounter Type Care Provider Facility Start: 06-15-2025 End: 06-15-2025 Telephone encounter Rosa Porter APRN.CNP Work Phone: Psychiatry Start: 06-15-2025 End: 06-15-2025 ambulatory ROSA PORTER Facility:[facility] Start: 06-15-2025 End: 06-15-2025 Patient encounter procedure Rosa Porter APRN.AIRBRUSH ARTIST PHOTOGRAPHY Work Phone: Psychiatry Comment on above: No-show for appointm ent (Primary Dx) Start: 06-15-2025 End: 06-15-2025 Telemedicine consultation with patient Rosa Porter APRN.AIRBRUSH ARTIST PHOTOGRAPHY Work Phone: Psychiatry Start: 06-06-2025 End: 06-06-2025 Patient encounter procedure Glenroy Jennings MD Work Phone: OB/Gynecology Comment on above: Supervision of high risk in second trimester (HCC) (Primary Dx); Request for sterilization; Insufficient care in second trimester (HCC) Start: 06-06-2025 End: 06-06-2025 ambulatory GLENROY JENNINGS Facility:[facility] Start: 06-06-2025 End: 06-06-2025 ambulatory IZZY HORNER Facility:[facility] Start: 06-06-2025 End: 06-06-2025 Patient encounter procedure Whi Tech 1 Debridging Machine Operator [facility] Comment on above: complicate d by subutex maintenance, antepartum (HCC) (Primary Dx); with inconclusive viability, single or unspecified fetus (HCC); Nausea and vomiting in (HCC); Advanced maternal age in multigravida, second trimester (HCC) Start: 05-01-2025 End: 05-11-2025 Telephone encounter Dalia Mendoza APRN.CNP Work Phone: [facility] Comment on above: Missed Appointment ( Second no show second letter sent) Start: 04-19-2025 End: 04-19-2025 Telephone encounter Rosa Porter APRN.CNP Work Phone: Psychiatry Start: 04-06-2025 End: 04-06-2025 Telephone encounter Dalia Mendoza APRN.CNP Work Phone: [facility] Comment on above: Electronic Communica tion (Prior auth for ensure ) Start: 03-31-2025 End: 03-31-2025 ambulatory DALIA MENDOZA Facility:[facility] Start: 03-31-2025 End: 03-31-2025 E-mail encounter from caregiver Mine Desean CAREY Work Phone: OB/Gynecology Start: 03-31-2025 End: 03-31-2025 Patient encounter procedure Mine Anton APRN.CNM Work Phone: OB/Gynecology Comment on above: 04/03/2025 Appointmen t Anxiety (Primary Dx) ; Panic attacks; Sinus bradycardia; Palpitations; Dyspnea, unspecified type; Increased thirst; Weight loss; Bipolar disorder, current episode mixed, severe, with psychotic features (HCC); Second trimester (HCC); Tobacco use; History of intravenous drug use; Family history of breast cancer Start: 03-30-2025 End: 04-24-2025 Telephone encounter Mine Anton CHERRY Work Phone: OB/Gynecology Comment on above: Follow Up Phone Call Start: 03-21-2025 End: 03-21-2025 Patient encounter procedure Izzy Horner MD Work Phone: OB/Gynecology Comment on above: with incon clusive viability, single or unspecified fetus (HCC) (Primary Dx); Nausea and vomiting in (HCC) Start: 03-21-2025 End: 03-21-2025 ambulatory IZZY HORNER Facility:[facility] Start: 03-08-2025 End: 03-08-2025 Emergency department patient visit No Primary Care Physician -Emergency Department Work Phone: Start: 03-02-2025 End: 03-02-2025 Emergency department patient visit ABBIE CUNHA Facility:[facility] Start: 03-01-2025 End: 03-01-2025 Emergency department patient visit No Primary Care Physician -Emergency Department Work Phone: Start: 02-04-2025 End: 02-04-2025 Refill Rishabh Rea MD Work Phone: [email or web address] Comment on above: Severe opioid use di sorder, in sustained remission (HCC) Start: 12-26-2024 End: 12-26-2024 Refill Rishabh Rea MD Work Phone: [email or web address] Comment on above: Severe opioid use di sorder, in sustained remission (HCC) Start: 12-09-2024 End: 12-09-2024 Refill Rishabh Rea MD Work Phone: [email or web address] Comment on above: Severe opioid use di sorder, in sustained remission (HCC) Start: 12-02-2024 End: 12-13-2024 Telephone encounter Rishabh Rea MD Work Phone: [email or web address] Comment on above: Appointment Start: 11-11-2024 End: 11-17-2024 ambulatory Elena Soliz RN [facility] Start: 11-11-2024 End: 03-01-2025 Patient encounter procedure Elena Soliz RN [facility] Comment on above: Attention deficit hy peractivity disorder (ADHD), combined type Start: 10-03-2024 End: 10-03-2024 Refill Bang Mcclelland MD Work Phone: [facility] Internal Medicine [facility] Comment on above: Attention deficit hy peractivity disorder (ADHD), combined type Start: 09-05-2024 End: 09-05-2024 Office outpatient visit 15 minutes Rishabh Rea MD Work Phone: [facility] Comment on above: Severe opioid use di yoel, in sustained remission (HCC) Start: 09-05-2024 End: 09-05-2024 [facility] Start: 08-30-2024 End: 09-15-2024 Refill Bang Mcclelland MD Work Phone: [facility] Comment on above: Attention deficit hy peractivity disorder (ADHD), combined type Med Refill Start: 07-22-2024 End: 07-22-2024 ambulatory BANG [facility] Start: 07-22-2024 End: 07-22-2024 Office outpatient visit 25 minutes Bang Mcclelland MD Work Phone: [facility] Comment on above: Attention deficit hy peractivity disorder (ADHD), combined type (Primary Dx); Hyperpigmentation of skin Start: 07-12-2024 End: 07-12-2024 ambulatory Lani Reyes RN [facility] Start: 07-12-2024 End: 07-12-2024 Patient encounter procedure Lani Reyes RN [facility] Start: 07-11-2024 End: 07-11-2024 [facility] [facility] Start: 07-11-2024 End: 07-11-2024 Office outpatient visit 15 minutes Rishabh Rea MD Work Phone: [facility] Comment on above: Severe opioid use di sorder, in sustained remission (HCC) Start: 06-28-2024 End: 07-01-2024 Telephone encounter Bang Mcclelland MD Work Phone: [facility] Comment on above: Medication Problem Start: 06-24-2024 End: 06-27-2024 Refill Bang Mcclelland MD Work Phone: [facility] Comment on above: Attention deficit hy peractivity disorder (ADHD), combined type Start: 05-27-2024 End: 05-27-2024 Refill Bang Mcclelland MD Work Phone: [facility] Comment on above: Attention deficit hy peractivity disorder (ADHD), combined type Start: 05-10-2024 End: 05-10-2024 ambulatory RISHABH REA [facility] Start: 05-10-2024 End: 05-10-2024 Office outpatient visit 15 minutes Rishabh Rea MD Work Phone: [facility] Comment on above: Severe opioid use di sorder, in sustained remission (HCC); Cannabis use, unspecified, in remission Start: 04-29-2024 Refill Rishabh Rea MD Work Phone: [facility] Comment on above: Severe opioid use di sorder, in sustained remission (HCC) Start: 04-28-2024 Refill Bang tatum MD Work Phone: [facility] Comment on above: Attention deficit hy peractivity disorder (ADHD), combined type Start: 03-29-2024 End: 03-29-2024 ambulatory BANG JAKE [facility] Start: 03-29-2024 End: 03-29-2024 Office outpatient visit 25 minutes Bang Mcclelland MD Work Phone: [facility] Comment on above: Epigastric pain (Tammy aleah Dx); Dyspepsia; Attention deficit hyperactivity disorder (ADHD), combined type; Chronic pain of left knee Start: 03-07-2024 Documentation procedure Erica rios Armand BILINGUAL SALES REPRESENTATIVE Work Phone: [facility] Comment on above: Med Refill Start: 02-25-2024 End: 02-25-2024 ambulatory RISHABH REA [facility] Start: 02-25-2024 End: 02-25-2024 Office outpatient visit 15 minutes Rishabh Rea MD Work Phone: [facility] Comment on above: Severe opioid use di sorder, in sustained remission (HCC) Start: 02-01-2024 Nurse Triage Bang tatum MD Work Phone: [facility] Comment on above: Attention deficit hy peractivity disorder (ADHD), combined type Start: 01-28-2024 End: 01-28-2024 Office outpatient visit 15 minutes Rishabh Rea MD Work Phone: [facility] Comment on above: Severe opioid use di sorder, in sustained remission, on maintenance therapy (HCC) Start: 01-27-2024 Telephone encounter Rishabh whitman MD Work Phone: [facility] Start: 01-27-2024 End: 01-27-2024 Office outpatient visit 15 minutes Rishabh Rea MD Work Phone: [facility] Comment on above: Severe opioid use di sorder, in sustained remission, on maintenance therapy (HCC) Start: 01-01-2024 Orders Only Bang tatum MD Work Phone: [facility] Comment on above: Attention deficit hy peractivity disorder (ADHD), combined type Start: 12-30-2023 End: 12-30-2023 Office outpatient visit 25 minutes Rishabh Rea MD Work Phone: [facility] Comment on above: Severe opioid use di sorder, in sustained remission, on maintenance therapy (HCC); Anxiety disorder, unspecified type Start: 12-04-2023 End: 12-04-2023 Office outpatient visit 25 minutes Bang Mcclelland MD Work Phone: [facility] Comment on above: Attention deficit hy peractivity disorder (ADHD), combined type (Primary Dx); Opioid use disorder Start: 11-30-2023 End: 11-30-2023 Office outpatient visit 15 minutes Rishabh Rea MD Work Phone: [facility] Comment on above: Severe opioid use di sorder, in sustained remission, on maintenance therapy (HCC) Start: 11-20-2023 ambulatory Vale Lala RN [facility] Start: 11-20-2023 Patient encounter procedure [facility] Start: 11-18-2023 ambulatory [facility] Start: 11-18-2023 Patient encounter procedure Vale Lala RN [facility] Start: 11-12-2023 Telephone encounter Bang Mcclelland MD Work Phone: [facility] Comment on above: Appointment Start: 11-02-2023 End: 11-02-2023 Office outpatient visit 15 minutes Rishabh Rea MD Work Phone: [facility] Comment on above: Severe opioid use di sorder, in sustained remission, on maintenance therapy (HCC) Start: 10-28-2023 End: 07-15-2024 Telephone encounter Rishabh Rea MD Work Phone: [facility] Comment on above: Cancelled Appointmen t Start: 10-05-2023 End: 10-05-2023 Office outpatient visit 25 minutes Bang Mcclelland MD Work Phone: [facility] Comment on above: Attention deficit hy peractivity disorder (ADHD), combined type (Primary Dx); Bilateral carpal tunnel syndrome; Chronic bilateral low back pain without sciatica Start: 09-04-2023 End: 09-04-2023 Office outpatient visit 25 minutes Bang Mcclelland MD Work Phone: [facility] Comment on above: Attention deficit hy peractivity disorder (ADHD), combined type (Primary Dx); High risk medication use; Bipolar disorder in partial remission, most recent episode unspecified type (HCC) Start: 09-03-2023 End: 09-03-2023 Office outpatient visit 15 minutes Rishabh Rea MD Work Phone: [facility] Comment on above: Severe opioid use di sorder, in sustained remission, on maintenance therapy (HCC) Start: 08-06-2023 End: 08-06-2023 Office outpatient visit 15 minutes Rishabh Rea MD Work Phone: [facility] Comment on above: Severe opioid use di sorder, in sustained remission, on maintenance therapy (HCC) Start: 06-25-2023 End: 06-25-2023 Office outpatient visit 15 minutes Rishabh Rea MD Work Phone: [facility] Comment on above: Severe opioid use di sorder, in sustained remission, on maintenance therapy (HCC) Start: 04-24-2023 Telephone encounter Rishabh whitman MD Work Phone: [facility] Comment on above: Medication Problem Start: 04-08-2023 End: 04-08-2023 Patient encounter procedure Rishabh Rea MD Work Phone: [facility] Comment on above: Severe opioid use di sorder, in sustained remission, on maintenance therapy (HCC) Start: 04-03-2023 End: 04-03-2023 Office outpatient new 60 minutes Bang Mcclelland MD Work Phone: [facility] Comment on above: Opioid use disorder (Primary Dx); Bipolar disorder in partial remission, most recent episode unspecified type ([facility]) Start: 03-31-2023 Telephone encounter Ledy luque MD Work Phone: [facility] Comment on above: New Patient Start: 03-25-2023 Telephone encounter Ermelinda Mahajan MD Work Phone: [facility] Comment on above: Appointment Start: 01-15-2023 Refill Amy Mccain APRN.CNM Work Phone: OB/Gynecology Comment on above: Refill Request Start: 12-06-2022 ambulatory CHARLES VILLAGOMEZ Facility:1 [id number] Start: 12-06-2022 End: 12-06-2022 Subsequent hospital visit by physician Xr [facility] Comment on above: Low back pain [M54.5 0] Start: 09-08-2022 ambulatory Richelle [place] Work Phone: OB/Gynecology Comment on above: Ob Delivery Note Start: 09-05-2022 End: 09-07-2022 Evaluation and management of inpatient No Primary Care Physician [facility] [place] Start: 09-04-2022 Telephone encounter Glenroy barreto MD Work Phone: OB/Gynecology Comment on above: Patient Update Start: 09-02-2022 Refill Amy Mccain FLIGHT SECURITY SPECIALIST.CNM Work Phone: OB/Gynecology Comment on above: Refill Request Start: 08-27-2022 End: 08-27-2022 Patient encounter procedure Mine Anton FLIGHT SECURITY SPECIALIST.CNM Work Phone: OB/Gynecology Comment on above: 33 weeks gestation o f (Primary Dx); complicated by subutex maintenance, antepartum (HCC); Supervision of high risk in third trimester; Vaginal bleeding in , third trimester; History of delivery Start: 08-13-2022 End: 08-13-2022 Patient encounter procedure Mars Rosenberg MD Work Phone: OB/Gynecology Comment on above: complicate d by subutex maintenance, antepartum (HCC) (Primary Dx); Narcotic addiction (HCC); History of hepatitis C; Short interval between pregnancies affecting , antepartum; Hx of preeclampsia, prior , currently ; Supervision of high risk in third trimester; 31 weeks gestation of Start: 08-12-2022 Non-patient / Non-visit No [facility] Physician [facility] Start: 08-12-2022 Non-patient / Non-visit No [facility] Start: 08-12-2022 Non-patient / Non-visit No Tammy bullard Care Physician [facility] [facility] Start: 08-11-2022 Non-patient / Non-visit No Tammy bullard [facility] Physician [facility] Start: 08-11-2022 End: 08-12-2022 ambulatory No Primary Care Physician [facility] Work Phone: Start: 08-11-2022 End: 08-12-2022 Patient encounter procedure No Primary Care Physician [facility] Start: 08-11-2022 Telephone encounter Amy Kg chester APRN.CNM Work Phone: OB/Gynecology Comment on above: Nausea & Vomiting Start: 07-15-2022 End: 07-15-2022 Patient encounter procedure Izzy Horner MD Work Phone: OB/Gynecology Comment on above: 27 weeks gestation o f (Primary Dx); Supervision of high risk in second trimester; Burning with urination; Chronic hepatitis C without hepatic coma (HCC) Start: 06-12-2022 End: 06-12-2022 Patient encounter procedure Josef Donohue MD Work Phone: Maternal Medicine Comment on above: Suspected anom anand not found (Primary Dx); History of delivery; 22 weeks gestation of Start: 06-09-2022 Refill Richelle [place] Work Phone: OB/Gynecology Comment on above: Refill Request Start: 06-05-2022 Orders Only Josef Donohue MD Work Phone: Maternal Medicine Comment on above: Encounter for antena janki screening for cervical length (Primary Dx) Start: 05-29-2022 End: 05-29-2022 Patient encounter procedure Lay Sunshine MD Work Phone: Maternal Medicine Comment on above: Encounter for anatomic survey (Primary Dx); 20 weeks gestation of ; History of delivery Start: 05-22-2022 End: 05-22-2022 Patient encounter procedure Mars Rosenberg MD Work Phone: OB/Gynecology Comment on above: Supervision of high risk in second trimester (Primary Dx); Hx of preeclampsia, prior , currently ; History of hepatitis C; complicated by subutex maintenance, antepartum (HCC); 19 weeks gestation of Start: 05-21-2022 Refill Izzy rod MD Work Phone: OB/Gynecology Comment on above: Refill Request; Naus ea Start: 04-25-2022 Refill Dana Seal [facility] [place] Comment on above: Refill Request Start: 04-03-2022 Telephone encounter Glenroy barreto MD Work Phone: OB/Gynecology Comment on above: Missed Appointment Start: 03-26-2022 End: 03-26-2022 Emergency department patient visit Vipin Gonzalez MD Work Phone: [facility] Comment on above: Hyperemesis gravidar um (Primary Dx) Start: 03-12-2022 Refill Mars Rosenberg MD Work Phone: OB/Gynecology Start: 03-06-2022 End: 03-06-2022 Patient encounter procedure Richelle Delgado MD Work Phone: OB/Gynecology Comment on above: Early stage of pregn carmina (Primary Dx) Start: 03-04-2022 Refill Glenroy Colorado Work Phone: OB/Gynecology Comment on above: Refill Request Start: 02-27-2022 Telephone encounter Mars Rosenberg MD Work Phone: OB/Gynecology Comment on above: Patient Update Start: 02-26-2022 Telephone encounter Mine aguirre FLIGHT SECURITY SPECIALIST.CNM Work Phone: OB/Gynecology Comment on above: Opened In Error Start: 02-21-2022 Telephone encounter Amy chester FLIGHT SECURITY SPECIALIST.CNM Work Phone: OB/Gynecology Comment on above: Care Start: 02-13-2022 Telephone encounter Picker/Puller RN Obstetrics/Gynecology Comment on above: Picker/Puller - O ther (praf) Start: 02-11-2022 End: 02-11-2022 Patient encounter procedure Mine Anton FLIGHT SECURITY SPECIALIST.CNM Work Phone: OB/Gynecology Comment on above: Encounter for superv ision of other normal in first trimester (Primary Dx); Missed menses; Supervision of high risk in first trimester; Short interval between pregnancies affecting , antepartum; History of drug use; complicated by subutex maintenance, antepartum (HCC); Tobacco smoking complicating in first trimester; premature rupture of membranes with onset of labor more than 24 hours following rupture in third trimester; Marijuana use; Grand multiparity; History of hepatitis C; History of prior with IUGR Start: 08-02-2020 End: 02-09-2021 Patient requested procedure Izzy Horner MD Work Phone: [facility] Start: 04-03-2020 End: 04-03-2020 [facility] Comment on above: Vaginal discharge (P rimary Dx); Possible exposure to STD; Vaginal discharge during in second trimester Start: 01-27-2020 End: 01-27-2020 Emergency department patient visit Evangelist [facility] Emergency Dept Comment on above: Concern about STD in female without diagnosis (Primary Dx) Start: 11-14-2019 End: 11-14-2019 Emergency department patient visit Cooper De Leon DO Work Phone: [facility] Comment on above: Dentalgia (Primary D x) Start: 05-10-2018 Ambulatory IZZY Hdez lity:[facility] Start: 05-04-2018 Ambulatory IZZY Hdez lity:[facility] Start: 05-02-2018 End: 05-03-2018 Emergency department patient visit ALEJANDRA COLTON Facility:B Start: 09-28-2017 End: 09-28-2017 Emergency department patient visit LEIF JETER Facility:[id number] Procedures Date Procedure Procedure Detail Performing Clinician Start: 06-06-2025 Us preg uterus after 1st trimest 1/1st gestation Izzy Horner MD Work Phone: Start: 03-21-2025 Us uterus limited 1/> fetuses Izzy Horner MD Work Phone: Start: 11-02-2023 MEDICATION ASSISTED TREATMENT PANEL Rishabh Rea MD Work Phone: Start: 09-04-2023 Drug tst prsmv read instrmnt asstd dir opt obs Bang Mcclelland MD Work Phone: Start: 07-28-2023 MEDICATION ASSISTED TREATMENT PANEL Rishabh Rea MD Work Phone: Start: 06-19-2023 Drug test def 1-7 classes Rishabh Rea MD Work Phone: Start: 06-19-2023 MEDICATION ASSISTED TREATMENT PANEL Rishabh Rea MD Work Phone: Start: 04-08-2023 Drug test def 1-7 classes Rishabh Rea MD Work Phone: Start: 04-08-2023 MEDICATION ASSISTED TREATMENT PANEL Rishabh Rea MD Work Phone: Start: 12-06-2022 Radex spine lumbosac ral 2/3 views [facility] Provider Start: 08-13-2022 URINE OB DIP B/O Mars Rosenberg MD Work Phone: Start: 08-12-2022 CT of abdomen No Primar y Care Physician Start: 07-15-2022 Urnls dip stick/tabl et rgnt auto w/o microscopy Izzy Horner MD Work Phone: Start: 05-29-2022 Us preg uterus after 1st trimest 11/23 gestation Mine Anton FLIGHT SECURITY SPECIALIST.CNM Work Phone: Start: 05-22-2022 URINE OB DIP B/O Mars Rosenberg MD Work Phone: Start: 03-26-2022 Urnls dip stick/tabl et rgnt auto w/o microscopy Robinson Horne FLIGHT SECURITY SPECIALIST - AIRBRUSH ARTIST PHOTOGRAPHY Work Phone: Start: 03-26-2022 Comprehensive metabo lic panel Robinson Horne FLIGHT SECURITY SPECIALIST - AIRBRUSH ARTIST PHOTOGRAPHY Work Phone: Start: 03-26-2022 Us uterus limited 1/> fetuses Robinson Horne FLIGHT SECURITY SPECIALIST - AIRBRUSH ARTIST PHOTOGRAPHY Work Phone: Start: 02-11-2022 Microscopic observat ion [Identifier] in Cervix by Cyto stain Vipin Gonzalez MD Work Phone: Start: 04-03-2020 Urnls dip stick/tabl et rgnt auto w/o microscopy Zaynab Ball Work Phone: Start: 01-27-2020 Urine test visual color cmprsn meths Garett Lopes Work Phone: Start: 01-27-2020 Urnls dip stick/tabl et rgnt auto w/o microscopy Garettcasandra Lopes Work Phone: Start: 08-19-2016 Adult depression screening assessment Mine Anton FLIGHT SECURITY SPECIALIST.CNM Work Phone: H/O: section S/P sectio n No Primary Care Physician Urine culture No Primary Car e Physician Viral antigen assay No Prima ry Care Physician Plan of Treatment Date Care Activity Detail Author Start: 2062 RSV Immunization for Adults (1 - 1-dose 75+ series) RSV Immunization for Adults (1 - 1-dose 75+ series) [facility] Start: 2062 RSV Vaccine (1 - 1-d ose 75+ series) RSV Vaccine (1 - 1-dose 75+ series) [facility] Start: 2047 RSV Immunization age d 60 or older (1 - 1-dose 60+ series) RSV Immunization aged 60 or older (1 - 1-dose 60+ series) [facility] Start: 2037 Shingles Vaccine (1 of 2) Hayden gles Vaccine (1 of 2) [facility] [place] Start: 2037 Zoster Vaccines (1 of 2) Zoster Vacc maryan (1 of 2) [facility] Start: 01-17-2031 DTaP/Tdap/Td vaccine (4 - Td or Tdap) DTaP/Tdap/Td vaccine (4 - Td or Tdap) [facility] Start: 01-17-2031 DTaP/Tdap/Td Vaccine s (4 - Td or Tdap) DTaP/Tdap/Td Vaccines (4 - Td or Tdap) [facility] Start: 01-17-2031 Urine microalbumin profile [facility] Start: 02-11-2027 HPV TESTING HPV TESTING [facility] Start: 02-11-2027 PAP TESTING PAP TESTING [facility] Start: 02-11-2027 Screening for malign ant neoplasm of cervix Cervical Cancer Screening [facility] Start: 11-05-2025 DTaP/Tdap/Td vaccine (3 - Td) DTaP/Tdap/Td vaccine (3 - Td) [facility] Work Phone: Start: 08-10-2025 HPV TESTING HPV TESTING [facility] Start: 08-10-2025 PAP TESTING PAP TESTING [facility] Start: 07-24-2025 Influenza vaccination S [facility] Start: 06-29-2025 End: 06-29-2025 Patient encounter procedure 06/29/2025 8:45 AM EDT Initial Office Visit OB/Gynecology [address], [place] [id number] Mine Anton APRN.CNM [address] [place], [place] [phone] NOB OB/Gynecology Comment on above: NOB Start: 06-15-2025 End: 06-15-2025 ambulatory 06/15/2025 10:00 AM EDT [facility] [address] [place] [phone] Rosa Porter, FLIGHT SECURITY SPECIALIST.AIRBRUSH ARTIST PHOTOGRAPHY [address] [place] [phone] [facility] Comment on above: New Pt [facility] Start: 06-06-2025 End: 09-05-2025 ANEMIA REFLEX PANEL ANEMIA REFLEX PANEL Lab Routine Supervision of high risk in second trimester (HCC) Expected: 06/06/2025, Expires: 09/05/2025 [facility] Work Phone: Comment on above: Expected: 06/06/2025 , Expires: 09/05/2025 Start: 06-06-2025 End: 09-05-2025 Hemoglobin A1c in Blood HEMOGLOBIN A1C Lab Routine Supervision of high risk in second trimester ([facility]) Expected: 06/06/2025, Expires: 09/05/2025 [facility] Comment on above: Expected: 06/06/2025 , Expires: 09/05/2025 Start: 06-06-2025 End: 09-05-2025 Hepatitis B virus surface Ag [Presence] in Serum HEPATITIS B SURFACE ANTIGEN Lab Routine Supervision of high risk in second trimester ([facility]) Expected: 06/06/2025, Expires: 09/05/2025 [facility] Comment on above: Expected: 06/06/2025 , Expires: 09/05/2025 Start: 06-06-2025 End: 09-05-2025 Hepatitis C virus Ab [Presence] in Serum HEPATITIS C ANTIBODY IA WITH CONFIRMATION Lab Routine Supervision of high risk in second trimester ([facility]) Expected: 06/06/2025, Expires: 09/05/2025 [facility] Comment on above: Expected: 06/06/2025 , Expires: 09/05/2025 Start: 06-06-2025 End: 09-05-2025 HIV 1+2 Ab [Presence] in Serum or Plasma by Immunoassay HIV 1/2 COMBO WITH REFLEX TO DIFFERENTIATION Lab Routine Supervision of high risk in second trimester ([facility]) Expected: 06/06/2025, Expires: 09/05/2025 [facility] Comment on above: Expected: 06/06/2025 , Expires: 09/05/2025 Start: 06-06-2025 End: 09-05-2025 RUBELLA IGG ANTIBODY RUBELLA IGG ANTIBODY Lab Routine Supervision of high risk in second trimester ([facility]) Expected: 06/06/2025, Expires: 09/05/2025 [facility] Comment on above: Expected: 06/06/2025 , Expires: 09/05/2025 Start: 06-06-2025 End: 09-05-2025 SYPHILIS TREPONEMAL W/REFLEX SYPHILIS TREPONEMAL W/REFLEX Lab Routine Supervision of high risk in second trimester ([facility]) Expected: 06/06/2025, Expires: 09/05/2025 [facility] Comment on above: Expected: 06/06/2025 , Expires: 09/05/2025 Start: 06-06-2025 End: 09-05-2025 TYPE + SCREEN TYPE + SCREEN Blood Bank Routine Supervision of high risk in second trimester (HCC) Expected: 06/06/2025, Expires: 09/05/2025 [facility] Comment on above: Expected: 06/06/2025 , Expires: 09/05/2025 Start: 06-05-2025 End: 06-05-2025 Patient encounter procedure 06/05/2025 8:15 AM EDT Initial Office Visit OB/Gynecology [address] [place] [address] Ermelinda Jewell APRN.AIRBRUSH ARTIST PHOTOGRAPHY [address] [place] [address] New OB currently 10wk OB/Gynecology Comment on above: New OB currently 10w k Start: 05-31-2025 End: 05-31-2025 Patient encounter procedure 05/31/2025 1:45 PM EDT Initial Office Visit OB/Gynecology [address] [place] [address] Mary Medel APRN.AIRBRUSH ARTIST PHOTOGRAPHY [address] [place] [address] new ob cherry 10/17/25 OB/Gynecology Comment on above: new ob cherry 10/17/25 Start: 05-12-2025 End: 05-12-2025 Patient encounter procedure 05/12/2025 10:45 AM EDT Office Visit OB/Gynecology [address] [place] [address] Mary Medel APRN.AIRBRUSH ARTIST PHOTOGRAPHY [address] [place] [address] N&V in early -need order for anatomy u/s OB/Gynecology Comment on above: N&V in early pregnan cy-need order for anatomy u/s Start: 05-03-2025 End: 05-03-2025 Patient encounter procedure OB/Gynecology Comment on above: New OB late PNC early anatomy Start: 05-02-2025 End: 05-02-2025 Patient encounter procedure 05/02/2025 10:30 AM EDT Routine Office Visit Maternal Medicine [address] [place] [address] early anatomy Maternal Medicine Comment on above: early anatomy Start: 05-01-2025 End: 05-01-2025 Patient encounter procedure 05/01/2025 5:00 PM EDT Office Visit [facility] [address] [place] [address] Dalia Mendoza, FLIGHT SECURITY SPECIALIST.AIRBRUSH ARTIST PHOTOGRAPHY [address] [place], [place] [phone] for anxiety, dyspnea. [facility] Comment on above: for anxiety, dyspnea . Start: 04-25-2025 End: 04-25-2025 Patient encounter procedure 04/25/2025 1:00 PM EDT Appointment [facility] [address] [place] [address] Echo [facility] Comment on above: Echo Start: 04-20-2025 End: 04-20-2025 ambulatory [facility] Comment on above: Dyspnea, unspecified type [R06.00] Start: 04-19-2025 End: 04-19-2026 OBSTETRIC ULTRASOUND [facility] OBSTETRIC ULTRASOUND [facility] Anc Imaging Routine Supervision of high risk in first trimester (HCC) complicated by subutex maintenance, antepartum (HCC) Expected: 04/19/2025, Expires: 04/19/2026 [facility] Work Phone: Comment on above: Expected: 04/19/2025 , Expires: 04/19/2026 Start: 04-03-2025 End: 04-03-2025 Patient encounter procedure OB/Gynecology Comment on above: New OB currently 10w k Nuchal Start: 03-31-2025 End: 03-31-2025 Patient encounter procedure 03/31/2025 2:00 PM EDT Office Visit [facility] [address] [place] [address] Dalia Mendoza, FLIGHT SECURITY SPECIALIST.AIRBRUSH ARTIST PHOTOGRAPHY [address] [place] [address] ED follow up: [facility] Comment on above: ED follow up: [facility] Start: 03-21-2025 End: 03-21-2026 OBSTETRIC ULTRASOUND [facility] OBSTETRIC ULTRASOUND [facility] Anc Imaging Routine with inconclusive viability, single or unspecified fetus (HCC) Nausea and vomiting in (HCC) Expected: 03/21/2025, Expires: 03/21/2026 [facility] Work Phone: Comment on above: Expected: 03/21/2025 , Expires: 03/21/2026 Start: 03-08-2025 [facility] Start: 03-01-2025 [facility] Start: 03-01-2025 Consultation [facility] Start: 02-11-2025 Screening for malign ant neoplasm of cervix [facility] Start: 12-19-2024 End: 12-19-2024 Patient encounter procedure [facility] Internal Medicine [facility] Start: 11-17-2024 End: 11-17-2024 Patient encounter procedure [facility] Start: 10-31-2024 End: 10-31-2024 Telemedicine consultation with patient 10/31/2024 1:45 PM EST Telemedicine [facility] [place] [address] [place] [address] Rishabh Rea MD [address] [place] [address] [facility] Start: 09-05-2024 End: 09-05-2025 MEDICATION ASSISTED TREATMENT PANEL MEDICATION ASSISTED TREATMENT PANEL Lab Routine Severe opioid use disorder, in sustained remission (HCC) Expected: 09/05/2024 (Approximate), Expires: 09/05/2025 [facility] Work Phone: Comment on above: Expected: 09/05/2024 (Approximate), Expires: 09/05/2025 Start: 09-05-2024 End: 09-05-2024 Telemedicine consultation with patient [facility] Start: 07-24-2024 COVID-19 Vaccine ( season) COVID-19 Vaccine () [facility] Start: 07-24-2024 COVID-19 Vaccine ( season) COVID-19 Vaccine () [facility] Start: 07-24-2024 Influenza vaccination S [facility] Start: 07-22-2024 End: 07-22-2024 Patient encounter procedure 07/22/2024 2:20 PM EDT Office Visit [facility] [address] [facility] [address] [place] [phone] Bang Mcclelland MD [address] [facility] [address] [place] [address] [facility] Start: 07-19-2024 End: 07-19-2024 Patient encounter procedure 07/19/2024 8:00 AM EDT Office Visit [facility] [address] [facility] [address] [place] [phone] Melinda Acuna, [facility] [address] [place] [address] [facility] Start: 07-13-2024 End: 07-13-2024 Patient encounter procedure 07/13/2024 1:40 PM EDT Office Visit [facility] [address] [facility] [address] [place] [phone] Bang Mcclelland MD [address] [facility] [address] [place] [address] [facility] Start: 07-12-2024 End: 07-12-2024 Patient encounter procedure 07/12/2024 11:00 AM EDT Office Visit [facility] [address] [facility] [address] [place] [phone] Bang Mcclelland MD [address] [place] [address] [facility] Start: 07-11-2024 End: 07-11-2024 Telemedicine consultation with patient 07/11/2024 2:00 PM EDT Telemedicine [facility] [address] [place] [address] Rishabh Rea MD [address] [place] [address] [facility] Start: 05-12-2024 End: 05-12-2024 Patient encounter procedure 05/12/2024 1:00 PM EDT Office Visit [facility] Obstetrics & Gynecology [address] [facility] [address] [place] [phone] Stephan Ritter MD [address] [place] [address] [facility] Start: 05-10-2024 End: 05-10-2025 Buprenorphine and Metab, Urine, Quant Buprenorphine and Metab, Urine, Quant Lab Routine Severe opioid use disorder, in sustained remission (HCC) Expected: 05/10/2024 (Approximate), Expires: 05/10/2025 [facility] Comment on above: Expected: 05/10/2024 (Approximate), Expires: 05/10/2025 Start: 05-10-2024 End: 05-10-2025 MEDICATION ASSISTED TREATMENT PANEL MEDICATION ASSISTED TREATMENT PANEL Lab Routine Severe opioid use disorder, in sustained remission (HCC) Expected: 05/10/2024 (Approximate), Expires: 05/10/2025 [facility] Work Phone: Comment on above: Expected: 05/10/2024 (Approximate), Expires: 05/10/2025 Start: 05-10-2024 End: 05-10-2024 Telemedicine consultation with patient 05/10/2024 2:00 PM EDT Telemedicine [facility] [address] [place] [address] Rishabh Rea MD [address] [place] [address] [facility] Start: 04-29-2024 End: 04-29-2025 MEDICATION ASSISTED TREATMENT PANEL MEDICATION ASSISTED TREATMENT PANEL Lab Routine Severe opioid use disorder, in sustained remission (HCC) Expected: 04/29/2024 (Approximate), Expires: 04/29/2025 [facility] Work Phone: Comment on above: Expected: 04/29/2024 (Approximate), Expires: 04/29/2025 Start: 04-21-2024 End: 04-21-2024 Telemedicine consultation with patient 04/21/2024 12:45 PM EDT Telemedicine [facility] [address] [place] [address] Rishabh Rea MD [address] [facility] [address] [place] [address] [facility] Start: 03-29-2024 End: 03-29-2025 Helicobacter pylori Ag [Presence] in Stool by Immunoassay H. pylori Stool Antigen Microbiology Routine Epigastric pain Expected: 03/29/2024 (Approximate), Expires: 03/29/2025 [facility] Work Phone: Comment on above: Expected: 03/29/2024 (Approximate), Expires: 03/29/2025 Start: 03-09-2024 End: 03-09-2024 Patient encounter procedure 03/09/2024 1:00 PM EDT Office Visit [facility] [address] [phone] Bang Mcclelland MD [address] [facility] [address] [place] [address] [facility] Start: 02-25-2024 End: 02-24-2025 MEDICATION ASSISTED TREATMENT PANEL MEDICATION ASSISTED TREATMENT PANEL Lab Routine Severe opioid use disorder, in sustained remission (HCC) Expected: 02/25/2024 (Approximate), Expires: 02/24/2025 [facility] Work Phone: Comment on above: Expected: 02/25/2024 (Approximate), Expires: 02/24/2025 Start: 02-25-2024 End: 02-25-2024 Telemedicine consultation with patient 02/25/2024 1:30 PM EDT Telemedicine [facility] [address] [place] [address] Rishabh Rea MD [address] [place] [address] [facility] Start: 02-02-2024 End: 02-02-2024 Patient encounter procedure 02/02/2024 2:40 PM EDT Office Visit [facility] [address] [facility] [address] [place] [phone] Bang Mcclelland MD [address] [facility] [address] [place] [address] [facility] Start: 01-28-2024 End: 01-28-2024 Telemedicine consultation with patient 01/28/2024 12:15 PM EST Telemedicine [facility] [address] [place] [address] Rishabh Rea MD [address] [place] [address] [facility] Start: 01-27-2024 End: 01-27-2024 Telemedicine consultation with patient 01/27/2024 10:15 AM EST Telemedicine [facility] [address] [place] [address] Rsihabh Rea MD [address] [place] [phone] [facility] Start: 12-30-2023 End: 12-30-2023 Telemedicine consultation with patient 12/30/2023 11:00 AM EST Telemedicine [facility] [address] [place] [phone] Rishabh Rea MD [address] [place] [address] [facility] Start: 12-04-2023 End: 12-04-2023 Patient encounter procedure 12/04/2023 2:20 PM EST Office Visit [facility] [address] [facility] [address] [place] [phone] Bang Mcclelland MD [address] [facility] [address] [place] [address] [facility] Start: 11-30-2023 End: 11-30-2023 Telemedicine consultation with patient 11/30/2023 2:15 PM EST Telemedicine [facility] [address] [place] [address] Rishabh Rea MD [address] [place] [address] [facility] Start: 11-30-2023 End: 11-30-2024 MEDICATION ASSISTED TREATMENT PANEL MEDICATION ASSISTED TREATMENT PANEL Lab Routine Severe opioid use disorder, in sustained remission, on maintenance therapy (HCC) Expected: 11/30/2023 (Approximate), Expires: 11/30/2024 [facility] Work Phone: Comment on above: Expected: 11/30/2023 (Approximate), Expires: 11/30/2024 Start: 11-27-2023 End: 11-27-2023 Patient encounter procedure 11/27/2023 1:20 PM EST Office Visit [facility] [address] [place] [phone] Melinda Acuna, VADIM [address] [place] [address] [facility] Start: 10-28-2023 End: 10-28-2023 Patient encounter procedure 10/28/2023 9:15 AM EST Office Visit [facility] [address] [place] [phone] Rishabh Rea MD [address] [place] [address] [facility] Start: 10-09-2023 End: 10-09-2023 Patient encounter procedure 10/09/2023 12:30 PM EST Appointment [facility] Neuro [address] [place] [address] Bang Mcclelland MD [address] [place] [id number] [facility] Start: 10-05-2023 End: 10-05-2024 Nerve conduction test with EMG Nerve conduction test with EMG Neurology Routine Bilateral carpal tunnel syndrome Expected: 10/05/2023 (Approximate), Expires: 10/05/2024 [facility] Work Phone: Comment on above: Expected: 10/05/2023 (Approximate), Expires: 10/05/2024 Start: 10-05-2023 End: 10-05-2023 Patient encounter procedure 10/05/2023 9:20 AM EST Office Visit [facility] [address] [facility] [address] [place] [address] Bang Mcclelland MD [address] [place] [address] [address] [place] [address] [facility] Start: 09-16-2023 End: 09-16-2023 Patient encounter procedure 09/16/2023 9:00 AM EDT Office Visit [facility] [address] [place] [address] Risahbh Rea MD [address] [place] [phone] [facility] Start: 09-04-2023 End: 09-04-2023 Patient encounter procedure 09/04/2023 1:20 PM EDT Office Visit [facility] [address] [place] [phone] Bang Mcclelland MD [address] [facility] [address] [place] [address] [facility] Start: 09-03-2023 End: 09-03-2024 MEDICATION ASSISTED TREATMENT PANEL MEDICATION ASSISTED TREATMENT PANEL Lab Routine Severe opioid use disorder, in sustained remission, on maintenance therapy (HCC) Expected: 09/03/2023 (Approximate), Expires: 09/03/2024 [facility] Work Phone: Comment on above: Expected: 09/03/2023 (Approximate), Expires: 09/03/2024 Start: 09-03-2023 End: 09-03-2023 Telemedicine consultation with patient 09/03/2023 9:30 AM EDT Telemedicine [facility] [address] [place] [address] Rishabh Rea MD [address] [place] [phone] [facility] Start: 08-06-2023 End: 08-06-2023 Patient encounter procedure 08/06/2023 9:00 AM EDT Office Visit [facility] [address] [place] [address] Rishabh Rea MD [address] [place] [address] [facility] Start: 07-24-2023 COVID-19 Vaccine ( season) COVID-19 Vaccine () [facility] Start: 07-24-2023 Influenza vaccination [facility] Start: 07-23-2023 End: 07-23-2023 Telemedicine consultation with patient 07/23/2023 10:15 AM EDT Telemedicine [facility] [address] [place] [address] Rishabh Rea MD [address] [place] [address] [facility] Start: 06-25-2023 End: 06-25-2023 Telemedicine consultation with patient 06/25/2023 10:30 AM EDT Telemedicine [facility] [address] [place] [address] Rishabh Rea MD [address] [place] [address] [facility] Start: 05-15-2023 End: 04-08-2024 MEDICATION ASSISTED TREATMENT PANEL MEDICATION ASSISTED TREATMENT PANEL Lab Routine Severe opioid use disorder, in sustained remission, on maintenance therapy (HCC) Expected: 05/15/2023 (Approximate), Expires: 04/08/2024 [facility] Work Phone: Comment on above: Expected: 05/15/2023 (Approximate), Expires: 04/08/2024 Start: 04-30-2023 End: 04-30-2023 Telemedicine consultation with patient 04/30/2023 11:00 AM EDT Telemedicine [facility] [address] [place] [address] Rishabh Rea MD [address] [place] [address] [facility] Start: 04-22-2023 End: 04-22-2023 Telemedicine consultation with patient 04/22/2023 Telemedicine Behavioral [facility] Rishabh Rea MD [address] [phone] [facility] Start: 04-03-2023 End: 04-03-2024 CBC W Auto Differential panel - Blood CBC auto differential Lab Routine Opioid use disorder Expected: 04/03/2023 (Approximate), Expires: 04/03/2024 [facility] Comment on above: Expected: 04/03/2023 (Approximate), Expires: 04/03/2024 Start: 04-03-2023 End: 04-03-2024 Comprehensive metabolic 1998 panel - Serum or Plasma Comprehensive metabolic panel Lab Routine Opioid use disorder Expected: 04/03/2023 (Approximate), Expires: 04/03/2024 [facility] Comment on above: Expected: 04/03/2023 (Approximate), Expires: 04/03/2024 Start: 04-03-2023 End: 04-03-2024 Hemoglobin A1c/Hemoglobin.total in Blood Hemoglobin A1c Lab Routine Opioid use disorder Expected: 04/03/2023 (Approximate), Expires: 04/03/2024 [facility] Comment on above: Expected: 04/03/2023 (Approximate), Expires: 04/03/2024 Start: 04-03-2023 End: 04-03-2024 Hepatitis B virus surface Ab [Units/volume] in Serum or Plasma by Immunoassay Hepatitis B surface antibody Lab Routine Opioid use disorder Expected: 04/03/2023 (Approximate), Expires: 04/03/2024 [facility] Comment on above: Expected: 04/03/2023 (Approximate), Expires: 04/03/2024 Start: 04-03-2023 End: 04-03-2024 Hepatitis B virus surface Ag [Presence] in Serum or Plasma by Immunoassay Hepatitis B surface antigen Lab Routine Opioid use disorder Expected: 04/03/2023 (Approximate), Expires: 04/03/2024 [facility] Comment on above: Expected: 04/03/2023 (Approximate), Expires: 04/03/2024 Start: 04-03-2023 End: 04-03-2024 Hepatitis C virus Ab [Presence] in Serum or Plasma by Immunoassay Hepatitis C antibody Lab Routine Opioid use disorder (CMS/HCC) Expected: 04/03/2023 (Approximate), Expires: 04/03/2024 [facility] Comment on above: Expected: 04/03/2023 (Approximate), Expires: 04/03/2024 Start: 04-03-2023 End: 04-03-2024 HIV 1+2 Ab+HIV1 p24 Ag [Presence] in Serum or Plasma by Immunoassay HIV-1 and HIV-2 Antigen-Antibody Screen Lab Routine Opioid use disorder (CMS/HCC) Expected: 04/03/2023 (Approximate), Expires: 04/03/2024 [facility] Work Phone: Comment on above: Expected: 04/03/2023 (Approximate), Expires: 04/03/2024 Start: 04-03-2023 End: 04-03-2024 UNCONFIRMED DRUG SCREEN UNCONFIRMED DRUG SCREEN Lab Routine Opioid use disorder Expected: 04/03/2023 (Approximate), Expires: 04/03/2024 [facility] Comment on above: Expected: 04/03/2023 (Approximate), Expires: 04/03/2024 Start: 11-23-2022 DEPRESSION ASSESSMENT DEPRESSION [facility] Start: 10-04-2022 Varicella vaccination S [facility] Start: 09-07-2022 Patient discharge [facility] Work Phone: Start: 09-06-2022 End: 09-07-2022 Application of abdominal corset [facility] Work Phone: Start: 09-06-2022 Consultation [facility] Work Phone: Start: 09-05-2022 End: 09-06-2022 [facility] Work Phone: Start: 09-05-2022 End: 09-06-2022 Application of abdominal corset [facility] Work Phone: Start: 09-05-2022 Introduction of urin dereck catheter [facility] Work Phone: Start: 09-05-2022 Administration of medication [facility] Work Phone: Start: 09-05-2022 Ambulation therapy management [facility] Work Phone: Start: 09-05-2022 Application of device [facility] Work Phone: Start: 09-05-2022 Application of intermittent pneumatic compression device [facility] Work Phone: Start: 09-05-2022 Assessment of risk o f venous thromboembolism [facility] Work Phone: Start: 09-05-2022 Catheterization of vein [facility] Work Phone: Start: 09-05-2022 Deep breathing and coughing exercises [facility] Work Phone: Start: 09-05-2022 Exercises [facility] Work Phone: Start: 09-05-2022 Incentive spirometry [facility] Work Phone: Start: 09-05-2022 Measuring intake and output [facility] Work Phone: Start: 09-05-2022 Notification of physician [facility] Work Phone: Start: 09-05-2022 Procedure discontinued [facility] Work Phone: Start: 09-05-2022 Provision of activit y privileges [facility] Work Phone: Start: 09-05-2022 Vital signs measurements [facility] Work Phone: Start: 09-05-2022 Wound care [facility] Work Phone: Start: 09-05-2022 Admission procedure [facility] Work Phone: Start: 09-05-2022 Anesthesia consultation [facility] Work Phone: Start: 09-05-2022 acoustic stimulation test [facility] Work Phone: Start: 09-05-2022 Insertion of cathete r into peripheral vein [facility] Work Phone: Start: 09-05-2022 Intrauterine catheterization [facility] Work Phone: Start: 09-05-2022 Introduction of urin dereck catheter [facility] Work Phone: Start: 09-05-2022 Provision of activit y privileges [facility] Work Phone: Start: 09-05-2022 Nonstress test [facility] Work Phone: Start: 09-05-2022 End: 09-05-2022 Obstetric monitoring [facility] Work Phone: Start: 09-05-2022 Vital signs measurements [facility] Work Phone: Start: 08-27-2022 End: 08-27-2023 OBSTETRIC ULTRASOUND [facility] OBSTETRIC ULTRASOUND [facility] Anc Imaging Routine 33 weeks gestation of Expected: 08/27/2022, Expires: 08/27/2023 [facility] Work Phone: Comment on above: Expected: 08/27/2022 , Expires: 08/27/2023 Start: 08-12-2022 Patient discharge [facility] Work Phone: Start: 08-12-2022 Administration of bl ood product [facility] Work Phone: Start: 08-11-2022 Vital signs measurements [facility] Work Phone: Start: 08-11-2022 Referral to gastroenterology service [facility] Work Phone: Start: 08-11-2022 End: 08-11-2022 [facility] Work Phone: Start: 08-11-2022 End: 08-11-2022 Nonstress test [facility] Work Phone: Start: 08-11-2022 End: 08-11-2022 Obstetric monitoring [facility] Work Phone: Start: 08-11-2022 Vital signs measurements [facility] Work Phone: Start: 08-11-2022 End: 08-11-2022 [facility] Work Phone: Start: 08-11-2022 Iv infusion ther pro ph addl sequential to 1 hr TX/PROPH/DG ADDL SEQ IV INF [facility] Work Phone: Start: 08-11-2022 Iv infusion therapy prophylaxis/dx ea hour THER/PROPH/DIAG IV INF [facility] Work Phone: Start: 08-11-2022 Iv infusion therapy/prophylaxis /dx 1st to 1 hr THER/PROPH/DIAG IV INF INIT [facility] Work Phone: Start: 08-11-2022 Ther proph/dx njx ea seql iv push sbst/drug fac TX/PRO/DX INJ SAME DRUG [facility] Work Phone: Start: 08-11-2022 Therapeutic injectio n iv push each new drug TX/PRO/DX INJ NEW DRUG [facility] Work Phone: Start: 08-11-2022 Therapeutic prophylactic/dx injection subq/im THER/PROPH/DIAG INJ SC/IM [facility] Work Phone: Start: 07-24-2022 Influenza vaccination C [facility] Start: 07-15-2022 End: 09-14-2022 CBC W Auto Differential panel - Blood CBC + DIFF Lab Routine 27 weeks gestation of Supervision of high risk in second trimester Expected: 07/15/2022, Expires: 09/14/2022 [facility] Work Phone: Comment on above: Expected: 07/15/2022 , Expires: 09/14/2022 Start: 07-15-2022 End: 09-14-2022 GEST GLUC SCREEN, 1-HR, 50 GM, NON-FASTING GEST GLUC SCREEN, 1-HR, 50 GM, NON-FASTING Lab Routine 27 weeks gestation of Supervision of high risk in second trimester Expected: 07/15/2022, Expires: 09/14/2022 [facility] Work Phone: Comment on above: Expected: 07/15/2022 , Expires: 09/14/2022 Start: 07-15-2022 End: 09-14-2022 Hepatic function 2000 panel - Serum or Plasma HEPATIC FUNCTION PNL Lab Routine 27 weeks gestation of Supervision of high risk in second trimester Chronic hepatitis C without hepatic coma (HCC) Expected: 07/15/2022, Expires: 09/14/2022 [facility] Work Phone: Comment on above: Expected: 07/15/2022 , Expires: 09/14/2022 Start: 07-15-2022 End: 09-14-2022 HIV 1+2 Ab [Presence] in Serum or Plasma by Immunoassay HIV 1 2 COMBO(AG/AB),WITH REFLEX TO DIFFERENTIATION Lab Routine 27 weeks gestation of Supervision of high risk in second trimester Expected: 07/15/2022, Expires: 09/14/2022 [facility] Work Phone: Comment on above: Expected: 07/15/2022 , Expires: 09/14/2022 Start: 07-15-2022 End: 09-14-2022 SYPHILIS TOTAL W/REFLEX SYPHILIS TOTAL W/REFLEX Lab Routine 27 weeks gestation of Supervision of high risk in second trimester Expected: 07/15/2022, Expires: 09/14/2022 [facility] Work Phone: Comment on above: Expected: 07/15/2022 , Expires: 09/14/2022 Start: 07-15-2022 End: 09-14-2022 TYPE + SCREEN TYPE + SCREEN Blood Bank Routine 27 weeks gestation of Supervision of high risk in second trimester Expected: 07/15/2022, Expires: 09/14/2022 [facility] Work Phone: Comment on above: Expected: 07/15/2022 , Expires: 09/14/2022 Start: 05-22-2022 End: 07-22-2022 Comprehensive metabolic 2000 panel - Serum or Plasma COMP METABOLIC PANEL Lab Routine Supervision of high risk in second trimester 19 weeks gestation of History of hepatitis C Expected: 05/22/2022, Expires: 07/22/2022 [facility] Work Phone: Comment on above: Expected: 05/22/2022 , Expires: 07/22/2022 Start: 02-11-2022 End: 04-13-2022 CBC panel - Blood by Automated count CBC Lab Routine Encounter for supervision of other normal in first trimester Expected: 02/11/2022, Expires: 04/13/2022 [facility] Work Phone: Comment on above: Expected: 02/11/2022 , Expires: 04/13/2022 Start: 02-11-2022 End: 04-13-2022 Hepatitis B virus surface Ab [Presence] in Serum by Immunoassay HEP B SURF AG SCRN Lab Routine Encounter for supervision of other normal in first trimester Expected: 02/11/2022, Expires: 04/13/2022 [facility] Work Phone: Comment on above: Expected: 02/11/2022 , Expires: 04/13/2022 Start: 02-11-2022 End: 04-13-2022 Hepatitis C virus Ab [Presence] in Serum HEP C AB IA W/CONF SCRN Lab Routine Encounter for supervision of other normal in first trimester Expected: 02/11/2022, Expires: 04/13/2022 [facility] Work Phone: Comment on above: Expected: 02/11/2022 , Expires: 04/13/2022 Start: 02-11-2022 End: 04-13-2022 HIV 1+2 Ab [Presence] in Serum or Plasma by Immunoassay HIV 1 2 COMBO(AG/AB),WITH REFLEX TO DIFFERENTIATION Lab Routine Encounter for supervision of other normal in first trimester Expected: 02/11/2022, Expires: 04/13/2022 [facility] Work Phone: Comment on above: Expected: 02/11/2022 , Expires: 04/13/2022 Start: 02-11-2022 End: 04-13-2022 RUBELLA IGG AB RUBELLA IGG AB Lab Routine Encounter for supervision of other normal in first trimester Expected: 02/11/2022, Expires: 04/13/2022 [facility] Work Phone: Comment on above: Expected: 02/11/2022 , Expires: 04/13/2022 Start: 02-11-2022 End: 04-13-2022 SYPHILIS TOTAL W/REFLEX SYPHILIS TOTAL W/REFLEX Lab Routine Encounter for supervision of other normal in first trimester Expected: 02/11/2022, Expires: 04/13/2022 [facility] Work Phone: Comment on above: Expected: 02/11/2022 , Expires: 04/13/2022 Start: 02-11-2022 End: 04-13-2022 TYPE + SCREEN TYPE + SCREEN Blood Bank Routine Encounter for supervision of other normal in first trimester Expected: 02/11/2022, Expires: 04/13/2022 [facility] Work Phone: Comment on above: Expected: 02/11/2022 , Expires: 04/13/2022 Start: 11-23-2021 DEPRESSION ASSESSMENT DEPRESSION ASS ESSMENT [facility] Start: 07-24-2021 Influenza vaccination INFLUENZA (#1) [facility] Start: 07-24-2020 Influenza vaccination Flu vacc ine (Season Ended) [place], [place] Start: 07-24-2019 Influenza vaccination Flu vaccine (# 1) [facility] Work Phone: Start: 2017 Screening for malign ant neoplasm of cervix [facility] Start: 08-19-2017 Adult depression screening assessment DEPRESSION SCREENING [facility] Start: 08-22-2013 Hepatitis B Vaccines (3 of 3 - 19+ 3-dose series) Hepatitis B Vaccines (3 of 3 - 19+ 3-dose series) [facility] Start: 08-22-2013 Hepatitis B Vaccines (3 of 3 - 3-dose series) Hepatitis B Vaccines (3 of 3 - 3-dose series) [facility] Start: 03-10-2012 HPV Vaccines (2 - 3- dose series) HPV Vaccines (2 - 3-dose series) [facility] Start: 2008 Cervical cancer screen Cervical canc er screen [facility] Work Phone: Start: 2008 Screening for malign ant neoplasm of cervix [facility] Start: 11-21-2006 Hepatitis A Vaccines (1 of 2 - Risk 2-dose series) Hepatitis A Vaccines (1 of 2 - Risk 2-dose series) [facility] Start: 2006 ONE PNEUMOVAX PRIOR TO AGE 65 ONE PNEUMOVAX PRIOR TO AGE 65 [facility] Start: 2006 Pneumococcal vaccination Pneum ococcal Vaccine (1 of 2 - PCV) [facility] Start: 2006 Pneumococcal Vaccine : Pediatrics (0 to 5 Years) and At-Risk Patients (6 to 49 Years) (1 of 2 - PCV) Pneumococcal Vaccine: Pediatrics (0 to 5 Years) and At-Risk Patients (6 to 49 Years) (1 of 2 - PCV) [facility] Start: 2005 Anxiety Screening Anxiety Screening [facility] Start: 2005 Depression Screening Depression Scre ening [facility] Start: 1999 Depression Monitoring Depression Mon itoring [facility] Start: 1999 Depression Screen Depression Screen [facility] Start: 1999 Depression Screening Depression Scre ening [facility] Start: 1999 Depresssion Monitoring Depresssion M onitoring [facility] Start: 1993 PNEUMOCOCCAL (1 - PCV) PNEUMOCOCCAL (1 - PCV) [facility] Start: 1993 Pneumococcal 0-64 ye ars Vaccine (1 - PCV) Pneumococcal 0-64 years Vaccine (1 - PCV) [facility] Start: 1993 Pneumococcal 0-64 ye ars Vaccine (1 of 1 - PPSV23) Pneumococcal 0-64 years Vaccine (1 of 1 - PPSV23) [place], [place] Start: 1993 Pneumococcal Vaccine : Pediatrics (0 to 5 Years) and At-Risk Patients (6 to 64 Years) (1 - PCV) Pneumococcal Vaccine: Pediatrics (0 to 5 Years) and At-Risk Patients (6 to 64 Years) (1 - PCV) [facility] Start: 1993 Pneumococcal Vaccine : Pediatrics (0 to 5 Years) and At-Risk Patients (6 to 64 Years) (1 of 2 - PCV) Pneumococcal Vaccine: Pediatrics (0 to 5 Years) and At-Risk Patients (6 to 64 Years) (1 of 2 - PCV) [facility] Start: 1992 COVID-19 VACCINE (#1) COVID-19 VACCI NE (#1) [facility] Start: 1992 COVID-19 VACCINE (1) COVID-19 VACCIN E (1) [facility] Start: 1988 HEPATITIS A (1 of 2 - Risk 2-dose series) HEPATITIS A (1 of 2 - Risk 2-dose series) [facility] Start: 1988 Hepatitis A Vaccines (1 of 2 - Risk 2-dose series) Hepatitis A Vaccines (1 of 2 - Risk 2-dose series) [facility] Start: 1988 Varicella vaccine (1 of 2 - 2-dose childhood series) Varicella vaccine (1 of 2 - 2-dose childhood series) [facility] Start: 04-12-1988 COVID-19 VACCINE (#1) COVID-19 VACCI NE (#1) [facility] Start: 1987 HIV screening HIV Screening [facility] Start: 1987 Lipid panel Lipid Panel [facility] Bacteria identified in Urine by Culture URINE CULTURE Microbiology Routine Encounter for supervision of other normal in first trimester 02/11/2022 2:13 PM EDT [facility] Work Phone: Bacteria identified in Urine by Culture URINE CULTURE Microbiology Routine Burning with urination 07/15/2022 11:56 AM T [facility] Work Phone: Buprenorphine and Me tab, Urine, Quant Buprenorphine and Metab, Urine, Quant Lab Routine Severe opioid use disorder, in sustained remission (HCC) 07/19/2024 9:17 AM [facility] Work Phone: End: 04-03-2020 C. Trachomatis / N. Gonorrhoeae, DNA Probe C. Trachomatis / N. Gonorrhoeae, DNA Probe Microbiology Routine One Time for 1 Occurrences starting 04/03/2020 until 04/03/2020 [facility] [place] Comment on above: One Time for 1 Occur rences starting 04/03/2020 until 04/03/2020 C. Trachomatis / N. Gonorrhoeae, DNA Probe [facility] [place] End: 01-27-2020 C. Trachomatis / N. Gonorrhoeae, DNA Probe C. Trachomatis / N. Gonorrhoeae, DNA Probe Microbiology Routine One Time for 1 Occurrences starting 01/27/2020 until 01/27/2020 [facility] Comment on above: One Time for 1 Occur rences starting 01/27/2020 until 01/27/2020 Chlamydia trachomatis+Neisseria gonorrhoeae DNA [Presence] in Unspecified specimen by BECKY with probe detection GC/CHLAMYDIA DNA DET Lab Routine Encounter for supervision of other normal in first trimester 02/11/2022 2:13 PM EDT [facility] Work Phone: Collect duration Time Ur [facility] Work Phone: Creatinine [Mass/ryan e] in 24 hour Urine [facility] Work Phone: Creatinine [Mass/vol ume] in Urine [facility] Work Phone: End: 03-31-2026 Echocardiography ECHO Cardiology Routine Palpitations Dyspnea, unspecified type 1 Occurrences starting 03/31/2025 until 03/31/2026 [facility] Work Phone: Comment on above: 1 Occurrences starti ng 03/31/2025 until 03/31/2026 End: 04-30-2026 LUNG DIFFUSION CAPACITY (DLCO) LUNG DIFFUSION CAPACITY (DLCO) PFT Routine Dyspnea, unspecified type 1 Occurrences starting 03/31/2025 until 04/30/2026 [facility] Comment on above: 1 Occurrences starti ng 03/31/2025 until 04/30/2026 End: 04-30-2026 LUNG VOLUMES LUNG VOLUMES PFT Routine Dyspnea, unspecified type 1 Occurrences starting 03/31/2025 until 04/30/2026 [facility] Comment on above: 1 Occurrences starti ng 03/31/2025 until 04/30/2026 NUCHAL TRANSLUCENCY [facility] NUCHAL T RANSLUCENCY [facility] Anc Imaging Routine Encounter for supervision of other normal in first trimester Ordered: 02/11/2022 [facility] Work Phone: Comment on above: Ordered: 02/11/2022 OBSTETRIC ULTRASOUND [facility] Work Phone: Comment on above: Ordered: 02/11/2022 OBSTETRIC ULTRASOUND [facility] OBSTETR IC ULTRASOUND [facility] Routine Encounter for screening for cervical length Ordered: 06/05/2022 [facility] Work Phone: Comment on above: Ordered: 06/05/2022 OBSTETRIC ULTRASOUND [facility] OBSTETR IC ULTRASOUND [facility] Routine Suspected anomaly not found History of delivery Ordered: 06/12/2022 [facility] Work Phone: Comment on above: Ordered: 06/12/2022 PAP FLUID CERVICAL SCREENING PAP FLUID CERVICAL SCREENING Lab Routine Encounter for supervision of other normal in first trimester 02/11/2022 2:30 PM EDT [facility] Work Phone: Patient Education [facility] Work Phone: Patient referral [facility] Work Phone: Protein [Mass/time] in 24 hour Urine [facility] Work Phone: Protein [Mass/volume ] in 24 hour Urine [facility] Work Phone: Protein measurement, urine, quantitative 24 hour [facility] Work Phone: End: 04-30-2026 SPIROMETRY - BASELINE AND POST DILATOR SPIROMETRY - BASELINE AND POST DILATOR PFT Routine Dyspnea, unspecified type 1 Occurrences starting 03/31/2025 until 04/30/2026 [facility] Comment on above: 1 Occurrences starti ng 03/31/2025 until 04/30/2026 Urine culture Urine Culture [facility] Work Phone: URINE OB DIP B/O URINE OB DIP B/ O Lab Routine 33 weeks gestation of Ordered: 08/27/2022 [facility] Work Phone: Comment on above: Ordered: 08/27/2022 Urine sample volume measurement [facility] Work Phone: End: 01-27-2020 VAGINAL PATHOGENS DNA PANEL VAGINAL PATHOGENS DNA PANEL Microbiology Routine One Time for 1 Occurrences starting 01/27/2020 until 01/27/2020 [facility] Comment on above: One Time for 1 Occur rences starting 01/27/2020 until 01/27/2020 VAGINAL PATHOGENS DN A PANEL VAGINAL PATHOGENS DNA PANEL Microbiology STAT 01/27/2020 4:49 PM EST [facility] Immunizations Immunization Date Immunization Notes Care Provider Evan choi 09-06-2022 measles, mumps and rubella virus vaccine No Primary Care Physician [facility] Work Phone: 01-17-2021 RHO(D) immune globul in- IV or IM Mine Plotts FLIGHT SECURITY SPECIALIST.CNM Work Phone: [facility] 01-17-2021 tetanus toxoid, redu mack diphtheria toxoid, and acellular pertussis vaccine, adsorbed Mine Plotts FLIGHT SECURITY SPECIALIST.CNM Work Phone: [facility] 10-09-2020 influenza, injectabl e, quadrivalent, contains preservative Mine Plotts FLIGHT SECURITY SPECIALIST.CNM Work Phone: [facility] 10-09-2020 influenza virus vaccine, unspecified formulation Bang Mcclelland MD Work Phone: [facility] 01-08-2016 RHO(D) immune globul in- IV or IM Mine Plotts FLIGHT SECURITY SPECIALIST.CNM Work Phone: [facility] Work Phone: 11-05-2015 tetanus toxoid, redu mack diphtheria toxoid, and acellular pertussis vaccine, adsorbed Mine Plotts FLIGHT SECURITY SPECIALIST.CNM Work Phone: [facility] 10-15-2015 RHO(D) immune globul in- IV or IM Mine Plotts FLIGHT SECURITY SPECIALIST.CNM Work Phone: [facility] 08-20-2015 Influenza virus vaccine No P rimary Care Physician [facility] 08-20-2015 influenza, injectabl e, quadrivalent, contains preservative Mine Plotts FLIGHT SECURITY SPECIALIST.CNM Work Phone: [facility] 08-20-2015 influenza, seasonal, injectable Rishabh Rea MD Work Phone: [facility] 08-20-2015 influenza, seasonal, injectable, preservative free Mine Plotts FLIGHT SECURITY SPECIALIST.CNM Work Phone: [facility] 06-27-2013 hepatitis B vaccine, adult dosage Mine Plotts FLIGHT SECURITY SPECIALIST.CNM Work Phone: [facility] 10-06-2012 influenza virus vaccine, unspecified formulation Mine Moellerts FLIGHT SECURITY SPECIALIST.CNM Work Phone: [facility] 02-11-2012 human papilloma viru s vaccine, quadrivalent Mine Plotts FLIGHT SECURITY SPECIALIST.CNM Work Phone: [facility] Work Phone: 02-11-2012 HPV, unspecified formulation Rishabh Rea MD Work Phone: [facility] 08-23-2011 influenza virus vaccine, unspecified formulation Mine Anton FLIGHT SECURITY SPECIALIST.CNM Work Phone: [facility] 04-23-2010 hepatitis B vaccine, adult dosage Mine Plotts FLIGHT SECURITY SPECIALIST.CNM Work Phone: [facility] 04-23-2010 tetanus toxoid, redu mack diphtheria toxoid, and acellular pertussis vaccine, adsorbed Mine Plotts FLIGHT SECURITY SPECIALIST.CNM Work Phone: [facility] 04-23-2010 tuberculin skin test ; purified protein derivative solution, intradermal Izzy Horner MD Work Phone: [facility] 07-23-2009 RHO(D) immune globul in- IV or IM Mine Anton FLIGHT SECURITY SPECIALIST.CNM Work Phone: [facility] Work Phone: Payers Date Payer Category Payer Self-pay [id number] 2022 Commercial Managed C are - HMO [id number] 2022 Medicaid HMO [facility] MEDICAID ODM [id number] 2022 Private Health Insurance [facility] [id number] 2022-Present [address] [address] [place] [address] Commercial [id number] 2018 Medicaid [facility] MEDICAID [facility] COMMUNITY PLAN MEDICAID [id number] 2018-Present [phone] [address] [place] [address] Medicaid [id number] 2018 Medicaid [id number] 2016 Medicaid [id number] 2015 Medicaid [id number] 2015 Private Health Insurance [facility] COMMUNITY [facility] COMMUNITY PLAN xxxxxxxxx 2015-Present [phone] [address] [place] [address] xxxxxxxxx [id number] Unknown [id number] Unknown [id number] Social History Date Type Detail Facility Start: 04-03-2020 End: 03-31-2025 Tobacco smoking status NHIS Current some day smoker [facility] Start: 04-03-2020 End: 07-22-2024 Alcohol intake Ex-drinker (finding) [facility] Work Phone: Start: 1985 Sex Assigned At Not on file [facility] Work Phone: Start: 08-25-2022 End: 09-04-2022 Exposure to SARS-CoV-2 (event) Unable to assess [place], [place] Start: 03-21-2016 End: 03-08-2025 Tobacco smoking status NHIS Smokes tobacco daily [facility] History of tobacco use Cigarette Smoker C [facility] Start: 03-21-2016 End: 03-03-2025 Cigarettes smoked current (pack per day) - Reported 1 [facility] Start: 03-21-2016 End: 03-31-2025 Tobacco use and exposure Smokeless tobacco non-user [facility] Start: 02-12-2022 End: 06-06-2025 Alcohol intake Current non-drinker of alcohol (finding) [facility] Start: 08-02-2020 History SDOH Financial 4 [facility] Start: 08-02-2020 End: 04-03-2023 History SDOH Food Worry 1 [facility] Start: 08-02-2020 Education 14 [facility] Start: 01-16-2022 [facility] Start: 1985 Sex Assigned At Female [facility] Start: 02-01-2022 End: 08-06-2023 Exposure to SARS-CoV-2 (event) Not sure [facility] Start: 03-06-2022 End: 08-27-2022 Tobacco smoking status NHIS Ex-smoker [facility] Start: 03-06-2022 End: 08-27-2022 Tobacco Comment quit when she was [facility] Start: 01-31-2021 Tobacco Comment pt refused [facility] [employer] Phone: History of tobacco use Current smoker [facility] Start: 02-22-2021 End: 09-07-2022 Tobacco smoking status NHIS Unknown if ever smoked [facility] Work Phone: Start: 09-24-2019 None [facility] Start: 01-23-2020 Cigarettes [facility] Start: 04-03-2023 History SDOH Alcohol Frequency 2 [facility] Start: 04-03-2023 History SDOH Social Connections Living 7 [facility] Start: 04-03-2023 History SDOH Physical Activity DPW 0 [facility] Start: 04-03-2023 History SDOH Stress 5 [facility] Start: 04-03-2023 History SDOH Financial 3 [facility] Start: 04-03-2023 End: 03-03-2025 Humiliation, Afraid, Rape, and Kick questionnaire [HARK] [facility] Within the last year , have you been afraid of your partner or ex-partner? Yes [facility] Within the last year , have you been raped or forced to have any kind of sexual activity by your partner or ex-partner? No [facility] Are you now , , , , never or living with a partner? Never [facility] How often to you hav e a drink containing alcohol? Monthly or less [facility] How many standard dr inks containing alcohol do you have on a typical day? 1 or 2 [facility] How often do you hav e 6 or more drinks on 1 occasion? Never [facility] How hard is it for y ou to pay for the very basics like food, housing, medical care, and heating Somewhat hard [facility] Do you feel stress - tense, restless, nervous, or anxious, or unable to sleep at night because your mind is troubled all the time - these days [OSQ] Very much [facility] (I/We) worried wheth er (my/our) food would run out before (I/we) got money to buy more. Sometimes true [facility] In the past 12 month s, has lack of transportation kept you from medical appointments or from getting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 PERRL and EOMs intact bilaterally Neck no lymphadenopathy, supple and no JVD Lymph Lymphatic: no lymphadenopathy noted Chest Wall inspection of chest normal and palpation of chest normal Resp normal respiratory effort and clear to auscultation bilaterally Auscultation: Negative for rales, rhonchi, wheezes, diminished lung sounds or other Cardio regular rhythm, S1 normal heart sound, S2 normal heart sound and no murmurs; Negative for regular rate Cardio Narrative: Chronic bradycardia in the 50s. No murmur. GI soft to palpation, non-tender, non-distended and no masses Palpation: Negative for tender, guarding or rigid Back/Spine no CVA tenderness General Back: Negative for CVA tenderness Cervical Spine: Negative for cervical spine tenderness Thoracic Spine / Upper Back: Negative for thoracic spinal tenderness Lumbar Spine / Lower Back: Negative for lumbar spinal tenderness Coccyx: Negative for swelling Extremity General Extremety ED: Negative for edema or tenderness General Extremity: Negative for edema Neuro oriented x3 and CN's II-XII intact bilaterally Sensorium / Orientation: alert, oriented to person, oriented to place and oriented to time; Negative for confused, lethargic or stuporous Motor Exam: strength 5/5 throughout Psych mental status grossly normal and thought process normal Appearance: Negative for unkempt Attitude: No belligerent, No agitated and No aggressive Mood & Affect: anxious; Negative for depressed Skin General Skin Exam: Negative for jaundice Lesions: no lesions Rashes: no rashes Trauma: Negative for abrasion MDM MDM MDM Narrative Medical decision making narrative: 39-year-old female first trimester history of heroin abuse on Subutex but recently ran out. Having nausea vomiting. She received IV fluids and Zofran. Ativan for her anxiety and withdrawal.Screening labs. Her abdomen isbenign. I do not think she needs any imaging. Repeat exam patient is doing well at 1:50 PM. I do lengthy discussion both her and her mother at bedside. She will be discharged home with Zofran for nausea. Follow-up with [facility] soon as possible tostart care. I referred her to the [facility] group as they were on-call today for nodoc. She also needs to either follow-up with 180 or whoever can prescribe her long-term for the Subu mumtaz for her history of drug abuse. I spoke to her pharmacy and I can prescribe it I gave her 7 daysworth of the current dose that she is on which is8 mg 2-3 times a day. She is doing much better andwill be discharged home was comfortable to plan. History & Record Review Discussion w/independent historian: Patient and Family Additional record(s) reviewed:: Prior inpatient record, Prior outpatient record,Prior ED visit and Prior labs Lab Data Attestation: I reviewed the patient's lab results. Lab results narrative: CBC white count 8.2. H&H 12.9 and 37.8. Platelets 285. Electrolytes show sodium 134. Gap 11. BUN of 10 creatinine 0.6. Glucose 95. Labs are consistent with prior and she had a recent UA that was negative. Labs: Laboratory Results - last 24 hr 03/08/25 12:33 WBC 8.2 RBC 4.52 Hgb 12.9 Hct 37.8 MCV 83.6 MCH 28.5 MCHC 34.1 RDW Std Deviation 38.2 RDW Coeff of Rekha 12.6 Plt Count 285 MPV 9.4 Immature Gran % (Auto) 0.500 Neut % (Auto) 70.7 H Lymph % (Auto) 21.0 Gilliam % (Auto) 6.3 Eos % (Auto) 1.1 Baso % (Auto) 0.4 Absolute Neuts (auto) 5.8 Absolute Lymphs (auto) 1.73 Nucleated RBC % 0 Sodium 134 Potassium 4.2 Chloride 100 Carbon Dioxide 22.8 Anion Gap 11 BUN 10 Creatinine 0.62 L Estim Creat Clear Calc 107.28 Est GFR (MDRD) Non-Af 118 BUN/Creatinine Ratio 16.6 Glucose 95 Calcium 9.7 Radiography Chest X-Ray - ED: 2 View, Read by ED Physician, Read by Radiologist, Heart, Lungs, Mediastinum, Bony Structures, No Acute Disease and Chronic Changes Diagnostic Testing: Chest x-ray, 2 views, AP and lateral, interpreted by myself and radiologist shows no acute abnormality. Normal cardiac silhouette. Normal lung onofre. Nopneumonia. Discharge Plan Triage Chief Complaint: Substance Abuse ED Provider: Stefano Rueda Dx/Rx/DC Orders Clinical Impression: Withdrawal syndrome, Vomiting, History of bipolar disorder, History of substance abuse Instructions: ED Vomiting (Adult) Prescriptions: New ondansetron 4 mg tablet,disintegrating 4 mg PO Q8H PRN PRN (Reason: Nausea) Qty: 10 0RF buprenorphine HCl 8 mg tablet, sublingual 8 mg sublingual BID 7 Days Qty: 14 0RF No Action buprenorphine HCl 8 mg tablet, sublingual 8 mg PO BID Patient Comments: 8 mg am, 8 mg lagte afternoon early evening food supplemt, lactose-reduced 237 ML liquid 237 ml PO TID ondansetron 8 mg tablet,disintegrating 8 mg PO TID PRN (Reason: nausea and vomiting) Qty: 60 2RF ibuprofen 600 mg tablet 600 mg PO Q6H PRN (Reason: pain) Qty: 30 0RF acetaminophen [Tylenol] 325 mg tablet 650 mg PO Q6H PRN (Reason: pain) Qty: 30 0RF metoclopramide HCl [Reglan] 5 mg tablet 5 mg PO Q6H PRN (Reason: nausea and vomiting) Qty: 20 0RF Primary Care Provider: Donavan Mcclelland Referrals: Donavan Mcclelland MD [Primary Care Provider] - As Needed Mars Plummer MD [Med Staff - Active Staff] - As soon as possible [facility] [Non-Staff] - As soon as possible Activity Restrictions/Additional Instructions: Zofran as needed for nausea. Follow-up with [facility] as soon as possible to start your care. Follow-up with 180 or who is ever going to prescribe your Subutex. I did give you a weeks worth. Plenty of fluids and rest. Slowly increase diet as tolerated. Print Language: Peruvian Disposition Disposition: Home, Self Care What to do if you have Problems For any increased pain, shortness of breath, bleeding, nausea or vomiting, chestpain, or any unexpected problems, contact your Primary Care Provider. Call [facility] ([phone]) or report tothe closest Emergency Room. Call 911 if necessary. 03/08/25 1355 Cosigner Signature (if applicable): CC: Dr. Donavan Mcclelland MD ~ Signed [facility]03-15-2025 Telephone encounter Note* Telephone Encounter - Rishabh Rea MD - 02/04/2025 10:28 AM EDT New Medications Ordered This Visit Medications buprenorphine (Subtex) 8 MG Sig: Place 2.5 tablets (20 mg) under the tongue daily. Dispense: 75 tablet Refill: 0 She has appt with new provider in February and needs bridge rx. She did provide proof of new appt thruMyChart. [facility] CenterBidpad1987 Miscellaneous Notes* Telephone Encounter - Rishabh Rea MD - 02/04/2025 10:28 AM EDT New Medications Ordered This Visit Medications buprenorphine (Subtex) 8 MG Sig: Place 2.5 tablets (20 mg) under the tongue daily. Dispense: 75 tablet Refill: 0 She has appt with new provider in February and needs bridge rx. She did provide proof of new appt thruMyChart. documented in this [facility]02-06-2025 Note* Addendum Note - Rishabh Rea MD - 12/29/2024 5:37 PM ESTAddended by: RISHABH REA on: 12/29/2024 05:37 PM Modules accepted: Orders [facility] [id number] Note* Addendum Note - Rishabh Rea MD - 12/29/2024 5:37 PM ESTAddended by: RISHABH REA on: 12/29/2024 05:37 PM Modules accepted: Orders [facility] [id number] Miscellaneous Notes* Addendum Note - Rishabh Rea MD - 12/29/2024 5:37 PM ESTAddended by: RISHABH REA on: 12/29/2024 05:37 PM Modules accepted: Orders * Telephone Encounter - Rishabh Rea MD - 12/26/2024 4:15 PM EST Patient is being discharged from my clinic for multiple no shows. I did send a 30 day rx now to help bridge her until she can find another provider. New Medications Ordered This Visit Medications buprenorphine (Subtex) 8 MG Sig: Place 2.5 tablets (20 mg) under the tongue daily. Dispense: 75 tablet Refill: 0 documented in this [facility]SEast [facility] [id number] Telephone encounter Note* Telephone Encounter - Rishabh Rea MD - 12/26/2024 4:15 PM EST Patient is being discharged from my clinic for multiple no shows. I did send a 30 day rx now to help bridge her until she can find another provider. New Medications Ordered This Visit Medications buprenorphine (Subtex) 8 MG Sig: Place 2.5 tablets (20 mg) under the tongue daily. Dispense: 75 tablet Refill: 0 [facility] [id number] Miscellaneous Notes* Telephone Encounter - Rishabh Rea MD - 12/26/2024 4:15 PM EST Patient is being discharged from my clinic for multiple no shows. I did send a 30 day rx now to help bridge her until she can find another provider. New Medications Ordered This Visit Medications buprenorphine (Subtex) 8 MG Sig: Place 2.5 tablets (20 mg) under the tongue daily. Dispense: 75 tablet Refill: 0 documented in this encounterSEast [facility] [id number] Telephone encounter Note* Telephone Encounter - Rishabh Rea MD - 12/09/2024 12:58 PM EST Spoke to patient, sent refill until rescheduled appt on 12/19 [facility] [id number] Miscellaneous Notes* Telephone Encounter - Rishabh Rea MD - 12/09/2024 12:58 PM EST Spoke to patient, sent refill until rescheduled appt on 12/19 * Telephone Encounter - Ramin Kathleen - 12/06/2024 3:40 PM EST Spoke with Patient, states she has been having extras meds that you know how she takes her medication, patient states she has not been out of meds this entire month, when asked she could not give howmany days she has been out, advised patient of needing a urine, before considering medication refill, patient has been advised to go to ED for daily dosing until appointment. Patient plans to go to ED to get daily dosed. * Telephone Encounter - Ed Hooks - 12/06/2024 3:04 PM EST Name of Caller: Marco Lopes Contact Reason for Appointment: Pt needs her Subtex please call pt if she needs to do a drug screen today. Pt is agreeable to come to office on 12/08/24 @ 2:15pm with Dr. Rishabh Rea in order to get her refill! Office Name: [facility] Medication Refills need, if any: Pt is asking if she can get this Rx until NOV. Please call to confirm. Medication Name: buprenorphine (Subtex) 8 MG Please send to [id number] - [place], [place] - [address] [place] [address] Hours: Not open 24 hour * Telephone Encounter - Ramin Kathleen - 12/05/2024 10:36 AM EST LVM for patient to return call to confirm if 12/08/24 at 2:15pm would work for patient (confirmed day and time with provider) Appointment will need to be in- person patients last office visit was 11/02/23 and per [facility] policy as well as for insurance purposes patients must be seen in-office one time per year. * Telephone Encounter - Rishabh Rea MD - 12/05/2024 10:02 AM EST Can she do this at like 2:15 PM? Looks like she missed her appt on 10/31 so I don't know how she still has medications... * Telephone Encounter - Ramin Kathleen - 12/04/2024 11:34 AM EST When would you like to schedule patient? Last visit 09/05/25 * Telephone Encounter - Ekaterina Lacy - 12/02/2024 3:35 PM EST Name of Caller: Marco Lopes Contact Reason for Appointment: Pt calling to request an appt and discuss her meds. Pt States she needs a refill, because she is almost out of them. Please advise Office Name: Medication Refills need, if any: n/a Medication Name: n/a documented in this [facility]01-17-2025 Telephone encounter Note* Telephone Encounter - Rishabh Rea MD - 12/09/2024 10:05 AM EST New Medications Ordered This Visit Medications buprenorphine (Subtex) 8 MG Sig: Place 2.5 tablets (20 mg) under the tongue daily for 10 days. Dispense: 25 tablet Refill: 0 She missed her appt in October. Then missed her appt yesterday. She did have left over subutex. Prefers subutex due to allergy documented in my last note. She did do UDS. Appt refilled on 12/19/24. [facility] [id number] Miscellaneous Notes* Telephone Encounter - Rishabh Rea MD - 12/09/2024 10:05 AM EST New Medications Ordered This Visit Medications buprenorphine (Subtex) 8 MG Sig: Place 2.5 tablets (20 mg) under the tongue daily for 10 days. Dispense: 25 tablet Refill: 0 She missed her appt in October. Then missed her appt yesterday. She did have left over subutex. Prefers subutex due to allergy documented in my last note. She did do UDS. Appt refilled on 12/19/24. documented in this [facility]01-14-2025 Telephone encounter Note* Telephone Encounter - Ramin Hever - 12/06/2024 3:40 PM EST Spoke with Patient, states she has been having extras meds that you know how she takes her medication, patient states she has not been out of meds this entire month, when asked she could not give howmany days she has been out, advised patient of needing a urine, before considering medication refill, patient has been advised to go to ED for daily dosing until appointment. Patient plans to go to ED to get daily dosed. [id number] Telephone encounter Note* Telephone Encounter - Ed Hooks - 12/06/2024 3:04 PM EST Name of Caller: Marco Lopes Contact Reason for Appointment: Pt needs her Subtex please call pt if she needs to do a drug screen today. Pt is agreeable to come to office on 12/08/24 @ 2:15pm with Dr. Rishabh Rea in order to get her refill! Office Name: [facility] Medication Refills need, if any: Pt is asking if she can get this Rx until SEP. Please call to confirm. Medication Name: buprenorphine (Subtex) 8 MG Please send to [facility] [id number] [place] [id number] [place] [id number] [facility] [id number] Hours: Not open 24 hour [id number] Telephone encounter Note* Telephone Encounter - Ramin Kathleen - 12/05/2024 10:36 AM EST LVM for patient to return call to confirm if 12/08/24 at 2:15pm would work for patient (confirmed day and time with provider) Appointment will need to be in- person patients last office visit was 11/02/23 and per [facility] policy as well as for insurance purposes patients must be seen in-office one time per year. [id number] Telephone encounter Note* Telephone Encounter - Rishabh Rea MD - 12/05/2024 10:02 AM EST Can she do this Thursday at like 2:15 PM? Looks like she missed her appt on 10/31 so I don't know how she still has medications... [facility] [id number] Telephone encounter Note* Telephone Encounter - Ramin Kathleen - 12/04/2024 11:34 AM EST When would you like to schedule patient? Last [facility]05/[id number] Telephone encounter Note* Telephone Encounter - Ekaterina Lacy - 12/02/2024 3:35 PM EST Name of Caller: Marco Lopes Contact Reason for Appointment: Pt calling to request an appt and discuss her meds. Pt States she needs a refill, because she is almost out of them. Please advise Office Name: [facility] Medication Refills need, if any: n/a Medication Name: n/a [facility] [id number] Telephone encounter Note* Telephone Encounter - Margarette Dickerson - 11/25/2024 2:50 PM EST Name of caller: Marco Contact phone number: [phone] Relationship to Patient: patient Provider: Dr. Mcclelland Practice: [facility] Chief Complaint/Reason for Call: The patient is calling about the above medication because she is out of medication. Also, the patient states her Insurance Company has denied the azelaic acid (Azelex) 20 % cream. Please call the patient to advise. Best time of day caller can be reached: anytime or call the patient on her daughter, Larisa, phoneat [phone]. Patient advised that office/PCP has 24-48 business hours to return their call: Yes [employer]01-03-2025 Miscellaneous Notes* Telephone Encounter - Margarette Dickerson - 11/25/2024 2:50 PM EST Name of caller: Mraco Contact phone number: [phone] Relationship to Patient: patient Provider: Dr. Mcclelland Practice: [facility] Chief Complaint/Reason for Call: The patient is calling about the above medication because she is out of medication. Also, the patient states her Insurance Company has denied the azelaic acid (Azelex) 20 % cream. Please call the patient to advise. Best time of day caller can be reached: anytime or call the patient on her daughter, Larisa, phoneat [phone]. Patient advised that office/PCP has 24-48 business hours to return their call: Yes * Telephone Encounter - Ann Hart - 11/11/2024 3:17 PM EST Medication name: amphetamine-dextroamphetamine (Adderall) 20 MG tablet Medication dosage: 20 mg (Miligrams Monthly quantity needed: 60 How many day supply requestin days Medication route: oral (PO) Medication administration time(s): 2 times a day (BID) If taking medication PRN, reason for taking medication: N/A If this is a controlled substance do you receive this or any other controlled medication from any other doctor or facility: No Ordering provider: Dr. Mcclelland Date of last office visit: 07.22.2024 Date of next office visit: 11.17.2024 Date of last refill: (see medication tab): 10.03.2024 Updated/Validated preferred pharmacy: Yes Patient instructed to contact the pharmacy prior to picking up the medication: Yes documented in this [facility]12-20-2024 Telephone encounter Note* Telephone Encounter - Elena Soliz RN - 11/11/2024 3:41 PM EST S: Patient spoke with [facility] nurse regarding tooth pain B: Onset of symptoms/concern day or two A: States she has ongoing issues with her teeth. Many are broken and occasionally get infected. States yesterday she started experiencing jaw swelling, pain and sensitivity 05/02. States she uses tylenol which helps a bit, brushing, flossing, and mouth wash. States she does have a dentist in [place] [employer] who is an hour away. States she has a hard time getting to dentist with a car that barely works, 6 children and new grand baby. Can provider prescribed antibiotic for her teeth? States she has an appointment on 11/17 R: Advised patient note will be sent to office regarding her symptoms and request. She is advised to make an appointment to see her dentist as soon as possible. She can use ice and salt water to gargle and to make sure she performs mouth care after eating. Patient understands care advice. No further needs at this time. Patient instructed to call back with new or worsening symptoms. Reason for Disposition Tooth pain (toothache) or swelling around a tooth Toothache present > 24 hours Protocols used: Mouth Mtsh-HTRPO-KK, Tanfqgkmu-GYFEH-PY [facility] [id number] Miscellaneous Notes* Telephone Encounter - Elena Soliz RN - 11/11/2024 3:41 PM EST S: Patient spoke with [facility] nurse regarding tooth pain B: Onset of symptoms/concern day or two A: States she has ongoing issues with her teeth. Many are broken and occasionally get infected. States yesterday she started experiencing jaw swelling, pain and sensitivity 05/02. States she uses tylenol which helps a bit, brushing, flossing, and mouth wash. States she does have a dentist in [place] [employer] [employer] who is an hour away. States she has a hard time getting to dentist with a car that barely works, 6 children and new grand baby. Can provider prescribed antibiotic for her teeth? States she has an appointment on 11/17 R: Advised patient note will be sent to office regarding her symptoms and request. She is advised to make an appointment to see her dentist as soon as possible. She can use ice and salt water to gargle and to make sure she performs mouth care after eating. Patient understands care advice. No further needs at this time. Patient instructed to call back with new or worsening symptoms. Reason for Disposition Tooth pain (toothache) or swelling around a tooth Toothache present > 24 hours Protocols used: Mouth Cles-TDJMN-DG, Vfaqxeyld-PCYFK-HD documented in this [facility]12-20-2024 Telephone encounter Note* Telephone Encounter - Ann Hart - 11/11/2024 3:17 PM EST Medication name: amphetamine-dextroamphetamine (Adderall) 20 MG tablet Medication dosage: 20 mg (Miligrams Monthly quantity needed: 60 How many day supply requestin days Medication route: oral (PO) Medication administration time(s): 2 times a day (BID) If taking medication PRN, reason for taking medication: N/A If this is a controlled substance do you receive this or any other controlled medication from any other doctor or facility: No Ordering provider: Dr. Mcclelland Date of last office visit: 07.22.2024 Date of next office visit: 11.17.2024 Date of last refill: (see medication tab): 10.03.2024 Updated/Validated preferred pharmacy: Yes Patient instructed to contact the pharmacy prior to picking up the medication: Yes [facility] [id number] Telephone encounter Note* Telephone Encounter - Sharla G Leonard - 10/03/2024 11:16 AM EST Ordering provider: Dr. Mcclelland Date of last office visit: 07/22/24 Date of next office visit: 11/17/ Updated/Validated preferred pharmacy: Yes Patient instructed to contact the pharmacy prior to picking up the medication: Yes (1) Medication name: amphetamine-dextroamphetamine (Adderall) 20 MG tablet Medication dosage: 20 mg (Miligrams Monthly quantity needed: 60 How many day supply requestin Medication route: oral (PO) Medication administration time(s): 2 times a day (BID) If taking medication PRN, reason for taking medication: N/A If this is a controlled substance do you receive this or any other controlled medication from any other doctor or facility: N/A Date of last refill (see medication tab): 08/30/24 (2) Medication name: ondansetron (Zofran) 4 MG tablet PT REQUESTING DISSOLVABLE TABLETS. PLEASE ADVISE Medication dosage: 4 mg (Miligrams Monthly quantity needed: 60 How many day supply requestin days Medication route: oral (PO) Medication administration time(s): Take 1 tablet (4 mg) by mouth every 8 hours as needed for nauseaor vomiting. If taking medication PRN, reason for taking medication: Take 1 tablet (4 mg) by mouth every 8 hoursas needed for nausea or vomiting. If this is a controlled substance do you receive this or any other controlled medication from any other doctor or facility: N/A Date of last refill (see medication tab): 08/30/24 (3) Medication name: omeprazole (PriLOSEC) [address] capsule Medication dosage: 40 mg (Miligrams Monthly quantity needed: 30 How many day supply requestin days Medication route: oral (PO) Medication administration time(s): daily If taking medication PRN, reason for taking medication: N/A If this is a controlled substance do you receive this or any other controlled medication from any other doctor or facility: N/A Date of last refill (see medication tab): 04/28/24 [facility]11-11-2024 Miscellaneous Notes* Telephone Encounter - Sharla Valle - 10/03/2024 11:16 AM EST Ordering provider: Dr. Mcclelland Date of last office visit: 07/22/24 Date of next office visit: 11/17/ /Validated preferred pharmacy: Yes Patient instructed to contact the pharmacy prior to picking up the medication: Yes (1) Medication name: amphetamine-dextroamphetamine (Adderall) 20 MG tablet Medication dosage: 20 mg (Miligrams Monthly quantity needed: 60 How many day supply requestin Medication route: oral (PO) Medication administration time(s): 2 times a day (BID) If taking medication PRN, reason for taking medication: N/A If this is a controlled substance do you receive this or any other controlled medication from any other doctor or facility: N/A Date of last refill (see medication tab): 08/30/24 (2) Medication name: ondansetron (Zofran) 4 MG tablet PT REQUESTING DISSOLVABLE TABLETS. PLEASE ADVISE Medication dosage: 4 mg (Miligrams Monthly quantity needed: 60 How many day supply requestin days Medication route: oral (PO) Medication administration time(s): Take 1 tablet (4 mg) by mouth every 8 hours as needed for nauseaor vomiting. If taking medication PRN, reason for taking medication: Take 1 tablet (4 mg) by mouth every 8 hoursas needed for nausea or vomiting. If this is a controlled substance do you receive this or any other controlled medication from any other doctor or facility: N/A Date of last refill (see medication tab): 08/30/24 (3) Medication name: omeprazole (PriLOSEC) [address] capsule Medication dosage: 40 mg (Miligrams Monthly quantity needed: 30 How many day supply requestin days Medication route: oral (PO) Medication administration time(s): daily If taking medication PRN, reason for taking medication: N/A If this is a controlled substance do you receive this or any other controlled medication from any other doctor or facility: N/A Date of last refill (see medication tab): 04/28/24 documented in this [facility]10-14-2024 History of Present illness Narrative* Rishabh Rea MD - 09/05/2024 2:00 PM EDT Images from the original note were not included. MEDICATION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 [facility] Diagnosis Severe opioid use disorder, in sustained remission (HCC) [facility]* Diagnosis Epigastric pain- Primary Abdominal pain, epigastric Dyspepsia Dyspepsia and other specified disorders of function of stomach Attention deficit hyperactivity disorder (ADHD), combined type Chronic pain of left knee [facility] Diagnosis Attention deficit hyperactivity disorder (ADHD), combined type [facility]* Diagnosis Severe opioid use disorder, in sustained remission (HCC) [facility]* Diagnosis Severe opioid use disorder, in sustained remission (HCC) [facility] Diagnosis Severe opioid use disorder, in sustained remission (HCC) Cannabis use, unspecified, in remission Well woman exam with routine gynecological exam Routine gynecological examination Cervical cancer screening Screening for malignant neoplasm of the cervix [facility] Diagnosis Attention deficit hyperactivity disorder (ADHD), combined type documented in this encounter [facility] note* Diagnosis Attention deficit hyperactivity disorder (ADHD), combined type- Primary documented in this encounter [facility] note* Diagnosis Severe opioid use disorder, in sustained remission (HCC) documented in this encounter [facility] note* Diagnosis Attention deficit hyperactivity disorder (ADHD), combined type- Primary Hyperpigmentation of skin Other dyschromia documented in this encounter [facility] note* Diagnosis Severe opioid use disorder, in sustained remission (HCC) documented in this encounter [facility] note* Diagnosis Severe opioid use disorder, in sustained remission (HCC) documented in this encounter [facility] note* Diagnosis Attention deficit hyperactivity disorder (ADHD), combined type documented in this encounter [facility] note* Diagnosis Severe opioid use disorder, in sustained remission (HCC) Severe opioid use disorder, in sustained remission (HCC) documented in this encounter [facility] note* Diagnosis Severe opioid use disorder, in sustained remission (HCC) documented in this encounter [facility] noteNo assessment information availableWAultman [facility] Work Phone: Evaluation note* Diagnosis Attention deficit hyperactivity disorder (ADHD), combined type documented in this encounter [facility] note* Diagnosis with inconclusive viability, single or unspecified fetus ([facility])- Primary Nausea and vomiting in ([facility]) Unspecified vomiting of , unspecified as to episode of care documented in this encounter [facility] note* Diagnosis Anxiety- Primary Anxiety state, unspecified Panic attacks Panic disorder without agoraphobia Sinus bradycardia Other specified cardiac dysrhythmias Palpitations Dyspnea, unspecified type Increased thirst Polydipsia Weight loss Loss of weight Bipolar disorder, current episode mixed, severe, with psychotic features ([facility]) Bipolar I disorder, most recent episode (or current) mixed, severe, specified as with psychotic behavior Second trimester ([facility]) state, incidental Tobacco use Tobacco use disorder History of intravenous drug use Family history of breast cancer Family history of malignant neoplasm of breast documented in this encounter [facility] note* Diagnosis Supervision of high risk in first trimester (HCC)- Primary Unspecified high-risk complicated by subutex maintenance, antepartum ([facility]) [facility] Diagnosis complicated by subutex maintenance, antepartum (HCC)- Primary with inconclusive viability, single or unspecified fetus ([facility]) Nausea and vomiting in ([facility] [place] Unspecified vomiting of , unspecified as to episode of care Advanced maternal age in multigravida, second trimester ([facility] [place] Supervision of high risk in second trimester ([facility] [place] Primary Unspecified high-risk Request for sterilization Insufficient care in second trimester ([facility] [place] documented in [facility] encounter [facility]* Diagnosis Supervision of high risk in second trimester ([facility] [place] Primary Unspecified high-risk Request for sterilization Insufficient care in second trimester ([facility] [place]) * Assessment & Plan Note - Glenroy Jennings MD - 06/06/2025 12:46 PM EDTAssociated Problem(s): Request for sterilization documented in this encounter [facility] note* Diagnosis Supervision of high risk in second trimester ([facility] [place] Primary Unspecified high-risk Request for sterilization Insufficient care in second trimester ([facility] [place]) No-show for appointment- Primary [facility] Attachments The following attachments cannot be sent through Care Everywhere. * Tooth and Gum Pain ([place]) [facility]: Hospital Discharge instructions Additional Instructions Lab work normal. Your hCG quant is 40,394. Urine negative for infection. Avoid marijuana use. Use Reglan as needed. Continue oral fluids for hydration.[facility] Work Phone: Hospital Discharge instructions Additional Instructions Zofran as needed for nausea. Follow-up with [facility] as soon as possible to start your care. Follow-up with 180 or who is ever going to prescribe your Subutex. I did give you a weeks worth. Plenty of fluids and rest. Slowly increase diet as tolerated.[facility] Work Phone: Reason for referral (narrative)* Diagnostic Procedure Only (Routine) - Pending Review Specialty Diagnoses / Procedures Referred By Kostas rodriguez Referred To Contact [facility] Diagnoses Encounter for screening for cervical length Procedures OBSTETRIC ULTRASOUND WHI US PREG UTERUS AFTER 1ST [place] [id number] [address] [facility] [address] [place] [address] Referral ID Status Reason Start Date Expiration Date Visits Requested Visits Authorized [id number] Pending Review Auto-Generat ed Referral 06/05/2022 06/05/2023 1 1 [facility] for referral (narrative)* Diagnostic Procedure Only (Routine) - Authorized Specialty Diagnoses / Procedures Referred By Contac t Referred To Contact [facility] Diagnoses Suspected anomaly not found History of delivery Procedures OBSTETRIC ULTRASOUND WHI US PREG UTERUS AFTER 1ST [place] [address] [address] [id number] [place] [address] Referral ID Status Reason Start Date Expiration Date Visits Requested Visits Authorized [id number] Authorized Auto-Generat ed Referral 06/12/2022 06/12/2023 1 1 [facility] for referral (narrative)* Diagnostic Procedure Only (Routine) - Authorized Specialty Diagnoses / Procedures Referred By Contac t Referred To Contact [facility] Diagnoses 33 weeks gestation of Procedures OBSTETRIC ULTRASOUND WHI US PREG UTERUS AFTER 1ST TRIMEST GESTATION Mine Anton APRN.CNM [address] [place] [address] [address] Referral ID Status Reason Start Date Expiration Date Visits Requested Visits Authorized [id number] Authorized Auto-Generat ed Referral 08/27/2022 08/27/2023 1 1 [facility] for referral (narrative)* Consultation (Routine) - Authorized Specialty Diagnoses / Procedures Referred By Contnoam t Referred To Contact Orthopedic Surgery Diagnoses Chronic pain of left knee Bang Mcclelland MD [address] [facility] [address] [place] [address] [address] [place] [address] Referral ID Status Reason Start Date Expiration Date Visits Requested Visits Authorized [id number] Authorized Specialty Services Required 03/29/2024 03/29/2025 1 1 Scheduling Instructions Local [facility] provider if possible * Medications - Closed Specialty Diagnoses / Procedures Referred By Contac t Referred To Contact Diagnoses Attention deficit hyperactivity disorder (ADHD), combined type Bang Mcclelland MD [address] [facility] [address] [place] [address] Referral ID Status Reason Start Date Expiration Date Visits Re quested Visits Authorized [id number] Closed 1 1 [facility] for referral (narrative)No reason for referral information availableWAultman [facility] Work Phone: Summary Purpose Family History No Family History Records FoundNo Family History Records FoundNo Family History Records FoundNo Family History Records FoundNo Family History Records FoundNo Family History Records FoundNo Family History Records FoundNo Family History Records FoundNo Family History Records FoundNo Family History Records FoundNo Family History Records FoundNo Family History Records FoundNo Family History Records Found Advance Directives No Advanced Directives Records FoundDocuments on File Type Date Recorded 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 Advance Directives and Living Will Power of Linotype Machinist Apprentice Documents on File Type Date Recorded 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 anation Advance Directives and Living Will Power of Linotype Machinist Apprentice Documents on File Type Date Recorded 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 anation Advance Directive(s) 02/26/2021 9:16 AM Advance Directive(s) 03/28/2017 5:18 PM Documents on File Type Date Recorded 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 Advance Directive(s) 02/26/2021 9:16 AM Advance Directive(s) 03/28/2017 5:18 PM Documents on File Type Date Recorded 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 anation ACP-Advance Directive ACP-Power of Linotype Machinist Apprentice Advance Directive Response Recorded Date/ Time Living Will No February 22, 2021 11:27pm Power of Linotype Machinist Apprentice No February 22 11:27pm Advance Directive Response Recorded Date/ Time Living Will No September 05 5:42pm Power of Linotype Machinist Apprentice No September 05, 2022 5:42pm Advance Directive Response Recorded Date/ Time Living Will No March 01, 2025 2:00pm Do you have a Healthcare Power of Linotype Machinist Apprentice? No March 01, 2025 2:00pm Advance Directive Response Recorded Date/ Time Living Will No March 08, 2025 12:31pm Do you have a Healthcare Power of Linotype Machinist Apprentice? No March 08, 2025 12:31pm Living Will No March 01, 2025 2:00pm Do you have a Healthcare Power of Linotype Machinist Apprentice? No March 01, 2025 2:00pm Reason for Referral Status Reason Specialty Diagnoses / Procedures Referred By Contact Referred To Contact Open Specialty Services Required Obstetrics & Gynecology / Obstetrics and Gynecology Diagnoses Vaginal discharge Possible exposure to STD Vaginal discharge during in second trimester Zaynab Ball, INGE [address] [place] [address] [facility] [address] [place] [address] Scheduling Instructions [facility] [address] [place] [address] Specialty Diagnoses / Procedures Referred By Kostas rodriguez Referred To Contact Diagnoses Supervision of high risk in first trimester History of drug use complicated by subutex maintenance, antepartum (HCC) premature rupture of membranes with onset of labor more than 24 hours following rupture in third trimester Tobacco smoking complicating in first trimester Short interval between pregnancies affecting , antepartum Marijuana use Grand multiparity Procedures CONSULT TO MATERNAL MEDI OFFICE/OUTPATIENT NEW HIGH MDM 60-74 MINUTES Mine Anton APRN.CNM [address] [place] [address] Referral ID Status Reason Start Date Expiration Date Visits Requested Visits Authorized [id number] Authorized PCP Requested Referral Auto-Generate d Referral 02/12/2022 02/12/2023 1 1 Specialty Diagnoses / Procedures Referred By Contac t Referred To Contact [facility] Diagnoses Encounter for supervision of other normal in first trimester Missed menses Procedures OBSTETRIC ULTRASOUND WHI US PREG UTERUS AFTER 1ST TRIMEST GESTATION Mine Anton APRN.CNM [address] [place] [address] [address] Referral ID Status Reason Start Date Expiration Date Visits Requested Visits Authorized [id number] Pending Review Auto-Generat ed Referral 02/11/2022 02/11/2023 1 1 Specialty Diagnoses / Procedures Referred By Contac t Referred To Contact [facility] Diagnoses Encounter for supervision of other normal in first trimester Procedures NUCHAL TRANSLUCENCY WHI US NUCHAL TRANSLUCENCY GESTATION Mine Anton APRN.CNM [address] [place] [address] [address] Referral ID Status Reason Start Date Expiration Date Visits Requested Visits Authorized [id number] Pending Review Auto-Generat ed Referral 02/11/2022 02/11/2023 1 1 Specialty Diagnoses / Procedures Referred By Contac t Referred To Contact [facility] Diagnoses Encounter for supervision of other normal in first trimester Procedures OBSTETRIC ULTRASOUND WHI US PREG UTERUS AFTER 1ST TRIMEST GESTATION Mine Anton APRN.CNMagaly [address] [place] [address] [address] [place] [address] Referral ID Status Reason Start Date Expiration Date Visits Requested Visits Authorized [id number] Pending Review Auto-Generat ed Referral 02/11/2022 02/11/2023 1 1 Specialty Diagnoses / Procedures Referred By Contac t Referred To Contact Obstetrics & Gynecology / Obstetrics and Gynecology Diagnoses Hyperemesis gravidarum Robinson Horne, BELEN - AIRBRUSH ARTIST PHOTOGRAPHY [address] [place] [address] [facility] [address] [place] [address] Referral ID Status Reason Start Date Expiration Date V isits Requested Visits Authorized Open Specialty Services Required 03/26/2022 03/26/2023 1 1 Specialty Diagnoses / Procedures Referred By Contac t Referred To Contact Physical Therapy Diagnoses Chronic bilateral low back pain without sciatica Procedures PA OFFICE/OUTPATIENT NEW HIGH MDM 60-74 MINUTES Bang Mcclelland MD [address] [facility] [address] [place] [address] [address] [place] [address] [place] [address] Referral ID Status Reason Start Date Expiration Date Visits Requested Visits Authorized [id number] Pending Review Eval and Treat 04/02/2024 99 99 Specialty Diagnoses / Procedures Referred By Contac t Referred To Contact Neurology Diagnoses Bilateral carpal tunnel syndrome Procedures Nerve conduction test with EMG Bang Mcclelland MD [address] [facility] [address] [place] [address] Referral ID Status Reason Start Date Expiration Date V isits Requested Visits Authorized [id number] Authorized 10/05/2023 04/02/2024 1 1 Specialty Diagnoses / Procedures Referred By Contac t Referred To Contact Diagnoses Attention deficit hyperactivity disorder (ADHD), combined type Bang Mcclelland MD [address] [facility] [address] [place] [address] Referral ID Status Reason Start Date Expiration Date V isits Requested Visits Authorized [id number] Pending Review 1 1 Specialty Diagnoses / Procedures Referred By Contac t Referred To Contact Diagnoses Severe opioid use disorder, in sustained remission, on maintenance therapy (HCC) Rishabh Rea MD [address] [place] [address] Referral ID Status Reason Start Date Expiration Date V isits Requested Visits Authorized [id number] Pending Review 1 1 Referral ID Status Reason Start Date Expiration Date Visits Re quested Visits Authorized [id number] Closed 1 1 Referral ID Status Reason Start Date Expiration Date V isits Requested Visits Authorized [id number] Pending Review 1 1 Referral ID Status Reason Start Date Expiration Date Visits Re quested Visits Authorized [id number] Closed 1 1 Referral ID Status Reason Start Date Expiration Date V isits Requested Visits Authorized [id number] Pending Review 1 1 Referral ID Status Reason Start Date Expiration Date Visits Re quested Visits Authorized [id number] Closed 1 1 Referral ID Status Reason Start Date Expiration Date V isits Requested Visits Authorized [id number] Pending Review 1 1 Specialty Diagnoses / Procedures Referred By Contac t Referred To Contact Diagnoses Severe opioid use disorder, in sustained remission (HCC) Rishabh Rea MD [address] [facility] [address] [place] [address] Referral ID Status Reason Start Date Expiration Date V isits Requested Visits Authorized [id number] Pending Review 1 1 Referral ID Status Reason Start Date Expiration Date V isits Requested Visits Authorized [id number] Pending Review 1 1 Referral ID Status Reason Start Date Expiration Date V isits Requested Visits Authorized [id number] Pending Review 1 1 Referral ID Status Reason Start Date Expiration Date Visits Re quested Visits Authorized [id number] Closed 05/10/2024 11/06/2024 1 1 Referral ID Status Reason Start Date Expiration Date V isits Requested Visits Authorized [id number] Pending Review 1 1 Referral ID Status Reason Start Date Expiration Date Visits Re quested Visits Authorized [id number] Closed 07/11/2024 01/07/2025 1 1 Specialty Diagnoses / Procedures Referred By Contac t Referred To Contact Diagnoses Hyperpigmentation of skin Bang Mcclelland MD [address] [place] [address] Referral ID Status Reason Start Date Expiration Date V isits Requested Visits Authorized [id number] Pending Review 07/22/2024 01/18/2025 1 1 Referral ID Status Reason Start Date Expiration Date Visits Re quested Visits Authorized [id number] Closed 1 1 Referral ID Status Reason Start Date Expiration Date Visits Re quested Visits Authorized [id number] Closed 1 1 Referral ID Status Reason Start Date Expiration Date V isits Requested Visits Authorized [id number] Pending Review 09/05/2024 03/04/2025 1 1 Referral ID Status Reason Start Date Expiration Date Visits Re quested Visits Authorized [id number] Closed 09/07/2024 03/06/2025 1 1 Discharge Instructions * Attachments The following attachments cannot be sent through Care Everywhere. * STI ([place]) documented in this encounter* Attachments The following attachments cannot be sent through Care Everywhere. * STI ([place]) documented in this encounter Assessments Diagnosis Vaginal discharge Leukorrhea, not specified as infective Possible exposure to STD Other specified personal history presenting hazards to health Vaginal discharge during in second trimester Diagnosis Concern about STD in female without diagnosis- Primary Person with feared complaint in whom no diagnosis was made Health Concerns Problem Noted Date OB Reminders 02/11/2022 Problem Noted Date OB Reminders 02/11/2022 Problem Noted Date OB Reminders 02/11/2022 Problem Noted Date OB Reminders 02/11/2022 Problem Noted Date OB Reminders 02/11/2022 Problem Noted Date OB Reminders 02/11/2022 Problem Noted Date OB Reminders 02/11/2022 Problem Noted Date OB Reminders 02/11/2022 Problem Noted Date OB Reminders 02/11/2022 Problem Noted Date OB Reminders 02/11/2022 Problem Noted Date OB Reminders 02/11/2022 Problem Noted Date OB Reminders 02/11/2022 Problem Noted Date OB Reminders 02/11/2022 Problem Noted Date OB Reminders 02/11/2022 Chief Complaint and Reason for Visit Chief Complaint R/O LABOR R/O LABOR R/O LABOR R/O LABOR R/O LABOR Reason for Visit 31 weeks gestation o f 32 weeks gestation of Bipolar disease during Cyclical vomiting syndrome History of heroin abuse History of prior with IUGR Intractable vomiting with nausea Marijuana abuse complicated by subutex maintenance, antepartum Sinus bradycardia Chief Complaint R/O LABOR R/O LABOR R/O LABOR R/O LABOR R/O LABOR C SECTION Reason for Visit 31 weeks gestation o f 32 weeks gestation of Bipolar disease during Cyclical vomiting syndrome History of heroin abuse History of prior with IUGR Intractable vomiting with nausea Marijuana abuse complicated by subutex maintenance, antepartum Sinus bradycardia 35 weeks gestation of Bipolar disease during intolerance to labor, delivered, current hospitalization History of drug use History of hepatitis C Marijuana use Non-reassuring heart tones complicating , antepartum complicated by subutex maintenance, antepartum labor PROM (premature rupture of membranes) S/P section Tobacco use Chief Complaint Admit Date ABD PAIN March 01, 2025 1:51 pm Chief Complaint Admit Date ABD PAIN March 01, 2025 1:51 pm wthdrawal from subutex March 08, 2025 12:02pm Additional Source Comments INFORMATION SOURCE (unrecogn ized section and content) DATE CREATED AUTHOR 05/11/2018 [facility] DATE CREATED AUTHOR AUTHOR'S ORGANIZ ATION 05/11/2018 [facility] DATE CREATED AUTHOR AUTHOR'S ORGANIZ ATION 05/18/2018 [facility] DATE CREATED AUTHOR AUTHOR'S ORGANIZ ATION 04/14/2019 [facility] DATE CREATED AUTHOR AUTHOR'S ORGANIZ ATION 08/20/2020 [facility] DATE CREATED AUTHOR AUTHOR'S ORGANIZ ATION 02/07/2021 [facility] DATE CREATED AUTHOR AUTHOR'S ORGANIZ ATION 03/27/2022 [facility] DATE CREATED AUTHOR AUTHOR'S ORGANIZ ATION 12/06/2022 [facility] DATE CREATED AUTHOR AUTHOR'S ORGANIZ ATION 02/06/2025 [facility] DATE CREATED AUTHOR AUTHOR'S ORGANIZ ATION 03/04/2025 [facility] DATE CREATED AUTHOR AUTHOR'S ORGANIZ ATION 03/16/2025 [facility] DATE CREATED AUTHOR AUTHOR'S ORGANIZ ATION 05/02/2025 [facility] DATE CREATED AUTHOR AUTHOR'S ORGANIZ ATION 06/21/2025 [facility] Reason for Visit (unrecogniz ed section and content) Reason Comments Exposure to STD Reason Comments Exposure to STD Reason Comments Care Reason Comments Picker/Puller - Other praf Reason Comments Dental Pain Reason Comments Care Reason Comments Opened In Error Reason Comments Patient Update Reason Onset Date Comments Refill Request 03/04/2022 Reason Comments Emesis During Reason Comments Missed Appointment Reason Onset Date Comments Refill Request 04/25/2022 Reason Onset Date Comments Refill Request 05/21/2022 Nausea 05/21/2022 Reason Onset Date Comments Care 05/22/2022 Reason Comments US Specialty Diagnoses / Procedures Referred By Kostas t Referred To Contact [facility] Diagnoses Encounter for supervision of other normal in first trimester Procedures OBSTETRIC ULTRASOUND WHI US PREG UTERUS AFTER 1ST TRIMEST GESTATION Mine Anton APRN.[facility] [address] [place] [address] [facility] [address] [place] [address] Referral ID Status Reason Start Date Expiration Date V isits Requested Visits Authorized [id number] Closed Auto-Generate d Referral 02/11/2022 02/11/2023 1 1 Reason Onset Date Comments Refill Request 06/09/2022 Reason Onset Date Comments Care 07/15/2022 Reason Comments Nausea & Vomiting Reason Onset Date Comments Care 08/13/2022 Reason Onset Date Comments Care 08/27/2022 Reason Onset Date Comments Refill Request 09/02/2022 Reason Comments Ob Delivery Note Reason Comments Refill Request Reason Comments Appointment Reason Comments Follow-up New Patient follow u p Reason Onset Date Comments New Patient 03/31/2023 Reason Comments Addiction Problem Reason Onset Date Comments Medication Problem 04/24/2023 Reason Comments Buprenorphine Follow Up Reason Comments ADD Follow up Reason Comments Follow-up For meds, pt states they would like on MRI or xray fro back and pt states eye pain Reason Comments Buprenorphine Follow Up Reason Onset Date Comments Med Refill 11/18/2023 Reason Onset Date Comments Cough 11/20/2023 Nasal Congestion 11/20/2023 Headache 11/20/2023 Reason Comments Follow-up Med check, want to s ee if Adderal er would be better for patient, vyvanse not working as well Reason Onset Date Comments Med Refill 01/01/2024 Reason Onset Date Comments Appointment 11/12/2023 Reason Comments Buprenorphine follow up Reason Onset Date Comments Med Refill 02/01/2024 Reason Comments Med Refill Reason Comments Follow-up Medication refills Reason Onset Date Comments Med Refill 04/28/2024 Reason Onset Date Comments Med Refill 05/27/2024 Reason Onset Date Comments Med Refill 06/24/2024 Reason Onset Date Comments Medication Problem 06/28/2024 Reason Comments Addiction Problem Reason Onset Date Comments Diarrhea 07/12/2024 Reason Onset Date Comments Cancelled Appointment 10/28/2023 Reason Comments Follow-up 3 month follow up Reason Onset Date Comments Medication Problem 08/30/2024 Reason Onset Date Comments Med Refill 08/30/2024 Reason Onset Date Comments Med Refill 10/03/2024 Reason Onset Date Comments Dental Pain 11/11/2024 Reason Onset Date Comments Appointment 12/02/2024 Reason Onset Date Comments Med Refill 11/11/2024 Medication Problem 11/11/2024 Reason Comments Discussion Reason Comments Electronic Communication Prior auth for ensure Reason Comments Establish Care ER F/U Weight Loss Wants ensure prescri bed. Patient is . ADD/ADHD Depression Anxiety Has 6 children and i s Reason Comments Follow Up Phone Call Reason Comments Missed Appointment Second no show secon d letter sent Specialty Diagnoses / Procedures Referred By Kostas rodriguez Referred To Contact [facility] Diagnoses with inconclusive viability, single or unspecified fetus (HCC) Nausea and vomiting in (HCC) Procedures OBSTETRIC ULTRASOUND WHI US PREG UTERUS AFTER 1ST TRIMEST GESTATION Izzy Horner MD [address] [place] [address] Phone: tel: fax: [facility] [address] [place] [address] Referral ID Status Reason Start Date Expiration Date V isits Requested Visits Authorized [id number] Closed Auto-Generate d Referral 03/21/2025 03/21/2026 1 1 Reason Onset Date Comments Care 06/06/2025 Reason Comments No Show Specialty Diagnoses / Procedures Referred By Kostas rodriguez Referred To Contact Psychiatry / ADULT PSYCHIATRY Diagnoses New Pt WH Procedures VIDEO PSYC/PSYL Rosa Bella, FLIGHT SECURITY SPECIALIST.AIRBRUSH ARTIST PHOTOGRAPHY [address] [place] [address] Phone: tel: fax: Rosa Porter, FLIGHT SECURITY SPECIALIST.AIRBRUSH ARTIST PHOTOGRAPHY [address] [place] [address] Phone: tel: fax: Referral ID Status Reason Start Date Expiration Date V isits Requested Visits Authorized [id number] New Request 06/15/2025 09/13/2025 1 1 Source Comments (unrecognize d section and content) In the event this informatio n is protected by the Federal Confidentiality of Alcohol and Drug Abuse Patient Records regulations: The Federal rules restrict any use of the information to criminally investigate or prosecute any alcohol or drug abuse patient.[facility] the event this information is protected by the Federal Confidentiality of Alcohol and Drug Abuse Patient Records regulations: The Federal rules restrict any use of the information to criminally investigate or prosecute any alcohol or drug abuse patient.[facility] the event this information is protected by the Federal Confidentiality of Alcohol and Drug Abuse Patient Records regulations: The Federal rules restrict any use of the information to criminally investigate or prosecute any alcohol or drug abuse patient.[facility] the event this information is protected by the Federal Confidentiality of Alcohol and Drug Abuse Patient Records regulations: The Federal rules restrict any use of the information to criminally investigate or prosecute any alcohol or drug abuse patient.[facility] HospitalIn the event this information is protected by the Federal Confidentiality of Alcohol and Drug Abuse Patient Records regulations: The Federal rules restrict any use of the information to criminally investigate or prosecute any alcohol or drug abuse patient.[facility] HospitalIn the event this information is protected by the Federal Confidentiality of Alcohol and Drug Abuse Patient Records regulations: The Federal rules restrict any use of the information to criminally investigate or prosecute any alcohol or drug abuse patient.[facility] HospitalIn the event this information is protected by the Federal Confidentiality of Alcohol and Drug Abuse Patient Records regulations: The Federal rules restrict any use of the information to criminally investigate or prosecute any alcohol or drug abuse patient.[facility] HospitalIn the event this information is protected by the Federal Confidentiality of Alcohol and Drug Abuse Patient Records regulations: The Federal rules restrict any use of the information to criminally investigate or prosecute any alcohol or drug abuse patient.[facility] HospitalIn the event this information is protected by the Federal Confidentiality of Alcohol and Drug Abuse Patient Records regulations: The Federal rules restrict any use of the information to criminally investigate or prosecute any alcohol or drug abuse patient.[facility] HospitalIn the event this information is protected by the Federal Confidentiality of Alcohol and Drug Abuse Patient Records regulations: The Federal rules restrict any use of the information to criminally investigate or prosecute any alcohol or drug abuse patient.[facility] HospitalIn the event this information is protected by the Federal Confidentiality of Alcohol and Drug Abuse Patient Records regulations: The Federal rules restrict any use of the information to criminally investigate or prosecute any alcohol or drug abuse patient.[facility] HospitalIn the event this information is protected by the Federal Confidentiality of Alcohol and Drug Abuse Patient Records regulations: The Federal rules restrict any use of the information to criminally investigate or prosecute any alcohol or drug abuse patient.[facility] HospitalIn the event this information is protected by the Federal Confidentiality of Alcohol and Drug Abuse Patient Records regulations: The Federal rules restrict any use of the information to criminally investigate or prosecute any alcohol or drug abuse patient.[facility] HospitalIn the event this information is protected by the Federal Confidentiality of Alcohol and Drug Abuse Patient Records regulations: The Federal rules restrict any use of the information to criminally investigate or prosecute any alcohol or drug abuse patient.[facility] HospitalIn the event this information is protected by the Federal Confidentiality of Alcohol and Drug Abuse Patient Records regulations: The Federal rules restrict any use of the information to criminally investigate or prosecute any alcohol or drug abuse patient.[facility] HospitalIn the event this information is protected by the Federal Confidentiality of Alcohol and Drug Abuse Patient Records regulations: The Federal rules restrict any use of the information to criminally investigate or prosecute any alcohol or drug abuse patient.[facility] HospitalIn the event this information is protected by the Federal Confidentiality of Alcohol and Drug Abuse Patient Records regulations: The Federal rules restrict any use of the information to criminally investigate or prosecute any alcohol or drug abuse patient.[facility] HospitalIn the event this information is protected by the Federal Confidentiality of Alcohol and Drug Abuse Patient Records regulations: The Federal rules restrict any use of the information to criminally investigate or prosecute any alcohol or drug abuse patient.[facility] HospitalIn the event this information is protected by the Federal Confidentiality of Alcohol and Drug Abuse Patient Records regulations: The Federal rules restrict any use of the information to criminally investigate or prosecute any alcohol or drug abuse patient.[facility] HospitalIn the event this information is protected by the Federal Confidentiality of Alcohol and Drug Abuse Patient Records regulations: The Federal rules restrict any use of the information to criminally investigate or prosecute any alcohol or drug abuse patient.[facility] HospitalIn the event this information is protected by the Federal Confidentiality of Alcohol and Drug Abuse Patient Records regulations: The Federal rules restrict any use of the information to criminally investigate or prosecute any alcohol or drug abuse patient.[facility] HospitalIn the event this information is protected by the Federal Confidentiality of Alcohol and Drug Abuse Patient Records regulations: The Federal rules restrict any use of the information to criminally investigate or prosecute any alcohol or drug abuse patient.[facility] HospitalIn the event this information is protected by the Federal Confidentiality of Alcohol and Drug Abuse Patient Records regulations: The Federal rules restrict any use of the information to criminally investigate or prosecute any alcohol or drug abuse patient.[facility] HospitalIn the event this information is protected by the Federal Confidentiality of Alcohol and Drug Abuse Patient Records regulations: The Federal rules restrict any use of the information to criminally investigate or prosecute any alcohol or drug abuse patient.[facility] HospitalIn the event this information is protected by the Federal Confidentiality of Alcohol and Drug Abuse Patient Records regulations: The Federal rules restrict any use of the information to criminally investigate or prosecute any alcohol or drug abuse patient.[facility] HospitalIn the event this information is protected by the Federal Confidentiality of Alcohol and Drug Abuse Patient Records regulations: The Federal rules restrict any use of the information to criminally investigate or prosecute any alcohol or drug abuse patient.[facility] HospitalIn the event this information is protected by the Federal Confidentiality of Alcohol and Drug Abuse Patient Records regulations: The Federal rules restrict any use of the information to criminally investigate or prosecute any alcohol or drug abuse patient.[facility] HospitalIn the event this information is protected by the Federal Confidentiality of Alcohol and Drug Abuse Patient Records regulations: The Federal rules restrict any use of the information to criminally investigate or prosecute any alcohol or drug abuse patient.[facility] HospitalIn the event this information is protected by the Federal Confidentiality of Alcohol and Drug Abuse Patient Records regulations: The Federal rules restrict any use of the information to criminally investigate or prosecute any alcohol or drug abuse patient.[facility] HospitalIn the event this information is protected by the Federal Confidentiality of Alcohol and Drug Abuse Patient Records regulations: The Federal rules restrict any use of the information to criminally investigate or prosecute any alcohol or drug abuse patient.[facility] HospitalIn the event this information is protected by the Federal Confidentiality of Alcohol and Drug Abuse Patient Records regulations: The Federal rules restrict any use of the information to criminally investigate or prosecute any alcohol or drug abuse patient.[facility] HospitalIn the event this information is protected by the Federal Confidentiality of Alcohol and Drug Abuse Patient Records regulations: The Federal rules restrict any use of the information to criminally investigate or prosecute any alcohol or drug abuse patient.[facility] HospitalIn the event this information is protected by the Federal Confidentiality of Alcohol and Drug Abuse Patient Records regulations: The Federal rules restrict any use of the information to criminally investigate or prosecute any alcohol or drug abuse patient.[facility] HospitalIn the event this information is protected by the Federal Confidentiality of Alcohol and Drug Abuse Patient Records regulations: The Federal rules restrict any use of the information to criminally investigate or prosecute any alcohol or drug abuse patient.[facility] HospitalIn the event this information is protected by the Federal Confidentiality of Alcohol and Drug Abuse Patient Records regulations: The Federal rules restrict any use of the information to criminally investigate or prosecute any alcohol or drug abuse patient.[facility] HospitalIn the event this information is protected by the Federal Confidentiality of Alcohol and Drug Abuse Patient Records regulations: The Federal rules restrict any use of the information to criminally investigate or prosecute any alcohol or drug abuse patient.[facility] HospitalIn the event this information is protected by the Federal Confidentiality of Alcohol and Drug Abuse Patient Records regulations: The Federal rules restrict any use of the information to criminally investigate or prosecute any alcohol or drug abuse patient.[facility] HospitalIn the event this information is protected by the Federal Confidentiality of Alcohol and Drug Abuse Patient Records regulations: The Federal rules restrict any use of the information to criminally investigate or prosecute any alcohol or drug abuse patient.[facility] HospitalIn the event this information is protected by the Federal Confidentiality of Alcohol and Drug Abuse Patient Records regulations: The Federal rules restrict any use of the information to criminally investigate or prosecute any alcohol or drug abuse patient.[facility] Ordered Prescriptions (unrec ognized section and content) Prescription Sig Dispensed Refills Start Date End Da te Vit-Fe Fumarate-FA ( VITAMIN) 27-1 MG TABS tablet Take 1 tablet by mouth daily 30 tablet 0 03/26/2022 Scheduled Active and Recently Administ ered Medications (unrecognized section and content) Medication Order 03/24/2022 03/25/2022 03/26/2022 0.9 % sodium chloride bolus (COMPLETED) 1,000 mL (16 mL/kg), IntraVENous, at 983.6 mL/hr, Administer over 61 Minutes, ONCE, On Thu03/26/22 at 1119, For 1 dose 1220 (New Bag - Prov ider: Renetta Lutz)1321 (Stopped - Provider: Mirtha De RN) acetaminophen (TYLENOL) tablet 650 mg (COMPLETED) 650 mg, Oral, ONCE, 1 dose, On Thu03/26/22 at 1119, Maximum dose of acetaminophen is 4000 mg from all sources in 24 hours. 1220 (Given - Provid er: Renetta Lutz) dextrose 5 % and 0.9 % nacl bolus (COMPLETED) 1,000 mL, IntraVENous, at 983.6 mL/hr, Administer over 61 Minutes, ONCE, On Thu03/26/22 at 1256, For 1 dose 1408 (New Bag - Prov ider: Mirtha De RN)1509 (Stopped - Provider: Mirtha De RN) ondansetron (ZOFRAN) injection 4 mg (COMPLETED) 4 mg, IntraVENous, ONCE, 1 dose, On Thu03/26/22 at 1119 1222 (Given - Provid er: Renetta Lutz) sodium chloride flush 0.9 % injection 3 mL(Linked Group 1) 3 mL, IntraVENous, EVERY 8 HOURS, First dose on Thu03/26/22 at 1119, Until Discontinued, Flush line with 3-5 mL 1226 (Not Given - Pr ovider: Mirtha De RN - Reason: IV Fluid Infusing)1919 (Due) Linked Groups Order Group 1: Saline lock IV (COMPLETED) Routine, CONTINUOUS, Starting on Thu03/26/22 at 1130, Until Specified And sodium chloride flush 0.9 % injection 3 mLJump to med 3 mL, IntraVENous, EVERY 8 HOURS, First dose on Thu03/26/22 at 1119, Until Discontinued
Flush line with 3-5 mL
Care Teams (unrecognized sec tion and content) Staff Electronic Warfare Officer Relationship Specialty Start Date End Date Evangelist Hansen PCP - General 02/16/16 Staff Electronic Warfare Officer Relationship Specialty Start Date End Date Bang Mcclelland MD [address] [address] PCP - General Internal Medicine 04/03/23 Staff Electronic Warfare Officer Relationship Specialty Start Date End Date Evangelist Hansen [address] [place] [id number] PCP - General 02/16/16 04/02/23 Bang Mcclelland MD [address] [address] PCP - General Internal Medicine 04/03/23 Staff Electronic Warfare Officer Relationship Specialty Start Date End Date Bang Mcclelland MD [address] [address] PCP - General Internal Medicine 04/03/23 Staff Electronic Warfare Officer Relationship Specialty Start Date End Date Bang Mcclelland MD [address] [place] [address] [address] [facility] [place] [address] PCP - General Internal Medicine 04/03/23 Staff Electronic Warfare Officer Relationship Specialty Start Date End Date Bang Mcclelland MD [address] [facility] [address] [facility] [place] [address] PCP - General Internal Medicine 04/03/23 Staff Electronic Warfare Officer Relationship Specialty Start Date End Date Bang Mcclelland MD [address] [facility] [address] [place] [address] PCP - General Internal Medicine 04/03/23 Staff Electronic Warfare Officer Relationship Specialty Start Date End Date Bang Mcclelland MD [address] [facility] [address] [place] [address] PCP - General Internal Medicine 04/03/23 Staff Electronic Warfare Officer Relationship Specialty Start Date End Date Bang Mcclelland MD [address] [facility] [address] [place] [address] PCP - General Internal Medicine 04/03/23 Staff Electronic Warfare Officer Relationship Specialty Start Date End Date Bang Mcclelland MD [address] [facility] [address] [place] [address] PCP - General Internal Medicine 04/03/23 Staff Electronic Warfare Officer Relationship Specialty Start Date End Date Bang Mcclelland MD [address] [facility] [address] [place] [address] PCP - General Internal Medicine 04/03/23 Staff Electronic Warfare Officer Relationship Specialty Start Date End Date Bang Mcclelland MD [address] [facility] [address] [place] [address] PCP - General Internal Medicine 04/03/23 Staff Electronic Warfare Officer Relationship Specialty Start Date End Date Bang Mcclelland MD [address] [facility] [address] [place] [address] PCP - General Internal Medicine 04/03/23 Staff Electronic Warfare Officer Relationship Specialty Start Date End Date Bang Mcclelland MD 155 [facility] [address] [place] [address] PCP - General Internal Medicine 04/03/23 Staff Electronic Warfare Officer Relationship Specialty Start Date End Date Bang Mcclelland MD [address] [facility] [address] [place] [address] PCP - General Internal Medicine 04/03/23 Staff Electronic Warfare Officer Relationship Specialty Start Date End Date Bang Mcclelland MD [address] [facility] [address] [place] [address] PCP - General Internal Medicine 04/03/23 Staff Electronic Warfare Officer Relationship Specialty Start Date End Date Bang Mcclelland MD [address] [facility] [address] [place] [address] PCP - General Internal Medicine 04/03/23 Staff Electronic Warfare Officer Relationship Specialty Start Date End Date Bang Mcclelland MD [address] [facility] [address] [place] [address] PCP - General Internal Medicine 04/03/23 Staff Electronic Warfare Officer Relationship Specialty Start Date End Date Bang Mcclelland MD [address] [facility] [address] [place] [address] PCP - General Internal Medicine 04/03/23 Staff Electronic Warfare Officer Relationship Specialty Start Date End Date Bang Mcclelland MD [address] [facility] [address] [place] [address] PCP - General Internal Medicine 04/03/23 Staff Electronic Warfare Officer Relationship Specialty Start Date End Date Bang Mcclelland MD [address] [facility] [address] [place] [address] PCP - General Internal Medicine 04/03/23 Staff Electronic Warfare Officer Relationship Specialty Start Date End Date Bang Mcclelland MD [address] [facility] [address] [place] [address] PCP - General Internal Medicine 04/03/23 Staff Electronic Warfare Officer Relationship Specialty Start Date End Date Bang Mcclelland MD [address] [facility] [address] [place] [address] PCP - General Internal Medicine 04/03/23 Staff Electronic Warfare Officer Relationship Specialty Start Date End Date Bang Mcclelland MD [address] [facility] [address] [place] [address] PCP - General Internal Medicine 04/03/23 Staff Electronic Warfare Officer Relationship Specialty Start Date End Date Bang Mcclelland MD [address] [facility] [address] [place] [address] PCP - General Internal Medicine 04/03/23 Staff Electronic Warfare Officer Relationship Specialty Start Date End Date Bang Mcclelland MD [address] [facility] [address] [place] [address] PCP - General Internal Medicine 04/03/23 Staff Electronic Warfare Officer Relationship Specialty Start Date End Date Bang Mcclelland MD [address] [facility] [address] [place] [address] PCP - General Internal Medicine 04/03/23 Staff Electronic Warfare Officer Relationship Specialty Start Date End Date Bang Mcclelland MD [address] [facility] [address] [place] [address] PCP - General Internal Medicine 04/03/23 Staff Electronic Warfare Officer Relationship Specialty Start Date End Date Bang Mcclelland MD [address] [facility] [address] [place] [address] PCP - General Internal Medicine 04/03/23 Staff Electronic Warfare Officer Relationship Specialty Start Date End Date Bang Mcclelland MD [address] [facility] [address] [place] [address] PCP - General Internal Medicine 04/03/23 Staff Electronic Warfare Officer Relationship Specialty Start Date End Date Bang Mcclelland MD [address] [facility] [address] [place] [address] PCP - General Internal Medicine 04/03/23 Staff Electronic Warfare Officer Relationship Specialty Start Date End Date Bang Mcclelland MD [address] [facility] [address] [place] [address] PCP - General Internal Medicine 04/03/23 Team Status: Active Member Role Status Dates No Primary Care Physician Primary Care Provider Active Team Status: Inactive Member Role Status Dates No Primary Care Physician Primary Care Provider Active Start: March 01, 2025 End: March 01, 2025 Dr. Josh Balderas DO Emergency Provider Active Start : March 01, 2025 End: March 01, 2025 Team Status: Active Member Role Status Dates Dr. Donavan Mcclelland MD Primary Care Provider Active Team Status: Inactive Member Role Status Dates No Primary Care Physician Primary Care Provider Active Start: March 01, 2025 End: March 01, 2025 Dr. Josh Balderas DO Attending Provider Active Start : March 01, 2025 End: March 01, 2025 Dr. Josh Balderas DO Emergency Provider Active Start : March 01, 2025 End: March 01, 2025 Team Status: Inactive Member Role Status Dates Dr. Donavan Mcclelland MD Primary Care Provider Active Start: March 08, 2025 End: March 08, 2025 Dr. Stefano Rueda MD Referring Provider Active S tart: March 08, 2025 End: March 08, 2025 Dr. Stefano Rueda MD Emergency Provider Active S tart: March 08, 2025 End: March 08, 2025 Staff Electronic Warfare Officer Relationship Specialty Start Date End Date Dalia Mendoza FLIGHT SECURITY SPECIALIST.[employer] [address] [place] [address] PCP - General Family Medicine 03/31/25 Staff Electronic Warfare Officer Relationship Specialty Start Date End Date Dalia Mendoza, FLIGHT SECURITY SPECIALIST.[employer] [address] [place] [address] PCP - General Family Medicine 03/31/25 Staff Electronic Warfare Officer Relationship Specialty Start Date End Date Dalia Mendoza FLIGHT SECURITY SPECIALIST.[employer] [address] [place] [address] PCP - General Family Medicine 03/31/25 Staff Electronic Warfare Officer Relationship Specialty Start Date End Date Dalia Mendoza FLIGHT SECURITY SPECIALIST.[employer] [address] [place] [address] PCP - General Family Medicine 03/31/25 Staff Electronic Warfare Officer Relationship Specialty Start Date End Date Dalia Mendoza FLIGHT SECURITY SPECIALIST.[employer] [address] [place] [address] PCP - General Family Medicine 03/31/25 Staff Electronic Warfare Officer Relationship Specialty Start Date End Date Dalia Mendoza FLIGHT SECURITY SPECIALIST.[employer] [address] [place] [address] PCP - General Family Medicine 03/31/25 Staff Electronic Warfare Officer Relationship Specialty Start Date End Date Dalia Mendoza APRN.[employer] [address] [place] [address] PCP - General Family Medicine 03/31/25 Staff Electronic Warfare Officer Relationship Specialty Start Date End Date Dlaia Mendoza APRN.[employer] [address] [place] [address] PCP - General Family Medicine 03/31/25 Staff Electronic Warfare Officer Relationship Specialty Start Date End Date Dalia Mendoza APRN.[employer] [address] [place] [place], [place] [id number] PCP - General Family Medicine 03/31/25 Staff Electronic Warfare Officer Relationship Specialty Start Date End Date Dalia Mendoza APRN.[employer] [address] [place] [address] PCP - General Family Medicine 03/31/25 Goals (unrecognized section and content) Goals may be documented in a n alternate sectionGoals may be documented in an alternate sectionGoals may be documented in an alternate section FOR RECORDS PERTAINING TO PATIENTS WHO ARE OR HAVE BEEN ENROLLED IN A CHEMICAL DEPENDENCY/SUBSTANCEABUSE PROGRAM, SOME INFORMATION MAY BE OMITTED. This clinical summary was aggregated from multiple sources. Caution should be exercised in using it in the provision of clinical care. This summary normalizes information from multiple sources, and as a consequence, information in this document may materially change the coding, format and clinical context of patient data. In addition, data may be omitted in some cases. CLINICAL DECISIONS SHOULD BE BASED ON THE PRIMARY CLINICAL RECORDS. [facility]. provides no warranty or guarantee of the accuracy or completeness of information in this document.
--- NOTE | 2025-07-24 20:12 | EDS_ITS ---
HPI History of Present Illness Chief Complaint: Med Refill Detail of Chief Complaint: Needs refill of her Subutex Informant: patient Onset/Context/Timing Onset: - (Last dose last week) Context: Sudden Onset Timing: Intermittent (Has been rationing her pills and dividing them.) Quality: Patient states she is on 20 mg Subutex. Reviewed her records. Confirmed t Location: Patient has been opiate free for 10 years. Current Severity: 0/10 Maximum Severity: Not applicable Worsened by: Patient apparently missed appointment Relieved by: Not applicable Associated Symptoms Associated Symptoms: None Narrative Narrative: Patient is a 39-year-old woman who has been off opiates other than Subutex for 10 years. She apparently missed her appointment. She has an appointment to see her physician tomorrow. Since she has not had her regular dose for approximately 7 days is not going through withdrawal we will give her a dose here which will cover her till to her appointment tomorrow. She is in agreement. Consulted with pharmacy regarding writing prescription for Subutex. Recent Illness/Hospitalization: No [facility] Medical History (Updated 07/24/25 @ 20:[address] Lionel Bourne MD) labor PROM (premature rupture of membranes) Bipolar disease during complicated by subutex maintenance, antepartum Bipolar 1 disorder, depressed Drug abuse in remission Home Medications ?Medication ?Instructions ?Recorded ?Last Taken ?Type buprenorphine HCl 8 mg sublingual 8 mg PO BID hx of he roin 02/16/19 09/05/22 08:00 History tablet food supplemt, lactose-reduced 237 ml PO TID eating di sorder 02/09/21 09/03/22 08:00 History ondansetron 8 mg disintegrating 8 mg PO TID PRN nausea and 08/12/22 Unknown Rx tablet vomiting #60 tabs acetaminophen 325 mg tablet 650 mg (2 x 325 mg) PO Q6H PRN 09/06/22 Unknown Rx (Tylenol) pain #30 tabs ibuprofen 600 mg tablet 600 mg PO Q6H PRN pain #30 t abs 09/06/22 Unknown Rx metoclopramide HCl 5 mg tablet 5 mg PO Q6H PRN nausea and 03/01/25 Unknown Rx (Reglan) vomiting #20 tabs buprenorphine HCl 8 mg sublingual 8 mg sublingual BID 7 days #14 tabs 03/08/25 Unknown Rx tablet ondansetron 4 mg disintegrating 4 mg PO Q8H PRN PRN Na usea #10 tabs 03/08/25 Unknown Rx tablet Allergy/AdvReac Type Severity Reaction Status Date / Time amoxicillin Allergy Hives Verified 07/24/25 19:41 beeswax Allergy Hives Verified 07/24/25 19:41 hydrocodone bitartrate (From Allergy Itching Verified 07/24/25 19:41 Vicodin) acetaminophen (From Ultracet) AdvReac Other Verified 07/24/25 19:41 amitriptyline AdvReac Other Verified 07/24/25 19:41 doxycycline AdvReac Vomiting Verified 07/24/25 19:41 fentanyl AdvReac Itching Verified 07/24/25 19:41 rofecoxib (From Vioxx) AdvReac Vomiting Verified 07/24/25 19:41 tramadol (From Ultracet) AdvReac Other Verified 07/24/25 19:41 Surgical History S/P section History of appendectomy Social History (Updated 07/24/25 @ 19:47 by Mary Cat) household members: spouse number of children: 3 current occupational status: unemployed Smoking Status: Current every day smoker tobacco type: e-cigarettes alcohol intake: never substance use type: former substance user and marijuana seatbelt use: always do you feel safe at home: Yes ROS ROS ED Constitutional Constitutional ED: Denies chills, fever(s), subjective, sweats or weight loss Eyes Eyes: Denies change in vision Cardiovascular Cardiovascular: Denies palpitations or racing heartbeat Respiratory/Chest Respiratory/Chest: Denies dyspnea Gastrointestinal Gastrointestinal: Denies diarrhea, nausea or vomiting Neurologic Neurologic: Denies weakness EXAM Physical Exam Const Vital Signs: 07/24/25 19:39 07/24/25 19:47 Temperature 98.6 F Temperature Source Temporal Pulse Rate 80 Respiratory Rate 18 Respiratory Effort Normal Non-Labored Respiratory Pattern Normal Blood Pressure 102/57 L Blood Pressure Mean 72 Pulse Ox 100 Positive well nourished and well developed General Appearance ED: well developed and NAD HEENT Reports moist mucous membranes HEENT Narrative: Head is atraumatic normocephalic. Ears normal. Eyes PERRL and EOMs intact bilaterally Neck no lymphadenopathy, supple and no JVD Resp normal respiratory effort Cardio regular rate and regular rhythm Extremity normal to inspection Neuro oriented x3 and CN's II-XII intact bilaterally Sensorium / Orientation: alert Psych mental status grossly normal Skin no rashes or lesions noted, no wounds and skin turgor normal MDM MDM MDM Narrative Medical decision making narrative: After discussion with pharmacist patient received a dose of her medication here and she is to contact her physician/keep her appointment to get refill of the Subutex. Management Discussion w/another healthcare provider: Pharmacist Discharge Plan Triage Chief Complaint: Med Refill ED Provider: Lionel Bourne Dx/Rx/DC Orders Clinical Impression: Encounter for medication administration, History of drug use, History of hepatitis C Instructions: Medication Refill Prescriptions: No Action buprenorphine HCl 8 mg tablet, sublingual 8 mg PO BID Patient Comments: 8 mg am, 8 mg lagte afternoon early evening food supplemt, lactose-reduced 237 ML liquid 237 ml PO TID ondansetron 8 mg tablet,disintegrating 8 mg PO TID PRN (Reason: nausea and vomiting) Qty: 60 2RF ibuprofen 600 mg tablet 600 mg PO Q6H PRN (Reason: pain) Qty: 30 0RF acetaminophen [Tylenol] 325 mg tablet 650 mg PO Q6H PRN (Reason: pain) Qty: 30 0RF ondansetron 4 mg tablet,disintegrating 4 mg PO Q8H PRN PRN (Reason: Nausea) Qty: 10 0RF buprenorphine HCl 8 mg tablet, sublingual 8 mg sublingual BID 7 Days Qty: 14 0RF metoclopramide HCl [Reglan] 5 mg tablet 5 mg PO Q6H PRN (Reason: nausea and vomiting) Qty: 20 0RF Primary Care Provider: Donavan Talamantes Referrals: Donavan Talamantes MD [Primary Care Provider] - [facility] appointment Print Language: French Disposition Disposition: Home, Self Care
[2025-07-24 20:21] VITALS: BP 102/57; PULSE 80; RESP 18; TEMP 37; O2SAT 100
--- NOTE | 2025-07-25 13:07 | ED.RN ---
Pt called and asked about her Rx that was supposed to be sent to [facility]. I looked at Dr Lucas note and seen that pt was supposed to follow up with her Dr for a refill and was supposed to get a dose of medication before she left. She stated that she did not get a dose and that she was suing the hospital. She wanted records printed out and put at the desk. I explained that she would have to go to medical records to get those documents and that I was not able to accomodate that. She stated I am and I'm sick of doctors messing with my fucking subutex. I can't go 2 days without it. She wanted to file a complaint and was sent to [facility].
--- NOTE | 2025-07-25 15:53 | ED.RN ---
called pt regarding subutex, pt will be in.
== END 2025-07-24 20:21 | disposition home or self-care (01) ==
PROVIDERS: Emergency Provider Emergency Medicine; PCP Anesthesiology; Visit Provider Emergency Medicine
DX: Z76.0 Encounter for issue of repeat prescription (principal); F12.11 Cannabis abuse, in remission; F17.290 Nicotine dependence, other tobacco product, uncomplicated; Z86.19 Personal history of other infectious and parasitic diseases
CPT/HCPCS: 99282